=== PATIENT | male | born 1980 | race Two or more races ===

== ENCOUNTER 2021-09-06 09:42 | Outpatient (REF) | payer OTHER, SELFPAY ==
[2021-09-06 10:00] LABS: MANUAL DIFF FLAG NO
[2021-09-06 10:38] LABS: Basophils Percent Auto 0.4 % (0-2); Eosinophils Absolute Auto 0.3 X10*3/uL (0.0-0.4); Eosinophils Percent Auto 4.3 % (0-4); Hematocrit 45.9 % (42.0-52.0); Imm Gran Abs Auto 0.02 X10*3/uL (0.00-0.03); Imm Gran Pct Auto 0.3 % (0.0-0.4); Lymphocytes Absolute Auto 1.2 X10*3/uL (1.2-4.9); Lymphocytes Percent Auto 16.2 % (20-40); Mean Corpuscular HGB Conc 32.7 g/dl (31.0-36.0); Mean Corpuscular Hemoglobin 29.5 pg (27.0-33.0); Mean Corpuscular Volume 90.4 fL (80.0-98.0); Mean Platelet Volume 9.7 fL (9.4-12.4); Monocytes Absolute Auto 0.4 X10*3/uL (0.1-1.2); Monocytes Percent Auto 5.7 % (2-11); Neutrophils Absolute Auto 5.5 x10*3/uL (2.0-8.3); Neutrophils Percent Auto 73.1 % (45-73); Platelet Count 317 X10*3/uL (160-400); Red Blood Count 5.08 X10*6/uL (4.60-5.80); Red Cell Distribution Width 11.9 % (11.0-16.0); White Blood Count 7.5 X10*3/uL (4.8-10.8)
[2021-09-06 11:34] LABS: Appearance Urine CLEAR; Color Urine YELLOW; Glucose Urine UA NEG (NEG); Leukocyte Esterase Urine NEG (NEG); Nitrite Urine NEG (NEG); PH 6.5 (5.0-8.0); UACC Culture Trigger NO; Urine Blood TRACE (NEG); Urine Ketones NEG (NEG); Urine Protein 2+ MG/DL (NEG-TRACE)
[2021-09-06 11:36] LABS: Alanine Aminotransferase 16 U/L (0-40); Albumin Level 4.1 g/dL (3.5-5.0); Alkaline Phosphatase 56 U/L (39-117); Anion Gap 13 (12-20); Aspartate Amino Transferase 13 U/L (5-37); Bilirubin Total 0.6 mg/dL (0.0-1.0); Blood Urea Nitrogen 26 mg/dL (9-16); Calcium 9.5 mg/dL (8.4-10.2); Carbon Dioxide 25 mmol/L (22-29); Chloride 108 mmol/L (96-108); Cholesterol 207 mg/dL; Estimated Glomerular Filt Rate 27; Glucose Fasting 87 mg/dL (60-99); HDL Cholesterol 36 mg/dL; LDL Cholesterol Calculated 108 mg/dl; Potassium 4.7 mmol/L (3.3-5.1); Sodium 141 mmol/L (135-145); Total Protein 6.6 g/dL (6.5-8.0); Triglycerides 315 mg/dL
[2021-09-06 11:59] LABS: Mucus Urine 2+ /LPF; RBC Urine 0 /HPF (0); Squamous Epithelial Cell Urine 1+ /LPF; WBC Urine 0 /HPF (0-4)
== END 2021-09-06 09:43 | disposition home or self-care (01) ==
LOC: HO.LAB 09:42
PROVIDERS: PCP Internal Medicine; Visit Provider Internal Medicine
DX: I10 Essential (primary) hypertension (principal); E55.9 Vitamin D deficiency, unspecified; E78.00 Pure hypercholesterolemia, unspecified
CPT/HCPCS: 36415; 80053; 80061; 81001; 82306; 85025

== ENCOUNTER 2022-02-25 11:52 | Outpatient (REF) | payer OTHER, SELFPAY ==
--- NOTE | ~2022-02-25 | XR_ITS ---
EXAMINATION: XR ELBOW, LEFT CLINICAL INFORMATION: Pain COMPARISON: None TECHNIQUE: AP, lateral, and oblique views of the left elbow. FINDINGS: Displacement of the anterior fat pad which could be seen in the setting of radiographically occult fracture, most commonly of the radial head. There is a subtle step-off of the radial head, which could potentially correlate although where there is no marisol cortical disruption. Joint spaces are maintained. Soft tissues are unremarkable. XR/XR elbow LT min 3V IMPRESSION: Displacement of the anterior fat pad suggesting joint effusion which could be seen in the setting of radiographically occult fracture, most commonly of the radial head. There is a subtle step-off of the radial head, which could potentially correlate although where there is no marisol cortical disruption.
== END 2022-02-25 11:53 | disposition home or self-care (01) ==
LOC: HO.XRAY 11:52
PROVIDERS: PCP Internal Medicine; Visit Provider Internal Medicine
DX: M25.522 Pain in left elbow (principal)
CPT/HCPCS: 73080

== ENCOUNTER 2022-03-01 16:51 | Outpatient (REF) | payer OTHER, SELFPAY ==
[2022-03-02 04:55] LABS: Anion Gap 18 (12-20); Blood Urea Nitrogen 38 mg/dL (9-16); Carbon Dioxide 23 mmol/L (22-29); Chloride 104 mmol/L (96-108); Estimated Glomerular Filt Rate 25; Potassium 4.8 mmol/L (3.3-5.1); Sodium 140 mmol/L (135-145)
== END 2022-03-01 16:52 | disposition home or self-care (01) ==
LOC: HO.LAB 16:51
PROVIDERS: Visit Provider Internal Medicine Nephrology
DX: I12.9 Hypertensive chronic kidney disease with stage 1 through stage 4 chronic kidney disease, or unspecified chronic kidney disease (principal); N18.4 Chronic kidney disease, stage 4 (severe)
CPT/HCPCS: 36415; 80051; 82310; 82565; 84520

== ENCOUNTER 2022-05-10 10:25 | Outpatient (REF) | payer OTHER, SELFPAY ==
[2022-05-10 10:55] LABS: Basophils Percent Auto 0.5 % (0-2); Eosinophils Absolute Auto 0.3 X10*3/uL (0.0-0.4); Eosinophils Percent Auto 4.9 % (0-4); Hematocrit 45.3 % (42.0-52.0); Hemoglobin 15.4 g/dl (14.0-18.0); Imm Gran Abs Auto 0.01 X10*3/uL (0.00-0.03); Imm Gran Pct Auto 0.2 % (0.0-0.4); Lymphocytes Absolute Auto 1.1 X10*3/uL (1.2-4.9); Lymphocytes Percent Auto 19.5 % (20-40); MANUAL DIFF FLAG SCAN; Mean Corpuscular Hemoglobin 30.1 pg (27.0-33.0); Mean Corpuscular Volume 88.6 fL (80.0-98.0); Monocytes Absolute Auto 0.3 X10*3/uL (0.1-1.2); Monocytes Percent Auto 5.1 % (2-11); Neutrophils Absolute Auto 4.1 x10*3/uL (2.0-8.3); Neutrophils Percent Auto 69.8 % (45-73); PLT CLUMP 1; Red Blood Count 5.11 X10*6/uL (4.60-5.80); Red Cell Distribution Width 11.5 % (11.0-16.0); SCAN SMEAR FLAG 1
[2022-05-10 11:17] LABS: Platelet Count 282 X10*3/uL (160-400); SLIDE REVIEW VERIFIED; White Blood Count 5.9 X10*3/uL (4.8-10.8)
[2022-05-10 12:03] LABS: Appearance Urine Clear; Color Urine Yellow; Glucose Urine UA Negative (Negative); Leukocyte Esterase Urine Negative (Negative); Nitrite Urine Negative (Negative); PH 5.5 (5.0-9.0); UMIC TRIGGER UACC YES; Urine Blood Negative (Negative); Urine Ketones Negative (Negative); Urine Protein 100 (2+) mg/dL (Neg-Trace)
[2022-05-10 12:05] LABS: Bacteria Urine None Seen (None Seen); RBC Urine 0-2 /HPF (0-2); Squamous Epithelial Cell Urine 0-2 /HPF (0-2); WBC Urine 0-5 /HPF (0-5)
== END 2022-05-10 10:26 | disposition home or self-care (01) ==
LOC: HO.LAB 10:25
PROVIDERS: PCP Internal Medicine; Visit Provider Internal Medicine
DX: I12.9 Hypertensive chronic kidney disease with stage 1 through stage 4 chronic kidney disease, or unspecified chronic kidney disease (principal); N18.30 Chronic kidney disease, stage 3 unspecified; R30.0 Dysuria; E78.00 Pure hypercholesterolemia, unspecified
CPT/HCPCS: 36415; 80053; 80061; 81001; 81003; 82306; 84443; 85025

== ENCOUNTER 2022-05-11 07:54 | Outpatient (REF) | payer OTHER, SELFPAY ==
[2022-05-11 09:10] LABS: Alanine Aminotransferase 15 U/L (0-40); Albumin Level 4.1 g/dL (3.5-5.0); Alkaline Phosphatase 56 U/L (39-117); Anion Gap 13 (12-20); Aspartate Amino Transferase 14 U/L (5-37); Bilirubin Total 0.3 mg/dL (0.0-1.0); Blood Urea Nitrogen 34 mg/dL (9-16); Calcium 9.2 mg/dL (8.4-10.2); Carbon Dioxide 26 mmol/L (22-29); Chloride 106 mmol/L (96-108); Cholesterol 203 mg/dL; Estimated Glomerular Filt Rate 24; Glucose Fasting 94 mg/dL (60-99); HDL Cholesterol 36 mg/dL; LDL Cholesterol Calculated 127 mg/dl; Potassium 4.6 mmol/L (3.3-5.1); Sodium 140 mmol/L (135-145); TSH reflex Free T4 2.99 uIU/mL (0.32-4.0); Total Protein 6.4 g/dL (6.5-8.0); Triglycerides 202 mg/dL; Vitamin D 25-OH Total 40.4 ng/mL (>30)
[2022-05-11 10:35] LABS: Appearance Urine Clear; Color Urine Yellow; Glucose Urine UA Negative (Negative); Leukocyte Esterase Urine Negative (Negative); Nitrite Urine Negative (Negative); PH 5.5 (5.0-9.0); UMIC TRIGGER UACC YES; Urine Blood Negative (Negative); Urine Ketones Negative (Negative); Urine Protein 100 (2+) mg/dL (Neg-Trace)
[2022-05-11 10:44] LABS: Bacteria Urine None Seen (None Seen); Hyaline Casts Urine 0-2 /LPF (0-2); RBC Urine 0-2 /HPF (0-2); Squamous Epithelial Cell Urine 0-2 /HPF (0-2); WBC Urine 0-5 /HPF (0-5)
== END 2022-05-11 07:55 | disposition home or self-care (01) ==
LOC: HO.LAB 07:54
PROVIDERS: PCP Internal Medicine; Visit Provider Internal Medicine
DX: Z00.00 Encounter for general adult medical examination without abnormal findings (principal); I12.9 Hypertensive chronic kidney disease with stage 1 through stage 4 chronic kidney disease, or unspecified chronic kidney disease; N18.30 Chronic kidney disease, stage 3 unspecified; E55.9 Vitamin D deficiency, unspecified; E78.00 Pure hypercholesterolemia, unspecified
CPT/HCPCS: 36415; 80053; 80061; 81001; 82306; 84443

== ENCOUNTER 2022-06-07 17:15 | Outpatient (REF) | payer OTHER, SELFPAY ==
--- NOTE | ~2022-06-07 | XR_ITS ---
EXAMINATION: XR elbow LT min 3V CLINICAL INFORMATION: Pain COMPARISON: Elbow radiographs 02/25/2022 TECHNIQUE: 4 views of the elbow XR/XR elbow LT min 3V FINDINGS/IMPRESSION: No acute fracture or dislocation. Similar cortical step-off along the radial head which may reflect sequelae of prior radial head fracture or degenerative spurring, depending on clinical history. Joint spaces are maintained. No joint effusion. Soft tissues are unremarkable. IMPRESSION: * No acute osseous abnormality. Similar cortical step-off along the radial head which may reflect sequelae of prior radial head fracture or degenerative spurring, depending on clinical history.
== END 2022-06-07 17:16 | disposition home or self-care (01) ==
LOC: HO.HOSX 17:15
PROVIDERS: Visit Provider Physician Assistant
DX: M77.02 Medial epicondylitis, left elbow (principal)
CPT/HCPCS: 73080

== ENCOUNTER 2022-06-18 22:40 | Emergency (ER) | payer OTHER, SELFPAY ==
[2022-06-18 22:43] VITALS: BP 123/81; PULSE 69; RESP 18; TEMP 36.7; O2SAT 96; BMI 30.4
[2022-06-18 23:16] LABS: Appearance Urine Clear; Color Urine Yellow; Glucose Urine UA Negative (Negative); Leukocyte Esterase Urine Negative (Negative); Nitrite Urine Negative (Negative); PH 5.5 (5.0-9.0); Specific Gravity - Urine 1.015 (1.005-1.025); UMIC TRIGGER UACC YES; Urine Blood Negative (Negative); Urine Ketones Negative (Negative); Urine Protein 300 (3+) mg/dL (Neg-Trace)
[2022-06-18 23:17] LABS: MANUAL DIFF FLAG NO
[2022-06-18 23:18] LABS: Basophils Percent Auto 0.4 % (0-2); Eosinophils Absolute Auto 0.2 X10*3/uL (0.0-0.4); Eosinophils Percent Auto 3.2 % (0-4); Hematocrit 41.4 % (42.0-52.0); Hemoglobin 13.7 g/dl (14.0-18.0); Imm Gran Abs Auto 0.02 X10*3/uL (0.00-0.03); Imm Gran Pct Auto 0.3 % (0.0-0.4); Lymphocytes Absolute Auto 1.7 X10*3/uL (1.2-4.9); Lymphocytes Percent Auto 23.4 % (20-40); Mean Corpuscular HGB Conc 33.1 g/dl (31.0-36.0); Mean Corpuscular Hemoglobin 30.2 pg (27.0-33.0); Mean Corpuscular Volume 91.4 fL (80.0-98.0); Mean Platelet Volume 9.7 fL (9.4-12.4); Monocytes Absolute Auto 0.5 X10*3/uL (0.1-1.2); Monocytes Percent Auto 6.7 % (2-11); Neutrophils Absolute Auto 4.7 x10*3/uL (2.0-8.3); Platelet Count 333 X10*3/uL (160-400); Red Blood Count 4.53 X10*6/uL (4.60-5.80); Red Cell Distribution Width 11.9 % (11.0-16.0); White Blood Count 7.2 X10*3/uL (4.8-10.8)
[2022-06-18 23:20] LABS: Bacteria Urine None Seen (None Seen); Hyaline Casts Urine 0-2 /LPF (0-2); RBC Urine 0-2 /HPF (0-2); Squamous Epithelial Cell Urine 0-2 /HPF (0-2); WBC Urine 0-5 /HPF (0-5)
[2022-06-18 23:33] LABS: Anion Gap 14 (12-20); Blood Urea Nitrogen 32 mg/dL (9-16); Calcium 8.9 mg/dL (8.4-10.2); Carbon Dioxide 22 mmol/L (22-29); Chloride 110 mmol/L (96-108); Creatinine Clr Calc Pharmacy 30.6; Estimated Glomerular Filt Rate 21; Glucose Random 92 mg/dL (60-115); Potassium 4.2 mmol/L (3.3-5.1); Sodium 142 mmol/L (135-145)
[2022-06-18 23:51] LABS: Influenza A PCR NEGATIVE (Negative); Influenza B PCR NEGATIVE (Negative); Resp Syncy Virus RNA Qual PCR NEGATIVE (Negative); SARS COV2 PCR INHOUSE NEGATIVE (Negative)
[2022-06-19 01:36] VITALS: BP 121/83; PULSE 70; RESP 18; O2SAT 97
--- NOTE | 2022-06-19 02:46 | ED_ITS ---
HPI - Nausea/Vomiting/Diarrhea General Chief complaint: Nausea/Vomiting/Diarrhea Stated complaint: renal failure? vomiting Time Seen by Provider: 06/19/22 02:30 Source: patient and family ( , Denisa) Mode of arrival: ambulatory Limitations: no limitations History of Present Illness HPI Narrative: 42-year-old male who presents emergency department for evaluation nausea, vomiting and diarrhea. Patient has been sick for approximately 3-4 days. Patient states he has been vomiting 2 to 4 times a day. States he has also had constant diarrhea. He states that nighttime eats or drinks goes right through many has diarrhea. He states the diarrhea is loose and watery, he has had no blood in the diarrhea. Patient is also complaining of abdominal pain. He points to his left side of his abdomen asked to localize the pain, states this is a constant, gas like pain which is 5/10 at its worst. Patient has not been on antibiotics recently and has not traveled. He has not been around any sick contacts. Patient does have a history chronic kidney disease of unclear etiology. Denied fever, chills, rhinorrhea, sore throat, cough, chest pain, shortness of breath Related Data Home Medications Medication Instructions Recorded Confirmed omega-3 fatty acids 1,000 mg 1,000 mg PO DAILY 04/21/20 05/03/22 capsule (Fish Oil Concentrate) Previous Rx's Medication Instructions Recorded fexofenadine 180 mg tablet 180 mg PO DAILY PRN allergy 10/19/20 symptoms 30 days #30 tabs nystatin 100,000 unit/gram topical 1 appl topical TID 10 days #60 11/01/20 powder grams loratadine 10 mg tablet 10 mg PO DAILY PRN allergy 10/25/21 symptoms 90 days #90 tabs atorvastatin 10 mg tablet 10 mg PO DAILY #90 tabs 02/25/22 lisinopril 10 mg tablet 10 mg PO DAILY #90 tabs 02/25/22 cholecalciferol (vitamin D3) 25 25 mcg PO DAILY 90 days #90 tabs 05/03/22 mcg (1,000 unit) tablet fluticasone propionate 50 2 spray intranasal DAILY PRN 05/03/22 mcg/actuation nasal allergy symptoms 30 days #16 grams spray,suspension ondansetron 4 mg disintegrating 4 mg PO Q6-8H PRN nausea and 06/19/22 tablet vomiting #14 tabs Allergies Allergy/AdvReac Type Severity Reaction Status Date / Time No Known Allergies Allergy Verified 06/07/22 08:14 Review of Systems Review of Systems: Yes all other systems are reviewed and are negative [facility] Past Medical History Medical History Acute angle-closure glaucoma of right eye Benign essential hypertension Chronic kidney disease (CKD), stage III (moderate) Obesity (BMI 30-39.9) Pure hypercholesterolemia Vitamin D deficiency Surgical History History of eye surgery Family History Family History Father Medical history unknown Mother Cancer Social History Social History Housing: House Alcohol intake: never Patient Tobacco Use Status: Never used Tobacco Second Hand Smoke Exposure: Yes Advance Directives: No Advance Directives Information Provided: No service: No Current occupational status: employed 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, 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 Cognitive needs: No Hearing needs: No Vision needs: No Physical Exam Vital Signs: Vital Signs: Last Vital Signs Temp 98.0 F 06/18/22 22:43 Pulse 57 06/19/22 04:54 Resp 18 06/19/22 01:36 BP 119/77 06/19/22 04:54 Pulse Ox 98 06/19/22 04:54 O2 Del Method 06/19/22 04:54 BMI result Body Mass Index 30.4 Const: General: cooperative and no acute distress Jean-Pierre entation/consciousness: oriented to person and oriented to place Limitations: no limitations HEENT: Head: Yes normal to inspection, Yes normocephalic and Yes atraumatic Ears: external ears normal General nose exam: Normal external nose present Face and sinus: Yes normal facial exam Mouth: Normal oral and palatal mucosa present Throat: Yes posterior oropharynx normal Eyes: General: appearance normal, both eyes and all related structures Pupils: Equal, round and reactive pupils present Neck: Neck: Yes normal visual inspection, Yes no lymphadenopathy, Yes trachea midline and Yes supple Chest: Chest palpation & inspection: normal inspection of the chest and normal palpation of entire chest wall Resp: Effort & Inspection: normal respiratory effort and able to speak in complete sentences Auscultation: clear to auscultation bilaterally Cardio: Rate: regular rate Rhythm: regular rhythm Heart sounds: S1 normal heart sound present, S2 normal heart sound present and no murmurs GI: Inspection: Yes normal to inspection Palpation (GI): Soft to palpation, Tenderness to palpation present (GI) ( mild diffuse tenderness, mild to moderate left-sided tenderness, no reboun) and no guarding Auscultation: normal bowel sounds : General: Yes no CVA tenderness Back/Spine/Pelvis: Back: no CVA tenderness Skin: General skin exam: no rashes or lesions noted Neuro: General: oriented to person and oriented to place Cranial nerves: Yes CN's II-XII intact bilaterally and Yes Equal, round and reactive pupils present Cognition (Neuro): normal cognition Motor exam (neuro): 5/5 motor strength present throughout Extrem: General: Yes normal to inspection Psych: Appearance: grossly normal Speech and movement: Normal speech and movement present Affect: normal affect Attitude: cooperative Thought process: Normal thought process present Thought content: Normal thought content present Medications Administered Discontinued Medications Generic Name Dose Route Start Last Admin Trade Name Dallasq PRN Reason Stop Dose Admin Acetaminophen 975 mg 06/19/22 02:44 06/19/22 03:10 Acetaminophen 325 Mg Tablet PO 06/19/22 02:45 975 mg ONCE STA Administration Lactated Ringer's 1,000 mls @ 999 mls/hr 06/19/22 02:45 06/19/22 03:10 Lr IV 06/19/22 03:45 999 mls/hr .Q1H1M ALISSA Administration Lactated Ringer's 1,000 mls @ 999 mls/hr 06/19/22 02:45 06/19/22 03:14 Lr IV 06/19/22 03:45 999 mls/hr .Q1H1M ALISSA Administration Ondansetron HCl 4 mg 06/19/22 02:42 06/19/22 03:10 Ondansetron Hcl 4 Mg/2 Ml Vial IVPUSH 06/19/22 02:43 4 mg ONCE ONE Administration Medical Decision Making Medical Decision Making MDM Narrative: 42-year-old male who presents emergency department for evaluation of nausea, vomiting, diarrhea abdominal pain times 3-4 days. patient has had 2-4 episodes of vomiting per day with multiple episodes of diarrhea. Patient had no other significant symptoms. He has had decreased fluid and food intake. Patient's vital signs were normal. Patient's abdominal exam did reveal diffuse tenderness with increased tenderness with palpation of his left side of his abdomen. Laboratory evaluation was ordered at triage on this include CBC, BMP BMP, urinalysis, RSV, COVID, influenza. I added C diff PCR, liver panel and lipase. patient was ordered to get lactated Ringer's 2 L IV, Zofran 4 mg IV and Tylenol 975 mg orally. 0251: My interpretation of patient's laboratory evaluation as follows: CBC was normal. BMP revealed an elevated BUN creatinine of 32 and 3.26 with a low GFR of 21. These values are above the patient's baseline chronic kidney disease with his previous values on 05/11/2022 with a BUN of 34, Creatinine of 2.95 and a GFR of 24. Patient's urinalysis was unremarkable. The patient's laboratory evaluation is consistent with being volume depleted from vomiting and diarrhea. 0607: Patient does feel better after the above treatment, he was able to drink fluids without vomiting. Patient has had no diarrhea here in the emergency department. He was given Imodium 4 mg orally. The patient will be discharged home. He was advised to increase his fluid intake, take Imodium as directed, Tylenol as needed for pain or fever and he was prescribed Zofran ODT Lab Data 06/18/22 23:02 06/18/22 23:02 Labs: Lab Results 06/18/22 06/18/22 06/18/22 Range/Units 23:02 23:02 23:04 WBC 7.2 (4.8-10.8) X10*3/uL RBC 4.53 L (4.60-5.80) X10*6/uL Hgb 13.7 L (14.0-18.0) g/dl Hct 41.4 L (42.0-52.0) % MCV 91.4 (80.0-98.0) fL MCH 30.2 (27.0-33.0) pg MCHC 33.1 (31.0-36.0) g/dl RDW 11.9 (11.0-16.0) % Plt Count 333 (160-400) X10*3/uL MPV 9.7 (9.4-12.4) fL Immature Gran % (Auto) 0.3 (0.0-0.4) % Neut % (Auto) 66.0 (45-73) % Lymph % (Auto) 23.4 (20-40) % [place] % (Auto) 6.7 (2-11) % Eos % (Auto) 3.2 (0-4) % Baso % (Auto) 0.4 (0-2) % Lymph # (Auto) 1.7 (1.2-4.9) X10*3/uL [place] # (Auto) 0.5 (0.1-1.2) X10*3/uL Eos # (Auto) 0.2 (0.0-0.4) X10*3/uL Baso # (Auto) 0.0 (0.0-0.2) X10*3/uL Abs Immat Gran (auto) 0.02 (0.00-0.03) X10*3/uL Absolute Neuts (auto) 4.7 (2.0-8.3) x10*3/uL Absolute Nucleated RBC 0.000 (0.0-0.012) X10*3/uL Nucleated RBC % (auto) 0.0 (0.0-0.2) /100WBC Sodium 142 (135-145) mmol/L Potassium 4.2 (3.3-5.1) mmol/L Chloride 110 H (96-108) mmol/L Carbon Dioxide 22 (22-29) mmol/L Anion Gap 14 (12-20) BUN 32 H (9-16) mg/dL Creatinine 3.26 H (0.5-1.4) mg/dL Estim Creat Clear Calc 30.6 Estimated GFR 21 Random Glucose 92 (60-115) mg/dL Calcium 8.9 (8.4-10.2) mg/dL Total Bilirubin 0.2 (0.0-1.0) mg/dL Direct Bilirubin < 0.2 (0.0-0.5) mg/dL AST 13 (5-37) U/L ALT 12 (0-40) U/L Alkaline Phosphatase 52 (39-117) U/L Total Protein 6.2 L (6.5-8.0) g/dL Albumin 3.9 (3.5-5.0) g/dL Lipase 54 (8-78) U/L Urine Color Yellow Urine Appearance Clear Urine pH 5.5 (5.0-9.0) Ur Specific [place] 1.015 (1.005-1.025) Urine Protein 300 (3+) H (Neg-Trace) mg/dL Urine Glucose (UA) Negative (Negative) mg/dL Urine Ketones Negative (Negative) mg/dL Urine Blood Negative (Negative) Urine Nitrite Negative (Negative) Ur Leukocyte Esterase Negative (Negative) Urine RBC 0-2 (0-2) /HPF Urine WBC 0-5 (0-5) /HPF Ur Squamous Epith Cells 0-2 (0-2) /HPF Urine Bacteria None Seen (None Seen) Hyaline Casts 0-2 (0-2) /LPF Influenza Type A (PCR) (Negative) Influenza Type B (PCR) (Negative) RSV RNA Qual (PCR) (Negative) SARS-CoV-2 RNA (RT-PCR) (Negative) 06/18/22 Range/Units 23:04 WBC (4.8-10.8) X10*3/uL RBC (4.60-5.80) X10*6/uL Hgb (14.0-18.0) g/dl Hct (42.0-52.0) % MCV (80.0-98.0) fL MCH (27.0-33.0) pg MCHC (31.0-36.0) g/dl RDW (11.0-16.0) % Plt Count (160-400) X10*3/uL MPV (9.4-12.4) fL Immature Gran % (Auto) (0.0-0.4) % Neut % (Auto) (45-73) % Lymph % (Auto) (20-40) % [place] % (Auto) (2-11) % Eos % (Auto) (0-4) % Baso % (Auto) (0-2) % Lymph # (Auto) (1.2-4.9) X10*3/uL [place] # (Auto) (0.1-1.2) X10*3/uL Eos # (Auto) (0.0-0.4) X10*3/uL Baso # (Auto) (0.0-0.2) X10*3/uL Abs Immat Gran (auto) (0.00-0.03) X10*3/uL Absolute Neuts (auto) (2.0-8.3) x10*3/uL Absolute Nucleated RBC (0.0-0.012) X10*3/uL Nucleated RBC % (auto) (0.0-0.2) /100WBC Sodium (135-145) mmol/L Potassium (3.3-5.1) mmol/L Chloride (96-108) mmol/L Carbon Dioxide (22-29) mmol/L Anion Gap (12-20) BUN (9-16) mg/dL Creatinine (0.5-1.4) mg/dL Estim Creat Clear Calc Estimated GFR Random Glucose (60-115) mg/dL Calcium (8.4-10.2) mg/dL Total Bilirubin (0.0-1.0) mg/dL Direct Bilirubin (0.0-0.5) mg/dL AST (5-37) U/L ALT (0-40) U/L Alkaline Phosphatase (39-117) U/L Total Protein (6.5-8.0) g/dL Albumin (3.5-5.0) g/dL Lipase (8-78) U/L Urine Color Urine Appearance Urine pH (5.0-9.0) Ur Specific [place] (1.005-1.025) Urine Protein (Neg-Trace) mg/dL Urine Glucose (UA) (Negative) mg/dL Urine Ketones (Negative) mg/dL Urine Blood (Negative) Urine Nitrite (Negative) Ur Leukocyte Esterase (Negative) Urine RBC (0-2) /HPF Urine WBC (0-5) /HPF Ur Squamous Epith Cells (0-2) /HPF Urine Bacteria (None Seen) Hyaline Casts (0-2) /LPF Influenza Type A (PCR) NEGATIVE (Negative) Influenza Type B (PCR) NEGATIVE (Negative) RSV RNA Qual (PCR) NEGATIVE (Negative) SARS-CoV-2 RNA (RT-PCR) NEGATIVE (Negative) Discharge Plan Discharge Clinical Impression: Viral syndrome, Acute dehydration Diarrhea Qualifiers: Diarrhea type: unspecified type Qualified Code(s): R19.7 - Diarrhea, unspecified Vomiting Qualifiers: Nausea presence: with nausea Patient Disposition: Home, Self-Care Instructions: Acute Diarrhea (ED), Viral Syndrome (ED) Additional Instructions: Your blood work did reveal slight elevation in your BUN creatinine above your baseline, this is caused by you being dehydrated and not being able to keep up with the amount of fluid that you are losing with vomiting and diarrhea. For diarrhea I want you to take Imodium 2 mg pills. Take 2 pills after the 1st loose, diarrheal stool then 1 pill after each loose, diarrheal stool up to 8 pills per day. This usually stops diarrhea within 24 hours. Take Zofran ODT 4 mg pills, 1 pill dissolved in your mouth every 8 hours as needed for nausea and vomiting. Take Tylenol (acetaminophen) 500 mg pills, 2 pills every 4 to 6 hours as needed for pain. Follow-up with your doctor in 2 days. Please return to the emergency department if your symptoms get worse or if you develop any symptoms that are concerning to you. Prescriptions: New ondansetron 4 mg tablet,disintegrating 4 mg PO Q6-8H PRN (Reason: nausea and vomiting) Qty: 14 0RF No Action fexofenadine 180 mg tablet 180 mg PO DAILY PRN (Reason: allergy symptoms) 30 Days Qty: 30 5RF nystatin 100,000 unit/gram powder 1 appl topical TID 10 Days Qty: 60 2RF Rx Instructions: application to affected areas as directed Externally three times a day loratadine 10 mg tablet 10 mg PO DAILY PRN (Reason: allergy symptoms) 90 Days Qty: 90 3RF omega-3 fatty acids [Fish Oil Concentrate] 1,000 mg capsule 1,000 mg PO DAILY fluticasone propionate 50 mcg/actuation spray,suspension 2 spray intranasal DAILY PRN (Reason: allergy symptoms) 30 Days Qty: 16 5RF Rx Instructions: administer into each nostril cholecalciferol (vitamin D3) 25 mcg (1,000 unit) tablet 25 mcg PO DAILY 90 Days Qty: 90 3RF atorvastatin 10 mg tablet 10 mg PO DAILY Qty: 90 3RF lisinopril 10 mg tablet 10 mg PO DAILY Qty: 90 3RF
[2022-06-19 03:07] LABS: Alanine Aminotransferase 12 U/L (0-40); Albumin Level 3.9 g/dL (3.5-5.0); Alkaline Phosphatase 52 U/L (39-117); Aspartate Amino Transferase 13 U/L (5-37); Bilirubin Direct < 0.2 mg/dL (0.0-0.5); Bilirubin Total 0.2 mg/dL (0.0-1.0); Lipase 54 U/L (8-78); Total Protein 6.2 g/dL (6.5-8.0)
[2022-06-19] MEDS: ondansetron HCL 4 MG/2 ML VIAL IVPUSH (03:10)
[2022-06-19] MEDS: Lactated Ringers 1,000 ML 999 ML IV ×2 (03:10→03:14)
[2022-06-19] MEDS: Acetaminophen 325 MG TABLET 975 MG PO (03:10)
--- NOTE | 2022-06-19 03:18 | PC.NURSE ---
I assumed nursing care of Nasir upon his arrival to ED bed 15 from the waiting room. He is alert, oriented x 3, resting in bed with family at the bedside. No chest pain. Respirations non-labored. Speech clear and appropriate. IV access and labs have been obtained. Ordered meds and IVF's administered, will continue to monitor Nasir. Pt taking PO meds without difficulty.
[2022-06-19 04:54] VITALS: BP 119/77; PULSE 57; O2SAT 98
[2022-06-19] MEDS: Loperamide HCl 2 MG CAPSULE 4 MG PO (06:24)
== END 2022-06-19 06:37 | disposition home or self-care (01) ==
PROVIDERS: Emergency Provider Emergency Medicine Emergency Medical Services
DX: B34.9 Viral infection, unspecified (principal); E86.0 Dehydration; R11.2 Nausea with vomiting, unspecified; R19.7 Diarrhea, unspecified; Z20.828 Contact with and (suspected) exposure to other viral communicable diseases; Z20.822 Contact with and (suspected) exposure to COVID-19; I12.9 Hypertensive chronic kidney disease with stage 1 through stage 4 chronic kidney disease, or unspecified chronic kidney disease; N18.30 Chronic kidney disease, stage 3 unspecified; E78.00 Pure hypercholesterolemia, unspecified; E66.9 Obesity, unspecified; Z68.30 Body mass index [BMI] 30.0-30.9, adult; Z79.899 Other long term (current) drug therapy; Z79.02 Long term (current) use of antithrombotics/antiplatelets
CPT/HCPCS: 0241U; 36415; 80048; 80076; 81001; 83690; 85025; 96374; 99284; J2405

== ENCOUNTER 2022-07-14 23:01 | Emergency (ER) | payer OTHER, SELFPAY ==
[2022-07-14 23:18] VITALS: BP 125/83; PULSE 102; RESP 20; TEMP 37.1; O2SAT 98; BMI 28.8
[2022-07-14 23:55] LABS: Influenza A PCR NEGATIVE (Negative); Influenza B PCR NEGATIVE (Negative); Resp Syncy Virus RNA Qual PCR NEGATIVE (Negative); SARS COV2 PCR INHOUSE NEGATIVE (Negative)
--- NOTE | 2022-07-15 01:18 | ED.GENADULT ---
HPI - General Adult General Chief complaint: General Medical Stated complaint: sore throat, dry heave Time Seen by Provider: 07/15/22 00:37 Source: patient and family Mode of arrival: ambulatory Limitations: no limitations History of Present Illness HPI narrative: 42-year-old male presented with his for evaluation of sore throat, generalized body ache, generalized joint pain, decreased p.o. intake with fever and chills. Patient's symptoms started 1 day ago, no sick contact. Related Data Home Medications Medication Instructions Recorded Confirmed omega-3 fatty acids 1,000 mg 1,000 mg PO DAILY 04/21/20 05/03/22 capsule (Fish Oil Concentrate) Previous Rx's Medication Instructions Recorded fexofenadine 180 mg tablet 180 mg PO DAILY PRN allergy 10/19/20 symptoms 30 days #30 tabs nystatin 100,000 unit/gram topical 1 appl topical TID 10 days #60 11/01/20 powder grams loratadine 10 mg tablet 10 mg PO DAILY PRN allergy 10/25/21 symptoms 90 days #90 tabs atorvastatin 10 mg tablet 10 mg PO DAILY #90 tabs 02/25/22 lisinopril 10 mg tablet 10 mg PO DAILY #90 tabs 02/25/22 cholecalciferol (vitamin D3) 25 25 mcg PO DAILY 90 days #90 tabs 05/03/22 mcg (1,000 unit) tablet fluticasone propionate 50 2 spray intranasal DAILY PRN 05/03/22 mcg/actuation nasal allergy symptoms 30 days #16 grams spray,suspension ondansetron 4 mg disintegrating 4 mg PO Q6-8H PRN nausea and 06/19/22 tablet vomiting #14 tabs Allergies Allergy/AdvReac Type Severity Reaction Status Date / Time No Known Allergies Allergy Verified 06/07/22 08:14 Review of Systems Review of Systems: All other systems are reviewed and are negative Constitutional: Reports as per HPI and Reports no additional constitutional complaints Eyes: Reports as per HPI and Reports no additional eye complaints Reports system reviewed and no additional complaints, except as documented Cardiovascular: Reports as per HPI and Reports no additional cardiovascular complaints Respiratory: Reports as per HPI and Reports no additional respiratory complaints Gastrointestinal: Reports as per HPI and Reports no additional gastrointestinal complaints Genitourinary: Reports no additional female genitourinary complaints Musculoskeletal: Reports no additional musculoskeletal complaints Skin/Breast: Reports system reviewed and no additional complaints, except as docu Psychiatric: Reports no additional psychiatric complaints Endocrine: Reports no additional endocrine complaints Hematologic/Lymphatic: Reports no additional hematologic/lymphatic complaints Allergic/Immunologic: Reports no additional allergic/immunologic complaints Reports system reviewed and no additional complaints, except as documented and Reports Abnormal speech present [facility] Past Medical History Medical History Acute angle-closure glaucoma of right eye Benign essential hypertension Chronic kidney disease (CKD), stage III (moderate) Obesity (BMI 30-39.9) Pure hypercholesterolemia Vitamin D deficiency Surgical History History of eye surgery Family History Family History Father Medical history unknown Mother Cancer Social History Social History Housing: House Alcohol intake: never Patient Tobacco Use Status: Never used Tobacco Smoked in Last 30 Days: No Second Hand Smoke Exposure: Yes Use of substances other than those prescribed or required for medical reasons: No Advance Directives: No service: No Current occupational status: employed 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 Blood pressure normal. Heart rate normal. Respiration rate normal. Temperature normal. Oxygen saturation normal. Appearance: Alert. Oriented X3. No acute distress. Head: Normal external exam. Normocephalic. Atraumatic. No Balbuena signs noted. No raccoon eyes noted Eyes: PERRLA. EOMI. Conjunctiva and sclera normal. Eyelids normal. ENT: TM's Normal. Pharynx normal. Uvula midline. Moist mucous membranes. No trismus noted. No drooling noted. No muffled voice noted. Neck: Normal inspection. Neck supple. FROM. No adenopathy. Thyroid Normal. No meningeal signs. No neck mass noted. CVS: Normal heart rate and rhythm. Heart sound normal. No murmurs noted. Pulses normal throughout. Respiratory: No respiratory distress. Painless inspiration. Breath sounds normal. No wheezes/rales/rhonchi noted. Chest nontender. No accessory muscle usage noted or decreased air movement noted. Abdomen: Soft and nontender. Bowel sounds normal in all 4 quadrants. No distention noted. No organomegaly noted. No visible injury noted. Back: No CVA tenderness. Full range of motion noted. Skin: Skin warm and dry. Normal skin color. Normal skin turgor. No rashes/lesions/lacerations noted. Extremities: No lower extremity edema. Extremities exhibit normal range of motion. Extremities nontender. Neuro: Oriented X 3. Cranial nerve exam: II-XII are grossly intact No motor deficit. No sensory deficit. Reflexes normal. Course Course Course Narrative: 42-year-old male with flu-like symptoms patient is negative for flu/COVID/RSV/rapid strap. Patient had chronic renal injury needed IV hydration in the emergency department and repeat labs for hyperkalemia which is likely a lab error. Will discharge the patient to follow-up with PCP. Medications Administered Discontinued Medications Generic Name Dose Route Start Last Admin Trade Name Freq PRN Reason Stop Dose Admin Sodium Chloride 1,000 mls @ 999 mls/hr 07/15/22 01:18 07/15/22 04:19 Ns IV 07/15/22 02:18 Infused .Q1H1M ONE Infusion Sodium Chloride 1,000 mls @ 999 mls/hr 07/15/22 03:54 07/15/22 05:47 Ns IV 07/15/22 04:54 Infused .Q1H1M ONE Infusion Medical Decision Making Differential Diagnosis Differential Diagnoses: The differential diagnosis associated with the presentation includes (Influenza, RSV, COVID-19 infection, strep pharyngitis, dehydration, acute on chronic renal failure.) Lab Data MDM Lab Attestation statement: I reviewed the patient's lab results. 07/15/22 01:46 07/15/22 05:55 Labs: Lab Results 07/15/22 07/15/22 07/15/22 Range/Units 01:46 01:46 03:26 WBC 6.6 (4.8-10.8) X10*3/uL RBC 4.92 (4.60-5.80) X10*6/uL Hgb 14.7 (14.0-18.0) g/dl Hct 43.4 (42.0-52.0) % MCV 88.2 (80.0-98.0) fL MCH 29.9 (27.0-33.0) pg MCHC 33.9 (31.0-36.0) g/dl RDW 11.9 (11.0-16.0) % Plt Count 275 (160-400) X10*3/uL MPV 9.6 (9.4-12.4) fL Absolute Nucleated RBC 0.000 (0.0-0.012) X10*3/uL Nucleated RBC % (auto) 0.0 (0.0-0.2) /100WBC Sodium 137 (135-145) mmol/L Potassium 5.2 H D (3.3-5.1) mmol/L Chloride 108 (96-108) mmol/L Carbon Dioxide 18 L (22-29) mmol/L Anion Gap 16 (12-20) BUN 23 H (9-16) mg/dL Creatinine 2.54 H (0.5-1.4) mg/dL Estim Creat Clear Calc 40.8 Estimated GFR 28 Random Glucose 102 (60-115) mg/dL Calcium 8.2 L D (8.4-10.2) mg/dL Total Bilirubin 0.2 (0.0-1.0) mg/dL AST 25 (5-37) U/L ALT 19 (0-40) U/L Alkaline Phosphatase 55 (39-117) U/L Total Protein 6.6 (6.5-8.0) g/dL Albumin 3.7 (3.5-5.0) g/dL Urine Color Urine Appearance Urine pH (5.0-9.0) Ur Specific [place] (1.005-1.025) Urine Protein (Neg-Trace) mg/dL Urine Glucose (UA) (Negative) mg/dL Urine Ketones (Negative) mg/dL Urine Blood (Negative) Urine Nitrite (Negative) Ur Leukocyte Esterase (Negative) Urine RBC (0-2) /HPF Urine WBC (0-5) /HPF Ur Squamous Epith Cells (0-2) /HPF Urine Bacteria (None Seen) Hyaline Casts (0-2) /LPF S. pyogenes GrpA KATHY Negative (Negative) 07/15/22 07/15/22 Range/Units 03:26 05:55 WBC (4.8-10.8) X10*3/uL RBC (4.60-5.80) X10*6/uL Hgb (14.0-18.0) g/dl Hct (42.0-52.0) % MCV (80.0-98.0) fL MCH (27.0-33.0) pg MCHC (31.0-36.0) g/dl RDW (11.0-16.0) % Plt Count (160-400) X10*3/uL MPV (9.4-12.4) fL Absolute Nucleated RBC (0.0-0.012) X10*3/uL Nucleated RBC % (auto) (0.0-0.2) /100WBC Sodium 139 (135-145) mmol/L Potassium 4.1 D (3.3-5.1) mmol/L Chloride 109 H (96-108) mmol/L Carbon Dioxide 20 L (22-29) mmol/L Anion Gap 14 (12-20) BUN 22 H (9-16) mg/dL Creatinine 2.40 H (0.5-1.4) mg/dL Estim Creat Clear Calc 43.2 Estimated GFR 30 Random Glucose 89 (60-115) mg/dL Calcium 8.0 L (8.4-10.2) mg/dL Total Bilirubin (0.0-1.0) mg/dL AST (5-37) U/L ALT (0-40) U/L Alkaline Phosphatase (39-117) U/L Total Protein (6.5-8.0) g/dL Albumin (3.5-5.0) g/dL Urine Color Yellow Urine Appearance Clear Urine pH 5.5 (5.0-9.0) Ur Specific [place] <= 1.005 (1.005-1.025) Urine Protein 100 (2+) H (Neg-Trace) mg/dL Urine Glucose (UA) Negative (Negative) mg/dL Urine Ketones Negative (Negative) mg/dL Urine Blood Negative (Negative) Urine Nitrite Negative (Negative) Ur Leukocyte Esterase Negative (Negative) Urine RBC 0-2 (0-2) /HPF Urine WBC 0-5 (0-5) /HPF Ur Squamous Epith Cells 0-2 (0-2) /HPF Urine Bacteria None Seen (None Seen) Hyaline Casts 0-2 (0-2) /LPF S. pyogenes GrpA KATHY (Negative) Discharge Plan Discharge Clinical Impression: Acute viral syndrome Patient Disposition: Home, Self-Care Instructions: Dehydration (ED) Additional Instructions: Drink plenty of fluids keep yourself hydrated. Take Tylenol [id number] if needed for pain or fever. Prescriptions: No Action fexofenadine 180 mg tablet 180 mg PO DAILY PRN (Reason: allergy symptoms) 30 Days Qty: 30 5RF nystatin 100,000 unit/gram powder 1 appl topical TID 10 Days Qty: 60 2RF Rx Instructions: application to affected areas as directed Externally three times a day loratadine 10 mg tablet 10 mg PO DAILY PRN (Reason: allergy symptoms) 90 Days Qty: 90 3RF ondansetron 4 mg tablet,disintegrating 4 mg PO Q6-8H PRN (Reason: nausea and vomiting) Qty: 14 0RF omega-3 fatty acids [Fish Oil Concentrate] 1,000 mg capsule 1,000 mg PO DAILY fluticasone propionate 50 mcg/actuation spray,suspension 2 spray intranasal DAILY PRN (Reason: allergy symptoms) 30 Days Qty: 16 5RF Rx Instructions: administer into each nostril cholecalciferol (vitamin D3) 25 mcg (1,000 unit) tablet 25 mcg PO DAILY 90 Days Qty: 90 3RF atorvastatin 10 mg tablet 10 mg PO DAILY Qty: 90 3RF lisinopril 10 mg tablet 10 mg PO DAILY Qty: 90 3RF Referrals: Dwayne Jacobs MD [Primary Care Provider] - Stand Alone Forms: Work/School Release
[2022-07-15] MEDS: 0.9 % Sodium Chloride 1,000 ML 999 ML IV ×2 (01:54→04:28)
--- NOTE | 2022-07-15 01:54 | PC.NURSE ---
Iv placed, medicated per Mar and labs drawn. Will continue to monitor.
[2022-07-15 01:58] LABS: Hematocrit 43.4 % (42.0-52.0); Hemoglobin 14.7 g/dl (14.0-18.0); Mean Corpuscular HGB Conc 33.9 g/dl (31.0-36.0); Mean Corpuscular Hemoglobin 29.9 pg (27.0-33.0); Mean Corpuscular Volume 88.2 fL (80.0-98.0); Mean Platelet Volume 9.6 fL (9.4-12.4); Platelet Count 275 X10*3/uL (160-400); Red Blood Count 4.92 X10*6/uL (4.60-5.80); Red Cell Distribution Width 11.9 % (11.0-16.0); White Blood Count 6.6 X10*3/uL (4.8-10.8)
[2022-07-15 02:06] LABS: IDNOW Serial# 6674DD1D; Strep A Nucleic Acid Negative (Negative)
[2022-07-15 03:32] LABS: Appearance Urine Clear; Color Urine Yellow; Glucose Urine UA Negative (Negative); Leukocyte Esterase Urine Negative (Negative); Nitrite Urine Negative (Negative); PH 5.5 (5.0-9.0); Specific Gravity - Urine <= 1.005 (1.005-1.025); UMIC TRIGGER UACC YES; Urine Blood Negative (Negative); Urine Ketones Negative (Negative); Urine Protein 100 (2+) mg/dL (Neg-Trace)
[2022-07-15 03:35] LABS: Bacteria Urine None Seen (None Seen); Hyaline Casts Urine 0-2 /LPF (0-2); RBC Urine 0-2 /HPF (0-2); Squamous Epithelial Cell Urine 0-2 /HPF (0-2); WBC Urine 0-5 /HPF (0-5)
[2022-07-15 03:36] VITALS: BP 100/73; PULSE 88; RESP 18; TEMP 36.4; O2SAT 99
[2022-07-15 03:51] LABS: Alanine Aminotransferase 19 U/L (0-40); Albumin Level 3.7 g/dL (3.5-5.0); Alkaline Phosphatase 55 U/L (39-117); Anion Gap 16 (12-20); Aspartate Amino Transferase 25 U/L (5-37); Bilirubin Total 0.2 mg/dL (0.0-1.0); Blood Urea Nitrogen 23 mg/dL (9-16); Calcium 8.2 mg/dL (8.4-10.2); Carbon Dioxide 18 mmol/L (22-29); Chloride 108 mmol/L (96-108); Creatinine Clr Calc Pharmacy 40.8; Estimated Glomerular Filt Rate 28; Glucose Random 102 mg/dL (60-115); Potassium 5.2 mmol/L (3.3-5.1); Sodium 137 mmol/L (135-145); Total Protein 6.6 g/dL (6.5-8.0)
--- NOTE | 2022-07-15 05:50 | PC.NURSE ---
ivf completed, plan for labs to be drawn and pt is cooperative and willing to have the lab drawn.
[2022-07-15 06:22] LABS: Anion Gap 14 (12-20); Blood Urea Nitrogen 22 mg/dL (9-16); Carbon Dioxide 20 mmol/L (22-29); Chloride 109 mmol/L (96-108); Creatinine Clr Calc Pharmacy 43.2; Estimated Glomerular Filt Rate 30; Glucose Random 89 mg/dL (60-115); Potassium 4.1 mmol/L (3.3-5.1); Sodium 139 mmol/L (135-145)
== END 2022-07-15 06:50 | disposition home or self-care (01) ==
PROVIDERS: Emergency Provider Emergency Medicine; PCP Internal Medicine
DX: B34.9 Viral infection, unspecified (principal); J02.9 Acute pharyngitis, unspecified; Z20.822 Contact with and (suspected) exposure to COVID-19; Z20.828 Contact with and (suspected) exposure to other viral communicable diseases; Z79.02 Long term (current) use of antithrombotics/antiplatelets; Z79.899 Other long term (current) drug therapy
CPT/HCPCS: 0241U; 36415; 80048; 80053; 81001; 85027; 87651; 96360; 96361; 99284

== ENCOUNTER 2022-09-09 15:08 | Outpatient (REF) | payer OTHER, SELFPAY ==
--- NOTE | ~2022-09-09 | XR_ITS ---
EXAMINATION: XR FOOT, RIGHT CLINICAL INFORMATION: Right foot pain COMPARISON: None available. TECHNIQUE: AP, lateral, and oblique views of the right foot. FINDINGS: The bones and soft tissues are normal. No fracture. Alignment is anatomic. Joint spaces are maintained. XR/XR foot RT min 3V IMPRESSION: Normal right foot.
== END 2022-09-09 15:09 | disposition home or self-care (01) ==
LOC: HO.XRAY 15:08
PROVIDERS: PCP Internal Medicine; Visit Provider Internal Medicine
DX: M79.671 Pain in right foot (principal)
CPT/HCPCS: 73630

== ENCOUNTER 2022-10-29 06:26 | Outpatient (REF) | payer OTHER, SELFPAY ==
[2022-10-29 06:40] LABS: MANUAL DIFF FLAG NO
[2022-10-29 07:20] LABS: Basophils Percent Auto 0.6 % (0-2); Eosinophils Absolute Auto 0.4 X10*3/uL (0.0-0.4); Eosinophils Percent Auto 5.4 % (0-4); Hematocrit 43.2 % (42.0-52.0); Hemoglobin 14.6 g/dl (14.0-18.0); Imm Gran Abs Auto 0.02 X10*3/uL (0.00-0.03); Imm Gran Pct Auto 0.3 % (0.0-0.4); Lymphocytes Absolute Auto 1.6 X10*3/uL (1.2-4.9); Lymphocytes Percent Auto 23.3 % (20-40); Mean Corpuscular HGB Conc 33.8 g/dl (31.0-36.0); Mean Corpuscular Hemoglobin 30.9 pg (27.0-33.0); Mean Corpuscular Volume 91.5 fL (80.0-98.0); Mean Platelet Volume 9.8 fL (9.4-12.4); Monocytes Absolute Auto 0.4 X10*3/uL (0.1-1.2); Monocytes Percent Auto 5.7 % (2-11); Neutrophils Absolute Auto 4.6 x10*3/uL (2.0-8.3); Neutrophils Percent Auto 64.7 % (45-73); Platelet Count 322 X10*3/uL (160-400); Red Blood Count 4.72 X10*6/uL (4.60-5.80); Red Cell Distribution Width 11.9 % (11.0-16.0)
[2022-10-29 07:59] LABS: Alanine Aminotransferase 18 U/L (0-40); Albumin Level 4.1 g/dL (3.5-5.0); Alkaline Phosphatase 51 U/L (39-117); Anion Gap 15 (12-20); Aspartate Amino Transferase 14 U/L (5-37); Bilirubin Total 0.4 mg/dL (0.0-1.0); Blood Urea Nitrogen 31 mg/dL (9-16); Calcium 9.2 mg/dL (8.4-10.2); Carbon Dioxide 23 mmol/L (22-29); Chloride 109 mmol/L (96-108); Cholesterol 210 mg/dL; Estimated Glomerular Filt Rate 21; Glucose Fasting 88 mg/dL (60-99); HDL Cholesterol 38 mg/dL; LDL Cholesterol Calculated 126 mg/dl; Potassium 4.5 mmol/L (3.3-5.1); Sodium 142 mmol/L (135-145); Total Protein 6.3 g/dL (6.5-8.0); Triglycerides 231 mg/dL
[2022-10-29 08:17] LABS: TSH reflex Free T4 2.55 uIU/mL (0.32-4.0); Vitamin D 25-OH Total 40.8 ng/mL (>30)
== END 2022-10-29 06:27 | disposition home or self-care (01) ==
LOC: HO.LAB 06:26
PROVIDERS: PCP Internal Medicine; Visit Provider Internal Medicine
DX: I10 Essential (primary) hypertension (principal); E55.9 Vitamin D deficiency, unspecified; E78.00 Pure hypercholesterolemia, unspecified
CPT/HCPCS: 36415; 80053; 80061; 82306; 84443; 85025

== ENCOUNTER 2023-02-04 14:53 | Outpatient (AMB) | payer OTHER, SELFPAY ==
--- NOTE | 2023-02-04 15:04 | AM.OFFVISNUR ---
Intake Intake Visit Reasons: ppd implant Allergies No Known Allergies Allergy (Verified 11/01/22 11:17) Office Meds tuberculin PPD Performing Provider: Dwayne Jacobs MD Administered by: Noemy Chapa RN on 02/04/23 15:04 Dose Route Admin Location Lot Number Expiration Date NDC [employer] 0.1 mL intradermal left forearm [id number] 04/01/26 19565-648-06 [employer] Coding Diagnoses Assessment & Plan Assessment & Plan Orders: Orders AMB PPD Planted Today Z11.1 - Encounter for screening for respiratory tuberculosis
== END 2023-02-04 15:05 | disposition home or self-care (01) ==
PROVIDERS: PCP Internal Medicine; Visit Provider Internal Medicine
DX: Z11.1 Encounter for screening for respiratory tuberculosis (principal)
CPT/HCPCS: 86580

== ENCOUNTER 2023-02-10 14:18 | Outpatient (REF) | payer OTHER, SELFPAY ==
[2023-02-10 14:32] LABS: MANUAL DIFF FLAG NO
[2023-02-10 14:54] LABS: Appearance Urine Clear; Color Urine Yellow; Glucose Urine UA Negative (Negative); Leukocyte Esterase Urine Negative (Negative); Nitrite Urine Negative (Negative); PH 5.5 (5.0-9.0); UMIC TRIGGER UACC YES; Urine Blood Trace (Negative); Urine Ketones Negative (Negative); Urine Protein 300 (3+) mg/dL (Neg-Trace)
[2023-02-10 14:59] LABS: Bacteria Urine None Seen (None Seen); Hyaline Casts Urine 0-2 /LPF (0-2); RBC Urine 0-2 /HPF (0-2); Squamous Epithelial Cell Urine 0-2 /HPF (0-2); WBC Urine 0-5 /HPF (0-5)
[2023-02-10 15:34] LABS: Creatinine Urine 69.17 mg/dL
[2023-02-10 15:42] LABS: Basophils Percent Auto 0.4 % (0-2); Eosinophils Absolute Auto 0.1 X10*3/uL (0.0-0.4); Eosinophils Percent Auto 1.4 % (0-4); Hematocrit 39.5 % (42.0-52.0); Hemoglobin 13.4 g/dl (14.0-18.0); Imm Gran Abs Auto 0.02 X10*3/uL (0.00-0.03); Imm Gran Pct Auto 0.3 % (0.0-0.4); Lymphocytes Absolute Auto 1.5 X10*3/uL (1.2-4.9); Lymphocytes Percent Auto 19.3 % (20-40); Mean Corpuscular HGB Conc 33.9 g/dl (31.0-36.0); Mean Corpuscular Hemoglobin 30.5 pg (27.0-33.0); Mean Corpuscular Volume 89.8 fL (80.0-98.0); Mean Platelet Volume 9.9 fL (9.4-12.4); Monocytes Absolute Auto 0.5 X10*3/uL (0.1-1.2); Neutrophils Absolute Auto 5.6 x10*3/uL (2.0-8.3); Neutrophils Percent Auto 72.6 % (45-73); Platelet Count 322 X10*3/uL (160-400); White Blood Count 7.7 X10*3/uL (4.8-10.8)
[2023-02-10 16:33] LABS: Alanine Aminotransferase 12 U/L (0-40); Albumin Level 3.9 g/dL (3.5-5.0); Alkaline Phosphatase 49 U/L (39-117); Anion Gap 15 (12-20); Aspartate Amino Transferase 16 U/L (5-37); Bilirubin Total 0.4 mg/dL (0.0-1.0); Blood Urea Nitrogen 35 mg/dL (9-16); Calcium 9.4 mg/dL (8.4-10.2); Carbon Dioxide 21 mmol/L (22-29); Chloride 109 mmol/L (96-108); Cholesterol 205 mg/dL (<200); Estimated Glomerular Filt Rate 22; Glucose Fasting 75 mg/dL (60-99); HDL Cholesterol 40 mg/dL (>40); LDL Cholesterol Calculated 133 mg/dL (<100); Sodium 141 mmol/L (135-145); Total Protein 6.4 g/dL (6.5-8.0); Triglycerides 161 mg/dL (<150)
[2023-02-10 16:41] LABS: Vitamin D 25-OH Total 46.7 ng/mL (>30)
== END 2023-02-10 14:19 | disposition home or self-care (01) ==
LOC: HO.LAB 14:18
PROVIDERS: PCP Internal Medicine; Visit Provider Internal Medicine
DX: E78.00 Pure hypercholesterolemia, unspecified (principal); I12.9 Hypertensive chronic kidney disease with stage 1 through stage 4 chronic kidney disease, or unspecified chronic kidney disease; E11.22 Type 2 diabetes mellitus with diabetic chronic kidney disease; N18.30 Chronic kidney disease, stage 3 unspecified; E55.9 Vitamin D deficiency, unspecified
CPT/HCPCS: 36415; 80053; 80061; 81001; 82043; 82306; 82570; 85025

== ENCOUNTER 2023-02-14 09:52 | Outpatient (AMB) | payer OTHER, SELFPAY ==
--- NOTE | 2023-02-14 10:06 | MHC.PC.OV ---
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 Required: No Accompanied by: Self / Same As Patient Allergies No Known Allergies Allergy (Verified 02/14/23 10:44) Medication List - Last Reconciled 02/14/23 by Dwayne Jacobs MD atorvastatin 10 mg PO DAILY cholecalciferol (vitamin D3) 25 mcg PO DAILY 90 days fexofenadine 180 mg PO DAILY PRN 30 days fluticasone propionate 50 mcg/actuation 2 sprays intranasal DAILY PRN 30 days lisinopril 5 mg PO DAILY loratadine 10 mg PO DAILY PRN 90 days nystatin 1 appl topical TID 10 days omega-3 fatty acids (Fish Oil Concentrate) 1,000 mg PO DAILY ondansetron 4 mg PO Q6-8H PRN Tobacco use date assessed: 02/14/23 Dental Screening Dental Screen Date: 02/14/23 Did you have a dental visit in the last 12 months?: Yes Did you have a dental problem in the last 6 months where you did not have access to dental care?: No Was dental information given to patient?: Patient has dentist HPI CKD, HTN HPI Details Patient comes in today for his follow up visit States that he feels okay He denies any headaches or dizziness Denies any chest pains, no SOB No nausea/vomiting, no abdominal pain No change in bowel habits noted Needs is Lisinopril Rx refilled - states that nephrology lowered his dose down to 5 mg Had his follow up labs done a few days ago - to discuss his results [facility] Medical History Overweight (BMI 25.0-29.9) Acute angle-closure glaucoma of right eye Obesity (BMI 30-39.9) Vitamin D deficiency Chronic kidney disease (CKD), stage III (moderate) Pure hypercholesterolemia Benign essential hypertension Surgical History History of eye surgery Family History Father Medical history unknown Mother Cancer Social History Housing: House Alcohol intake: never Patient Tobacco Use Status: Never used Tobacco e-Cigarette/Vaping Use: Never Used Second Hand Smoke Exposure: Yes service: No Current occupational status: employed 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 1. Little interest or pleasure in doing things: not at all 2. Feeling down, depressed, or hopeless: not at all 3. Trouble falling or staying asleep, or sleeping too much: not at all 4. Feeling tired or having little energy: not at all 5. Poor appetite or overeating: not at all 6. Feeling bad about yourself - or that you are a failure or have let yourself or your family down: not at all 7. Trouble concentrating on things, such as reading the newspaper or watching television: not at all 8. Moving or speaking so slowly that other people could have noticed. Or the opposite - being so fidgety or restless that you have been moving around a lot more than usual: not at all 9. Thoughts that you would be better off or of hurting yourself in some way: not at all Total score: 0 Depression Screening Interpretation: Negative [id number] - PHQ-9 Billing: Yes Source: Developed by Drs. Crow aMrley, Dafne Rivero, Micky Leos and colleagues, with an educational zafar from [employer]. Thrive Questionnaire Date Thrive assessed: 02/14/23 I am a: Patient What is your living situation today?: I have a steady place to live Within the past 12 months, did the food you bought not last and you didn't have the money to get more?: Never true Within the past 12 months, did you worry whether your food would run out before you got money to buy more?: Never true Do you have trouble paying for medicines?: No Do you have trouble getting transportation to medical appointments?: No Do you have trouble paying your heating and electricity bill?: No Do you have trouble taking care of your child, family member or friend?: No Do you have trouble with day-to-day activities such as bathing, preparing meals, shopping, managing finances, etc.?: No Are you currently unemployed and looking for a job?: No Are you interested in more education?: No Please select the resources that you would like help with: None Currently or been in a relationship where the following occur: no concerns reported AUDIT C Alcohol Use Questionnaire (AUDIT-C) 1. How often do you have a drink containing alcohol?: Never 3. How often do you have six or more drinks on one occasion?: Never Total Score: 0 Score Reviewed/Action Taken: Yes GUERA-7 AMB Questionnaire GUERA-7 Date GUERA - 7 assessed: 02/14/23 Feeling nervous, anxious, or on edge: 0 = Not at all Not being able to stop or control worryin = Not at all Worrying too much about different things: 0 = Not at all Trouble relaxin = Not at all Being so restless that it is hard to sit still: 0 = Not at all Becoming easily annoyed or irritable: 0 = Not at all Feeling afraid as if something awful might happen: 0 = Not at all Total GUERA-7 score (0-4 normal; 5-9 mild; 10-14 moderate; 15-21 severe): 0 Source: Developed by Drs. Crow Marley, Dafne Rivero, Micky Leos and colleagues, with an educational zafra from [employer]. Review of Systems Const Denies chills, Denies fatigue, Denies fever(s) and Denies headache(s) ENT Denies dysphagia, Denies dizziness, Denies otalgia, Denies headache(s), Denies neck pain, Denies odynophagia and Denies sore throat Card Denies chest pain, Denies palpitations and Denies dyspnea Resp Denies cough and Denies dyspnea GI Denies abdominal pain, Denies constipation, Denies dysphagia, Denies heartburn, Denies diarrhea, Denies nausea, Denies odynophagia and Denies vomiting Denies dysuria and Denies nocturia Musc Denies neck pain Neuro Denies dizziness and Denies headache(s) Endo Denies fatigue and Denies palpitations Physical exam (Primary Care) Vital Signs: Last Vital Signs Pulse 74 02/14/23 10:07 BP 120/82 09/15/23 10:07 Pulse Ox 97 02/14/23 10:07 Oxygen Delivery Method Room Air 02/14/23 10:07 BMI result Body Mass Index 29.1 Tobacco/Smoking Status: Tobacco use Status Tobacco use date assessed 02/14/23 02/14/23 10:13 Patient Tobacco Use Status Never used Tobacco 02/14/23 10:13 e-Cigarette/Vaping Use Never Used 02/14/23 10:13 PHQ-9: PHQ-9 Score PHQ-9: Total score 0 02/14/23 10:13 Depression Screening Interpretation: Negative Thrive Assessment: Date of Thrive Assessment Date Thrive assessed 02/14/23 02/14/23 10:13 Currently or been in a relationship where the following occur: no concerns reported Const General: no acute distress and alert HENMT Ears: TM's normal bilaterally and EAC's normal Throat: Yes posterior oropharynx normal and Yes tonsils normal (no TP congestion) Neck Neck: Yes no lymphadenopathy and Yes supple Resp Auscultation: clear to auscultation bilaterally, no rales and no wheezes Cardio Rate: regular rate Rhythm: regular rhythm Heart sounds: no murmurs GI Palpation (GI): Soft to palpation, nontender and No hepatosplenomegaly present Skin General skin exam: no rashes or lesions noted Extrem General: Yes no clubbing, cyanosis or edema Results Reviewed Results Reviewed: Laboratory Tests 02/10/23 14:31 WBC 7.7 Hgb 13.4 L Hct 39.5 L Plt Count 322 Sodium 141 Potassium 4.0 Creatinine 3.10 H Estimated GFR 22 Fasting Glucose 75 Calcium 9.4 AST 16 ALT 12 Triglycerides 161 H Cholesterol 205 H LDL Cholesterol, Calc 133 H HDL Cholesterol 40 L 25-OH Vitamin D Total 46.7 Ur Specific [place] 1.010 Urine Protein 300 (3+) H Urine Glucose (UA) Negative Urine Blood Trace H Microalb/Creat Ratio 2204.7 H Assessment and Plan Assessment & Plan (1) Benign essential hypertension: Code(s): I10 - Essential (primary) hypertension Plan: Reinforced low sodium diet - reinforced goal of systolic BP of 120 mm or less due to his CKD Continue Lisinopril 5 mg QD - dose was lowered by nephrology previously due to a decline in his renal function on his labs (2) Chronic kidney disease (CKD), stage III (moderate): Code(s): N18.30 - Chronic kidney disease, stage 3 unspecified Qualifiers: Chronic kidney disease stage 3 subtype: stage 3b (GFR 30-44) Qualified Code(s): N18.32 - Chronic kidney disease, stage 3b Plan: Stable - will continue to monitor his GFR and renal function regularly Follow-up with nephrology (Dr. Justice) as scheduled (3) Pure hypercholesterolemia: Code(s): E78.00 - Pure hypercholesterolemia, unspecified Plan: Results of his labs done a few days ago reviewed and discussed with patient - advised that his Reinforced low cholesterol diet Continue Atorvastatin 10 mg QD Will recheck his labs and fasting lipids in 3 months follow-up (4) Vitamin D deficiency: Code(s): E55.9 - Vitamin D deficiency, unspecified Plan: Continue Vitamin D3 2000 units QD (5) Acute angle-closure glaucoma of right eye: Comment: S/P emergent laser peripheral iridotomy on 07/17/2020 Also had cataract extraction of the right eye on 08/02/2020 Had glaucoma implant drain placed in November 2020 Code(s): H40.211 - Acute angle-closure glaucoma, right eye Plan: S/P laser surgery (iridotomy) on 11/16/20, which reportedly failed and patient underwent a stent (glaucoma implant drain) insertion in his eye on 12/07/[address] Max, with significant improvement of his eye symptoms since States that he's had no problems with his vision and no eye pain lately Follow up with ophthalmology as scheduled (6) Overweight (BMI 25.0-29.9): Code(s): E66.3 - Overweight Plan: Reinforced diet/exercise as tolerated/lose weight Plan To return in 3 months for his next annual physical examination Orders: Orders Complete Blood Count Auto Diff 05/02/23 I10 - Essential (primary) hypertension Comprehensive [place]. Panel Fast 05/02/23 E78.00 - Pure hypercholesterolemia, unspecified Lipid Panel 05/02/23 E78.00 - Pure hypercholesterolemia, unspecified UA CC w/rflx Micro + Cult 05/02/23 R30.0 - Dysuria Vitamin D 25-OH Total 05/02/23 E55.9 - Vitamin D deficiency, unspecified Medications: Changed From atorvastatin 10 mg PO DAILY 90 tabs 3RF E78.00 - Pure hypercholesterolemia, unspecified To atorvastatin 20 mg PO DAILY 90 tabs 3RF 90 days E78.00 - Pure hypercholesterolemia, unspecified From lisinopril 5 mg PO DAILY To lisinopril 5 mg PO DAILY 90 tabs 3RF 90 days Coding Level of Care Code Est Pt Level 4 (06919) Diagnoses Benign essential hypertension I10 Stage 3b chronic kidney disease N18.32 Chronic kidney disease stage 3 subtype: stage 3b (GFR 30-44) Pure hypercholesterolemia E78.00 Vitamin D deficiency E55.9 Acute angle-closure glaucoma of right eye H40.211 Overweight (BMI 25.0-29.9) E66.3
[2023-02-14 10:07] VITALS: BP 120/82; PULSE 74; O2SAT 97; BMI 29.1
== END 2023-02-14 10:58 | disposition home or self-care (01) ==
PROVIDERS: PCP Internal Medicine; Visit Provider Internal Medicine
DX: I12.9 Hypertensive chronic kidney disease with stage 1 through stage 4 chronic kidney disease, or unspecified chronic kidney disease (principal); N18.32 Chronic kidney disease, stage 3b; E55.9 Vitamin D deficiency, unspecified; E78.00 Pure hypercholesterolemia, unspecified; H40.211 Acute angle-closure glaucoma, right eye
CPT/HCPCS: 99214

== ENCOUNTER 2023-05-09 08:51 | Outpatient (AMB) | payer OTHER, SELFPAY ==
[2023-05-09 08:52] VITALS: BP 112/74; PULSE 83; O2SAT 96; BMI 29.1
--- NOTE | 2023-05-09 08:52 | A.OFFPC_ITS ---
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 Accompanied by: Self / Same As Patient Allergies No Known Allergies Allergy (Verified 05/09/23 09:14) Medication List - Last Reconciled 05/09/23 by Dwayne Jacobs MD atorvastatin 20 mg PO DAILY 90 days cholecalciferol (vitamin D3) 25 mcg PO DAILY 90 days fexofenadine 180 mg PO DAILY PRN 30 days fluticasone propionate 50 mcg/actuation 2 sprays intranasal DAILY PRN 30 days lisinopril 5 mg PO DAILY 90 days loratadine 10 mg PO DAILY PRN 90 days nystatin 1 appl topical TID 10 days omega-3 fatty acids (Fish Oil Concentrate) 1,000 mg PO DAILY ondansetron 4 mg PO Q6-8H PRN Tobacco use date assessed: 05/09/23 Dental Screening Dental Screen Date: 05/09/23 Did you have a dental visit in the last 12 months?: Yes Did you have a dental problem in the last 6 months where you did not have access to dental care?: No Was dental information given to patient?: Patient has dentist HPI Annual Exam HPI Details Patient comes in today for his annual physical examination States that he feels well except for a recurrent pain in his right elbow, which he states has been bothering him for months now Notes that the pain seems worse in the morning and he would feel a sudden sharp pain in his elbow when he flexes his arm to try to lift something Does not recall any previous or recent trauma or injury to his right elbow and has not noticed any weakness or pain in his right arm or hand He denies any headaches or dizziness Denies any chest pains, no SOB No nausea/vomiting, no abdominal pain No change in bowel habits noted He denies any acute urinary symptoms Was not able to get his follow up labs done yet; states that he will go and get them done as soon as he leaves the office today Also needs a [facility] physical clearance form filled out today [facility] Medical History Overweight (BMI 25.0-29.9) Acute angle-closure glaucoma of right eye Obesity (BMI 30-39.9) Vitamin D deficiency Chronic kidney disease (CKD), stage III (moderate) Pure hypercholesterolemia Benign essential hypertension Surgical History History of eye surgery Family History Father Medical history unknown Mother Cancer Social History Housing: House Alcohol intake: never Patient Tobacco Use Status: Never used Tobacco e-Cigarette/Vaping Use: Never Used Second Hand Smoke Exposure: Yes service: No Current occupational status: employed 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 1. Little interest or pleasure in doing things: not at all 2. Feeling down, depressed, or hopeless: not at all 3. Trouble falling or staying asleep, or sleeping too much: not at all 4. Feeling tired or having little energy: not at all 5. Poor appetite or overeating: not at all 6. Feeling bad about yourself - or that you are a failure or have let yourself or your family down: not at all 7. Trouble concentrating on things, such as reading the newspaper or watching television: not at all 8. Moving or speaking so slowly that other people could have noticed. Or the opposite - being so fidgety or restless that you have been moving around a lot more than usual: not at all 9. Thoughts that you would be better off or of hurting yourself in some way: not at all Total score: 0 Depression Screening Interpretation: Negative Depression Screening Done: Yes 67480 - PHQ-9 Billing: Yes Source: Developed by Drs. Crow Marley, Dafne Rivero, Micky Leos and colleagues, with an educational zafar from [employer]. Thrive Questionnaire Date Thrive assessed: 05/09/23 I am a: Patient What is your living situation today?: I have a steady place to live Within the past 12 months, did the food you bought not last and you didn't have the money to get more?: Never true Within the past 12 months, did you worry whether your food would run out before you got money to buy more?: Never true Do you have trouble paying for medicines?: No Do you have trouble getting transportation to medical appointments?: No Do you have trouble paying your heating and electricity bill?: No Do you have trouble taking care of your child, family member or friend?: No Do you have trouble with day-to-day activities such as bathing, preparing meals, shopping, managing finances, etc.?: No Are you currently unemployed and looking for a job?: No Are you interested in more education?: No Please select the resources that you would like help with: None Currently or been in a relationship where the following occur: no concerns reported AUDIT C Alcohol Use Questionnaire (AUDIT-C) 1. How often do you have a drink containing alcohol?: Never 3. How often do you have six or more drinks on one occasion?: Never Total Score: 0 Score Reviewed/Action Taken: Yes GUERA-7 AMB Questionnaire GUERA-7 Date GUERA - 7 assessed: 05/09/23 Feeling nervous, anxious, or on edge: 0 = Not at all Not being able to stop or control worryin = Not at all Worrying too much about different things: 0 = Not at all Trouble relaxin = Not at all Being so restless that it is hard to sit still: 0 = Not at all Becoming easily annoyed or irritable: 0 = Not at all Feeling afraid as if something awful might happen: 0 = Not at all Total GUERA-7 score (0-4 normal; 5-9 mild; 10-14 moderate; 15-21 severe): 0 Source: Developed by Drs. Crow Marley, Dafne Rivero, Micky Leos and colleagues, with an educational zafar from [employer]. Review of Systems Const Denies chills, Denies fatigue, Denies fever(s), Denies headache(s), Denies malaise and Denies weakness Eyes Denies blurry vision, Denies change in vision, Denies irritation and Denies itchy eyes ENT Denies dysphagia, Denies dizziness, Denies otalgia, Denies headache(s), Denies nasal congestion, Denies neck pain, Denies odynophagia and Denies sore throat Card Denies chest pain, Denies rapid heart rate, Denies irregular heart rhythm, D enies palpitations and Denies dyspnea Resp Denies chest congestion, Denies cough, Denies dyspnea and Denies wheezing GI Denies abdominal pain, Denies bloating, Denies constipation, Denies dysphagia, Denies heartburn, Denies diarrhea, Denies nausea, Denies odynophagia and Denies vomiting Denies hematuria, Denies difficulty urinating, Denies dysuria, Denies urinary frequency and Denies urinary urgency Musc Denies back pain, Reports arthralgias (recurrent over the right elbow - see HPI), Denies joint swelling, Denies muscle weakness and Denies neck pain Skin/Breast Denies change in pigmentation, Denies lesions, Denies rash and Denies unusual bruising Neuro Denies dizziness, Denies headache(s), Denies paresthesias and Denies weakness Endo Denies fatigue and Denies palpitations Aller/Immun Denies itchy eyes and Denies wheezing Physical exam (Primary Care) Vital Signs: Last Vital Signs Pulse 83 05/09/23 08:52 BP 112/74 05/09/23 08:52 Pulse Ox 96 05/09/23 08:52 Oxygen Delivery Method Room Air 05/09/23 08:52 BMI result Body Mass Index 29.1 Tobacco/Smoking Status: Tobacco use Status Tobacco use date assessed 05/09/23 05/09/23 08:54 Patient Tobacco Use Status Never used Tobacco 05/09/23 08:54 e-Cigarette/Vaping Use Never Used 05/09/23 08:54 PHQ-9: PHQ-9 Score PHQ-9: Total score 0 05/09/23 08:54 Depression Screening Interpretation: Negative Thrive Assessment: Date of Thrive Assessment Date Thrive assessed 05/09/23 05/09/23 09:00 Currently or been in a relationship where the following occur: no concerns reported Const General: no acute distress, alert and awake Orientation/consciousness: patient oriented x3 HENMT Head: Yes normocephalic and Yes atraumatic Ears: external ears normal, TM's normal bilaterally and EAC's normal General nose exam: No nasal discharge present Face and sinus: Yes normal facial exam and Yes sinuses nontender Teeth and gingiva: dentition normal Throat: Yes posterior oropharynx normal and Yes tonsils normal (no TP congestion) Eyes Eyelids: Yes eyelids normal Conjunctivae: conjunctivae normal Pupils: Equal, round and reactive pupils present EOM: EOMs intact bilaterally Neck Neck: Yes no lymphadenopathy and Yes supple Thyroid: Thyroid normal Resp Auscultation: clear to auscultation bilaterally, no rales and no wheezes Cardio Rate: regular rate Rhythm: regular rhythm Heart sounds: no murmurs GI Palpation (GI): Soft to palpation, nontender and No hepatosplenomegaly present Auscultation: normal bowel sounds General: Yes no CVA tenderness Back/Spine/Pelvis Back: no CVA tenderness Thoracic/Lumbar Spine: thoracic and lumbar spine normal to inspection Skin Lesions: no lesions Rashes: no rashes Neuro General: patient oriented x3, moves all extremities, no focal motor deficits and CN's II-XI intact bilaterally Cranial nerves: Yes Equal, round and reactive pupils present Cognition (Neuro): normal cognition Gait exam (Neuro): Normal gait present Extrem General: Yes no clubbing, cyanosis or edema Right upper extremity: elbow/forearm Details: tenderness Location: of the olecranon (but more over the radial notch area) and normal ROM; no swelling Assessment and Plan Assessment & Plan (1) Annual physical exam: Code(s): Z00.00 - Encounter for general adult medical examination without abnormal findings Plan: Patient is advised to get his previously ordered labs done DENG to complete his annual physical He had PPD placed back on 02/06/2023 - PPD was negative (2) Benign essential hypertension: Code(s): I10 - Essential (primary) hypertension Plan: Reinforced low sodium diet - goal is systolic BP of 120 mm or less due to his CKD Continue Lisinopril 5 mg QD - dose was lowered by nephrology a few months ago due to a decline in his renal function (3) Chronic kidney disease (CKD), stage III (moderate): Code(s): N18.30 - Chronic kidney disease, stage 3 unspecified Qualifiers: Chronic kidney disease stage 3 subtype: stage 3b (GFR 30-44) Qualified Code(s): N18.32 - Chronic kidney disease, stage 3b Plan: Stable - will continue to monitor his GFR and renal function regularly Follow up with nephrology (Dr. Justice) as scheduled (4) Pure hypercholesterolemia: Code(s): E78.00 - Pure hypercholesterolemia, unspecified Plan: He is advised to get his labs done DENG Reinforced low cholesterol diet Continue Atorvastatin 10 mg QD Will recheck his fasting lipids and labs in 4 months for follow up (5) Vitamin D deficiency: Code(s): E55.9 - Vitamin D deficiency, unspecified Plan: Continue Vitamin D3 2000 units QD (6) Right elbow pain: Code(s): M25.521 - Pain in right elbow Plan: Is most likely due to some tendinitis - reports that this has been bothering him for months now Will send him for x-rays of the right elbow for further evaluation Advised that if his x-rays are unrevealing and his symptoms persist, can consider either referring him to physical therapy and/or to orthopedics for further evaluation and management (7) Acute angle-closure glaucoma of right eye: Comment: S/P emergent laser peripheral iridotomy on 07/17/2020 Also had cataract extraction of the right eye on 08/02/2020 Had glaucoma implant drain placed in November 2020 Code(s): H40.211 - Acute angle-closure glaucoma, right eye Plan: S/P laser surgery (iridotomy) on 11/16/20, which reportedly failed and patient underwent a stent (glaucoma implant drain) insertion in his eye on 12/07/[address] Max, with significant improvement of his eye symptoms since States that he's had no problems with his vision and has no eye pain lately Follow up with ophthalmology as scheduled (8) Overweight (BMI 25.0-29.9): Code(s): E66.3 - Overweight Plan: Reinforced diet/exercise as tolerated/lose weight Plan Physical exam/clearance form for [facility] completed and filled out for patient, per request Follow up in 4 months Orders: Orders XR elbow RT min 3V Today M25.521 - Pain in right elbow Comprehensive [employer]. Panel Fast 4 Months E78.00 - Pure hypercholesterolemia, unspecified Complete Blood Count Auto Diff 4 Months I10 - Essential (primary) hypertension, N18.30 - Chronic kidney disease, stage 3 unspecified Lipid Panel 4 Months E78.00 - Pure hypercholesterolemia, unspecified Coding Level of Care Code Est Pt Prev Care 40-64y(77174) Diagnoses Annual physical exam Z00.00 Benign essential hypertension I10 Stage 3b chronic kidney disease N18.32 Chronic kidney disease stage 3 subtype: stage 3b (GFR 30-44) Pure hypercholesterolemia E78.00 Vitamin D deficiency E55.9 Right elbow pain M25.521 Acute angle-closure glaucoma of right eye H40.211 Overweight (BMI 25.0-29.9) E66.3
== END 2023-05-09 09:41 | disposition home or self-care (01) ==
PROVIDERS: Visit Provider Internal Medicine
DX: Z00.00 Encounter for general adult medical examination without abnormal findings (principal); I12.9 Hypertensive chronic kidney disease with stage 1 through stage 4 chronic kidney disease, or unspecified chronic kidney disease; N18.32 Chronic kidney disease, stage 3b; E78.00 Pure hypercholesterolemia, unspecified; E55.9 Vitamin D deficiency, unspecified; M25.521 Pain in right elbow; H40.211 Acute angle-closure glaucoma, right eye
CPT/HCPCS: 99396

== ENCOUNTER 2023-05-09 09:37 | Outpatient (REF) | payer OTHER, SELFPAY ==
--- NOTE | ~2023-05-09 | XR_ITS ---
EXAMINATION: XR ELBOW, RIGHT CLINICAL INFORMATION: Pain COMPARISON: None available. TECHNIQUE: AP, lateral, and oblique views of the right elbow. FINDINGS: No fracture or dislocation. No joint effusion. No appreciable degenerative changes. No localized soft tissue swelling. XR/XR elbow RT min 3V IMPRESSION: Unremarkable radiographs of the right elbow.
[2023-05-09 09:51] LABS: MANUAL DIFF FLAG NO
[2023-05-09 10:10] LABS: Basophils Percent Auto 0.3 % (0-2); Eosinophils Absolute Auto 0.2 X10*3/uL (0.0-0.4); Hematocrit 43.4 % (42.0-52.0); Hemoglobin 14.6 g/dl (14.0-18.0); Imm Gran Abs Auto 0.03 X10*3/uL (0.00-0.03); Imm Gran Pct Auto 0.3 % (0.0-0.4); Lymphocytes Absolute Auto 1.2 X10*3/uL (1.2-4.9); Lymphocytes Percent Auto 13.2 % (20-40); Mean Corpuscular HGB Conc 33.6 g/dl (31.0-36.0); Mean Corpuscular Hemoglobin 30.2 pg (27.0-33.0); Mean Corpuscular Volume 89.9 fL (80.0-98.0); Mean Platelet Volume 9.4 fL (9.4-12.4); Monocytes Absolute Auto 0.4 X10*3/uL (0.1-1.2); Neutrophils Percent Auto 79.2 % (45-73); Platelet Count 318 X10*3/uL (160-400); Red Blood Count 4.83 X10*6/uL (4.60-5.80); Red Cell Distribution Width 11.7 % (11.0-16.0); White Blood Count 8.8 X10*3/uL (4.8-10.8)
[2023-05-09 10:10] LABS: Appearance Urine Clear; Color Urine Yellow; Glucose Urine UA Negative (Negative); Leukocyte Esterase Urine Negative (Negative); Nitrite Urine Negative (Negative); PH 5.5 (5.0-9.0); UMIC TRIGGER UACC YES; Urine Blood Trace (Negative); Urine Ketones Negative (Negative); Urine Protein 300 (3+) mg/dL (Neg-Trace)
[2023-05-09 10:15] LABS: Bacteria Urine None Seen (None Seen); Hyaline Casts Urine 0-2 /LPF (0-2); RBC Urine 0-2 /HPF (0-2); Squamous Epithelial Cell Urine 0-2 /HPF (0-2); WBC Urine 0-5 /HPF (0-5)
[2023-05-09 11:44] LABS: Alanine Aminotransferase 13 U/L (0-40); Albumin Level 4.1 g/dL (3.5-5.0); Alkaline Phosphatase 58 U/L (39-117); Anion Gap 12 (12-20); Aspartate Amino Transferase 12 U/L (5-37); Bilirubin Total 0.5 mg/dL (0.0-1.0); Blood Urea Nitrogen 42 mg/dL (9-16); Calcium 9.3 mg/dL (8.4-10.2); Carbon Dioxide 26 mmol/L (22-29); Chloride 109 mmol/L (96-108); Cholesterol 194 mg/dL (<200); Estimated Glomerular Filt Rate 21; Glucose Fasting 88 mg/dL (60-99); HDL Cholesterol 39 mg/dL (>40); LDL Cholesterol Calculated 117 mg/dL (<100); Potassium 4.2 mmol/L (3.3-5.1); Sodium 143 mmol/L (135-145); Total Protein 6.8 g/dL (6.5-8.0); Triglycerides 192 mg/dL (<150)
[2023-05-09 12:13] LABS: Vitamin D 25-OH Total 41.9 ng/mL (>30)
== END 2023-05-09 09:38 | disposition home or self-care (01) ==
LOC: HO.XRAY 09:37
PROVIDERS: PCP Internal Medicine; Visit Provider Internal Medicine
DX: M25.521 Pain in right elbow (principal); E55.9 Vitamin D deficiency, unspecified; E78.00 Pure hypercholesterolemia, unspecified; I10 Essential (primary) hypertension
CPT/HCPCS: 36415; 73080; 80053; 80061; 81001; 82306; 85025

== ENCOUNTER 2023-06-20 14:51 | Outpatient (AMB) | payer OTHER, SELFPAY ==
--- NOTE | 2023-06-20 15:01 | A.OFFPC_ITS ---
Vital Signs 06/20/23 15:06 Height 5 ft 8 in Weight 184 lb BMI 28.0 BP 108/80 Blood Pressure Location Lt brachial Position Sitting Pulse 71 Pulse Source Pulse Oximeter Pulse Oximetry (%) 98 Oxygen Delivery Method Room Air Intake Visit Reasons: follow up/ possible sinus infection Intake Note: Patient is here to follow up on symptoms. states having a cough, runny nose and a previous fever. 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 Accompanied by: Self / Same As Patient Allergies No Known Allergies Allergy (Verified 06/20/23 15:23) Medication List - Last Reconciled 06/20/23 by Dwayne Jacobs MD atorvastatin 20 mg PO DAILY 90 days cholecalciferol (vitamin D3) 25 mcg PO DAILY 90 days fexofenadine 180 mg PO DAILY PRN 30 days fluticasone propionate 50 mcg/actuation 2 sprays intranasal DAILY PRN 30 days lisinopril 5 mg PO DAILY 90 days loratadine 10 mg PO DAILY PRN 90 days nystatin 1 appl topical TID 10 days omega-3 fatty acids (Fish Oil Concentrate) 1,000 mg PO DAILY ondansetron 4 mg PO Q6-8H PRN Tobacco use date assessed: 06/20/23 Dental Screening Dental Screen Date: 06/20/23 Did you have a dental visit in the last 12 months?: Yes Did you have a dental problem in the last 6 months where you did not have access to dental care?: No Was dental information given to patient?: Patient has dentist HPI follow up/ possible sinus infection HPI Details Patient comes in today complaining of on and off fever increasing nasal and sinus congestion for the past week Relates that he had a root canal done on one of his right upper teeth last Friday (a week ago) and he started running a fever a couple of days later on Friday, which then has been occurring on and off since Has noticed that his temperature has been going up to 103 degrees Fahrenheit at times lately States that he has also been coughing often and coughs up thick greenish phlegm Relates (+) headaches but denies any dizziness Denies any chest pain No nausea / vomiting, no abdominal pain No change in bowel habits other [facility] Medical History Overweight (BMI 25.0-29.9) Acute angle-closure glaucoma of right eye Obesity (BMI 30-39.9) Vitamin D deficiency Chronic kidney disease (CKD), stage III (moderate) Pure hypercholesterolemia Benign essential hypertension Surgical History History of eye surgery Family History Father Medical history unknown Mother Cancer Social History Housing: House Alcohol intake: never Patient Tobacco Use Status: Never used Tobacco e-Cigarette/Vaping Use: Never Used Second Hand Smoke Exposure: Yes service: No Current occupational status: employed 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 1. Little interest or pleasure in doing things: not at all 2. Feeling down, depressed, or hopeless: not at all 3. Trouble falling or staying asleep, or sleeping too much: not at all 4. Feeling tired or having little energy: not at all 5. Poor appetite or overeating: not at all 6. Feeling bad about yourself - or that you are a failure or have let yourself or your family down: not at all 7. Trouble concentrating on things, such as reading the newspaper or watching television: not at all 8. Moving or speaking so slowly that other people could have noticed. Or the opposite - being so fidgety or restless that you have been moving around a lot more than usual: not at all 9. Thoughts that you would be better off or of hurting yourself in some way: not at all Total score: 0 Depression Screening Interpretation: Negative Depression Screening Done: Yes 04841 - PHQ-9 Billing: Yes Source: Developed by Drs. Crow Marley, Dafne Rivero, Micky Leos and colleagues, with an educational zafar from [employer]. Thrive Questionnaire Date Thrive assessed: 06/20/23 I am a: Patient What is your living situation today?: I have a steady place to live Within the past 12 months, did the food you bought not last and you didn't have the money to get more?: Never true Within the past 12 months, did you worry whether your food would run out before you got money to buy more?: Never true Do you have trouble paying for medicines?: No Do you have trouble getting transportation to medical appointments?: No Do you have trouble paying your heating and electricity bill?: No Do you have trouble taking care of your child, family member or friend?: No Do you have trouble with day-to-day activities such as bathing, preparing meals, shopping, managing finances, etc.?: No Are you currently unemployed and looking for a job?: No Are you interested in more education?: No Currently or been in a relationship where the following occur: no concerns reported THRIVE Score: 0 AUDIT C Alcohol Use Questionnaire (AUDIT-C) 1. How often do you have a drink containing alcohol?: Never Total Score: 0 Score Reviewed/Action Taken: Yes GUERA-7 AMB Questionnaire GUERA-7 Date GUERA - 7 assessed: 06/20/23 Feeling nervous, anxious, or on edge: 0 = Not at all Not being able to stop or control worryin = Not at all Worrying too much about different things: 0 = Not at all Trouble relaxin = Not at all Being so restless that it is hard to sit still: 0 = Not at all Becoming easily annoyed or irritable: 0 = Not at all Feeling afraid as if something awful might happen: 0 = Not at all Total GUERA-7 score (0-4 normal; 5-9 mild; 10-14 moderate; 15-21 severe): 0 Source: Developed by Drs. Crow Marley, Dafne Rivero, Micky Leos and colleagues, with an educational zafar from [employer]. Review of Systems Const Denies chills, Reports fatigue, Reports fever(s) and Reports headache(s) (on and off) ENT Denies dysphagia, Denies dizziness, Denies otalgia, Reports headache(s) (on and off), Reports nasal congestion, Denies neck pain, Denies odynophagia, Reports sinus pain and Denies sore throat Card Denies chest pain, Denies palpitations and Denies dyspnea Resp Reports chest congestion, Reports cough (coughs up thick greenish phlegm), Denies pain on inspiration, Denies dyspnea and Denies wheezing GI Denies abdominal pain, Denies constipation, Denies dysphagia, Denies heartburn, Denies diarrhea, Denies nausea, Denies odynophagia and Denies vomiting Denies dysuria and Denies nocturia Musc Denies neck pain Neuro Denies dizziness and Reports headache(s) (on and off) Endo Reports fatigue and Denies palpitations Aller/Immun Denies wheezing Physical exam (Primary Care) Vital Signs: Last Vital Signs Pulse 71 06/20/23 15:06 BP 108/80 06/20/23 15:06 Pulse Ox 98 06/20/23 15:06 Oxygen Delivery Method Room Air 06/20/23 15:06 BMI result Body Mass Index 28.0 Tobacco/Smoking Status: Tobacco use Status Tobacco use date assessed 06/20/23 06/20/23 15:06 Patient Tobacco Use Status Never used Tobacco 06/20/23 15:03 e-Cigarette/Vaping Use Never Used 06/20/23 15:03 PHQ-9: PHQ-9 Score PHQ-9: Total score 0 06/20/23 15:25 Depression Screening Interpretation: Negative Thrive Assessment: Date of Thrive Assessment Date Thrive assessed 06/20/23 06/20/23 15:03 Currently or been in a relationship where the following occur: no concerns reported Const General: no acute distress and alert HENMT Ears: TM's normal bilaterally and EAC's normal General nose exam: Nasal discharge present purulent Face and sinus: Yes sinus tenderness (bilaterally) Throat: Yes posterior oropharynx normal, Yes tonsils normal (no TP congestion) and Yes postnasal drainage Neck Neck: Yes no lymphadenopathy and Yes supple Resp Auscultation: clear to auscultation bilaterally, no rales and no wheezes Cardio Rate: regular rate Rhythm: regular rhythm Heart sounds: no murmurs GI Palpation (GI): Soft to palpation, nontender and hepatosplenomegaly present Auscultation: normal bowel sounds General: Yes no CVA tenderness Back/Spine/Pelvis Back: no CVA tenderness Skin Rashes: no rashes Extrem General: Yes no clubbing, cyanosis or edema Assessment and Plan Assessment & Plan (1) Sinusitis: Code(s): J32.9 - Chronic sinusitis, unspecified Qualifiers: Sinusitis location: maxillary Chronicity: acute Recurrence: non- recurrent Qualified Code(s): J01.00 - Acute maxillary sinusitis, unspecified Plan: Will start patient on Augmentin 875 mg BID x 10 days Plan Follow up as scheduled next month Medications: New amoxicillin-pot clavulanate 875-125 mg 1 tab PO BID 10 days 20 tabs 0RF Coding Level of Care Code Est Pt Level 3 (70908) Diagnoses Acute non-recurrent maxillary sinusitis J01.00 Sinusitis location: maxillary Chronicity: acute Recurrence: non-recurrent
[2023-06-20 15:06] VITALS: BP 108/80; PULSE 71; O2SAT 98; BMI 28.0
== END 2023-06-20 15:30 | disposition home or self-care (01) ==
PROVIDERS: PCP Internal Medicine; Visit Provider Internal Medicine
DX: J01.00 Acute maxillary sinusitis, unspecified (principal)
CPT/HCPCS: 99213

== ENCOUNTER 2023-07-04 14:22 | Outpatient (AMB) | payer OTHER, SELFPAY ==
[2023-07-04 14:24] VITALS: BP 122/86; PULSE 83; O2SAT 97; BMI 28.5
--- NOTE | 2023-07-04 14:24 | A.OFFPC_ITS ---
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 Accompanied by: Self / Same As Patient Allergies No Known Allergies Allergy (Verified 07/04/23 14:49) Medication List - Last Reconciled 07/04/23 by Dwayne Jacobs MD atorvastatin 20 mg PO DAILY 90 days cholecalciferol (vitamin D3) 25 mcg PO DAILY 90 days fexofenadine 180 mg PO DAILY PRN 30 days fluticasone propionate 50 mcg/actuation 2 sprays intranasal DAILY PRN 30 days lisinopril 5 mg PO DAILY 90 days loratadine 10 mg PO DAILY PRN 90 days nystatin 1 appl topical TID 10 days omega-3 fatty acids (Fish Oil Concentrate) 1,000 mg PO DAILY ondansetron 4 mg PO Q6-8H PRN Tobacco use date assessed: 07/04/23 Dental Screening Dental Screen Date: 07/04/23 Did you have a dental visit in the last 12 months?: Yes Did you have a dental problem in the last 6 months where you did not have access to dental care?: No Was dental information given to patient?: Patient has dentist HPI right big toe yellow nail HPI Details Patient comes in today for evaluation of his right big toenail, which he noticed has a large whitish discoloration on it Has also noticed some yellowish / discolored thickening under the nail lately and is concerned that this may get worse over time States that he currently has no pain or any other symptoms on his right big toe or toenail He denies any recent injury or trauma to his toe or toenail No other acute complaints or symptoms are noted [facility] Medical History Overweight (BMI 25.0-29.9) Acute angle-closure glaucoma of right eye Obesity (BMI 30-39.9) Vitamin D deficiency Chronic kidney disease (CKD), stage III (moderate) Pure hypercholesterolemia Benign essential hypertension Surgical History History of eye surgery Family History Father Medical history unknown Mother Cancer Social History Housing: House Alcohol intake: never Patient Tobacco Use Status: Never used Tobacco e-Cigarette/Vaping Use: Never Used Second Hand Smoke Exposure: Yes service: No Current occupational status: employed 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 1. Little interest or pleasure in doing things: not at all 2. Feeling down, depressed, or hopeless: not at all 3. Trouble falling or staying asleep, or sleeping too much: not at all 4. Feeling tired or having little energy: not at all 5. Poor appetite or overeating: not at all 6. Feeling bad about yourself - or that you are a failure or have let yourself or your family down: not at all 7. Trouble concentrating on things, such as reading the newspaper or watching television: not at all 8. Moving or speaking so slowly that other people could have noticed. Or the opposite - being so fidgety or restless that you have been moving around a lot more than usual: not at all 9. Thoughts that you would be better off or of hurting yourself in some way: not at all Total score: 0 Depression Screening Interpretation: Negative Depression Screening Done: Yes 88487 - PHQ-9 Billing: Yes Source: Developed by Drs. Crow Marley, Dafne Rivero, Micky Leos and colleagues, with an educational zafar from [employer]. Thrive Questionnaire Date Thrive assessed: 07/04/23 I am a: Patient What is your living situation today?: I have a steady place to live Within the past 12 months, did the food you bought not last and you didn't have the money to get more?: Never true Within the past 12 months, did you worry whether your food would run out before you got money to buy more?: Never true Do you have trouble paying for medicines?: No Do you have trouble getting transportation to medical appointments?: No Do you have trouble paying your heating and electricity bill?: No Do you have trouble taking care of your child, family member or friend?: No Do you have trouble with day-to-day activities such as bathing, preparing meals, shopping, managing finances, etc.?: No Are you currently unemployed and looking for a job?: No Are you interested in more education?: No Please select the resources that you would like help with: None Currently or been in a relationship where the following occur: no concerns reported THRIVE Score: 0 AUDIT C Alcohol Use Questionnaire (AUDIT-C) 1. How often do you have a drink containing alcohol?: Never Total Score: 0 Score Reviewed/Action Taken: Yes GUERA-7 AMB Questionnaire GUERA-7 Date GUERA - 7 assessed: 07/04/23 Feeling nervous, anxious, or on edge: 0 = Not at all Not being able to stop or control worryin = Not at all Worrying too much about different things: 0 = Not at all Trouble relaxin = Not at all Being so restless that it is hard to sit still: 0 = Not at all Becoming easily annoyed or irritable: 0 = Not at all Feeling afraid as if something awful might happen: 0 = Not at all Total GUERA-7 score (0-4 normal; 5-9 mild; 10-14 moderate; 15-21 severe): 0 Source: Developed by Drs. Crow Marley, Dafne Rivero, Micky Leos and colleagues, with an educational zafar from [employer]. Review of Systems Const Denies fever(s) and Denies headache(s) ENT Denies dizziness, Denies otalgia, Denies headache(s) and Denies sore throat Card Denies chest pain and Denies dyspnea Resp Denies cough and Denies dyspnea GI Denies abdominal pain, Denies change in bowel habits, Denies nausea and Denies vomiting Denies dysuria, Denies nocturia and Denies urinary frequency Skin/Breast Details: (+) discolored and thickening of right big toenail - see HPI Neuro Denies dizziness and Denies headache(s) Physical exam (Primary Care) Vital Signs: Last Vital Signs Pulse 83 07/04/23 14:24 BP 122/86 07/04/23 14:24 Pulse Ox 97 07/04/23 14:24 Oxygen Delivery Method Room Air 07/04/23 14:24 BMI result Body Mass Index 28.5 Tobacco/Smoking Status: Tobacco use Status Tobacco use date assessed 07/04/23 07/04/23 14:30 Patient Tobacco Use Status Never used Tobacco 07/04/23 14:30 e-Cigarette/Vaping Use Never Used 07/04/23 14:30 PHQ-9: PHQ-9 Score PHQ-9: Total score 0 07/04/23 14:30 Depression Screening Interpretation: Negative Thrive Assessment: Date of Thrive Assessment Date Thrive assessed 07/04/23 07/04/23 14:30 Currently or been in a relationship where the following occur: no concerns r eported Const General: no acute distress and alert Resp Auscultation: clear to auscultation bilaterally, no rales and no wheezes Cardio Rate: regular rate Rhythm: regular rhythm Heart sounds: no murmurs GI Palpation (GI): Soft to palpation and nontender Extrem General: Yes no clubbing, cyanosis or edema Right lower extremity: foot ((+) thickening and discoloration of the right big toenail) Assessment and Plan Assessment & Plan (1) Onycholysis of toenail: Code(s): L60.1 - Onycholysis Plan: Will refer him to podiatry for further evaluation and management Patient recalls seeing podiatry in [place] a few years ago - referral made out to [facility] Plan Follow up as scheduled in September 2023 Orders: Referrals Podiatry Referral L60.1 - Onycholysis Coding Level of Care Code Est Pt Level 3 (62286) Diagnoses Onycholysis of toenail L60.1
== END 2023-07-04 14:50 | disposition home or self-care (01) ==
PROVIDERS: PCP Internal Medicine; Visit Provider Internal Medicine
DX: L60.1 Onycholysis (principal)
CPT/HCPCS: 99213

== ENCOUNTER 2023-09-12 09:28 | Outpatient (AMB) | payer OTHER, SELFPAY ==
[2023-09-12 09:33] VITALS: BP 120/70; PULSE 80; O2SAT 97; BMI 29.1
--- NOTE | 2023-09-12 09:33 | A.OFFPC_ITS ---
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 Accompanied by: Self / Same As Patient Allergies No Known Allergies Allergy (Verified 09/12/23 09:42) Medication List - Last Reconciled 09/12/23 by Dwayne Jacobs MD atorvastatin 20 mg PO DAILY 90 days cholecalciferol (vitamin D3) 25 mcg PO DAILY 90 days fexofenadine 180 mg PO DAILY PRN 30 days fluticasone propionate 50 mcg/actuation 2 sprays intranasal DAILY PRN 30 days lisinopril 5 mg PO DAILY 90 days loratadine 10 mg PO DAILY PRN 90 days nystatin 1 appl topical TID 10 days omega-3 fatty acids (Fish Oil Concentrate) 1,000 mg PO DAILY ondansetron 4 mg PO Q6-8H PRN Tobacco use date assessed: 07/04/23 Dental Screening Dental Screen Date: 07/04/23 HPI HTN, CKD, hyperlipidemia HPI Details Patient comes in today for his follow up visit States that he feels okay He denies any headaches or dizziness Denies any chest pains, no SOB No nausea/vomiting, no abdominal pain No change in bowel habits noted He was not able to get his follow up labs done prior to his visit today - states that he will go and get them done right after his visit today [facility] Medical History (Updated 09/12/23 @ 09:56 by Dwayne Jacobs MD) Chronic kidney disease, stage 4 (severe) Overweight (BMI 25.0-29.9) Acute angle-closure glaucoma of right eye Obesity (BMI 30-39.9) Vitamin D deficiency Pure hypercholesterolemia Benign essential hypertension Surgical History History of eye surgery Family History Father Medical history unknown Mother Cancer Social History Housing: House Alcohol intake: never Patient Tobacco Use Status: Never used Tobacco e-Cigarette/Vaping Use: Never Used Second Hand Smoke Exposure: Yes service: No Current occupational status: employed 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 Crow Marley, Dafne Rivero, Micky Leos and colleagues, with an educational zafar from [employer]. Review of Systems Const Denies chills, Denies fatigue, Denies fever(s) and Denies headache(s) ENT Denies dysphagia, Denies dizziness, Denies otalgia, Denies headache(s), Denies neck pain, Denies odynophagia and Denies sore throat Card Denies chest pain, Denies irregular heart rhythm, Denies palpitations and Denies dyspnea Resp Denies chest congestion, Denies cough and Denies dyspnea GI Denies abdominal pain, Denies constipation, Denies dysphagia, Denies heartburn, Denies diarrhea, Denies nausea, Denies odynophagia and Denies vomiting Denies difficulty urinating, Denies dysuria, Denies nocturia and Denies urinary frequency Musc Denies back pain and Denies neck pain Skin/Breast Denies rash Neuro Denies dizziness and Denies headache(s) Endo Denies fatigue and Denies palpitations Physical exam (Primary Care) Vital Signs: Last Vital Signs Pulse 80 09/12/23 09:33 BP 120/70 09/12/23 09:33 Pulse Ox 97 09/12/23 09:33 Oxygen Delivery Method Room Air 09/12/23 09:33 BMI result Body Mass Index 29.1 Tobacco/Smoking Status: Tobacco use Status Tobacco use date assessed 07/04/23 09/12/23 09:36 Patient Tobacco Use Status Never used Tobacco 09/12/23 09:36 e-Cigarette/Vaping Use Never Used 09/12/23 09:36 Thrive Assessment: Date of Thrive Assessment Date Thrive assessed 07/04/23 09/12/23 09:36 Const General: no acute distress and alert HENMT Ears: TM's normal bilaterally and EAC's normal Throat: Yes posterior oropharynx normal and Yes tonsils normal (no TP congestion) Neck Neck: Yes no lymphadenopathy and Yes supple Thyroid: Thyroid normal Resp Auscultation: clear to auscultation bilaterally, no rales and no wheezes Cardio Rate: regular rate Rhythm: regular rhythm Heart sounds: no murmurs GI Palpation (GI): Soft to palpation and nontender Auscultation: normal bowel sounds General: Yes no CVA tenderness Back/Spine/Pelvis Back: no CVA tenderness Skin Rashes: no rashes Extrem General: Yes no clubbing, cyanosis or edema Assessment and Plan Assessment & Plan (1) Benign essential hypertension: Code(s): I10 - Essential (primary) hypertension Plan: Reinforced low sodium diet - goal is systolic BP of 120 mm or less due to his CKD Continue Lisinopril 5 mg QD (2) Chronic kidney disease, stage 4 (severe): Code(s): N18.4 - Chronic kidney disease, stage 4 (severe) Plan: Patient's renal function declined over the past year and he is now at CKD stage 4 His serum creatinine and GFR seems to have stabilized and we will continue to monitor his renal function closely He is instructed to go and get his previously ordered follow up labs done [facility] [place] was following up with Dr. Antonio in the past for his nephrology issues and since Dr. Antonio moved from his previous practice to [facility] a few months ago, will make out a new referral so patient can continue to follow up with Dr. Antonio, per his preference (3) Pure hypercholesterolemia: Code(s): E78.00 - Pure hypercholesterolemia, unspecified Plan: He is advised to get his follow up labs done [facility] Reinforced low cholesterol diet Continue Atorvastatin 10 mg QD Will recheck his fasting lipids and labs in 4 months for follow up (4) Vitamin D deficiency: Code(s): E55.9 - Vitamin D deficiency, unspecified Plan: Continue Vitamin D3 2000 units QD (5) Acute angle-closure glaucoma of right eye: Comment: S/P emergent laser peripheral iridotomy on 07/17/2020 Also had cataract extraction of the right eye on 08/02/2020 Had glaucoma implant drain placed in November 2020 Code(s): H40.211 - Acute angle-closure glaucoma, right eye Plan: S/P laser surgery (iridotomy) on 11/16/20, which reportedly failed and patient underwent a stent (glaucoma implant drain) insertion in his eye on 12/07/[address] Max, with significant improvement of his eye symptoms since States that he's had no problems with his vision and has no eye pain lately Follow up with ophthalmology as scheduled (6) Overweight (BMI 25.0-29.9): Code(s): E66.3 - Overweight Plan: Reinforced diet/exercise as tolerated/lose weight Plan Follow up in 4 months Orders: Orders Comprehensive Cecil. Panel Fast 4 Months E78.00 - Pure hypercholesterolemia, unspecified Vitamin D 25-OH Total 4 Months E55.9 - Vitamin D deficiency, unspecified Complete Blood Count Auto Diff 4 Months D64.9 - Anemia, unspecified Lipid Panel 4 Months E78.00 - Pure hypercholesterolemia, unspecified TSH reflex Free T4 4 Months E78.00 - Pure hypercholesterolemia, unspecified UA CC w/rflx Micro + Cult 4 Months R30.0 - Dysuria Referrals Nephrology Referral N18.4 - Chronic kidney disease, stage 4 (severe) Coding Level of Care Code Est Pt Level 4 (45211) Diagnoses Benign essential hypertension I10 Chronic kidney disease, stage 4 (severe) N18.4 Pure hypercholesterolemia E78.00 Vitamin D deficiency E55.9 Acute angle-closure glaucoma of right eye H40.211 Overweight (BMI 25.0-29.9) E66.3
== END 2023-09-12 09:57 | disposition home or self-care (01) ==
PROVIDERS: PCP Internal Medicine; Visit Provider Internal Medicine
DX: I12.9 Hypertensive chronic kidney disease with stage 1 through stage 4 chronic kidney disease, or unspecified chronic kidney disease (principal); N18.4 Chronic kidney disease, stage 4 (severe); E78.00 Pure hypercholesterolemia, unspecified; E55.9 Vitamin D deficiency, unspecified; H40.211 Acute angle-closure glaucoma, right eye; E66.3 Overweight
CPT/HCPCS: 99214

== ENCOUNTER 2023-09-12 10:01 | Outpatient (REF) | payer OTHER, SELFPAY ==
[2023-09-12 10:14] LABS: MANUAL DIFF FLAG NO
[2023-09-12 11:03] LABS: Basophils Percent Auto 0.4 % (0-2); Eosinophils Absolute Auto 0.1 X10*3/uL (0.0-0.4); Eosinophils Percent Auto 1.5 % (0-4); Hematocrit 42.5 % (42.0-52.0); Hemoglobin 14.5 g/dl (14.0-18.0); Imm Gran Abs Auto 0.03 X10*3/uL (0.00-0.03); Imm Gran Pct Auto 0.4 % (0.0-0.4); Lymphocytes Percent Auto 12.3 % (20-40); Mean Corpuscular HGB Conc 34.1 g/dl (31.0-36.0); Mean Corpuscular Hemoglobin 30.9 pg (27.0-33.0); Mean Corpuscular Volume 90.6 fL (80.0-98.0); Mean Platelet Volume 9.9 fL (9.4-12.4); Monocytes Absolute Auto 0.4 X10*3/uL (0.1-1.2); Monocytes Percent Auto 4.9 % (2-11); Neutrophils Absolute Auto 6.6 x10*3/uL (2.0-8.3); Neutrophils Percent Auto 80.5 % (45-73); Platelet Count 301 X10*3/uL (160-400); Red Blood Count 4.69 X10*6/uL (4.60-5.80); Red Cell Distribution Width 12.2 % (11.0-16.0); White Blood Count 8.2 X10*3/uL (4.8-10.8)
[2023-09-12 13:25] LABS: Alanine Aminotransferase 15 U/L (0-40); Alkaline Phosphatase 60 U/L (39-117); Anion Gap 15 (12-20); Aspartate Amino Transferase 14 U/L (5-37); Bilirubin Total 0.5 mg/dL (0.0-1.0); Blood Urea Nitrogen 46 mg/dL (9-16); Calcium 9.2 mg/dL (8.4-10.2); Carbon Dioxide 23 mmol/L (22-29); Chloride 108 mmol/L (96-108); Cholesterol 178 mg/dL (<200); Estimated Glomerular Filt Rate 19; Glucose Fasting 80 mg/dL (60-99); HDL Cholesterol 39 mg/dL (>40); LDL Cholesterol Calculated 103 mg/dL (<100); Potassium 4.6 mmol/L (3.3-5.1); Sodium 141 mmol/L (135-145); Total Protein 6.8 g/dL (6.5-8.0); Triglycerides 183 mg/dL (<150)
== END 2023-09-12 10:02 | disposition home or self-care (01) ==
LOC: HO.LAB 10:01
PROVIDERS: PCP Internal Medicine; Visit Provider Internal Medicine
DX: I12.9 Hypertensive chronic kidney disease with stage 1 through stage 4 chronic kidney disease, or unspecified chronic kidney disease (principal); N18.30 Chronic kidney disease, stage 3 unspecified; E78.00 Pure hypercholesterolemia, unspecified
CPT/HCPCS: 36415; 80053; 80061; 85025

== ENCOUNTER 2023-10-03 10:41 | Outpatient (AMB) | payer OTHER, SELFPAY ==
[2023-10-03 10:47] VITALS: BP 124/80; PULSE 98; O2SAT 96; BMI 29.4
--- NOTE | 2023-10-03 10:47 | HO.NEPHOV_ITS ---
Vital Signs 10/03/23 10:47 Height 5 ft 8 in Weight 193 lb 6 oz BMI 29.4 BP 124/80 Blood Pressure Location Lt brachial Position Sitting Pulse 98 Pulse Source Pulse Oximeter Pulse Oximetry (%) 96 Oxygen Delivery Method Room Air Intake Visit Reasons: CKD stage 4/ Confirmed w/ Business Broker Required: No Accompanied by: Spouse Allergies No Known Allergies Allergy (Verified 10/03/23 10:49) HPI Comments Details: I had the pleasure of seeing Nasir in follow-up of his chronic kidney disease and hypertension .He remains compliant with his medications. He has no orthostatic symptoms. He denies nausea, vomiting, diarrhea, chest pain, shortness of breath, paroxysmal nocturnal dyspnea, orthopnea, pedal edema or urinary symptoms. He is compliant with his medications. He does not take any nonsteroidal anti-inflammatories. There were no new systemic complaints at the time of this office visit [facility] Medical History (Updated 09/12/23 @ 09:56 by Dwayne Jacobs MD) Chronic kidney disease, stage 4 (severe) Overweight (BMI 25.0-29.9) Acute angle-closure glaucoma of right eye Obesity (BMI 30-39.9) Vitamin D deficiency Pure hypercholesterolemia Benign essential hypertension Surgical History History of eye surgery Family History Father Medical history unknown Mother Cancer Social History Housing: House Alcohol intake: never Patient Tobacco Use Status: Never used Tobacco e-Cigarette/Vaping Use: Never Used Second Hand Smoke Exposure: Yes service: No Current occupational status: employed 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, 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 Cognitive needs: No Hearing needs: No Vision needs: No Physical Exam Vital Signs: Last Vital Signs Pulse 98 10/03/23 10:47 BP 124/80 10/03/23 10:47 Pulse Ox 96 10/03/23 10:47 Oxygen Delivery Method Room Air 10/03/23 10:47 BMI result Body Mass Index 29.4 Const General: comfortable and no acute distress Orientation/consciousness: patient oriented x3 HEENT Head: Yes normocephalic Mouth: Normal oral and palatal mucosa present Eyes EOM: EOMs intact bilaterally Neck Neck: Yes supple Resp Auscultation: clear to auscultation bilaterally Cardio Jugular venous distension: no JVD Rate: regular rate GI Palpation (GI): Soft to palpation Auscultation: normal bowel sounds General: Yes no CVA tenderness Back/Spine/Pelvis Back: no CVA tenderness Skin General skin exam: no rashes or lesions noted Neuro General: patient oriented x3 and moves all extremities Extrem General: Yes no pedal edema Results Reviewed Nephrology Results: Hgb 14.5 g/dl (14.0-18.0) 09/12/23 WBC 8.2 X10*3/uL (4.8-10.8) 09/12/23 Plt Count 301 X10*3/uL (160-400) 09/12/23 Sodium 141 mmol/L (135-145) 09/12/23 Potassium 4.6 mmol/L (3.3-5.1) 09/12/23 Chloride 108 mmol/L (96-108) 09/12/23 Carbon Dioxide 23 mmol/L (22-29) 09/12/23 BUN 46 mg/dL (9-16) H 09/12/23 Creatinine 3.60 mg/dL (0.5-1.4) H 09/12/23 Calcium 9.2 mg/dL (8.4-10.2) 09/12/23 Urine Protein 300 (3+) mg/dL (Neg-Trace) H 05/09/23 Urine Creatinine 69.17 mg/dL 02/10/23 Assessment & Plan Assessment & Plan (1) Chronic kidney disease, stage 4 (severe): Code(s): N18.4 - Chronic kidney disease, stage 4 (severe) Category: Medical (2) Vitamin D deficiency: Code(s): E55.9 - Vitamin D deficiency, unspecified Category: Medical (3) Benign essential hypertension: Code(s): I10 - Essential (primary) hypertension Category: Medical Plan Nasir has stage IV CKD for a long time. I reduced his lisinopril to 2.5 mg daily. He has on a lipid-lowering agent. He takes low-sodium diet. He maintains good hydration. He avoids nonsteroidal anti-inflammatories. I have ordered follow-up repeat blood work. I did not make any other medication changes today. Answered all questions. Follow-up appointment given. Orders: Orders Electrolytes Today N18.4 - Chronic kidney disease, stage 4 (severe) Calcium Today N18.4 - Chronic kidney disease, stage 4 (severe) Blood Urea Nitrogen Today N18.4 - Chronic kidney disease, stage 4 (severe) Creatinine Today N18.4 - Chronic kidney disease, stage 4 (severe) Phosphorus Today N18.4 - Chronic kidney disease, stage 4 (severe) Parathyroid Hormone Intact Today N18.4 - Chronic kidney disease, stage 4 (severe) Medications: New lisinopril 2.5 mg PO DAILY 90 tabs 3RF Coding Level of Care Code Est Pt Level 4 (48137) Diagnoses Chronic kidney disease, stage 4 (severe) N18.4 Vitamin D deficiency E55.9 Benign essential hypertension I10
== END 2023-10-03 11:04 | disposition home or self-care (01) ==
PROVIDERS: PCP Internal Medicine; Referring Provider Internal Medicine; Visit Provider Internal Medicine Nephrology
DX: I12.9 Hypertensive chronic kidney disease with stage 1 through stage 4 chronic kidney disease, or unspecified chronic kidney disease (principal); N18.4 Chronic kidney disease, stage 4 (severe); E55.9 Vitamin D deficiency, unspecified
CPT/HCPCS: 99214

== ENCOUNTER → 2023-10-03 10:41 | Outpatient (BNVA) | payer OTHER, SELFPAY | PROVIDERS: PCP Internal Medicine; Referring Provider Internal Medicine; Visit Provider Internal Medicine Nephrology ==

== ENCOUNTER 2023-12-30 13:44 | Outpatient (REF) | payer OTHER, SELFPAY ==
[2023-12-30 15:10] LABS: Parathyroid Hormone Intact 221.3 pg/mL (8.7-77.1)
[2023-12-30 15:15] LABS: Anion Gap 13 (12-20); Blood Urea Nitrogen 44 mg/dL (9-16); Calcium 9.5 mg/dL (8.4-10.2); Carbon Dioxide 21 mmol/L (22-29); Chloride 108 mmol/L (96-108); Estimated Glomerular Filt Rate 15; Phosphorus 3.7 mg/dL (2.7-4.5); Potassium 4.1 mmol/L (3.3-5.1); Sodium 138 mmol/L (135-145)
== END 2023-12-30 13:45 | disposition home or self-care (01) ==
LOC: HO.LAB 13:44
PROVIDERS: PCP Internal Medicine; Visit Provider Internal Medicine Nephrology
DX: N18.4 Chronic kidney disease, stage 4 (severe) (principal)
CPT/HCPCS: 36415; 80051; 82310; 82565; 83970; 84100; 84520

== ENCOUNTER 2024-01-02 09:34 | Outpatient (AMB) | payer OTHER, SELFPAY ==
[2024-01-02 09:44] VITALS: BP 110/80; PULSE 78; O2SAT 98; BMI 29.1
--- NOTE | 2024-01-02 09:44 | HO.NEPHOV ---
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 He has no orthostatic symptoms. He denies nausea, vomiting, diarrhea, chest pain, shortness of breath, paroxysmal nocturnal dyspnea, orthopnea, pedal edema or urinary symptoms. He is compliant with his medications. He does not take any nonsteroidal anti-inflammatories. He has been having pain over right maxillary sinus. There were no new systemic complaints at the time of this office visit [facility] Medical History (Updated 09/12/23 @ 09:56 by Dwayne Jacobs MD) Chronic kidney disease, stage 4 (severe) Overweight (BMI 25.0-29.9) Acute angle-closure glaucoma of right eye Obesity (BMI 30-39.9) Vitamin D deficiency Pure hypercholesterolemia Benign essential hypertension Surgical History History of eye surgery Family History Father Medical history unknown Mother Cancer Social History Housing: House Alcohol intake: never Patient Tobacco Use Status: Never used Tobacco e-Cigarette/Vaping Use: Never Used Second Hand Smoke Exposure: Yes service: No Current occupational status: employed 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, 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 Cognitive needs: No Hearing needs: No Vision needs: No Review of Systems Const All systems reviewed & are unremarkable except as noted in HPI and below Physical Exam Vital Signs: Last Vital Signs Pulse 78 01/02/24 09:44 BP 110/80 01/02/24 09:44 Pulse Ox 98 01/02/24 09:44 Oxygen Delivery Method Room Air 01/02/24 09:44 BMI result Body Mass Index 29.1 Const General: comfortable and no acute distress Orientation/consciousness: patient oriented x3 HEENT Head: Yes normocephalic Mouth: Normal oral and palatal mucosa present Eyes EOM: EOMs intact bilaterally Neck Neck: Yes supple Resp Auscultation: clear to auscultation bilaterally Cardio Jugular venous distension: no JVD Rate: regular rate GI Palpation (GI): Soft to palpation Auscultation: normal bowel sounds General: Yes no CVA tenderness Back/Spine/Pelvis Back: no CVA tenderness Skin General skin exam: no rashes or lesions noted Neuro General: patient oriented x3 and moves all extremities Extrem General: Yes no pedal edema Results Reviewed Nephrology Results: Hgb 14.5 g/dl (14.0-18.0) 09/12/23 WBC 8.2 X10*3/uL (4.8-10.8) 09/12/23 Plt Count 301 X10*3/uL (160-400) 09/12/23 Sodium 138 mmol/L (135-145) 12/30/23 Potassium 4.1 mmol/L (3.3-5.1) 12/30/23 Chloride 108 mmol/L (96-108) 12/30/23 Carbon Dioxide 21 mmol/L (22-29) L 12/30/23 BUN 44 mg/dL (9-16) H 12/30/23 Creatinine 4.26 mg/dL (0.5-1.4) H* 12/30/23 Calcium 9.5 mg/dL (8.4-10.2) 12/30/23 Phosphorus 3.7 mg/dL (2.7-4.5) 12/30/23 PTH Intact 221.3 pg/mL (8.7-77.1) H 12/30/23 Urine Protein 300 (3+) mg/dL (Neg-Trace) H 05/09/23 Urine Creatinine 69.17 mg/dL 02/10/23 Assessment & Plan Assessment & Plan (1) Chronic kidney disease, stage 4 (severe): Code(s): N18.4 - Chronic kidney disease, stage 4 (severe) Category: Medical Plan Nasir has stage IV CKD for a long time. I held his lisinopril given rise in serum creatinine. He has on a lipid-lowering agent. He takes low-sodium diet. He maintains good hydration. He avoids nonsteroidal anti-inflammatories. I have ordered follow-up repeat blood work. I did not make any other medication changes today. Discussed about worsening renal functions, HD as well as renal transplant. Answered all questions. Follow-up appointment given Orders: Orders Creatinine Today N18.4 - Chronic kidney disease, stage 4 (severe) Blood Urea Nitrogen Today N18.4 - Chronic kidney disease, stage 4 (severe) Creatinine Clearance Urine 24U Today N18.4 - Chronic kidney disease, stage 4 (severe) Electrolytes Today N18.4 - Chronic kidney disease, stage 4 (severe) Coding Level of Care Code Est Pt Level 4 (70891) Diagnoses Chronic kidney disease, stage 4 (severe) N18.4
== END 2024-01-02 10:10 | disposition home or self-care (01) ==
PROVIDERS: PCP Internal Medicine; Visit Provider Internal Medicine Nephrology
DX: N18.4 Chronic kidney disease, stage 4 (severe) (principal)
CPT/HCPCS: 99214

== ENCOUNTER → 2024-01-02 09:34 | Outpatient (BNVA) | payer OTHER, SELFPAY | PROVIDERS: PCP Internal Medicine; Visit Provider Internal Medicine Nephrology ==

== ENCOUNTER 2024-01-30 10:36 | Outpatient (AMB) | payer OTHER, SELFPAY ==
[2024-01-30 10:43] VITALS: BP 120/82; PULSE 71; O2SAT 97; BMI 28.8
--- NOTE | 2024-01-30 10:43 | MHC.PC.OV ---
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 Accompanied by: Self / Same As Patient Allergies No Known Allergies Allergy (Verified 01/30/24 11:29) Medication List - Last Reconciled 01/30/24 by Dwayne Jacobs MD atorvastatin 20 mg PO DAILY 90 days cholecalciferol (vitamin D3) 25 mcg PO DAILY 90 days fexofenadine 180 mg PO DAILY PRN 30 days fluticasone propionate 50 mcg/actuation 2 sprays intranasal DAILY PRN 30 days loratadine 10 mg PO DAILY PRN 90 days nystatin 1 appl topical TID 10 days omega-3 fatty acids (Fish Oil Concentrate) 1,000 mg PO DAILY Tobacco use date assessed: 01/30/24 Dental Screening Dental Screen Date: 01/30/24 Did you have a dental visit in the last 12 months?: No Did you have a dental problem in the last 6 months where you did not have access to dental care?: No Was dental information given to patient?: No HPI CKD stage 4, HTN, hyperlipidemia HPI Details Patient comes in today for his follow up visit States that he currently feels okay He denies any headaches or dizziness Denies any chest pains, no SOB No nausea/vomiting, no abdominal pain No change in bowel habits noted He had some follow up labs done last month - to discuss his results He was also recently taken off his Lisinopril by nephrology due to declining renal function over the past year He apparently has been advised of the option of being applied to the transplant list and will be seeing Dr. Antonio for nephrology follow up in a couple of weeks [facility] Medical History Chronic kidney disease, stage 4 (severe) Overweight (BMI 25.0-29.9) Acute angle-closure glaucoma of right eye Obesity (BMI 30-39.9) Vitamin D deficiency Pure hypercholesterolemia Benign essential hypertension Surgical History History of eye surgery Family History Father Medical history unknown Mother Cancer Social History Housing: House Alcohol intake: never Patient Tobacco Use Status: Never used Tobacco e-Cigarette/Vaping Use: Never Used Second Hand Smoke Exposure: Yes service: No Current occupational status: employed 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 1. Little interest or pleasure in doing things: not at all 2. Feeling down, depressed, or hopeless: not at all 3. Trouble falling or staying asleep, or sleeping too much: not at all 4. Feeling tired or having little energy: not at all 5. Poor appetite or overeating: not at all 6. Feeling bad about yourself - or that you are a failure or have let yourself or your family down: not at all 7. Trouble concentrating on things, such as reading the newspaper or watching television: not at all 8. Moving or speaking so slowly that other people could have noticed. Or the opposite - being so fidgety or restless that you have been moving around a lot more than usual: not at all 9. Thoughts that you would be better off or of hurting yourself in some way: not at all Total score: 0 Depression Screening Interpretation: Negative Depression Screening Done: Yes 37524 - PHQ-9 Billing: Yes Source: Developed by Drs. Crow Marley, Dafne Rivero, Micky Leos and colleagues, with an educational zafar from [employer]. Thrive Questionnaire Date Thrive assessed: 01/30/24 I am a: Patient What is your living situation today?: I have a steady place to live Within the past 12 months, did the food you bought not last and you didn't have the money to get more?: Never true Within the past 12 months, did you worry whether your food would run out before you got money to buy more?: Never true Do you have trouble paying for medicines?: No Do you have trouble getting transportation to medical appointments?: No Do you have trouble paying your heating and electricity bill?: No Do you have trouble taking care of your child, family member or friend?: No Do you have trouble with day-to-day activities such as bathing, preparing meals, shopping, managing finances, etc.?: No Are you currently unemployed and looking for a job?: No Are you interested in more education?: No Please select the resources that you would like help with: None Currently or been in a relationship where the following occur: No concerns reported THRIVE Score: 0 AUDIT C Alcohol Use Questionnaire (AUDIT-C) 1. How often do you have a drink containing alcohol?: Never 3. How often do you have six or more drinks on one occasion?: Never Total Score: 0 Score Reviewed/Action Taken: Yes GUERA-7 AMB Questionnaire GUERA-7 Date GUERA - 7 assessed: 01/30/24 Feeling nervous, anxious, or on edge: 0 = Not at all Not being able to stop or control worryin = Not at all Worrying too much about different things: 0 = Not at all Trouble relaxin = Not at all Being so restless that it is hard to sit still: 0 = Not at all Becoming easily annoyed or irritable: 0 = Not at all Feeling afraid as if something awful might happen: 0 = Not at all Total GUERA-7 score (0-4 normal; 5-9 mild; 10-14 moderate; 15-21 severe): 0 Source: Developed by Drs. Crow Marley, Dafne Rivero, Micky Leos and colleagues, with an educational zafar from [employer]. Review of Systems Const Denies chills, Denies fatigue, Denies fever(s) and Denies headache(s) Eyes Denies blurry vision, Denies eye pain and Reports photophobia (in the right eye) ENT Denies dysphagia, Denies dizziness, Denies otalgia, Denies headache(s), Denies neck pain, Denies odynophagia and Denies sore throat Card Denies chest pain, Denies irregular heart rhythm, Denies palpitations and Denies dyspnea Resp Denies chest congestion, Denies cough and Denies dyspnea GI Denies abdominal pain, Denies constipation, Denies dysphagia, Denies heartburn, Denies diarrhea, Denies nausea, Denies odynophagia and Denies vomiting Denies difficulty urinating, Denies dysuria, Denies nocturia and Denies urinary frequency Musc Denies back pain and Denies neck pain Skin/Breast Denies rash Neuro Denies dizziness and Denies headache(s) Endo Denies fatigue and Denies palpitations Physical exam (Primary Care) Vital Signs: Last Vital Signs Pulse 71 01/30/24 10:43 BP 120/82 01/30/24 10:43 Pulse Ox 97 01/30/24 10:43 Oxygen Delivery Method Room Air 01/30/24 10:43 BMI result Body Mass Index 28.8 Tobacco/Smoking Status: Tobacco use Status Tobacco use date assessed 01/30/24 01/30/24 10:44 Patient Tobacco Use Status Never used Tobacco 01/30/24 10:44 e-Cigarette/Vaping Use Never Used 01/30/24 10:44 PHQ-9: PHQ-9 Score PHQ-9: Total score 0 01/30/24 10:49 Depression Screening Interpretation: Negative Thrive Assessment: Date of Thrive Assessment Date Thrive assessed 01/30/24 01/30/24 10:49 Currently or been in a relationship where the following occur: No concerns reported Const General: no acute distress and alert HENMT Ears: TM's normal bilaterally and EAC's normal Throat: Yes posterior oropharynx normal and Yes tonsils normal (no TP congestion) Eyes Direct Ophthalmoscopy: photophobia (in the right eye) Neck Neck: Yes no lymphadenopathy and Yes supple Thyroid: Thyroid normal Resp Auscultation: clear to auscultation bilaterally, no rales and no wheezes Cardio Rate: regular rate Rhythm: regular rhythm Heart sounds: no murmurs GI Palpation (GI): Soft to palpation and nontender Auscultation: normal bowel sounds General: Yes no CVA tenderness Back/Spine/Pelvis Back: no CVA tenderness Skin Rashes: no rashes Extrem General: Yes no clubbing, cyanosis or edema Results Reviewed Results Reviewed: Laboratory Tests 09/12/23 12/30/23 10:13 13:54 Sodium 138 Potassium 4.1 Creatinine 4.26 H* Estimated GFR 15 Fasting Glucose 80 Calcium 9.5 Assessment and Plan Assessment & Plan (1) Benign essential hypertension: Code(s): I10 - Essential (primary) hypertension Plan: Reinforced low sodium diet - goal is systolic BP of 120 mm or less due to his CKD He was on Lisinopril 5 mg QD but this was recently discontinued by nephrology because of his recently declining renal function Patient is advised to continue monitoring his blood pressure regularly for now (2) Chronic kidney disease, stage 4 (severe): Code(s): N18.4 - Chronic kidney disease, stage 4 (severe) Plan: Patient's renal function has been gradually declining over the past year and he is now at the cut off from CKD stage 4 to stage 5 We will continue to monitor his renal function closely He is now seeing Dr. Antonio again here at [facility] for follow up and has been advised that he will be considered for application to the transplant list soon, based on his recent renal function - has a follow up appt with Dr. Antonio in a couple of weeks Per his 's request, will send him for hepatitis testing in anticipation of his renal transplant application (3) Pure hypercholesterolemia: Code(s): E78.00 - Pure hypercholesterolemia, unspecified Plan: Results of his labs done last month reviewed and discussed with patient Reinforced low cholesterol diet Continue Atorvastatin 10 mg QD Will recheck his fasting lipids and labs in 4 months for follow up (4) Vitamin D deficiency: Code(s): E55.9 - Vitamin D deficiency, unspecified Plan: Continue Vitamin D3 2000 units QD (5) Acute angle-closure glaucoma of right eye: Comment: S/P emergent laser peripheral iridotomy on 07/17/2020 Also had cataract extraction of the right eye on 08/02/2020 Had glaucoma implant drain placed in November 2020 Code(s): H40.211 - Acute angle-closure glaucoma, right eye Plan: S/P laser surgery (iridotomy) on 11/16/20, which reportedly failed and patient underwent a stent (glaucoma implant drain) insertion in his eye on 12/07/[address] Max, with significant improvement of his eye symptoms since States that he's had no problems with his vision and has no eye pain lately although he does have some light sensitivity in the right eye Follow up with ophthalmology as scheduled (6) Overweight (BMI 25.0-29.9): Code(s): E66.3 - Overweight Plan: Reinforced diet/exercise as tolerated/lose weight Plan Follow up in 4 months Orders: Orders Comprehensive [place]. Panel Fast 4 Months E78.00 - Pure hypercholesterolemia, unspecified Lipid Panel 4 Months E78.00 - Pure hypercholesterolemia, unspecified Vitamin D 25-OH Total 4 Months E55.9 - Vitamin D deficiency, unspecified Hepatitis B,C Profile Today Z20.5 - Contact with and (suspected) exposure to viral hepatitis Complete Blood Count Auto Diff 4 Months D64.9 - Anemia, unspecified TSH reflex Free T4 4 Months E78.00 - Pure hypercholesterolemia, unspecified UA CC w/rflx Micro + Cult 4 Months R30.0 - Dysuria Coding Level of Care Code Est Pt Level 4 (42879) Complex EM visit Add On G2211 Diagnoses Benign essential hypertension I10 Chronic kidney disease, stage 4 (severe) N18.4 Pure hypercholesterolemia E78.00 Vitamin D deficiency E55.9 Acute angle-closure glaucoma of right eye H40.211 Overweight (BMI 25.0-29.9) E66.3
== END 2024-01-30 11:35 | disposition home or self-care (01) ==
PROVIDERS: PCP Internal Medicine; Visit Provider Internal Medicine
DX: I12.9 Hypertensive chronic kidney disease with stage 1 through stage 4 chronic kidney disease, or unspecified chronic kidney disease (principal); N18.4 Chronic kidney disease, stage 4 (severe); E78.00 Pure hypercholesterolemia, unspecified; E55.9 Vitamin D deficiency, unspecified; H40.211 Acute angle-closure glaucoma, right eye; E66.3 Overweight
CPT/HCPCS: 99214

== ENCOUNTER 2024-02-07 08:12 | Outpatient (REF) | payer OTHER, SELFPAY ==
[2024-02-07 09:36] LABS: Anion Gap 15 (12-20); Blood Urea Nitrogen 35 mg/dL (9-16); Carbon Dioxide 25 mmol/L (22-29); Chloride 108 mmol/L (96-108); Estimated Glomerular Filt Rate 17; Potassium 4.2 mmol/L (3.3-5.1); Sodium 144 mmol/L (135-145)
[2024-02-07 09:40] LABS: Creatinine, mg/dL 40.51
[2024-02-07 09:44] LABS: Creatinine (CrCl) 3.88 mg/dL (0.5-1.4); Creatinine Clearance 20.8 mL/min (85-125); Creatinine, 24Hr Urine 1.2 G/Day (1.0-2.0); Total Volume 24 Hour Urine 2875 mL
[2024-02-07 09:58] LABS: HBS Num1 0.61 mIU/mL (0-7.99); HBc Num1 0.04 S/CO (0.00-0.79); HBsAGNum1 0.22 S/CO (0.00-0.99); Hepatitis B Core Antibody Nonreactive (Nonreactive); Hepatitis B Surface Antigen Negative (Negative); ~Hepatitis B Surface Antibody NONREACTIVE (Nonreactive); ~Hepatitis C Antibody Nonreactive (Nonreactive)
== END 2024-02-07 08:13 | disposition home or self-care (01) ==
LOC: HO.LAB 08:12
PROVIDERS: PCP Internal Medicine; Visit Provider Internal Medicine Nephrology
DX: Z20.5 Contact with and (suspected) exposure to viral hepatitis (principal); N18.4 Chronic kidney disease, stage 4 (severe)
CPT/HCPCS: 36415; 80051; 82565; 82575; 84520; 86704; 86706; 86803; 87340

== ENCOUNTER 2024-02-11 10:40 | Outpatient (AMB) | payer OTHER, SELFPAY ==
--- NOTE | 2024-02-11 10:41 | HO.NEPHOV ---
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 He has no orthostatic symptoms. He denies nausea, vomiting, diarrhea, chest pain, shortness of breath, paroxysmal nocturnal dyspnea, orthopnea, pedal edema or urinary symptoms. He is compliant with his medications. He does not take any nonsteroidal anti-inflammatories. His last 24 urine collection showed a creatinine clearance of 21 mL/minute. There were no new systemic complaints at the time of this office visit [facility] Medical History Chronic kidney disease, stage 4 (severe) Overweight (BMI 25.0-29.9) Acute angle-closure glaucoma of right eye Obesity (BMI 30-39.9) Vitamin D deficiency Pure hypercholesterolemia Benign essential hypertension Surgical History History of eye surgery Family History Father Medical history unknown Mother Cancer Social History Housing: House Alcohol intake: never Patient Tobacco Use Status: Never used Tobacco e-Cigarette/Vaping Use: Never Used Second Hand Smoke Exposure: Yes service: No Current occupational status: employed 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, 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 Cognitive needs: No Hearing needs: No Vision needs: No Review of Systems Const All systems reviewed & are unremarkable except as noted in HPI and below Physical Exam Vital Signs: Last Vital Signs Pulse 73 02/11/24 10:42 BP 140/90 H 02/11/24 10:42 Pulse Ox 96 02/11/24 10:42 Oxygen Delivery Method Room Air 02/11/24 10:42 BMI result Body Mass Index 28.5 Const General: comfortable and no acute distress Orientation/consciousness: patient oriented x3 HEENT Head: Yes normocephalic Mouth: Normal oral and palatal mucosa present Eyes EOM: EOMs intact bilaterally Neck Neck: Yes supple Resp Auscultation: clear to auscultation bilaterally Cardio Jugular venous distension: no JVD Rate: regular rate GI Palpation (GI): Soft to palpation Auscultation: normal bowel sounds General: Yes no CVA tenderness Back/Spine/Pelvis Back: no CVA tenderness Skin General skin exam: no rashes or lesions noted Neuro General: patient oriented x3 and moves all extremities Extrem General: Yes no pedal edema Results Reviewed Nephrology Results: Hgb 14.5 g/dl (14.0-18.0) 09/12/23 WBC 8.2 X10*3/uL (4.8-10.8) 09/12/23 Plt Count 301 X10*3/uL (160-400) 09/12/23 Sodium 144 mmol/L (135-145) 02/07/24 Potassium 4.2 mmol/L (3.3-5.1) 02/07/24 Chloride 108 mmol/L (96-108) 02/07/24 Carbon Dioxide 25 mmol/L (22-29) 02/07/24 BUN 35 mg/dL (9-16) H 02/07/24 Creatinine 3.88 mg/dL (0.5-1.4) H 02/07/24 Assessment & Plan Assessment & Plan (1) Chronic kidney disease, stage 4 (severe): Code(s): N18.4 - Chronic kidney disease, stage 4 (severe) Category: Medical (2) Benign essential hypertension: Code(s): I10 - Essential (primary) hypertension Category: Medical (3) Secondary hyperparathyroidism (of renal origin): Code(s): N25.81 - Secondary hyperparathyroidism of renal origin Category: Medical Plan Nasir has stage IV CKD for a long time. I held his lisinopril given rise in serum creatinine. He is on a lipid-lowering agent. He takes low-sodium diet. He maintains good hydration. He avoids nonsteroidal anti-inflammatories. His last 24 hour urine collection showed a creatinine clearance of 21 mL/minute. I have ordered follow-up repeat blood work. I did not make any other medication changes today. Discussed about worsening renal functions, HD as well as renal transplant. Answered all questions. Follow-up appointment given Orders: Orders Creatinine 02/11/24 N18.4 - Chronic kidney disease, stage 4 (severe) Blood Urea Nitrogen 02/11/24 N18.4 - Chronic kidney disease, stage 4 (severe) Electrolytes 02/11/24 N18.4 - Chronic kidney disease, stage 4 (severe) Medications: New amlodipine 2.5 mg PO DAILY 90 tabs 3RF Coding Level of Care Code Est Pt Level 4 (92884) Diagnoses Chronic kidney disease, stage 4 (severe) N18.4 Benign essential hypertension I10 Secondary hyperparathyroidism (of renal origin) N25.81
[2024-02-11 10:42] VITALS: BP 140/90; PULSE 73; O2SAT 96; BMI 28.5
== END 2024-02-11 11:06 | disposition home or self-care (01) ==
PROVIDERS: PCP Internal Medicine; Visit Provider Internal Medicine Nephrology
DX: I12.9 Hypertensive chronic kidney disease with stage 1 through stage 4 chronic kidney disease, or unspecified chronic kidney disease (principal); N18.4 Chronic kidney disease, stage 4 (severe); N25.81 Secondary hyperparathyroidism of renal origin
CPT/HCPCS: 99214

== ENCOUNTER → 2024-02-11 10:40 | Outpatient (BNVA) | payer OTHER, SELFPAY | PROVIDERS: PCP Internal Medicine; Visit Provider Internal Medicine Nephrology ==

== ENCOUNTER 2024-04-03 09:41 | Outpatient (REF) | payer OTHER, SELFPAY ==
[2024-04-03 10:52] LABS: Anion Gap 14 (12-20); Carbon Dioxide 23 mmol/L (22-29); Chloride 110 mmol/L (96-108); Sodium 143 mmol/L (135-145)
[2024-04-03 11:08] LABS: Blood Urea Nitrogen 45 mg/dL (9-16); Estimated Glomerular Filt Rate 17
== END 2024-04-03 09:42 | disposition home or self-care (01) ==
LOC: HO.LAB 09:41
PROVIDERS: PCP Internal Medicine; Visit Provider Internal Medicine Nephrology
DX: N18.4 Chronic kidney disease, stage 4 (severe) (principal)
CPT/HCPCS: 36415; 80051; 82565; 84520

== ENCOUNTER 2024-04-14 11:35 | Outpatient (AMB) | payer OTHER, SELFPAY ==
--- NOTE | 2024-04-14 12:03 | HO.NEPHOV ---
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 Lately his BP is not well controlled. He has no orthostatic symptoms. He denies nausea, vomiting, diarrhea, chest pain, shortness of breath, paroxysmal nocturnal dyspnea, orthopnea, pedal edema or urinary symptoms. He is compliant with his medications. He does not take any nonsteroidal anti-inflammatories. His last 24 urine collection showed a creatinine clearance of 21 mL/minute. There were no new systemic complaints at the time of this office visit [facility] Medical History Chronic kidney disease, stage 4 (severe) Overweight (BMI 25.0-29.9) Acute angle-closure glaucoma of right eye Obesity (BMI 30-39.9) Vitamin D deficiency Pure hypercholesterolemia Benign essential hypertension Surgical History History of eye surgery Family History Father Medical history unknown Mother Cancer Social History Housing: House Alcohol intake: never Patient Tobacco Use Status: Never used Tobacco e-Cigarette/Vaping Use: Never Used Second Hand Smoke Exposure: Yes service: No Current occupational status: employed 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, 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 Cognitive needs: No Hearing needs: No Vision needs: No Review of Systems Const All systems reviewed & are unremarkable except as noted in HPI and below Physical Exam Vital Signs: Last Vital Signs Pulse 84 04/14/24 12:04 BP 138/100 H 04/14/24 12:04 Pulse Ox 97 04/14/24 12:04 Oxygen Delivery Method Room Air 04/14/24 12:04 BMI result Body Mass Index 28.7 Const General: comfortable and no acute distress Orientation/consciousness: patient oriented x3 HEENT Head: Yes normocephalic Mouth: Normal oral and palatal mucosa present Eyes EOM: EOMs intact bilaterally Neck Neck: Yes supple Resp Auscultation: clear to auscultation bilaterally Cardio Jugular venous distension: no JVD Rate: regular rate GI Palpation (GI): Soft to palpation Auscultation: normal bowel sounds General: Yes no CVA tenderness Back/Spine/Pelvis Back: no CVA tenderness Skin General skin exam: no rashes or lesions noted Neuro General: patient oriented x3 and moves all extremities Extrem General: Yes no pedal edema Results Reviewed Nephrology Results: Hgb 14.5 g/dl (14.0-18.0) 09/12/23 WBC 8.2 X10*3/uL (4.8-10.8) 09/12/23 Plt Count 301 X10*3/uL (160-400) 09/12/23 Sodium 143 mmol/L (135-145) 04/03/24 Potassium 4.0 mmol/L (3.3-5.1) 04/03/24 Chloride 110 mmol/L (96-108) H 04/03/24 Carbon Dioxide 23 mmol/L (22-29) 04/03/24 BUN 45 mg/dL (9-16) H 04/03/24 Creatinine 3.99 mg/dL (0.5-1.4) H 04/03/24 Calcium 9.5 mg/dL (8.4-10.2) 12/30/23 Phosphorus 3.7 mg/dL (2.7-4.5) 12/30/23 PTH Intact 221.3 pg/mL (8.7-77.1) H 12/30/23 Assessment & Plan Assessment & Plan (1) Chronic kidney disease, stage 4 (severe): Code(s): N18.4 - Chronic kidney disease, stage 4 (severe) Category: Medical (2) Secondary hyperparathyroidism (of renal origin): Code(s): N25.81 - Secondary hyperparathyroidism of renal origin Category: Medical (3) Benign essential hypertension: Code(s): I10 - Essential (primary) hypertension Category: Medical Plan Nasir has stage IV CKD for a long time. I held his lisinopril in the recent past given rise in serum creatinine. He is on a lipid-lowering agent. He takes low-sodium diet. He maintains good hydration. He avoids nonsteroidal anti-inflammatories. His last 24 hour urine collection showed a creatinine clearance of 21 mL/minute. I increased his Amlodipine to 10 mg daily. I discussed about SGLT2 i. I referred him to [facility] renal transplant division for eval/listing. I did not make any other medication changes today. Discussed about worsening renal functions, HD as well as renal transplant. Answered all questions. Follow-up appointment given Orders: Referrals Transplant Surgery Referral N18.4 - Chronic kidney disease, stage 4 (severe) Medications: Changed From amlodipine 2.5 mg PO DAILY 90 tabs 3RF To amlodipine 5 mg PO BID 60 tabs 5RF Coding Level of Care Code Est Pt Level 4 (01056) Diagnoses Chronic kidney disease, stage 4 (severe) N18.4 Secondary hyperparathyroidism (of renal origin) N25.81 Benign essential hypertension I10
[2024-04-14 12:04] VITALS: BP 138/100; PULSE 84; O2SAT 97; BMI 28.7
== END 2024-04-14 12:25 | disposition home or self-care (01) ==
PROVIDERS: PCP Internal Medicine; Visit Provider Internal Medicine Nephrology
DX: I12.9 Hypertensive chronic kidney disease with stage 1 through stage 4 chronic kidney disease, or unspecified chronic kidney disease (principal); N18.4 Chronic kidney disease, stage 4 (severe); N25.81 Secondary hyperparathyroidism of renal origin
CPT/HCPCS: 99214

== ENCOUNTER → 2024-04-14 11:35 | Outpatient (BNVA) | payer OTHER, SELFPAY | PROVIDERS: PCP Internal Medicine; Visit Provider Internal Medicine Nephrology ==

== ENCOUNTER 2024-04-15 09:49 | Outpatient (REF) | payer OTHER, SELFPAY ==
--- NOTE | ~2024-04-15 | XR_ITS ---
EXAMINATION: XR FOOT, RIGHT CLINICAL INFORMATION: Right foot pain COMPARISON: Radiographs 09/09/2022 TECHNIQUE: AP, lateral, and oblique views of the right foot. FINDINGS: Mild 1st MTP joint osteoarthritis. No fracture or malalignment. No periarticular osteopenia, erosions, or suspicious soft tissue calcifications. Small heel spur. XR/XR foot RT min 3V IMPRESSION: Mild 1st MTP joint osteoarthritis. Small heel spur. No acute abnormality. Electronically signed by: Nestor Rowell MD 04/15/2024 02:07 PM EVITA ZABALA
== END 2024-04-15 09:50 | disposition home or self-care (01) ==
LOC: HO.XRAY 09:49
PROVIDERS: PCP Internal Medicine; Visit Provider Internal Medicine
DX: Z23 Encounter for immunization (principal); M79.671 Pain in right foot
CPT/HCPCS: 73630; 90471; 90656; 96127

== ENCOUNTER 2024-04-15 09:49 | Outpatient (AMB) | payer OTHER, SELFPAY ==
--- NOTE | 2024-04-15 09:53 | A.OFFPC_ITS ---
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 [employer] Required: No Accompanied by: Self / Same As Patient Allergies No Known Allergies Allergy (Verified 04/15/24 10:16) Medication List - Last Reconciled 04/15/24 by Dwayne Jacobs MD amlodipine 5 mg PO BID atorvastatin 20 mg PO DAILY 90 days cholecalciferol (vitamin D3) 25 mcg PO DAILY 90 days fexofenadine 180 mg PO DAILY PRN 30 days fluticasone propionate 50 mcg/actuation 2 sprays intranasal DAILY PRN 30 days loratadine 10 mg PO DAILY PRN 90 days nystatin 1 appl topical TID 10 days omega-3 fatty acids (Fish Oil Concentrate) 1,000 mg PO DAILY Tobacco use date assessed: 04/15/24 Dental Screening Dental Screen Date: 04/15/24 Did you have a dental visit in the last 12 months?: Yes Did you have a dental problem in the last 6 months where you did not have access to dental care?: No Was dental information given to patient?: Patient has dentist HPI right foot pain HPI Details Patient is a 44-year-old male presenting with acute right foot pain The pain began approximately one week ago and is localized to the top of the right foot Patient denies any recent trauma or increased activity levels that could have contributed to the onset of pain States that the pain occurs primarily with weight-bearing and when he is walking and feels worse toward the end of the day He reports no pain while sitting or at rest He denies any history of previous foot injuries or surgeries He was seen by nephrology (Dr. Antonio) for follow up of his chronic kidney disease recently and has been referred for transplant evaluation He was recently taken off his Lisinopril due to a worsening of his kidney function and Amlodipine was increased to 10 mg QD Patient states that he feels okay otherwise and has no other acute issues at present He would also like to get his flu shot today [facility] Medical History Chronic kidney disease, stage 4 (severe) Overweight (BMI 25.0-29.9) Acute angle-closure glaucoma of right eye Obesity (BMI 30-39.9) Vitamin D deficiency Pure hypercholesterolemia Benign essential hypertension Surgical History History of eye surgery Family History Father Medical history unknown Mother Cancer Social History Housing: House Alcohol intake: never Patient Tobacco Use Status: Never used Tobacco e-Cigarette/Vaping Use: Never Used Second Hand Smoke Exposure: Yes service: No Current occupational status: employed 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 1. Little interest or pleasure in doing things: not at all 2. Feeling down, depressed, or hopeless: not at all 3. Trouble falling or staying asleep, or sleeping too much: not at all 4. Feeling tired or having little energy: not at all 5. Poor appetite or overeating: not at all 6. Feeling bad about yourself - or that you are a failure or have let yourself or your family down: not at all 7. Trouble concentrating on things, such as reading the newspaper or watching television: not at all 8. Moving or speaking so slowly that other people could have noticed. Or the opposite - being so fidgety or restless that you have been moving around a lot more than usual: not at all 9. Thoughts that you would be better off or of hurting yourself in some way: not at all Total score: 0 Depression Screening Interpretation: Negative Depression Screening Done: Yes 08153 - PHQ-9 Billing: Yes Source: Developed by Drs. Crow Marley, Dafne Rivero, Micky Leos and colleagues, with an educational zafar from [employer] Thrive Questionnaire Date Thrive assessed: 04/15/24 I am a: Patient What is your living situation today?: I have a steady place to live Within the past 12 months, did the food you bought not last and you didn't have the money to get more?: Never true Within the past 12 months, did you worry whether your food would run out before you got money to buy more?: Never true Do you have trouble paying for medicines?: No Do you have trouble getting transportation to medical appointments?: No Do you have trouble paying your heating and electricity bill?: No Do you have trouble taking care of your child, family member or friend?: No Do you have trouble with day-to-day activities such as bathing, preparing meals, shopping, managing finances, etc.?: No Are you currently unemployed and looking for a job?: No Are you interested in more education?: No Please select the resources that you would like help with: None Currently or been in a relationship where the following occur: No concerns reported THRIVE Score: 0 AUDIT C Alcohol Use Questionnaire (AUDIT-C) 1. How often do you have a drink containing alcohol?: Never 3. How often do you have six or more drinks on one occasion?: Never Total Score: 0 Score Reviewed/Action Taken: Yes GUERA-7 AMB Questionnaire GUERA-7 Date GUERA - 7 assessed: 04/15/24 Feeling nervous, anxious, or on edge: 0 = Not at all Not being able to stop or control worryin = Not at all Worrying too much about different things: 0 = Not at all Trouble relaxin = Not at all Being so restless that it is hard to sit still: 0 = Not at all Becoming easily annoyed or irritable: 0 = Not at all Feeling afraid as if something awful might happen: 0 = Not at all Total GUERA-7 score (0-4 normal; 5-9 mild; 10-14 moderate; 15-21 severe): 0 Source: Developed by Drs. Crow Marley, Dafne Rivero, Micky Leos and colleagues, with an educational zafar from [employer] Review of Systems Const Denies chills, Denies fatigue, Denies fever(s) and Denies headache(s) ENT Denies dysphagia, Denies dizziness, Denies headache(s), Denies neck pain and Denies sore throat Card Denies chest pain, Denies palpitations and Denies dyspnea Resp Denies chest congestion, Denies cough and Denies dyspnea GI Denies abdominal pain, Denies dysphagia, Denies diarrhea, Denies nausea and Denies vomiting Denies dysuria, Denies nocturia and Denies urinary frequency Musc Details: (+) pain over the top of the right foot - see HPI Denies back pain and Denies neck pain Skin/Breast Denies rash Neuro Denies dizziness and Denies headache(s) Endo Denies fatigue and Denies palpitations Physical exam (Primary Care) Vital Signs: Last Vital Signs Pulse 91 04/15/24 09:54 BP 128/82 04/15/24 09:54 Pulse Ox 97 04/15/24 09:54 Oxygen Delivery Method Room Air 04/15/24 09:54 BMI result Body Mass Index 28.0 Tobacco/Smoking Status: Tobacco use Status Tobacco use date assessed 04/15/24 04/15/24 09:57 Patient Tobacco Use Status Never used Tobacco 04/15/24 09:57 e-Cigarette/Vaping Use Never Used 04/15/24 09:57 PHQ-9: PHQ-9 Score PHQ-9: Total score 0 04/16/24 09:44 Depression Screening Interpretation: Negative Thrive Assessment: Date of Thrive Assessment Date Thrive assessed 04/15/24 04/15/24 09:57 Currently or been in a relationship where the following occur: No concerns reported Const General: no acute distress and alert Extrem General: Yes no clubbing, cyanosis or edema Right lower extremity: foot Details: tenderness Location: of the dorsal foot Location: proximally and no edema Office Procedures Flu Questionnaire Does the patient have a severe egg allergy?: No Does the patient have severe life threatening allergies?: No Does the patient have a fever or illness today?: No Has the patient ever had Guillain-Mcclave Syndrome?: No Has the patient ever had any past reaction to a flu shot?: No Immunizations Fluarix Triv [id number] (PF) 45 mcg (15 mcg x 3)/0.5 mL IM syringe Performing Provider: Dwayne Jacobs MD [facility] Administered by: YOSELIN Humphries on 04/15/24 10:02 Dose Route Admin Location Dispensed Lot Number Expiration Date [facility] [employer] 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 mL IM Left Deltoid 0.5 mL [id number] 11/29/24 [id number] [employer] VIS Given Date VIS Provided VIS Publication Date 04/15/24 Single Vaccine 21 Eligibility Eligibility Date Funding Source Not [facility] [place] Eligible 04/15/24 Private Coding Level of Care Code Est Pt Level 3 (44027) Diagnoses Right foot pain M79.671 Additional Codes PHQ-9 - 19186 - PHQ-9 Billing: Yes ([id number]) Assessment & Plan Assessment & Plan (1) Right foot pain: Code(s): M79.671 - Pain in right foot Category: Medical Plan: Patient is reassured that he does not appear to have any pertinent or significant findings on exam of his foot today Will go ahead and send him for x-rays of the right foot for further evaluation He is advised that we will reach out to him if his x-rays come back with any unusual or abnormal findings Plan As requested, flu vaccine given today Follow up as scheduled next month Orders: Orders XR foot RT min 3V 04/15/24 M79.671 - Pain in right foot Influenza [id number] Immunization 04/15/24 Z23 - Encounter for immunization
[2024-04-15 09:54] VITALS: BP 128/82; PULSE 91; O2SAT 97; BMI 28.0
== END 2024-04-15 10:21 | disposition home or self-care (01) ==
PROVIDERS: PCP Internal Medicine; Visit Provider Internal Medicine
DX: M79.671 Pain in right foot (principal)

== ENCOUNTER 2024-05-14 11:55 | Outpatient (AMB) | payer OTHER, SELFPAY ==
[2024-05-14 12:19] VITALS: BP 130/70; PULSE 102; O2SAT 96; BMI 28.6
--- NOTE | 2024-05-14 12:19 | HO.NEPHOV_ITS ---
Vital Signs 05/14/24 12:19 Height 5 ft 8 in Weight 188 lb 2 oz BMI 28.6 BP 130/70 Blood Pressure Location Lt brachial Position Sitting Pulse 102 H Pulse Source Pulse Oximeter Pulse Oximetry (%) 96 Oxygen Delivery Method Room Air Intake Visit Reasons: 1mon follow up-No labs-Conf w/ Allergies No Known Allergies Allergy (Verified 04/15/24 10:16) HPI Comments Details: Nasir was in follow-up of his chronic kidney disease and hypertension .He remains compliant with his medications. His BP is well controlled. He has no orthostatic symptoms. He denies nausea, vomiting, diarrhea, chest pain, shortness of breath, paroxysmal nocturnal dyspnea, orthopnea, pedal edema or urinary symptoms. He is compliant with his medications. He does not take any nonsteroidal anti-inflammatories. His last 24 urine collection showed a creatinine clearance of 21 mL/minute. He has seen in transplant team in [facility] and is in the process of being listed. There were no new systemic complaints at the time of this office visit [facility] Medical History Chronic kidney disease, stage 4 (severe) Overweight (BMI 25.0-29.9) Acute angle-closure glaucoma of right eye Obesity (BMI 30-39.9) Vitamin D deficiency Pure hypercholesterolemia Benign essential hypertension Surgical History History of eye surgery Family History Father Medical history unknown Mother Cancer Social History Housing: House Alcohol intake: never Patient Tobacco Use Status: Never used Tobacco e-Cigarette/Vaping Use: Never Used Second Hand Smoke Exposure: Yes service: No Current occupational status: employed 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, 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 Cognitive needs: No Hearing needs: No Vision needs: No Review of Systems Const All systems reviewed & are unremarkable except as noted in HPI and below Physical Exam Vital Signs: Last Vital Signs Pulse 102 H 05/14/24 12:19 BP 130/70 05/14/24 12:19 Pulse Ox 96 05/14/24 12:19 Oxygen Delivery Method Room Air 05/14/24 12:19 BMI result Body Mass Index 28.6 Const General: comfortable and no acute distress Orientation/consciousness: patient oriented x3 HEENT Head: Yes normocephalic Mouth: Normal oral and palatal mucosa present Eyes EOM: EOMs intact bilaterally Neck Neck: Yes supple Resp Auscultation: clear to auscultation bilaterally Cardio Jugular venous distension: no JVD Rate: regular rate GI Palpation (GI): Soft to palpation Auscultation: normal bowel sounds General: Yes no CVA tenderness Back/Spine/Pelvis Back: no CVA tenderness Skin General skin exam: no rashes or lesions noted Neuro General: patient oriented x3 and moves all extremities Extrem General: Yes no pedal edema Results Reviewed Nephrology Results: Sodium 143 mmol/L (135-145) 04/03/24 Potassium 4.0 mmol/L (3.3-5.1) 04/03/24 Chloride 110 mmol/L (96-108) H 04/03/24 Carbon Dioxide 23 mmol/L (22-29) 04/03/24 BUN 45 mg/dL (9-16) H 04/03/24 Creatinine 3.99 mg/dL (0.5-1.4) H 04/03/24 Calcium 9.5 mg/dL (8.4-10.2) 12/30/23 Phosphorus 3.7 mg/dL (2.7-4.5) 12/30/23 PTH Intact 221.3 pg/mL (8.7-77.1) H 12/30/23 Assessment & Plan Assessment & Plan (1) Chronic kidney disease, stage 4 (severe): Code(s): N18.4 - Chronic kidney disease, stage 4 (severe) Category: Medical (2) Secondary hyperparathyroidism (of renal origin): Code(s): N25.81 - Secondary hyperparathyroidism of renal origin Category: Medical (3) Benign essential hypertension: Code(s): I10 - Essential (primary) hypertension Category: Medical Plan Nasir has stage IV CKD for a long time. I held his lisinopril given rise in serum creatinine. He is on a lipid-lowering agent. He takes low-sodium diet. He maintains good hydration. He avoids nonsteroidal anti-inflammatories. His last 24 hour urine collection showed a creatinine clearance of 21 mL/minute. He should continue Amlodipine 10 mg daily. He is being evaluated in [facility] renal transplant division for listing. I did not make any other medication changes today. Discussed about HD as well as renal transplant. Answered all questions. Follow-up appointment given Orders: Orders Electrolytes 2 Months N18.4 - Chronic kidney disease, stage 4 (severe) Phosphorus 2 Months N18.4 - Chronic kidney disease, stage 4 (severe) Creatinine 2 Months N18.4 - Chronic kidney disease, stage 4 (severe) Blood Urea Nitrogen 2 Months N18.4 - Chronic kidney disease, stage 4 (severe) Calcium 2 Months N18.4 - Chronic kidney disease, stage 4 (severe) Complete Blood Count Auto Diff 2 Months N18.4 - Chronic kidney disease, stage 4 (severe) Coding Level of Care Code Est Pt Level 4 (87883) Diagnoses Chronic kidney disease, stage 4 (severe) N18.4 Secondary hyperparathyroidism (of renal origin) N25.81 Benign essential hypertension I10
== END 2024-05-14 12:38 | disposition home or self-care (01) ==
PROVIDERS: PCP Internal Medicine; Visit Provider Internal Medicine Nephrology
DX: I12.9 Hypertensive chronic kidney disease with stage 1 through stage 4 chronic kidney disease, or unspecified chronic kidney disease (principal); N18.4 Chronic kidney disease, stage 4 (severe); N25.81 Secondary hyperparathyroidism of renal origin
CPT/HCPCS: 99214

== ENCOUNTER 2024-05-20 08:10 | Outpatient (REF) | payer OTHER, SELFPAY | END 2024-05-20 08:11 | disposition home or self-care (01) | LOC: HO.LAB 08:10 | PROVIDERS: PCP Internal Medicine; Visit Provider Internal Medicine Nephrology | DX: Z01.818 Encounter for other preprocedural examination (principal); N18.4 Chronic kidney disease, stage 4 (severe) | CPT/HCPCS: 86900; 86901 ==

== ENCOUNTER 2024-05-21 14:05 | Outpatient (AMB) | payer OTHER, SELFPAY ==
--- NOTE | 2024-05-21 14:10 | MHC.PC.OV ---
Vital Signs 05/21/24 14:11 Height 5 ft 8 in Weight 184 lb 8 oz BMI 28.1 BP 120/80 Blood Pressure Location Lt brachial Position Sitting Pulse 85 Pulse Source Pulse Oximeter Pulse Oximetry (%) 97 Oxygen Delivery Method Room Air Intake Visit Reasons: 4 Month Follow Up Vice President Fixed Income Required: No Accompanied by: Self / Same As Patient Allergies No Known Allergies Allergy (Verified 05/21/24 14:31) Medication List - Last Reconciled 05/21/24 by Dwayne Jacobs MD amlodipine 5 mg PO BID atorvastatin 20 mg PO DAILY 90 days cholecalciferol (vitamin D3) 25 mcg PO DAILY 90 days fexofenadine 180 mg PO DAILY PRN 30 days fluticasone propionate 50 mcg/actuation 2 sprays intranasal DAILY PRN 30 days loratadine 10 mg PO DAILY PRN 90 days nystatin 1 appl topical TID 10 days omega-3 fatty acids (Fish Oil Concentrate) 1,000 mg PO DAILY Tobacco use date assessed: 05/21/24 Dental Screening Dental Screen Date: 05/21/24 Did you have a dental visit in the last 12 months?: Yes Did you have a dental problem in the last 6 months where you did not have access to dental care?: No Was dental information given to patient?: Patient has dentist HPI 4 Month Follow Up HPI Details Patient comes in today for his follow up visit States that he currently feels okay and that he was just seen at [facility] in [place] recently for pretransplant evaluation He just had some labs as well as chest x-rays done and will be scheduled for abdominal and pelvic CT He denies any headaches or dizziness Denies any chest pains, no SOB No nausea/vomiting, no abdominal pain Nio change in bowel habits noted He did not get any follow up labs done here recently as he just had a lot of labs done at [facility] and thought that those would be sent over to us as well He needs a couple of his Rx refilled PFSH Medical History Chronic kidney disease, stage 4 (severe) Overweight (BMI 25.0-29.9) Acute angle-closure glaucoma of right eye Obesity (BMI 30-39.9) Vitamin D deficiency Pure hypercholesterolemia Benign essential hypertension Surgical History History of eye surgery Family History Father Medical history unknown Mother Cancer Social History Housing: House Alcohol intake: never Patient Tobacco Use Status: Never used Tobacco e-Cigarette/Vaping Use: Never Used Second Hand Smoke Exposure: Yes service: No Current occupational status: employed 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 1. Little interest or pleasure in doing things: not at all 2. Feeling down, depressed, or hopeless: not at all 3. Trouble falling or staying asleep, or sleeping too much: not at all 4. Feeling tired or having little energy: not at all 5. Poor appetite or overeating: not at all 6. Feeling bad about yourself - or that you are a failure or have let yourself or your family down: not at all 7. Trouble concentrating on things, such as reading the newspaper or watching television: not at all 8. Moving or speaking so slowly that other people could have noticed. Or the opposite - being so fidgety or restless that you have been moving around a lot more than usual: not at all 9. Thoughts that you would be better off or of hurting yourself in some way: not at all Total score: 0 Depression Screening Interpretation: Negative Depression Screening Done: Yes 01512 - PHQ-9 Billing: Yes Source: Developed by Drs. Crow Marley, Dafne Rivero, Micky Leos and colleagues, with an educational zafar from [employer]. Thrive Questionnaire Date Thrive assessed: 05/21/24 I am a: Patient What is your living situation today?: I have a steady place to live Within the past 12 months, did the food you bought not last and you didn't have the money to get more?: Never true Within the past 12 months, did you worry whether your food would run out before you got money to buy more?: Never true Do you have trouble paying for medicines?: No Do you have trouble getting transportation to medical appointments?: No Do you have trouble paying your heating and electricity bill?: No Do you have trouble taking care of your child, family member or friend?: No Do you have trouble with day-to-day activities such as bathing, preparing meals, shopping, managing finances, etc.?: No Are you currently unemployed and looking for a job?: No Are you interested in more education?: No Please select the resources that you would like help with: None Currently or been in a relationship where the following occur: No concerns reported THRIVE Score: 0 AUDIT C Alcohol Use Questionnaire (AUDIT-C) 1. How often do you have a drink containing alcohol?: Never 3. How often do you have six or more drinks on one occasion?: Never Total Score: 0 Score Reviewed/Action Taken: Yes GUERA-7 AMB Questionnaire GUERA-7 Date GUERA - 7 assessed: 05/21/24 Feeling nervous, anxious, or on edge: 0 = Not at all Not being able to stop or control worryin = Not at all Worrying too much about different things: 0 = Not at all Trouble relaxin = Not at all Being so restless that it is hard to sit still: 0 = Not at all Becoming easily annoyed or irritable: 0 = Not at all Feeling afraid as if something awful might happen: 0 = Not at all Total GUERA-7 score (0-4 normal; 5-9 mild; 10-14 moderate; 15-21 severe): 0 Source: Developed by Drs. Crow Marley, Dafne Rivero, iMcky Leos and colleagues, with an educational zafar from [employer]. Review of Systems Const Denies chills, Denies fatigue, Denies fever(s) and Denies headache(s) ENT Denies dysphagia, Denies dizziness, Denies otalgia, Denies headache(s), Denies neck pain, Denies odynophagia and Denies sore throat Card Denies chest pain, Denies palpitations and Denies dyspnea Resp Denies chest congestion, Denies cough and Denies dyspnea GI Denies abdominal pain, Denies dysphagia, Denies diarrhea, Denies nausea, Denies odynophagia and Denies vomiting Denies dysuria, Denies nocturia and Denies urinary frequency Musc Details: (+) pain over the top of the right foot Denies back pain and Denies neck pain Skin/Breast Denies rash Neuro Denies dizziness and Denies headache(s) Endo Denies fatigue and Denies palpitations Physical exam (Primary Care) Vital Signs: Last Vital Signs Pulse 85 05/21/24 14:11 BP 120/80 05/21/24 14:11 Pulse Ox 97 05/21/24 14:11 Oxygen Delivery Method Room Air 05/21/24 14:11 BMI result Body Mass Index 28.1 Tobacco/Smoking Status: Tobacco use Status Tobacco use date assessed 05/21/24 05/21/24 14:16 Patient Tobacco Use Status Never used Tobacco 05/21/24 14:16 e-Cigarette/Vaping Use Never Used 05/21/24 14:16 PHQ-9: PHQ-9 Score PHQ-9: Total score 0 05/21/24 18:35 Depression Screening Interpretation: Negative Thrive Assessment: Date of Thrive Assessment Date Thrive assessed 05/21/24 05/21/24 14:16 Currently or been in a relationship where the following occur: No concerns reported Const General: no acute distress and alert HENMT Ears: TM's normal bilaterally and EAC's normal Throat: Yes posterior oropharynx normal and Yes tonsils normal (no TP congestion) Neck Neck: Yes supple and No lymphadenopathy Thyroid: Thyroid normal Resp Auscultation: clear to auscultation bilaterally, no rales and no wheezes Cardio Rate: regular rate Rhythm: regular rhythm Heart sounds: no murmurs GI Palpation (GI): Soft to palpation and nontender Auscultation: normal bowel sounds General: Yes no CVA tenderness Back/Spine/Pelvis Back: no CVA tenderness Thoracic/Lumbar Spine: No lumbar spinal tenderness Skin Rashes: no rashes Extrem General: Yes no clubbing, cyanosis or edema Right lower extremity: foot Details: tenderness Location: of the dorsal foot Location: distally (near base of toes, especially the 1st and 2nd toes) Coding Level of Care Code Est Pt Level 4 (28773) Diagnoses Benign essential hypertension I10 Chronic kidney disease, stage 4 (severe) N18.4 Pure hypercholesterolemia E78.00 Vitamin D deficiency E55.9 Acute angle-closure glaucoma of right eye H40.211 Right foot pain M79.671 Overweight (BMI 25.0-29.9) E66.3 Additional Codes PHQ-9 - 43990 - PHQ-9 Billing: Yes ([id number]) Assessment & Plan Assessment & Plan (1) Benign essential hypertension: Code(s): I10 - Essential (primary) hypertension Category: Medical Plan: Reinforced low sodium diet - goal is systolic BP of 120 mm or less due to his CKD He was on Lisinopril 5 mg QD but this was discontinued by nephrology because of his recently declining renal function Continue Amlodipine 5 mg QD Patient is reminded to continue monitoring his blood pressure regularly (2) Chronic kidney disease, stage 4 (severe): Code(s): N18.4 - Chronic kidney disease, stage 4 (severe) Category: Medical Plan: He has been referred to [facility] in [place] for renal transplant and he is currently undergoing pretransplant evaluation Follow up with nephrology as scheduled (3) Pure hypercholesterolemia: Code(s): E78.00 - Pure hypercholesterolemia, unspecified Category: Medical Plan: He did not have his follow up labs done as he just had extensive labs done at [facility] recently and he thought that those will have also been sent to us Reinforced low cholesterol diet Continue Atorvastatin 10 mg QD Will recheck his fasting lipids and labs in 4 months for follow up (4) Vitamin D deficiency: Code(s): E55.9 - Vitamin D deficiency, unspecified Category: Medical Plan: Continue Vitamin D3 2000 units QD (5) Acute angle-closure glaucoma of right eye: Comment: S/P emergent laser peripheral iridotomy on 07/17/2020 Also had cataract extraction of the right eye on 08/02/2020 Had glaucoma implant drain placed in November 2020 Code(s): H40.211 - Acute angle-closure glaucoma, right eye Category: Medical Plan: S/P laser surgery (iridotomy) on 11/16/20, which reportedly failed and patient underwent a stent (glaucoma implant drain) insertion in his eye on 12/07/[address] Max, with significant improvement of his eye symptoms since States that he's had no problems with his vision and has no eye pain lately although he does have some light sensitivity in the right eye Follow up with ophthalmology as scheduled (6) Right foot pain: Code(s): M79.671 - Pain in right foot Category: Medical Plan: X-rays of his right foot done last month revealed (+) mild 1st MTP joint osteoarthritis and a small heel spur Advised that if his right foot pain gets worse, can refer him to podiatry for further evaluation (7) Overweight (BMI 25.0-29.9): Code(s): E66.3 - Overweight Category: Medical Plan: Reinforced diet/exercise as tolerated/lose weight Plan Follow up in 4 months Orders: Orders Lipid Panel 4 Months E78.00 - Pure hypercholesterolemia, unspecified Complete Blood Count Auto Diff 4 Months D64.9 - Anemia, unspecified Comprehensive [place]. Panel Fast 4 Months E78.00 - Pure hypercholesterolemia, unspecified Medications: Refilled atorvastatin 20 mg PO DAILY 90 days 90 tabs 3RF E78.00 - Pure hypercholesterolemia, unspecified amlodipine 5 mg PO BID 60 tabs 5RF
[2024-05-21 14:11] VITALS: BP 120/80; PULSE 85; O2SAT 97; BMI 28.1
== END 2024-05-21 14:35 | disposition home or self-care (01) ==
PROVIDERS: PCP Internal Medicine; Visit Provider Internal Medicine
DX: I12.9 Hypertensive chronic kidney disease with stage 1 through stage 4 chronic kidney disease, or unspecified chronic kidney disease (principal); N18.4 Chronic kidney disease, stage 4 (severe); E78.00 Pure hypercholesterolemia, unspecified; E55.9 Vitamin D deficiency, unspecified; H40.211 Acute angle-closure glaucoma, right eye; M79.671 Pain in right foot; E66.3 Overweight

== ENCOUNTER → 2024-05-21 14:05 | Outpatient (BNVA) | payer OTHER, SELFPAY | PROVIDERS: PCP Internal Medicine; Visit Provider Internal Medicine | DX: I12.9 Hypertensive chronic kidney disease with stage 1 through stage 4 chronic kidney disease, or unspecified chronic kidney disease (principal); N18.4 Chronic kidney disease, stage 4 (severe); E78.00 Pure hypercholesterolemia, unspecified; E55.9 Vitamin D deficiency, unspecified; H40.211 Acute angle-closure glaucoma, right eye; M79.671 Pain in right foot; E66.3 Overweight; Z68.28 Body mass index [BMI] 28.0-28.9, adult; Z79.899 Other long term (current) drug therapy | CPT/HCPCS: 96127 ==

== ENCOUNTER 2024-06-03 09:40 | Outpatient (AMB) | payer OTHER, SELFPAY ==
[2024-06-03 09:47] VITALS: BP 120/74; PULSE 90; O2SAT 97; BMI 27.9
--- NOTE | 2024-06-03 09:47 | MHC.PC.OV ---
Vital Signs 06/03/24 09:47 Height 5 ft 8 in Weight 183 lb 4 oz BMI 27.9 BP 120/74 Blood Pressure Location Lt brachial Position Sitting Pulse 90 Pulse Source Pulse Oximeter Pulse Oximetry (%) 97 Oxygen Delivery Method Room Air Intake Visit Reasons: pain ring finger cannot close hand Allergies No Known Allergies Allergy (Verified 06/06/24 21:52) Medication List - Last Reconciled 06/06/24 by Dwayne Jacobs MD amlodipine 5 mg PO BID atorvastatin 20 mg PO DAILY 90 days cholecalciferol (vitamin D3) 25 mcg PO DAILY 90 days fexofenadine 180 mg PO DAILY PRN 30 days fluticasone propionate 50 mcg/actuation 2 sprays intranasal DAILY PRN 30 days loratadine 10 mg PO DAILY PRN 90 days nystatin 1 appl topical TID 10 days omega-3 fatty acids (Fish Oil Concentrate) 1,000 mg PO DAILY Tobacco use date assessed: 05/21/24 Dental Screening Dental Screen Date: 05/21/24 Did you have a dental visit in the last 12 months?: Yes Did you have a dental problem in the last 6 months where you did not have access to dental care?: No Was dental information given to patient?: Patient has dentist HPI pain ring finger cannot close hand HPI Details Patient comes in today complaining of increased swelling of his left ring finger for the past few days Recalls that he first noticed his finger was swollen when the ring he has been wearing for a while now felt very tight on his hand and he could not remove the ring when he tried to do so Patient denies any recent injury or trauma to his left hand but recalls an incident about 24 years ago when he hurt his hand and now in hindsight, thinks that he may have actually had a fracture of his finger back then Relates that he had some pain in his left hand for a while until it finally gradually subsided on its own in a few weeks States that since then, he would note some on and off pain in his left hand, especially around the area of the ring finger He has also noticed some recurrent swelling of both of his feet lately Patient also relates (+) right ear discomfort, with some itching and mild pain right at the opening of his right ear canal that started last night after he tried cleaning his ear with a Q-tip States that he did not insert the Q-tip all the way into his right ear but just tried to clean his outer ear canal and recalls exerting a slight pressure onto his ear when he was cleaning it He denies any ear discharge; denies any fever or sore throat Denies any recent cough/cold symptoms No other acute complaints or symptoms are noted [facility] Medical History Chronic kidney disease, stage 4 (severe) Overweight (BMI 25.0-29.9) Acute angle-closure glaucoma of right eye Obesity (BMI 30-39.9) Vitamin D deficiency Pure hypercholesterolemia Benign essential hypertension Surgical History History of eye surgery Family History Father Medical history unknown Mother Cancer Social History Housing: House Alcohol intake: never Patient Tobacco Use Status: Never used Tobacco e-Cigarette/Vaping Use: Never Used Second Hand Smoke Exposure: Yes service: No Current occupational status: employed 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 1. Little interest or pleasure in doing things: not at all 2. Feeling down, depressed, or hopeless: not at all 3. Trouble falling or staying asleep, or sleeping too much: not at all 4. Feeling tired or having little energy: not at all 5. Poor appetite or overeating: not at all 6. Feeling bad about yourself - or that you are a failure or have let yourself or your family down: not at all 7. Trouble concentrating on things, such as reading the newspaper or watching television: not at all 8. Moving or speaking so slowly that other people could have noticed. Or the opposite - being so fidgety or restless that you have been moving around a lot more than usual: not at all 9. Thoughts that you would be better off or of hurting yourself in some way: not at all Total score: 0 Depression Screening Interpretation: Negative Depression Screening Done: Yes 94812 - PHQ-9 Billing: Yes Source: Developed by Drs. Crow Marley, Dafne Rivero, Micky Leos and colleagues, with an educational zafar from [email or web address]. Thrive Questionnaire Date Thrive assessed: 06/03/24 I am a: Patient What is your living situation today?: I have a steady place to live Within the past 12 months, did the food you bought not last and you didn't have the money to get more?: Never true Within the past 12 months, did you worry whether your food would run out before you got money to buy more?: Never true Do you have trouble paying for medicines?: No Do you have trouble getting transportation to medical appointments?: No Do you have trouble paying your heating and electricity bill?: No Do you have trouble taking care of your child, family member or friend?: No Do you have trouble with day-to-day activities such as bathing, preparing meals, shopping, managing finances, etc.?: No Are you currently unemployed and looking for a job?: No Are you interested in more education?: No Please select the resources that you would like help with: None Currently or been in a relationship where the following occur: No concerns reported THRIVE Score: 0 AUDIT C Alcohol Use Questionnaire (AUDIT-C) 1. How often do you have a drink containing alcohol?: Never 3. How often do you have six or more drinks on one occasion?: Never Total Score: 0 Score Reviewed/Action Taken: Yes GUERA-7 AMB Questionnaire GUERA-7 Date GUERA - 7 assessed: 05/21/24 Source: Developed by Drs. Crow Marley, Dafne Rivero, Micky Leos and colleagues, with an educational zafar from [email or web address]. Review of Systems Const Denies chills, Denies fatigue, Denies fever(s) and Denies headache(s) ENT Denies dysphagia, Denies dizziness, Reports otalgia (mostly around the opening into his right ear canal), Denies headache(s), Denies neck pain, Denies odynophagia and Denies sore throat Card Denies chest pain, Denies palpitations and Denies dyspnea Resp Denies chest congestion, Denies cough and Denies dyspnea GI Denies abdominal pain, Denies dysphagia, Denies diarrhea, Denies nausea, Denies odynophagia and Denies vomiting Denies dysuria, Denies nocturia and Denies urinary frequency Musc Details: (+) pain and swelling of the right ring (4th) finger; (+) on and off swelling of both feet Denies back pain and Denies neck pain Skin/Breast Denies rash Neuro Denies dizziness and Denies headache(s) Endo Denies fatigue and Denies palpitations Physical exam (Primary Care) Vital Signs: Last Vital Signs Pulse 90 06/03/24 09:47 BP 120/74 06/03/24 09:47 Pulse Ox 97 06/03/24 09:47 Oxygen Delivery Method Room Air 06/03/24 09:47 BMI result Body Mass Index 27.9 Tobacco/Smoking Status: Tobacco use Status Tobacco use date assessed 05/21/24 06/03/24 09:47 Patient Tobacco Use Status Never used Tobacco 06/03/24 09:47 e-Cigarette/Vaping Use Never Used 06/03/24 09:47 Depression Screening Interpretation: Negative Thrive Assessment: Date of Thrive Assessment Date Thrive assessed 05/21/24 06/03/24 09:47 Currently or been in a relationship where the following occur: No concerns reported Const General: no acute distress and alert HENMT Ears: TM's normal bilaterally and EAC's normal (except for minimal erythema and tenderness around the opening of R EAC) Throat: Yes posterior oropharynx normal and Yes tonsils normal (no TP congestion) Neck Neck: Yes supple and No lymphadenopathy Thyroid: Thyroid normal Resp Auscultation: clear to auscultation bilaterally, no rales and no wheezes Cardio Rate: regular rate Rhythm: regular rhythm Heart sounds: no murmurs GI Palpation (GI): Soft to palpation and nontender Auscultation: normal bowel sounds General: Yes no CVA tenderness Back/Spine/Pelvis Back: no CVA tenderness Thoracic/Lumbar Spine: No lumbar spinal tenderness Skin Rashes: no rashes Extrem General: No clubbing, No cyanosis and Yes pedal edema (1+ bilaterally) Left upper extremity: hand Details: swelling Location: of the 4th digit Location: involving the entire digit Right lower extremity: foot Details: tenderness Location: of the dorsal foot Location: distally (near base of toes, especially the 1st and 2nd toes) Coding Level of Care Code Est Pt Level 3 (05020) Diagnoses Left hand pain M79.642 Pedal edema R60.0 Additional Codes PHQ-9 - 67877 - PHQ-9 Billing: Yes ([id number]) Assessment & Plan Assessment & Plan (1) Left hand pain: Comment: with swelling, mostly involving the left 4th (ring) finger Code(s): M79.642 - Pain in left hand Category: Medical Plan: Unclear etiology but possible due to ring avulsion or ring tourniquet syndrome , especially since patient likely has had the ring on his finger for a while now He does have gradually declining renal function but the edema noted in renal failure would be more of a generalized edema rather than just localized to one finger Patient suspects that he may have incurred some injury or possibly even a fracture to his left ring finger more than 20 years ago and if this is the case, he may also be dealing with some posttraumatic arthritis of the affected digit Will send him for x-rays of the left hand DENG for further evaluation (2) Pedal edema: Code(s): R60.0 - Localized edema Category: Medical Plan: Due to patient's report of on and off by pedal edema lately, we will send him for some labs to recheck his renal function, which had been gradually declining over the past several months He is now in the process of being evaluated at [facility] in [place] for eligibility to be included in the renal transplant list If his edema persists or gets worse, can consider starting him on a low-dose diuretic to help offset his edema and swelling Plan Follow up as scheduled in August 2024 Orders: Orders Basic Metabolic Panel 06/03/24 N18.4 - Chronic kidney disease, stage 4 (severe), R60.0 - Localized edema XR hand LT min 3V 06/03/24 M79.642 - Pain in left hand
== END 2024-06-03 10:31 | disposition home or self-care (01) ==
PROVIDERS: PCP Internal Medicine; Visit Provider Internal Medicine
DX: M79.642 Pain in left hand (principal); R60.0 Localized edema

== ENCOUNTER 2024-06-03 09:40 | Outpatient (REF) | payer OTHER, SELFPAY ==
--- NOTE | ~2024-06-03 | XR_ITS ---
EXAMINATION: XR HAND, LEFT CLINICAL INFORMATION: M79.642 - Pain in left hand COMPARISON: None available. TECHNIQUE: PA, lateral, and oblique views of the left hand. FINDINGS: The bones and soft tissues are normal. No fracture. Alignment is anatomic. Joint spaces are maintained. No erosions or soft tissue calcifications. XR/XR hand LT min 3V IMPRESSION: Unremarkable left hand. Electronically signed by: Sam Mendez MD 06/03/2024 12:15 PM EST
[2024-06-03 10:58] LABS: MANUAL DIFF FLAG NO
[2024-06-03 11:18] LABS: Basophils Absolute Auto 0.1 X10*3/uL (0.0-0.2); Basophils Percent Auto 0.6 % (0-2); Eosinophils Absolute Auto 0.2 X10*3/uL (0.0-0.4); Eosinophils Percent Auto 1.9 % (0-4); Hematocrit 38.5 % (42.0-52.0); Hemoglobin 13.1 g/dl (14.0-18.0); Imm Gran Abs Auto 0.02 X10*3/uL (0.00-0.03); Imm Gran Pct Auto 0.2 % (0.0-0.4); Lymphocytes Percent Auto 11.7 % (20-40); Mean Corpuscular Hemoglobin 29.8 pg (27.0-33.0); Mean Corpuscular Volume 87.7 fL (80.0-98.0); Monocytes Absolute Auto 0.4 X10*3/uL (0.1-1.2); Monocytes Percent Auto 5.3 % (2-11); Neutrophils Absolute Auto 6.7 x10*3/uL (2.0-8.3); Neutrophils Percent Auto 80.3 % (45-73); Platelet Count 322 X10*3/uL (160-400); Red Blood Count 4.39 X10*6/uL (4.60-5.80); Red Cell Distribution Width 12.1 % (11.0-16.0); White Blood Count 8.3 X10*3/uL (4.8-10.8)
[2024-06-03 11:40] LABS: Appearance Urine Clear; Color Urine Yellow; Glucose Urine UA 100 mg/dL (Negative); Leukocyte Esterase Urine Negative (Negative); Nitrite Urine Negative (Negative); PH 5.5 (5.0-9.0); UMIC TRIGGER UACC YES; Urine Blood Trace (Negative); Urine Ketones Negative (Negative); Urine Protein 300 (3+) mg/dL (Neg-Trace)
[2024-06-03 11:43] LABS: Bacteria Urine None Seen (None Seen); Hyaline Casts Urine 0-2 /LPF (0-2); RBC Urine 0-2 /HPF (0-2); Squamous Epithelial Cell Urine 0-2 /HPF (0-2); WBC Urine 0-5 /HPF (0-5)
[2024-06-03 12:13] LABS: Alanine Aminotransferase 15 U/L (0-40); Alkaline Phosphatase 67 U/L (39-117); Anion Gap 14 (12-20); Aspartate Amino Transferase 19 U/L (5-37); Bilirubin Total 0.3 mg/dL (0.0-1.0); Blood Urea Nitrogen 54 mg/dL (9-16); Calcium 8.7 mg/dL (8.4-10.2); Carbon Dioxide 19 mmol/L (22-29); Chloride 111 mmol/L (96-108); Cholesterol 180 mg/dL (<200); Estimated Glomerular Filt Rate 11; Glucose Fasting 119 mg/dL (60-99); Glucose Random 118 mg/dL (60-115); HDL Cholesterol 47 mg/dL (>40); LDL Cholesterol Calculated 110 mg/dL (<100); Potassium 3.9 mmol/L (3.3-5.1); Sodium 140 mmol/L (135-145); TSH reflex Free T4 2.05 uIU/mL (0.32-4.0); Total Protein 6.7 g/dL (6.5-8.0); Triglycerides 115 mg/dL (<150); Vitamin D 25-OH Total 34.1 ng/mL (>30)
== END 2024-06-03 09:41 | disposition home or self-care (01) ==
LOC: HO.XRAY 09:40
PROVIDERS: PCP Internal Medicine; Visit Provider Internal Medicine
DX: M79.642 Pain in left hand (principal); R60.0 Localized edema; N18.4 Chronic kidney disease, stage 4 (severe); E55.9 Vitamin D deficiency, unspecified; D64.9 Anemia, unspecified; E78.00 Pure hypercholesterolemia, unspecified
CPT/HCPCS: 36415; 73130; 80048; 80053; 80061; 81001; 82306; 84443; 85025; 96127

== ENCOUNTER → 2024-06-03 11:04 | Outpatient (BNV) | payer OTHER, SELFPAY | PROVIDERS: PCP Internal Medicine; Visit Provider Radiology Diagnostic Radiology | DX: M79.642 Pain in left hand (principal) | CPT/HCPCS: 73130 ==

== ENCOUNTER 2024-06-07 10:43 | Outpatient (AMB) | payer OTHER, SELFPAY ==
--- NOTE | 2024-06-07 10:53 | HO.NEPHOV_ITS ---
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 His BP is well controlled. He has no orthostatic symptoms. He denies nausea, vomiting, diarrhea, chest pain, shortness of breath, paroxysmal nocturnal dyspnea, orthopnea, pedal edema or urinary symptoms. He is compliant with his medications. He does not take any nonsteroidal anti-inflammatories. His last 24 urine collection showed a creatinine clearance of 21 mL/minute. Since then his creatinine has gone up. He has seen in transplant team in [facility] and is in the process of being listed. He had left finger swelling which is better. 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, 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 Cognitive needs: No Hearing needs: No Vision needs: No Review of Systems Const All systems reviewed & are unremarkable except as noted in HPI and below Physical Exam Vital Signs: Last Vital Signs Pulse 90 06/07/24 10:54 BP 122/70 06/07/24 10:54 Pulse Ox 98 06/07/24 10:54 Oxygen Delivery Method Room Air 06/07/24 10:54 BMI result Body Mass Index 28.1 Const General: comfortable and no acute distress Orientation/consciousness: patient oriented x3 HEENT Head: Yes normocephalic Mouth: Normal oral and palatal mucosa present Eyes EOM: EOMs intact bilaterally Neck Neck: Yes supple Resp Auscultation: clear to auscultation bilaterally Cardio Jugular venous distension: no JVD Rate: regular rate GI Palpation (GI): Soft to palpation Auscultation: normal bowel sounds General: Yes no CVA tenderness Back/Spine/Pelvis Back: no CVA tenderness Skin General skin exam: no rashes or lesions noted Neuro General: patient oriented x3 and moves all extremities Extrem General: Yes no pedal edema Results Reviewed Nephrology Results: Hgb 13.1 g/dl (14.0-18.0) L 06/03/24 WBC 8.3 X10*3/uL (4.8-10.8) 06/03/24 Plt Count 322 X10*3/uL (160-400) 06/03/24 Sodium 140 mmol/L (135-145) 06/03/24 Potassium 3.9 mmol/L (3.3-5.1) 06/03/24 Chloride 111 mmol/L (96-108) H 06/03/24 Carbon Dioxide 19 mmol/L (22-29) L 06/03/24 BUN 54 mg/dL (9-16) H 06/03/24 Creatinine 5.77 mg/dL (0.5-1.4) H* 06/03/24 Calcium 8.7 mg/dL (8.4-10.2) 06/03/24 Urine Protein 300 (3+) mg/dL (Neg-Trace) H 06/03/24 Assessment & Plan Assessment & Plan (1) Secondary hyperparathyroidism (of renal origin): Code(s): N25.81 - Secondary hyperparathyroidism of renal origin Category: Medical (2) Benign essential hypertension: Code(s): I10 - Essential (primary) hypertension Category: Medical (3) CKD (chronic kidney disease) stage 5, GFR less than 15 ml/min: Code(s): N18.5 - Chronic kidney disease, stage 5 Category: Medical Plan Nasir has stage IV CKD for a long time. His lisinopril has been on hold since serum creatinine has been going up. He is on a lipid-lowering agent. He takes low-sodium diet. He maintains good hydration. He avoids nonsteroidal anti- inflammatories. His last 24 hour urine collection showed a creatinine clearance of 21 mL/minute but his serum creatinine has gone up further since. He should continue Amlodipine 10 mg daily. He is being evaluated in [facility] renal transplant division for listing.I also referred him [place] [facility] [place]. I ordered a uric acid level. I also referred him for PD education. I did not make any other medication changes today. Discussed about PD as well as renal transplant. Answered all questions. Follow-up appointment given Orders: Orders Creatinine 1 Month I10 - Essential (primary) hypertension, N18.4 - Chronic kidney disease, stage 4 (severe), N25.81 - Secondary hyperparathyroidism of renal origin Uric Acid 1 Month I10 - Essential (primary) hypertension, N18.4 - Chronic kidney disease, stage 4 (severe), N25.81 - Secondary hyperparathyroidism of renal origin Blood Urea Nitrogen 1 Month I10 - Essential (primary) hypertension, N18.4 - Chronic kidney disease, stage 4 (severe), N25.81 - Secondary hyperparathyroidism of renal origin Electrolytes 1 Month I10 - Essential (primary) hypertension, N18.4 - Chronic kidney disease, stage 4 (severe), N25.81 - Secondary hyperparathyroidism of renal origin Calcium 1 Month I10 - Essential (primary) hypertension, N18.4 - Chronic kidney disease, stage 4 (severe), N25.81 - Secondary hyperparathyroidism of renal origin Phosphorus 1 Month I10 - Essential (primary) hypertension, N18.4 - Chronic kidney disease, stage 4 (severe), N25.81 - Secondary hyperparathyroidism of renal origin Referrals Transplant Surgery Referral N18.5 - Chronic kidney disease, stage 5 Coding Level of Care Code Est Pt Level 4 (50763) Diagnoses Secondary hyperparathyroidism (of renal origin) N25.81 Benign essential hypertension I10 CKD (chronic kidney disease) stage 5, GFR less than 15 ml/min N18.5
[2024-06-07 10:54] VITALS: BP 122/70; PULSE 90; O2SAT 98; BMI 28.1
== END 2024-06-07 11:30 | disposition home or self-care (01) ==
PROVIDERS: PCP Internal Medicine; Visit Provider Internal Medicine Nephrology
DX: N25.81 Secondary hyperparathyroidism of renal origin (principal); I12.0 Hypertensive chronic kidney disease with stage 5 chronic kidney disease or end stage renal disease; N18.5 Chronic kidney disease, stage 5
CPT/HCPCS: 99214

== ENCOUNTER → 2024-06-07 10:43 | Outpatient (BNVA) | payer OTHER, SELFPAY | PROVIDERS: PCP Internal Medicine; Visit Provider Internal Medicine Nephrology ==

== ENCOUNTER 2024-07-09 09:59 | Outpatient (REF) | payer OTHER, SELFPAY ==
[2024-07-09 10:14] LABS: MANUAL DIFF FLAG NO
[2024-07-09 10:43] LABS: Basophils Percent Auto 0.4 % (0-2); Eosinophils Absolute Auto 0.2 X10*3/uL (0.0-0.4); Eosinophils Percent Auto 2.7 % (0-4); Hematocrit 36.1 % (42.0-52.0); Hemoglobin 12.3 g/dl (14.0-18.0); Imm Gran Abs Auto 0.01 X10*3/uL (0.00-0.03); Imm Gran Pct Auto 0.2 % (0.0-0.4); Lymphocytes Absolute Auto 0.8 X10*3/uL (1.2-4.9); Lymphocytes Percent Auto 14.9 % (20-40); Mean Corpuscular HGB Conc 34.1 g/dl (31.0-36.0); Mean Platelet Volume 10.2 fL (9.4-12.4); Monocytes Absolute Auto 0.3 X10*3/uL (0.1-1.2); Monocytes Percent Auto 5.5 % (2-11); Neutrophils Absolute Auto 4.3 x10*3/uL (2.0-8.3); Neutrophils Percent Auto 76.3 % (45-73); Platelet Count 325 X10*3/uL (160-400); Red Cell Distribution Width 11.6 % (11.0-16.0); White Blood Count 5.6 X10*3/uL (4.8-10.8)
--- OUTSIDE RECORDS SUMMARY | 2024-07-09 10:45 | XMS_ITS ---
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 Name Role Phone Patient, Has No Pcp Or Ref Primary Care Provider Unavailable Transplant Episode Kidney Candidate [facility] ([place], [place]) - [facility] Evaluation began on 05/06/2024 Marked as Active on 05/06/2024 Kidney CoordinatorLori Mustafa RN Email: N/A Scores Score Value Updated Exceptions/Reas ons CPRA Not available EPTS (Calc) 10 07/09/2024 [facility] [place] Organ Diagnosis Organ Primary Contributory Kidney Hypertensive Nephrosclerosis Care Team Name Role Phone Fax Email Lori Mustafa RN Kidney Coordinator [phone] N/A David Antonio Referring Physician [phone] N/A Events Pre-Transplant Referred: 04/15/2024 Evaluation began: 05/06/2024
--- OUTSIDE RECORDS SUMMARY | 2024-07-09 10:45 | XMS_ITS | Clinical Summary ---
Author Organization [facility] Address [address] [place] [address] Phone Care Team Providers Care Frame Bander Name Role Phone Dwayne Jacobs MD Primary Care Provider [phone] Allergies No known active allergies Medications omega-3 (FISH OIL) 1000 MG capsule Take 1 capsule by mouth 2 (two) times a day Active atorvastatin (LIPITOR) 10 MG tablet Take 1 tablet by mouth 1 (one) time each day 5 mg 08/07/2018 Active cholecalciferol (VITAMIN D-3) 25 MCG (1000 UT) capsule Take 1 capsule by mouth 1 (one) time each day Active lisinopril 10 MG tablet Take 20 mg by mouth 1 (one) time each day Active loratadine (CLARITIN) 10 MG tablet TAKE 1 TABLET BY MOUTH EVERY DAY NEEDED FOR ALLERGY SYMPTOMS 02/14/2022 Active Active Problems Problem Noted Date Diagnosed Date Hypertension 07/04/2021 Chronic kidney disease stage 4 01/05/2021 Hypertensive heart and renal disease with (congestive) heart failure 01/05/2021 Family History Medical History Relation Comments Hypertension Mother Relation Status Comments Father Mother Social History Tobacco Use Types Packs/Day Years Used Date Smoking Tobacco: Never Smokeless Tobacco: Never Tobacco Cessation:Counseling Given: No Alcohol Use Standard Drinks/Week Comments Yes 0 (1 standard drink = 0.6 oz pure alcohol) Alcoholic Drinks/day: Occasional social drink Sex and Gender Information Value Date Recorded Sex Assigned at Not on file Legal Sex Male 5:00 PM EST Gender Identity Not on file Sexual Orientation Not on file Last Filed Vital Signs Vital Sign Reading Time Taken Comments Blood Pressure 111/61 02/26/2023 3:52 PM EDT Pulse 64 02/26/2023 3:52 PM EDT Temperature - - Respiratory Rate - - Oxygen Saturation 99% 02/26/2023 3:52 PM EDT Inhaled Oxygen Concentration - - Weight 87.3 kg (192 lb 6.4 oz) 02/26/2023 3:52 P M EDT Height 172.7 cm (5' 8 ) 10/30/2022 4:25 PM EDT Body Mass Index 29.25 10/30/2022 4:25 PM EDT Plan of Treatment Health Maintenance Due Date Last Done Comments Pneumococcal Vaccine: Pediat rics (0 to 5 Years) and At-Risk Patients (6 to 64 Years) (1 of 2 - PCV) 1987 Hepatitis B Vaccine (1 of 3 - 19+ 3-dose series) 01/10 Influenza Vaccine (#1) 2024 Insurance COMPREHENSIVE BENEFITS COMPREHENSIVE BENEFITS Care Teams Frame Bander Relationship Specialty Start Date End Date Dwayne Jacobs MD [address] [place] [address] [address] [place] [address] PCP - General 06/12/20
--- OUTSIDE RECORDS SUMMARY | 2024-07-09 10:45 | XMS_ITS | Referral Summary ---
Author Organization [facility] Address [address] [place] [address] Care Team Providers Care Workers Compensation Claims Supervisor Name Role Phone Patient, Has No Pcp Or Ref Primary Care Provider Unavailable Encounters Date Type Department Care Team Description 05/31/2024 Telephone [facility] Transplant Department [address] [place] [address] [phone] Lori Mustafa, RN 05/27/2024 Telephone [facility] Department [address] [place] [address] 11306 Lori Mustafa, RN 05/11/2024 Telephone [facility] Department [address] [place] [address] [phone] Lori Mustafa, medical office worker - Kidney Txp 05/06/2024 11:15 AM EST Lab [facility] Draw Site [address] [place] [address] Pre-transplant evaluation for end stage renal disease; Chronic kidney disease, stage IV (severe) (HCC) 05/06/2024 10:15 AM EST Social Work [facility]plant [address] [place] [address] [phone] Cecelia Hinton LICSW 05/06/2024 9:30 AM EST Office Visit [facility] [address] [place] [address] [phone] Tobi Pollard MD Pre-transplant evaluation for kidney transplant (Primary Dx); Pre-transplant evaluation for end stage renal disease; Stage 4 chronic kidney disease (HCC) 05/06/2024 8:15 AM EST Evaluation [facility] [address] [place] [address] Lori Mustafa RN Pre-transplant evaluation for end stage renal disease (Primary Dx) 05/06/2024 8:00 AM EST Office Visit [facility] [address] [place] [address] Shanon De Anda RN Pre-transplant evaluation for kidney transplant (Primary Dx) 05/03/2024 Telephone [facility] Department [address] [place] [address] Lori Mustafa RN 04/27/2024 Orders Only [facility] Department [address] [place] [address] [phone] Lori Mustafa RN Pre-transplant evaluation for end stage renal disease (Primary Dx); Chronic kidney disease, stage IV (severe) ([facility]) from Last 3 Months Allergies No known active allergies Medications amLODIPine (NORVASC) 5 mg tablet Take 5 mg by mouth 2 times a day. Active atorvastatin (LIPITOR) 20 mg tablet Take 20 mg by mouth once a day. Active fish oil 340-1,000 mg capsule Take 1,000 mg by mouth once a day. Active Vitamin D3 25 mcg (1,000 unit) capsule Take 1 capsule by mouth once a day. Active Social History Tobacco Use Types Packs/Day Years Used Date Smoking Tobacco: Never Smokeless Tobacco: Never Tobacco Cessation:Counseling Given: Not Answered Alcohol Use Standard Drinks/Week Comments Never 0 (1 standard drink = 0.6 oz pur e alcohol) Sex and Gender Information Value Date Recorded Sex Assigned at Male 05/06/2024 7:52 AM EST Legal Sex Male 4:41 PM EST Gender Identity Not on file Sexual Orientation Not on file Last Filed Vital Signs Vital Sign Reading Time Taken Comments Blood Pressure 132/94 05/06/2024 8:07 AM EST Pulse 104 05/06/2024 8:07 AM EST Temperature 36.6 ??C (97.9 ??F) 05/06/2024 8:07 AM ES T Respiratory Rate 18 05/06/2024 8:07 AM EST Oxygen Saturation 96% 05/06/2024 8:07 AM EST Inhaled Oxygen Concentration - - Weight 85.2 kg (187 lb 13.3 oz) 05/06/2024 8:07 AM EST Height 174 cm (5' 8.5 ) 05/06/2024 8:07 AM EST Body Mass Index 28.14 05/06/2024 8:07 AM EST Plan of Treatment Upcoming Encounters Date Type Department Care Team (Late st Contact Info) Description 05/03/2025 10:00 AM EST Follow-Up [facility] [address] [place] [address] Tobi Pollard MD [address] [place] [address] 05/03/2025 10:30 AM EST Social Work [facility] [address] [place] [address] Cecelia Hinton LICSW [address] [place] [address] Procedures * Due to [place] state law, this organization might not be sharing negative HIV tests. Procedure Name Priority Date/Time Associated Diagnosis Comments ABO/RH BLOOD TYPE Routine 05/06/2024 11: 27 AM EST Pre-transplant evaluation for end stage renal disease Chronic kidney disease, stage IV (severe) (HCC) ALBUMIN Routine 05/06/2024 11:27 AM EST Pre-transplant evaluation for end stage renal disease Chronic kidney disease, stage IV (severe) (HCC) ALT Routine 05/06/2024 11:27 AM EST Pre-transplant evaluation for end stage renal disease Chronic kidney disease, stage IV (severe) (HCC) AST Routine 05/06/2024 11:27 AM EST Pre-transplant evaluation for end stage renal disease Chronic kidney disease, stage IV (severe) (HCC) BILIRUBIN, DIRECT Routine 05/06/2024 11: 27 AM EST Pre-transplant evaluation for end stage renal disease Chronic kidney disease, stage IV (severe) (HCC) BILIRUBIN, TOTAL Routine 05/06/2024 11:2 7 AM EST Pre-transplant evaluation for end stage renal disease Chronic kidney disease, stage IV (severe) (HCC) BUN Routine 05/06/2024 11:27 AM EST Pre-transplant evaluation for end stage renal disease Chronic kidney disease, stage IV (severe) (HCC) CALCIUM Routine 05/06/2024 11:27 AM EST Pre-transplant evaluation for end stage renal disease Chronic kidney disease, stage IV (severe) (HCC) CBC AUTO DIFFERENTIAL Routine 05/06/2024 11:27 AM EST Pre-transplant evaluation for end stage renal disease Chronic kidney disease, stage IV (severe) (HCC) CREATININE Routine 05/06/2024 11:27 AM EST Pre-transplant evaluation for end stage renal disease Chronic kidney disease, stage IV (severe) (HCC) CYTOMEGALOVIRUS ANTIBODY, IGG Routine 05/06/2024 11:27 AM EST Pre-transplant evaluation for end stage renal disease Chronic kidney disease, stage IV (severe) (HCC) KENDALL-LLANOS VIRUS ANTIBODY PANEL Routine 05/06/2024 11:27 AM EST Pre-transplant evaluation for end stage renal disease Chronic kidney disease, stage IV (severe) (HCC) HEPATITIS A ANTIBODY, TOTAL Routine 05/06/2024 11:27 AM EST Pre-transplant evaluation for end stage renal disease Chronic kidney disease, stage IV (severe) (HCC) HEPATITIS B CORE ANTIBODY, TOTAL Routine 05/06/2024 11:27 AM EST Pre-transplant evaluation for end stage renal disease Chronic kidney disease, stage IV (severe) (HCC) HEPATITIS B SURFACE ANTIGEN W/CONFIRMATION Routine 05/06/2024 11:27 AM EST Pre-transplant evaluation for end stage renal disease Chronic kidney disease, stage IV (severe) (HCC) HEPATITIS B SURFACE ANTIBODY Routine 05/06/2024 11:27 AM EST Pre-transplant evaluation for end stage renal disease Chronic kidney disease, stage IV (severe) (HCC) HEPATITIS C ANTIBODY W/REFLEX TO HCV RNA, QUANTITATIVE PCR Routine 05/06/2024 11:27 AM EST Pre-transplant evaluation for end stage renal disease Chronic kidney disease, stage IV (severe) (HCC) HERPES SIMPLEX VIRUS 1&2 ANTIBODY, IGG Routine 05/06/2024 11:27 AM EST Pre-transplant evaluation for end stage renal disease Chronic kidney disease, stage IV (severe) (HCC) MMR PANEL (MEASLES, MUMPS, RUBELLA), IGG Routine 05/06/2024 11:27 AM EST Pre-transplant evaluation for end stage renal disease Chronic kidney disease, stage IV (severe) (HCC) PHOSPHORUS Routine 05/06/2024 11:27 AM EST Pre-transplant evaluation for end stage renal disease Chronic kidney disease, stage IV (severe) (HCC) PROTIME-INR Routine 05/06/2024 11:27 AM EST Pre-transplant evaluation for end stage renal disease Chronic kidney disease, stage IV (severe) (HCC) PTT Routine 05/06/2024 11:27 AM EST Pre-transplant evaluation for end stage renal disease Chronic kidney disease, stage IV (severe) (HCC) QUANTIFERON-TB GOLD PLUS, 1 [id number] Routine 05/06/2024 11:27 AM EST Pre-transplant evaluation for end stage renal disease Chronic kidney disease, stage IV (severe) (HCC) RPR (DIAGNOSIS) W/REFLEX TO TITER & TPPA [id number] Routine 05/06/2024 11:27 AM EST Pre-transplant evaluation for end stage renal disease Chronic kidney disease, stage IV (severe) (HCC) VARICELLA ZOSTER ANTIBODY, IGG Routine 05/06/2024 11:27 AM EST Pre-transplant evaluation for end stage renal disease Chronic kidney disease, stage IV (severe) (HCC) HLA TRANSPLANT WORK-UP (ALLELE LEVEL A/B/C/DRB1/COM794/DQA1/ DQB1/DPA1/DPB1) Routine 05/06/2024 11:27 AM EST Pre-transplant evaluation for end stage renal disease Chronic kidney disease, stage IV (severe) (HCC) HLA ANTIBODY IDENTIFICATION WITH TREATMENT - CLASS I Routine 05/06/2024 11:27 AM EST Pre-transplant evaluation for end stage renal disease Chronic kidney disease, stage IV (severe) (HCC) HLA ANTIBODY IDENTIFICATION WITH TREATMENT - CLASS II Routine 05/06/2024 11:27 AM EST Pre-transplant evaluation for end stage renal disease Chronic kidney disease, stage IV (severe) (HCC) CYSTATIN C WITH GLOMERULAR FILTRATION RATE, ESTIMATED (EGFR)-[id number] Routine 05/06/2024 11:27 AM EST Pre-transplant evaluation for end stage renal disease Chronic kidney disease, stage IV (severe) (HCC) from Last 3 Months Results * Due to [place] state law, this organization might not be sharing negative HIV tests. * HLA Transplan Work-Up(Allele Level A/B/C/DRB1/XQS703/DQA1/DQB1/DPA1/DPB1) (05/06/2024 11:27 AM EST) [facility] Laboratory Information See Below 05/12/2024 3:59 PM EST [employer] Comment: ROMULO: ??[id number] ?Director: ??Magdalena Garcia MD. [facility] PFI: ??[id number] UNOS: ??[id number] This test was developed and its performance characteristics determined by this laboratory. It has not been cleared or approved by the U.S. Food and Drug Administration. The FDA has determined that such clearance or approval is not necessary. This test is used for clinical purposes. It should not be regarded as investigational or for research. This laboratory is certified under the Clinical Laboratory Improvement Amendments of 1988 (CLIA-88) as qualified to perform high complexity clinical laboratory testing. A*-1 A*02:01 05/12/2024 3:59 PM EST [facility] A*-2 A*29:02 05/12/2024 3:59 PM EST [facility] A*-1 NMDP DATA NOT REPORTED 05/12/2024 3:59 PM EST [facility] A*-2 NMDP DATA NOT REPORTED 05/12/2024 3:59 PM EST [facility] Test Method NGS 05/12/2024 3:59 PM EST [facility] DRB3-1 3*02:02 05/12/2024 3:59 PM EST [facility] DRB3-2 DATA NOT REPORTED 05/12/2024 3:59 PM EST [facility] DRB3-1 NMDP DATA NOT REPORTED 05/12/2024 3:59 PM EST [facility] DRB3-2 NMDP DATA NOT REPORTED 05/12/2024 3:59 PM EST [facility] DRB4-1 DATA NOT REPORTED 05/12/2024 3:59 PM EST [facility] DRB4-2 4*01:03 05/12/2024 3:59 PM EST [facility] DRB4-1 NMDP DATA NOT REPORTED 05/12/2024 3:59 PM EST [facility] DRB4-2 NMDP DATA NOT REPORTED 05/12/2024 3:59 PM EST [facility] DRB5-1 DATA NOT REPORTED 05/12/2024 3:59 PM EST [facility] DRB5-2 DATA NOT REPORTED 05/12/2024 3:59 PM EST [facility] DRB5-1 NMDP DATA NOT REPORTED 05/12/2024 3:59 PM EST [facility] DRB5-2 NMDP DATA NOT REPORTED 05/12/2024 3:59 PM EST [facility] C*-1 C*03:03 05/12/2024 3:59 PM EST [facility] C*-2 C*07:02 05/12/2024 3:59 PM EST [facility] C*-1 NMDP DATA NOT REPORTED 05/12/2024 3:59 PM EST [facility] C*-2 NMDP DATA NOT REPORTED 05/12/2024 3:59 PM EST [facility] DQA1-1 DQA*03:02 05/12/2024 3:59 PM EST [facility] DQA1-2 DQA*05:05 05/12/2024 3:59 PM EST [facility] DQA1-1 NMDP DATA NOT REPORTED 05/12/2024 3:59 PM EST [facility] DQA1-2 NMDP DATA NOT REPORTED 05/12/2024 3:59 PM EST [facility] DRB1-1 DR*09:01 05/12/2024 3:59 PM EST [facility] DRB1-2 DR*11:04P 05/12/2024 3:59 PM EST [facility] DRB1-1 NMDP DATA NOT REPORTED 05/12/2024 3:59 PM EST [facility] DRB1-2 NMDP DATA NOT REPORTED 05/12/2024 3:59 PM EST [facility] DQB1-1 DQB*03:01 05/12/2024 3:59 PM EST [facility] DQB1-2 DQB*03:03 05/12/2024 3:59 PM EST [facility] DQB1-1 NMDP DATA NOT REPORTED 05/12/2024 3:59 PM EST [facility] DQB1-2 NMDP DATA NOT REPORTED 05/12/2024 3:59 PM EST [facility] DPA1-1 DPA*01:03 05/12/2024 3:59 PM EST [facility] DPA1-2 DATA NOT REPORTED 05/12/2024 3:59 PM EST [facility] DPA1-1 NMDP DATA NOT REPORTED 05/12/2024 3:59 PM EST [facility] DPA1-2 NMDP DATA NOT REPORTED 05/12/2024 3:59 PM EST [facility] B*-1 B*39:06 05/12/2024 3:59 PM EST [facility] B*-2 B*51:01 05/12/2024 3:59 PM EST [facility] B*-1 NMDP DATA NOT REPORTED 05/12/2024 3:59 PM EST [facility] B*-2 NMDP DATA NOT REPORTED 05/12/2024 3:59 PM EST [facility] DPB1-1 DPB*02:01 05/12/2024 3:59 PM EST [facility] DPB1-2 DPB*04:01 05/12/2024 3:59 PM EST [facility] DPB1-1 NMDP DATA NOT REPORTED 05/12/2024 3:59 PM EST [facility] DPB1-2 NMDP DATA NOT REPORTED 05/12/2024 3:59 PM EST [facility] Blood Structure of peripheral vein / Unknown Venipuncture / Unknown 05/06/2024 11:27 AM EST 05/06/2024 11:40 AM EST Tobi Pollard MD HLA LAB ORDERABLES Edited Result - Final Performing Organization Address City/[facility]/ZIP Co de Phone Number [facility] [employer] [facility] [facility] [address] [facility] Rm: [phone] [place] [address], * (ABNORMAL) Cystatin C with Glomerular Filtration Rate, Estimated (eGFR) (05/06/2024 11:27 AM EST) Cystatin C 3.04(H) 0.52 - 1.27 mg/L 05/09/2024 9:34 AM EST [facility] eGFR Non- 19(L) >=60 NA 05/09/2024 9:34 AM EST [facility] Comment: ?REFERENCE RANGE:>=60 mL/min/1.73mE2 ? Blood Structure of peripheral vein / Unknown Venipuncture / Unknown 05/06/2024 11:27 AM EST 05/06/2024 11:42 AM EST Narrative [facility] ([facility]) - 05/09/2024 9:34 AM EST [facility] Received Date: Tobi Pollard MD LAB BLOOD ORDERABLES Monica l Result Performing Organization Address City/[facility]/ZIP Co de Phone Number [facility] ([facility]) [address] [place], [place] , [place] * MMR Panel, IgG (05/06/2024 11:27 AM EST) Measles Antibody (IgG), Immune Status 136.00 AU/mL 05/07/2024 5:47 AM EST [facility] Comment: AU/mL ?Interpretation ----- ? <13.50 ? Not consistent with immunity 13.50-16.49 ?Equivocal >16.49 ? Consistent with immunity The presence of measles IgG suggests immunization or past or current infection with measles virus. For additional information, please refer to http://education.MyPublisher/faq/GZZ845 (This link is being provided for informational/ educational purposes only.) Mumps Antibody (IgG), Immune Status 37.60 AU/mL 05/07/2024 5:47 AM EST [facility] Comment: AU/mL ? Interpretation ------- ? <9.00 ? Not consistent with immunity 9.00-10.99 ?Equivocal >10.99 ?Consistent with immunity The presence of mumps IgG antibody suggests immunization or past or current infection with mumps virus. Rubella Antibody (IgG), Immune Status 2.45 Index 05/07/2024 5:47 AM EST [facility] Comment: ?Index ?Interpretation ?----- ?<0.90 ?Not consistent with immunity ?0.90-0.99 ?Equivocal ?> or = 1.00 ?Consistent with immunity The presence of rubella IgG antibody suggests immunization or past or current infection with rubella virus. Blood Structure of peripheral vein / Unknown Venipuncture / Unknown 05/06/2024 11:27 AM EST 05/06/2024 11:42 AM EST Narrative [facility] - 05/07/2024 5:47 AM EST [facility] Received Date: us Tobi Pollard MD LAB BLOOD ORDERABLES Monica abernathy Result [facility] [address] [facility] [address], [place] [address], [facility] [address], [address] [place] [address], * (ABNORMAL) Herpes Simplex Virus 1&2, IgG (05/06/2024 11:27 AM EST) HSV 1 IgG Type Specific Ab 5.17(H) index 05/07/2024 8:57 AM EST [facility] HSV 2 IgG Type Specific Ab <0.90 index 05/07/2024 8:57 AM EST [facility] Comment: ?Index ?Interpretation ?----- ?<0.90 ?Negative ?0.90-1.09 ?Equivocal ?>1.09 ?Positive This assay utilizes recombinant type-specific antigens to differentiate HSV-1 from HSV-2 infections. A positive result cannot distinguish between recent and past infection. If recent HSV infection is suspected but the results are negative or equivocal, the assay should be repeated in 4-6 weeks. The performance characteristics of the assay have not been established for pediatric populations, immunocompromised patients, or screening. For additional information, please refer to http://education.Threat Stack.[employer] Technology/faq/THH083 (This link is being provided for informational/ educational purposes only.) ?? Blood Structure of peripheral vein / Unknown Venipuncture / Unknown 05/06/2024 11:27 AM EST 05/06/2024 11:42 AM EST [facility]ative [facility] - 05/07/2024 8:57 AM EST [facility] Received Date: Tobi Pollard MD LAB BLOOD ORDERABLES Monica l Result [facility] [address] [facility] [address] [facility], [place] [address], [place] [phone] [facility] [address] [facility] [address] Floor, [place] [address], [place] [phone] * RPR (Diagnosis) w/Reflex to Titer & TPPA Confirm (05/06/2024 11:27 AM EST) Pathologist [facility] RPR W/Refl Titer NON-REACT KISHA NON-REACT KISHA 05/08/2024 6:27 PM EST [facility] Blood Structure of peripheral vein / Unknown Venipuncture / Unknown 05/06/2024 11:27 AM EST 05/06/2024 11:42 AM EST [facility]ative [facility] - 05/08/2024 6:27 PM EST [facility] Received Date: Tobi Pollard MD LAB BLOOD ORDERABLES Monica l Result Performing Organization Address City/[facility]/ZIP Co de Phone Number [facility] [address] [facility] [address] [facility], [place] [address], [place] [phone] [facility] [address] [facility] [address] [facility], [place] [address], [place] [phone] * QuantiFERON-TB Gold Plus, 1 Tube (05/06/2024 11:27 AM EST) QuantiFERON-TB Gold Plus NEGATIVE NEGATIVE 05/08/2024 2:00 PM EST [facility] Comment: Negative test result. M. tuberculosis complex infection unlikely. NIL 0.04 IU/mL 05/08/2024 2:00 PM EST [facility] Mitogen-NIL 6.31 IU/mL 05/08/2024 2:00 PM EST [facility] TB1-NIL <0.00 IU/mL 05/08/2024 2:00 PM EST [facility] TB2-NIL 0.01 IU/mL 05/08/2024 2:00 PM EST [facility] Comment: The Nil tube value reflects the background interferon gamma immune response of the patient's blood sample. This value has been subtracted from the patient's displayed TB and Mitogen results. Lower than expected results with the Mitogen tube prevent false-negative Quantiferon readings by detecting a patient with a potential immune suppressive condition and/or suboptimal pre-analytical specimen handling. The TB1 Antigen tube is coated with the M. tuberculosis-specific antigens designed to elicit responses from TB antigen primed CD4+ helper T-lymphocytes. The TB2 Antigen tube is coated with the M. tuberculosis-specific antigens designed to elicit responses from TB antigen primed CD4+ helper and CD8+ cytotoxic T-lymphocytes. For additional information, please refer to https://education.Moolta/faq/SRP596 (This link is being provided for informational/ educational purposes only.) Blood Structure of peripheral vein / Unknown Venipuncture / Unknown 05/06/2024 11:27 AM EST 05/06/2024 11:39 AM EST [facility] - 05/08/2024 2:00 PM EST [facility] Received Date: Tobi Polladr MD LAB BLOOD ORDERABLES Monica abernathy Result [facility] [address] [facility] [address], [place] [address], [place] [phone] [facility] [address] [facility] [address] [facility] [address], [place] [address], * (ABNORMAL) CBC Auto Differential (05/06/2024 11:27 AM EST) WBC 8.1 3.8 - 10.8 10*3/uL 05/06/2024 11:51 AM EST [facility] RBC 4.64 4.20 - 5.80 10*6/uL 05/06/2024 11:51 AM EST [facility] Hemoglobin 13.8 13.2 - 17.1 g/dL 05/06/2024 11:51 AM EST [facility] Hematocrit 40.3 38.5 - 50.0 % 05/06/2024 11:51 AM EST [facility] MCV 86.9 80.0 - 100.0 fL 05/06/2024 11:51 AM EST [facility] MCH 29.7 27.0 - 33.0 pg 05/06/2024 11:51 AM EST [facility] MCHC 34.2 32.0 - 36.0 g/dL 05/06/2024 11:51 AM EST [facility] RDW 11.9 11.0 - 15.0 % 05/06/2024 11:51 AM EST [facility] Platelets 324 140 - 400 10*3/uL 05/06/2024 11:51 AM EST [facility] MPV 9.4 7.5 - 12.5 fL 05/06/2024 11:51 AM EST [facility] Neutrophil % 83.0 % 05/06/2024 11:51 AM EST [facility] Immature Grans % 0.5 0.0 - 0.9 % 05/06/2024 11:51 AM EST [facility] Lymphocyte % 11.9 % 05/06/2024 11:51 AM EST [facility] Monocyte % 3.3 % 05/06/2024 11:51 AM EST [facility] Eosinophil % 0.9 % 05/06/2024 11:51 AM EST [facility] Basophil % 0.4 % 05/06/2024 11:51 AM EST [facility] Neutrophil # 6.74 1.50 - 7.80 10*3/uL 05/06/2024 11:51 AM EST [facility] [employer] [facility] Immature Grans # 0.04(H) <=0.03 10*3/uL 05/06/2024 11:51 AM EST [facility] [employer] [facility] Lymphocyte # 1.00 0.85 - 3.90 10*3/uL 05/06/2024 11:51 AM EST [facility] [employer] [facility] Monocyte # 0.30 0.20 - 0.95 10*3/uL 05/06/2024 11:51 AM EST [facility] [employer] [facility] Eosinophil # 0.10 0.02 - 0.50 10*3/uL 05/06/2024 11:51 AM EST [facility] [employer] [facility] Basophil # <0.03 0.00 - 0.20 10*3/uL 05/06/2024 11:51 AM EST [facility] [employer] [facility] nRBC % 0.0 /100 WBCs 05/06/2024 11:51 AM EST [facility] nRBC # <0.01 <0.01 10*3/uL 05/06/2024 11:51 AM EST [facility] Blood Structure of peripheral vein / Unknown Venipuncture / Unknown 05/06/2024 11:27 AM EST 05/06/2024 11:42 AM EST us Tobi Pollard MD LAB BLOOD ORDERABLES Monica l Result [facility] [employer] [facility] [address] [place] [address], * (ABNORMAL) Kendall-Llanos Virus VCA Antibody Panel (05/06/2024 11:27 AM EST) EBV Viral Capsid Ag Ab (IGM) <36.00 U/mL 05/07/2024 5:47 AM EST [facility] Comment: ?U/mL ?Interpretation ?---- ?<36.00 ?Negative ?36.00-43.99 ? Equivocal ?>43.99 ?Positive EBV Viral Capsid Ag Ab (IGG) >750.00(H) U/mL 05/07/2024 5:47 AM [facility] [employer] Comment: ? U/mL ? Interpretation ? ---- ? <18.00 ? Negative ? 18.00-21.99 ?Equivocal ? >21.99 ? Positive EBV Nuclear Ag Ab >600.00(H) U/mL 5:47 AM [employer] Comment: ? U/mL ? Interpretation ? ---- ? <18.00 ? Negative ? 18.00-21.99 ?Equivocal ? >21.99 ? 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 In infants, a similar pattern may occur as a result of passive maternal transfer of antibody. Blood Structure of peripheral vein / Unknown Venipuncture / Unknown 05/06/2024 11:27 AM EST 05/06/2024 11:42 AM EST Narrative [facility] - 05/07/2024 5:47 AM EST [facility] Received Date: Tobi Pollard MD LAB BLOOD ORDERABLES Monica l Result [facility] [address], [place] [address], [place] [phone] vendome 1699 [facility] [address], [place] [address], * Hepatitis C Antibody w/Reflex to PCR (05/06/2024 11:27 AM EST) Hepatitis C Antibody NON-REACT KISHA NON-REACT KISHA 05/07/2024 3:30 AM EST [facility] Comment: HCV antibody was non-reactive. There is no laboratory evidence of HCV infection. In most cases, no further action is required. However, if recent HCV exposure is suspected, a test for HCV RNA (test code 48568) is suggested. For additional information please refer to http://education.Moolta/faq/FUM83q5 (This link is being provided for informational/ educational purposes only.) Blood Structure of peripheral vein / Unknown Venipuncture / Unknown 05/06/2024 11:27 AM EST 05/06/2024 11:42 AM EST Narrative [facility] - 05/07/2024 3:30 AM EST [facility] Received Date: Tobi Pollard MD LAB BLOOD ORDERABLES Monica l Result [facility] [address], [place] [address], [place] [phone] vendome [address] [facility] [address], [place] [address], * Hepatitis A Antibody, Total (05/06/2024 11:27 AM EST) Hepatitis A Ab, Total NON-REACT KISHA NON-REACT KISHA 05/07/2024 8:31 AM EST [facility] Comment: For additional information, please refer to http://[facility].Moolta/faq/ZJO992 (This link is being provided for informational/ educational purposes only.) Blood Structure of peripheral vein / Unknown Venipuncture / Unknown 05/06/2024 11:27 AM EST 05/06/2024 11:42 AM EST Narrative [facility] 05/07/2024 8:31 AM EST [facility] Received Date: us Tobi Pollard MD LAB BLOOD ORDERABLES Monica l Result Performing Organization Address City/[facility]/ZIP Co de Phone Number GENEVA BAYAMON 200 [facility] [address] [facility], [place] [address], [place] [phone] vendome [address], [place] [address], [place] [phone] * Hepatitis B Core Antibody, Total (05/06/2024 11:27 AM EST) Hepatitis B Core Ab Total NON-REACT KISHA NON-REACT KISHA 05/07/2024 3:28 AM EST [facility] Comment: For additional information, please refer to http://[facility] [employer].Moolta/faq/NHE369 (This link is being provided for informational/ educational purposes only.) Blood Structure of peripheral vein / Unknown Venipuncture / Unknown 05/06/2024 11:27 AM EST 05/06/2024 11:42 AM EST Narrative [facility] - 05/07/2024 3:28 AM EST [facility] Received Date: us Tobi Pollard MD LAB BLOOD ORDERABLES Monica l Result [facility]EV[facility] BAYAMON 200 [facility] 3rd Floor, [place] [address], [place] [phone] vendome 1699 [facility] 200 [facility] 3rd Floor, [place] [address], [place] [phone] * ABO/Rh Blood Type (05/06/2024 11:27 AM EST) ABO Blood Type A 05/06/2024 12:17 PM EST [facility] RH Type Positive 05/06/2024 12:17 PM EST [facility] Blood Structure of peripheral vein / Unknown Venipuncture / Unknown 05/06/2024 11:27 AM EST 05/06/2024 11:30 AM EST us Tobi Pollard MD LAB BLOOD BANK TEST ORDER LINH Final Result Performing Organization Address City/[facility]/ZIP Co de Phone Number [facility] [address] [place] [address], * (ABNORMAL) Hepatitis B Surface Antibody (05/06/2024 11:27 AM EST) Hepatitis B Surface Ab Immunity, Qn <5(L) > OR = 10 mIU/mL 05/07/2024 3:27 AM EST [facility] 1699 [facility] Comment: PATIENT DOES NOT HAVE IMMUNITY TO HEPATITIS B VIRUS. For additional information, please refer to http://education.Moolta/faq/QXO353 (This link is being provided for informational/ educational purposes only). Blood Structure of peripheral vein / Unknown Venipuncture / Unknown 05/06/2024 11:27 AM EST 05/06/2024 11:42 AM EST Narrative [facility] - 05/07/2024 3:27 AM EST [facility] Received Date:[id number] us Tobi Pollard MD LAB BLOOD ORDERABLES Monica l Result [facility] 200 [facility] 3rd Floor, [place] [address], [place] [phone] vendome [address] [facility] 200 [facility] 3rd Floor, [place] [address], * Hepatitis B Surface Antigen w/Confirmation (05/06/2024 11:27 AM EST) Hepatitis B Surface Antigen NON-REACT KISHA NON-REACT KISHA 05/07/2024 3:55 AM EST [facility] Comment: For additional information, please refer to http://education.Moolta/faq/GDE265 (This link is being provided for informational/ educational purposes only.) Blood Structure of peripheral vein / Unknown Venipuncture / Unknown 05/06/2024 11:27 AM EST 05/06/2024 11:42 AM EST Narrative [facility] - 05/07/2024 3:55 AM EST [facility] Received Date: Tobi Pollard MD LAB BLOOD ORDERABLES Monica abernathy Result Performing Organization Address City/State/[facility] Co de Phone Number [facility] 200 [facility] 3rd Floor, [place] [address], [facility] 200 [facility] 3rd Floor, [place] [address], * Cytomegalovirus Antibody, IgG (05/06/2024 11:27 AM EST) Pathologist [facility] Cytomegalovirus Antibody (IgG) <0.60 U/mL 05/07/2024 5:47 AM EST [facility] Comment: ? U/mL ? Interpretation ? ----- ? <0.60 ? Negative ? 0.60-0.69 ? Equivocal ? > or = 0.70 ?? Positive A positive result indicates that the patient has antibody to CMV. It does not differentiate between an active or past infection. Blood Structure of peripheral vein / Unknown Venipuncture / Unknown 05/06/2024 11:27 AM EST 05/06/2024 11:42 AM EST Narrative [facility] 05/07/2024 5:47 AM EST [facility] Received Date: Tobi Pollard MD LAB BLOOD ORDERABLES Monica l Result Performing Organization Address [facility] Co de Phone Number [facility] 200 [facility] [address] [facility], [place] [address], vendome 1699 [facility] 200 [facility] [address] [facility], [place] [address], [place] [phone] * PTT (05/06/2024 11:27 AM EST) [facility] aPTT 25.4 23.0 - 32.0 Seconds 05/06/2024 12:09 PM EST [facility] Comment: Current PTT reagent is not sensitive to detect all Lupus Anticoagulant (LA) Inhibitor Cases. ?? If a LA is suspected, please order a Lupus Anticoagulation w/ Reflex Test which is performed at [facility] in [place], [place]. Blood Structure of peripheral vein / Unknown Venipuncture / Unknown 05/06/2024 11:27 AM EST 05/06/2024 11:42 AM EST Tobi Pollard MD LAB BLOOD ORDERABLES Monica l Result Performing Organization Address [facility] Co de Phone Number [facility] [address] [place] [address], * Protime-INR (05/06/2024 11:27 AM EST) Pathologist [facility] PT 9.6 9.6 - 12.4 Seconds 05/06/2024 12:09 PM EST [facility] INR 0.9 0.9 - 1.1 05/06/2024 12:09 PM EST [facility] Comment:The optimal therapeu tic INR range for patients treated with Vitamin K antagonists (VKAS, e.g., Warfarin) is 2.0 to 3.5. Discuss the desired range with your doctor/care team. Blood Structure of peripheral vein / Unknown Venipuncture / Unknown 05/06/2024 11:27 AM EST 05/06/2024 11:42 AM EST Tobi Pollard MD LAB BLOOD ORDERABLES Monica abernathy Result [facility] [address] [place] [address], * Varicella Zoster Antibody, IgG (05/06/2024 11:27 AM EST) Pathologist [facility] Varicella Zoster Virus Antibody 16.70 S/CO 05/07/2024 8:39 AM EST [facility] Comment: ?Signal to Cut-off ? S/CO ?Interpretation ? --------- ?<1.00 ?Negative - Antibody not detected ?> or = 1.00 ?Positive - Antibody detected ?A positive result indicates that the patient ?has antibody to VZV but does not differentiate ?between an active or past infection. ?The clinical diagnosis must be interpreted in ?conjunction with the clinical signs and symptoms of ?the patient. This assay reliably measures immunity ?due to previous infection but may not be ?sensitive enough to detect antibodies induced by ?vaccination. Thus, a negative result in a vaccinated ?individual does not necessarily indicate ?susceptibility to VZV infection. A more sensitive ?test for vaccination-induced immunity is Varicella ?Zoster Virus Antibody Immunity Screen, ACIF. Blood Structure of peripheral vein / Unknown Venipuncture / Unknown 05/06/2024 11:27 AM EST 05/06/2024 11:42 AM EST Narrative [facility] 05/07/2024 8:39 AM EST [facility] Received Date: Tobi Pollard MD LAB BLOOD ORDERABLES Monica l Result [facility] 200 [facility] 3[address] Floor, [place] [address], [place] [phone] vendome 1699 [facility] 200 [facility] [address] [facility], [place] [address], [place] [phone] * (ABNORMAL) BUN (05/06/2024 11:27 AM EST) BUN 49(H) 7 - 23 mg/dL 05/06/2024 12:13 PM EST [facility] Blood Structure of peripheral vein / Unknown Venipuncture / Unknown 05/06/2024 11:27 AM EST 05/06/2024 11:42 AM EST Tobi Pollard MD LAB BLOOD ORDERABLES Monica l Result [facility] [address] [place] [address], * ALT (05/06/2024 11:27 AM EST) ALT 16 10 - 40 U/L 05/06/2024 12:13 PM EST [facility] Blood Structure of peripheral vein / Unknown Venipuncture / Unknown 05/06/2024 11:27 AM EST 05/06/2024 11:42 AM EST Tobi Pollard MD LAB BLOOD ORDERABLES Monica l Result Performing Organization Address City/[facility]/ZIP Co de Phone Number [facility] [address] [place] [address], * AST (05/06/2024 11:27 AM EST) AST 18 10 - 40 U/L 05/06/2024 12:13 PM EST [facility] Blood Structure of peripheral vein / Unknown Venipuncture / Unknown 05/06/2024 11:27 AM EST 05/06/2024 11:42 AM EST Tobi Pollard MD LAB BLOOD ORDERABLES Monica l Result Performing Organization Address [facility] Co de Phone Number [facility] [address] [place] [address], * Phosphorus (05/06/2024 11:27 AM EST) Phosphorus 3.8 2.5 - 4.5 mg/dL 05/06/2024 12:13 PM EST [facility] Blood Structure of peripheral vein / Unknown Venipuncture / Unknown 05/06/2024 11:27 AM EST 05/06/2024 11:42 AM EST Tobi Pollard MD LAB BLOOD ORDERABLES Monica l Result Performing Organization Address [facility] Co de Phone Number [facility] [address] [place] [address], * (ABNORMAL) Creatinine (05/06/2024 11:27 AM EST) Creatinine 5.03(H) 0.60 - 1.30 mg/dL 05/06/2024 12:13 PM EST [facility] [employer] [facility] eGFR 14(L) >=60 mL/min/1 .73m2 05/06/2024 12:13 PM EST [facility] [employer] [facility] Comment:The estimated glomer ular filtration rate (eGFR) is calculated using a new formula developed by the NKF-ASN task force to eliminate race-based correction factors. The new formula uses serum/plasma creatinine, age, and gender to determine eGFR. A value below 60mls/min might indicate kidney disease and will be flagged. For additional information, see Chilo et al, Am J Kidney Dis. 2021;79(2):268- 288, A Unifying Approach for GFR estimation: Recommendations of the NKF-ASN Task Force on Reassessing the Inclusion of Race in Diagnosing Kidney Disease . Blood Structure of peripheral vein / Unknown Venipuncture / Unknown 05/06/2024 11:27 AM EST 05/06/2024 11:42 AM EST Tobi Pollard MD LAB BLOOD ORDERABLES Monica l Result Performing Organization Address City/[facility]/ZIP Co de Phone Number [facility] [employer] [facility] [address] [place] [address], * Calcium (05/06/2024 11:27 AM EST) Calcium 9.5 8.6 - 10.5 mg/dL 05/06/2024 12:13 PM EST [facility] [employer] [facility] Blood Structure of peripheral vein / Unknown Venipuncture / Unknown 05/06/2024 11:27 AM EST 05/06/2024 11:42 AM EST Tobi Pollard MD LAB BLOOD ORDERABLES Monica l Result [facility] [employer] [facility] [address] [place] [address], * Bilirubin, Direct (05/06/2024 11:27 AM EST) Bilirubin, Direct 0.1 <=0.4 mg/dL 05/06/2024 12:13 PM EST [facility] Blood Structure of peripheral vein / Unknown Venipuncture / Unknown 05/06/2024 11:27 AM EST 05/06/2024 11:42 AM EST Tobi Pollard MD LAB BLOOD ORDERABLES Monica l Result [facility] [address] [place] [address] * Bilirubin, Total (05/06/2024 11:27 AM EST) Bilirubin, Total 0.3 0.2 - 1.2 mg/dL 05/06/2024 12:13 PM EST [facility] Blood Structure of peripheral vein / Unknown Venipuncture / Unknown 05/06/2024 11:27 AM EST 05/06/2024 11:42 AM EST Tobi Pollard MD LAB BLOOD ORDERABLES Monica l Result Performing Organization Address City/[facility]/ZIP Co de Phone Number [facility] [address] [place] [address], * Albumin (05/06/2024 11:27 AM EST) Albumin 4.3 3.5 - 5.2 g/dL 05/06/2024 12:13 PM EST [facility] Blood Structure of peripheral vein / Unknown Venipuncture / Unknown 05/06/2024 11:27 AM EST 05/06/2024 11:42 AM EST Tobi Pollard MD LAB BLOOD ORDERABLES Monica l Result [facility] [address] [place] [address], from Last 3 Months Insurance [employer] Advance Directives Documents on File Type Date Recorded 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
--- OUTSIDE RECORDS SUMMARY | 2024-07-09 10:45 | XMS_ITS ---
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 Generated for Cotyi coco/Jose Carlos/eTransmitting on:?07/09/2024 10:44 AM EST
--- OUTSIDE RECORDS SUMMARY | 2024-07-09 10:45 | XMS_ITS | Clinical Summary ---
Author Organization [facility] Address [address] [place] [address] Care Team Providers Care Provider Relations Specialist Name Role Phone Patient, Has No Pcp Or Ref Primary Care Provider Unavailable Allergies No known active allergies Medications amLODIPine [...] capsule by mouth once a day. Active Encounters Date Type Department Care Team Description 05/31/2024 Telephone [facility] Transplant Department [address] [place] [address] Lori Mustafa RN 05/27/2024 Telephone [facility] Department [address] [place] [address] Lori Mustafa RN 05/11/2024 Telephone [facility] Trans[facility] Department [address] [place] [phone] Lori Mustafa, casing trimmer - Kidney Txp 05/06/2024 11:15 AM EST Lab [facility] [place] [facility] Draw Site [address] [place] [address] Pre-transplant evaluation for end stage renal disease; Chronic kidney disease, stage IV (severe) ([facility]LY [facility]) 05/06/2024 10:15 AM EST Social Work [facility] Renal Transplant [address] [place] [address] Cecelia Hinton LICSW 05/06/2024 9:30 AM EST Office Visit [facility] [address] [place] [address] Tobi Pollard MD Pre-transplant evaluation for kidney transplant (Primary Dx); Pre-transplant evaluation for end stage renal disease; Stage 4 chronic kidney disease (HCC) 05/06/2024 8:15 AM EST Evaluation [facility] [address] [place] [address] Lori Mustafa, DU Pre-transplant evaluation for end stage renal disease (Primary Dx) 05/06/2024 8:00 AM EST Office Visit [facility] [address] [place] [address] Shanon De Anda RN Pre-transplant evaluation for kidney transplant (Primary Dx) 05/03/2024 Telephone [facility] Transplant Department [address] [place] [phone] Lori Mustafa, DU 04/27/2024 Orders Only [facility] Trans[facility] Department [address] [place] [phone] Lori Mustafa, DU Pre-transplant evaluation for end stage renal disease (Primary Dx); Chronic kidney disease, stage IV (severe) (HCC) from Last 3 Months Social History Tobacco Use Types Packs/Day Years [...] Info) Description 05/03/2025 10:00 AM EST Follow-Up [facility] [address] [place] [address] Tobi Pollard MD [address] [place] [address] 05/03/2025 10:30 AM EST Social Work [facility] [address] [place] [address] Cecelia Hinton LICSW [address] [place] [address] Health Maintenance Due Date Last Done Comments 25 Hydroxy / Vitamin D 1981 Basic Metabolic Panel 1981 PTH 1981 Urine Microalbumin 1991 Varicella Vaccines (1 of 2 - 13+ 2-dose series) 1994 Hepatitis B Vaccines (1 of 3 - 19+ 3-dose series) 01/11/2000 DTaP,Tdap,and Td Vaccines (1 - Tdap) 2003 COVID-19 Vaccine ( - 2023-2 5 season) 2024 Influenza Vaccine (#1) 2024 Alcohol/Substance Use Screening 06/02/2024 Depression Screening and Follow-Up 06/02/2024 Social Drivers of Health Mary ual Screening 06/02/2024 Hemoglobin 05/06/2025 05/06/2024 Phosphorus 05/06/2025 05/06/2024 RSV Vaccine (60+ years old a nd patients) (1 - 1-dose 75+ series) 01/11/2056 CKD: Referral to Nephrology Completed 05/06/2024 HIV Screening Completed 05/06/2024 Hepatitis C Screening Completed 05/06/2024 Pneumococcal Vaccine: Pediat jarad (0-5 Years) and At-Risk Patients (6-64 Years) Aged Out No longer eligible b ased on patient's age to complete this topic Procedures * Due to [place] state law, this organization might not be [...] IV (severe) (HCC) QUANTIFERON-TB GOLD PLUS, 1 [id number] Routine 05/06/2024 11:27 AM EST Pre-transplant evaluation for end stage renal disease Chronic kidney disease, stage IV (severe) (HCC) RPR (DIAGNOSIS) W/REFLEX TO TITER & TPPA [id number] Routine 05/06/2024 11:27 AM EST Pre-transplant evaluation for end stage renal disease Chronic kidney disease, stage IV (severe) (HCC) VARICELLA ZOSTER ANTIBODY, IGG Routine 05/06/2024 11:27 AM EST Pre-transplant evaluation for end stage renal disease Chronic kidney disease, stage IV (severe) (HCC) HLA TRANSPLANT WORK-UP (ALLELE LEVEL A/B/C/DRB1/NLV632/DQA1/ DQB1/DPA1/DPB1) Routine 05/06/2024 11:27 AM EST Pre-transplant [...] CYSTATIN C WITH GLOMERULAR FILTRATION RATE, ESTIMATED (EGFR)-[id number] Routine 05/06/2024 11:27 AM EST Pre-transplant evaluation for end stage renal disease Chronic kidney disease, stage IV (severe) (HCC) from Last 3 Months Results * Due to [place] state law, this organization might not be sharing negative HIV tests. * HLA Transplan Work-Up(Allele Level A/B/C/DRB1/UNB404/DQA1/DQB1/DPA1/DPB1) (05/06/2024 11:27 AM EST) Histocompatibility Laboratory Information See Below 05/12/2024 3:59 PM EST [facility] Comment: ROMULO: ??[id number] ?Director: ??Magdalena Garcia MD. [facility] PFI: ??[id number] UNOS: ??[id number] This test was [...] HLA LAB ORDERABLES Edited Result - Final [facility] [address] [facility] Rm: [id number] HLA LAB [place] [id number], * (ABNORMAL) Cystatin C with Glomerular Filtration Rate, Estimated (eGFR) (05/06/2024 11:27 AM EST) Cystatin C 3.04(H) 0.52 - 1.27 mg/L 05/09/2024 9:34 AM EST [facility] eGFR Non- 19(L) >=60 NA 05/09/2024 9:34 AM EST [facility] Comment: ?REFERENCE RANGE:>=60 mL/min/1.73mE2 ? Blood Structure of peripheral vein / Unknown Venipuncture / Unknown 05/06/2024 11:27 AM EST 05/06/2024 11:42 AM EST Narrative [facility]) - 05/09/2024 9:34 AM EST [facility] Received Date: Tobi Pollard MD LAB BLOOD ORDERABLES Monica abernathy Result Performing Organization Address City/State/[facility] Co de Phone Number [facility] DILLARD) [address] [place], [place] , [place] * MMR Panel, IgG (05/06/2024 11:27 AM EST) Measles Antibody (IgG), Immune Status 136.00 AU/mL 05/07/2024 5:47 AM EST [employer] [facility] Comment: AU/mL ?Interpretation ----- ? <13.50 ? Not consistent with immunity 13.50-16.49 ?Equivocal >16.49 ? Consistent with immunity The presence of measles IgG suggests immunization or past or current infection with measles virus. For additional information, please refer to http://education.Volunia/faq/EGZ092 (This link is being provided for informational/ educational purposes only.) Mumps Antibody (IgG), Immune Status 37.60 AU/mL 05/07/2024 5:47 AM EST [facility] Comment: AU/mL ? Interpretation ------- ? <9.00 ? Not consistent with immunity 9.00-10.99 ?Equivocal >10.99 ?Consistent with immunity The presence of mumps IgG antibody suggests immunization or past or current infection with mumps virus. Rubella Antibody (IgG), Immune Status 2.45 Index 05/07/2024 5:47 AM EST [employer] [facility] Comment: ?Index ?Interpretation ?----- ?<0.90 ?Not consistent with immunity ?0.90-0.99 ?Equivocal ?> or = 1.00 ?Consistent with immunity The presence of rubella IgG antibody suggests immunization or past or current infection with rubella virus. Blood Structure of peripheral vein / Unknown Venipuncture / Unknown 05/06/2024 11:27 AM EST 05/06/2024 11:42 AM EST [facility] - 05/07/2024 5:47 AM EST [facility] Received Date: Tobi Pollard MD LAB BLOOD ORDERABLES Monica abernathy Result [facility] [address], [place] [address], [employer] [facility] [address], [place] [address], * (ABNORMAL) Herpes Simplex Virus 1&2, IgG (05/06/2024 11:27 AM EST) HSV 1 IgG Type Specific Ab 5.17(H) index 05/07/2024 8:57 AM EST [employer] [facility] HSV 2 IgG Type Specific Ab <0.90 index 05/07/2024 8:57 AM EST [employer] [facility] Comment: ?Index ?Interpretation ?----- ?<0.90 ?Negative ?0.90-1.09 [...] screening. For additional information, please refer to http://education.Volunia/faq/PHE821 (This link is being provided for informational/ educational purposes only.) ?? Blood Structure of peripheral vein / Unknown Venipuncture / Unknown 05/06/2024 11:27 AM EST 05/06/2024 11:42 AM EST Narrative [facility] - 05/07/2024 8:57 AM EST [facility] Received Date: Tobi Pollard MD LAB BLOOD ORDERABLES Monica abernathy Result [facility] [address], [place] [address], [place] [phone] [employer] [facility] [address], [place] [address], * RPR (Diagnosis) w/Reflex to Titer & TPPA Confirm (05/06/2024 11:27 AM EST) [facility] RPR W/Refl Titer NON-REACT KISHA NON-REACT KISHA 05/08/2024 6:27 PM EST [employer] [facility] Blood Structure of peripheral vein / Unknown Venipuncture / Unknown 05/06/2024 11:27 AM EST 05/06/2024 11:42 AM EST Narrative [facility] - 05/08/2024 6:27 PM EST [facility] Received Date: Tobi Pollard MD LAB BLOOD ORDERABLES Monica abernathy Result [facility] [place] [address], [place] [address], [employer] [facility] [address], [place] [address], * QuantiFERON-TB Gold Plus, 1 Tube (05/06/2024 11:27 AM EST) [facility] QuantiFERON-TB Gold Plus NEGATIVE NEGATIVE 05/08/2024 2:00 PM EST [employer] [facility] Comment: Negative test result. M. tuberculosis complex infection unlikely. NIL 0.04 IU/mL 05/08/2024 2:00 PM EST [employer] [facility] Mitogen-NIL 6.31 IU/mL 05/08/2024 2:00 PM EST [employer] [facility] TB1-NIL <0.00 IU/mL 05/08/2024 2:00 PM EST [employer] TB2-NIL 0.01 IU/mL 05/08/2024 2:00 PM EST [employer] [facility] Comment: The Nil tube value reflects the [...] T-lymphocytes. For additional information, please refer to https://education.[employer]/faq/YQC641 (This link is being provided for informational/ educational purposes only.) Blood Structure of peripheral vein / Unknown Venipuncture / Unknown 05/06/2024 11:27 AM EST 05/06/2024 11:39 AM EST Narrative [facility] [place] - 05/08/2024 2:00 PM EST [facility] Received Date: us Tobi Pollard MD LAB BLOOD ORDERABLES Monica l Result [facility] [address], [place] [address], [place] [phone] [employer] [facility] [address], [place] [address], * (ABNORMAL) CBC Auto Differential (05/06/2024 11:27 AM EST) WBC 8.1 3.8 - 10.8 10*3/uL 05/06/2024 11:51 AM EST [facility] RBC 4.64 4.20 - [...] - 7.80 10*3/uL 05/06/2024 11:51 AM EST [facility] Immature Grans # 0.04(H) <=0.03 10*3/uL 05/06/2024 11:51 AM EST [facility] Lymphocyte # 1.00 0.85 - 3.90 10*3/uL 05/06/2024 11:51 AM EST [facility] Monocyte # 0.30 0.20 - 0.95 10*3/uL 05/06/2024 11:51 AM EST [facility] Eosinophil # 0.10 0.02 - 0.50 10*3/uL 05/06/2024 11:51 AM EST [facility] Basophil # <0.03 0.00 - 0.20 10*3/uL 05/06/2024 11:51 AM EST [facility] nRBC % 0.0 /100 WBCs 05/06/2024 11:51 AM EST [facility] nRBC # <0.01 <0.01 10*3/uL 05/06/2024 11:51 AM EST [facility] Blood Structure of peripheral vein / Unknown Venipuncture / Unknown 05/06/2024 11:27 AM EST 05/06/2024 11:42 AM EST us Tobi Pollard MD LAB BLOOD ORDERABLES Monica abernathy Result [facility] [address] [place] [address], * (ABNORMAL) Kendall-Llanos Virus VCA Antibody Panel (05/06/2024 11:27 AM EST) EBV Viral Capsid Ag Ab (IGM) <36.00 U/mL 05/07/2024 5:47 AM EST [employer] [facility] Comment: ?U/mL ?Interpretation ?---- ?<36.00 ?Negative ?36.00-43.99 ? Equivocal ?>43.99 ?Positive EBV Viral Capsid Ag Ab (IGG) >750.00(H) U/mL 05/07/2024 5:47 AM EST [employer] [facility] Comment: ? U/mL ? Interpretation ? ---- ? <18.00 ? Negative ? 18.00-21.99 ?Equivocal ? >21.99 ? Positive EBV Nuclear Ag Ab >600.00(H) U/mL 024 5:47 AM EST [employer] [facility] Comment: ? U/mL ? Interpretation ? ---- ? <18.00 ? Negative ? 18.00-21.99 ?Equivocal ? >21.99 ? 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 In infants, a similar pattern may occur as a result of passive maternal transfer of antibody. Blood Structure of peripheral vein / Unknown Venipuncture / Unknown 05/06/2024 11:27 AM EST 05/06/2024 11:42 AM EST [facility] [place] - 05/07/2024 5:47 AM EST [facility] Received Date: Tobi Pollard MD LAB BLOOD ORDERABLES Monica abernathy Result [facility] [place] [address], [place] [address], [place] [phone] [employer] [facility] [address], [place] [address], * Hepatitis C Antibody w/Reflex to PCR (05/06/2024 11:27 AM EST) Hepatitis C Antibody NON-REACT KISHA NON-REACT KISHA 05/07/2024 3:30 AM EST [employer] [facility] Comment: HCV antibody was non-reactive. There is no laboratory evidence of HCV infection. In most cases, no further action is required. However, if recent HCV exposure is suspected, a test for HCV RNA (test code 32759) is suggested. For additional information please refer to http://Hiberna.[employer]/faq/TGJ92q1 (This link is being provided for informational/ educational purposes only.) Blood Structure of peripheral vein / Unknown Venipuncture / Unknown 05/06/2024 11:27 AM EST 05/06/2024 11:42 AM EST Narrative [facility] [place] - 05/07/2024 3:30 AM EST [facility] Received Date: Tobi Pollard MD LAB BLOOD ORDERABLES Monica l Result Performing Organization Address City/[facility]/ZIP Co de Phone Number [facility] [address], [place] [address], [employer] [address], [place] [address], [place] [phone] * Hepatitis A Antibody, Total (05/06/2024 11:27 AM EST) Hepatitis A Ab, Total NON-REACT KISHA NON-REACT KISHA 05/07/2024 8:31 AM EST [employer] [facility] Comment: For additional information, please refer to http://Hiberna.[employer]/faq/MWR669 (This link is being provided for informational/ educational purposes only.) Blood Structure of peripheral vein / Unknown Venipuncture / Unknown 05/06/2024 11:27 AM EST 05/06/2024 11:42 AM EST Narrative [facility] 05/07/2024 8:31 AM EST [facility] Received Date: us Tobi Pollard MD LAB BLOOD ORDERABLES Monica l Result Performing Organization Address City/[facility]/ZIP Co de Phone Number [facility] [place] [address], [place] [address], [place] [phone] [employer] [facility] [address], [place] [address], [place] [phone] * Hepatitis B Core Antibody, Total (05/06/2024 11:27 AM EST) Hepatitis B Core Ab Total NON-REACT KISHA NON-REACT KISHA 05/07/2024 3:28 AM EST [employer] [facility] Comment: For additional information, please refer to http://education.[employer]/faq/MOL858 (This link is being provided for informational/ educational purposes only.) Blood Structure of peripheral vein / Unknown Venipuncture / Unknown 05/06/2024 11:27 AM EST 05/06/2024 11:42 AM EST Narrative [facility] [place] - 05/07/2024 3:28 AM EST [facility] Received Date: us Tobi Pollard MD LAB BLOOD ORDERABLES Monica l Result [facility] [address], [place] [address], [place] [phone] [employer] [facility] [address], [place] [address], [place] [phone] * ABO/Rh Blood Type (05/06/2024 11:27 AM EST) ABO Blood Type A 05/06/2024 12:17 PM EST [facility] RH Type Positive 05/06/2024 12:17 PM EST [facility] Blood Structure of peripheral vein / Unknown Venipuncture / Unknown 05/06/2024 11:27 AM EST 05/06/2024 11:30 AM EST us Tobi Pollard MD LAB BLOOD BANK TEST ORDER LINH Final Result [facility] [address] [place] [address], * (ABNORMAL) Hepatitis B Surface Antibody (05/06/2024 11:27 AM EST) Hepatitis B Surface Ab Immunity, Qn <5(L) > OR = 10 mIU/mL 05/07/2024 3:27 AM EST [employer] [facility] Comment: PATIENT DOES NOT HAVE IMMUNITY TO HEPATITIS B VIRUS. For additional information, please refer to http://Hiberna.[employer]/faq/IIM628 (This link is being provided for informational/ educational purposes only). Blood Structure of peripheral vein / Unknown Venipuncture / Unknown 05/06/2024 11:27 AM EST 05/06/2024 11:42 AM EST [facility] - 05/07/2024 3:27 AM EST [facility] Received Date: us Tobi Pollard MD LAB BLOOD ORDERABLES Monica l Result [facility] [address], [place] [address], [employer] [facility] [address], [place] [address], * Hepatitis B Surface Antigen w/Confirmation (05/06/2024 11:27 AM EST) Pathologist [facility] Hepatitis B Surface Antigen NON-REACT KISHA NON-REACT KISHA 05/07/2024 3:55 AM EST [employer] [facility] Comment: For additional information, please refer to http://Hiberna.[employer]/faq/OUF668 (This link is being provided for informational/ educational purposes only.) Blood Structure of peripheral vein / Unknown Venipuncture / Unknown 05/06/2024 11:27 AM EST 05/06/2024 11:42 AM EST Narrative [facility] [place] - 05/07/2024 3:55 AM EST [facility] Received Date:[id number] us Tobi Pollard MD LAB BLOOD ORDERABLES Monica l Result Performing Organization Address City/[facility]/ZIP Co de Phone Number [facility] [place] [address], [place] [address], [employer] [facility] [address], [address] [place] [address], [place] [phone] * Cytomegalovirus Antibody, IgG (05/06/2024 11:27 AM EST) Pathologist [facility] Cytomegalovirus Antibody (IgG) <0.60 U/mL 05/07/2024 5:47 AM EST [employer] [facility] Comment: ? U/mL ? Interpretation ? ----- ? <0.60 ? Negative ? 0.60-0.69 ? Equivocal ? > or = 0.70 ?? Positive A positive result indicates that the patient has antibody to CMV. It does not differentiate between an active or past infection. Blood Structure of peripheral vein / Unknown Venipuncture / Unknown 05/06/2024 11:27 AM EST 05/06/2024 11:42 AM EST Narrative [facility] - 05/07/2024 5:47 AM EST [facility] Received Date: Tobi Pollard MD LAB BLOOD ORDERABLES Monica l Result [facility] [place] [address], [place] [address], [place] [phone] [employer] [facility] [address], [place] [address], [place] [phone] * PTT (05/06/2024 11:27 AM EST) aPTT 25.4 23.0 - 32.0 Seconds 05/06/2024 12:09 PM EST [facility] Comment: Current PTT reagent is not sensitive to detect all Lupus Anticoagulant (LA) Inhibitor Cases. ?? If a LA is suspected, please order a Lupus Anticoagulation w/ Reflex Test which is performed at [facility] in [place], [place]. Blood Structure of peripheral vein / Unknown Venipuncture / Unknown 05/06/2024 11:27 AM EST 05/06/2024 11:42 AM EST Tobi Pollard MD LAB BLOOD ORDERABLES Monica l Result [facility] [address] [place] [address], * Protime-INR (05/06/2024 11:27 AM EST) PT 9.6 9.6 - 12.4 Seconds 05/06/2024 12:09 PM EST [facility] INR 0.9 0.9 - 1.1 05/06/2024 12:09 PM EST [facility] Comment:The optimal therapeu tic INR range for patients treated with Vitamin K antagonists (VKAS, e.g., Warfarin) is 2.0 to 3.5. Discuss the desired range with your doctor/care team. Blood Structure of peripheral vein / Unknown Venipuncture / Unknown 05/06/2024 11:27 AM EST 05/06/2024 11:42 AM EST us Tobi Pollard MD LAB BLOOD ORDERABLES Monica l Result Performing Organization Address City/[facility]/ZIP Co de Phone Number [facility] [address] [place] [address], * Varicella Zoster Antibody, IgG (05/06/2024 11:27 AM EST) Varicella Zoster Virus Antibody 16.70 S/CO 05/07/2024 8:39 AM EST [employer] [facility] Comment: ?Signal to Cut-off ? S/CO ?Interpretation [...] EST 05/06/2024 11:42 AM EST Narrative [facility] [place] - 05/07/2024 8:39 AM EST [facility] Received Date: Tobi Pollard MD LAB BLOOD ORDERABLES Monica abernathy Result Performing Organization Address City/[facility]/ZIP Co de Phone Number [facility] [address], [place] [address], [place] [phone] [facility] [address], [place] [address], [place] [phone] * (ABNORMAL) BUN (05/06/2024 11:27 AM EST) BUN 49(H) 7 - 23 mg/dL 05/06/2024 12:13 PM EST [facility] Blood Structure of peripheral vein / Unknown Venipuncture / Unknown 05/06/2024 11:27 AM EST 05/06/2024 11:42 AM EST Tobi Pollard MD LAB BLOOD ORDERABLES Monica l Result Performing Organization Address City/[facility]/ZIP Co de Phone Number [facility] [address] [place] [address], [place] * ALT (05/06/2024 11:27 AM EST) ALT 16 10 - 40 U/L 05/06/2024 12:13 PM EST [facility] Blood Structure of peripheral vein / Unknown Venipuncture / Unknown 05/06/2024 11:27 AM EST 05/06/2024 11:42 AM EST Tobi Pollard MD LAB BLOOD ORDERABLES Monica l Result [facility] [address] [place] [address], [place] * AST (05/06/2024 11:27 AM EST) AST 18 10 - 40 U/L 05/06/2024 12:13 PM EST [facility] Blood Structure of peripheral vein / Unknown Venipuncture / Unknown 05/06/2024 11:27 AM EST 05/06/2024 11:42 AM EST Tobi Pollard MD LAB BLOOD ORDERABLES Monica l Result Performing Organization Address City/[facility]/ZIP Co de Phone Number [facility] [address] [place] [address], * Phosphorus (05/06/2024 11:27 AM EST) Phosphorus 3.8 2.5 - 4.5 mg/dL 05/06/2024 12:13 PM EST [facility] Blood Structure of peripheral vein / Unknown Venipuncture / Unknown 05/06/2024 11:27 AM EST 05/06/2024 11:42 AM EST Tobi Pollard MD LAB BLOOD ORDERABLES Monica l Result Performing Organization Address [facility] de Phone Number [facility] [address] [place] [address] * (ABNORMAL) Creatinine (05/06/2024 11:27 AM EST) Creatinine 5.03(H) 0.60 - 1.30 mg/dL 05/06/2024 12:13 PM EST [facility] eGFR 14(L) >=60 mL/min/1 .73m2 05/06/2024 12:13 PM EST [facility] Comment:The estimated glomer ular [...] ORDERABLES Monica l Result Performing Organization Address [facility] Co de Phone Number [facility] [address] [place] [address], [place] * Calcium (05/06/2024 11:27 AM EST) Calcium 9.5 8.6 - 10.5 mg/dL 05/06/2024 12:13 PM EST [facility] Blood Structure of peripheral vein / Unknown Venipuncture / Unknown 05/06/2024 11:27 AM EST 05/06/2024 11:42 AM EST Tobi Pollard MD LAB BLOOD ORDERABLES Monica l Result Performing Organization Address [facility] Co de Phone Number [facility] [address] [place] [address], [place] * Bilirubin, Direct (05/06/2024 11:27 AM EST) Bilirubin, Direct 0.1 <=0.4 mg/dL 05/06/2024 12:13 PM EST [facility] Blood Structure of peripheral vein / Unknown Venipuncture / Unknown 05/06/2024 11:27 AM EST 05/06/2024 11:42 AM EST Tobi Pollard MD LAB BLOOD ORDERABLES Monica l Result Performing Organization Address City/[facility] Co de Phone Number [facility] LABORATORY [address] [place] [address], [place] * Bilirubin, Total (05/06/2024 11:27 AM EST) Bilirubin, Total 0.3 0.2 - 1.2 mg/dL 05/06/2024 12:13 PM EST [facility] Blood Structure of peripheral vein / Unknown Venipuncture / Unknown 05/06/2024 11:27 AM EST 05/06/2024 11:42 AM EST Tobi Pollard MD LAB BLOOD ORDERABLES Monica l Result [facility] [address] * Albumin (05/06/2024 11:27 AM EST) Albumin 4.3 3.5 - 5.2 g/dL 05/06/2024 12:13 PM EST [facility] Blood Structure of peripheral vein / Unknown Venipuncture / Unknown 05/06/2024 11:27 AM EST 05/06/2024 11:42 AM EST Tobi Pollard MD LAB BLOOD ORDERABLES Monica l Result Performing Organization Address City/[facility]/ZIP Co de Phone Number [facility] [address] [place] [address] from Last 3 Months Insurance [employer] [place] [employer] Advance Directives Documents on File Type Date Recorded 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
--- OUTSIDE RECORDS SUMMARY | 2024-07-09 10:45 | XMS_ITS | Patient Health Record ---
Author Organization [facility] Address [address] [place] [address] Care Team Providers Care Fixed Income Analyst Name Role Phone Reynaldo SAMAYOA, Dwayne Primary Care Provider Lori Jasmine Unavailable [phone] Allergies No Known Allergies Reason For Referral No Information Medications Medication SIG (Take, Route, Frequency, Duration) Notes Start Date End Date Status Atorvastatin Calcium 10 MG 1 tablet Oral ly Once a day for 30 day(s) Active Ciclopirox 0.77 % 1 application Sole Rougher ally Twice a day for 365 days Active Fish Oil 1000 MG 1 capsule Orally Onc e a day for 30 day(s) Active Vitamin D 1000 UNIT 1 tablet Orally Once a day for 30 day(s) Active Lisinopril 10 MG 1 tablet Orally Once a day for 30 day(s) Active Social History Tobacco Use: Social History Observation Description Date Details (start date - stop date) Never Smoker NA - NA Tobacco Use/Smoking Question Answer Notes Are you a: nonsmoker Additional Findings: Tobacco Non-User Current no n-smoker Alcohol Screen Question Answer Notes Did you have a drink containing alcohol in the p ast year? No Points 0 Interpretation Negative Tobacco use other than smoking: Question Answer Notes Are you an other tobacco user? No Problems Problem Type SNOMED Code ICD Code Onset Dates Problem Status W/U Status Risk Notes Problem [id number] Gouty arthritis of right foot (M10.9) Active confirmed Vital Signs Blood pressure diastolic 70 mm Hg 09/12/2023 Height 5 ft 6 in in 09/12/2023 Blood pressure systolic 120 mm Hg 09/12/2023 Weight 183 lbs 09/12/2023 BMI 29.53 kg/m2 09/12/2023 Encounters Encounter Location Date Provider Diagnosis [facility] [address] [place] [address] 09/12/2023 Lori Bacon Fungal infection of nail B35.1 [facility] [address] [place] [address] 08/19/2023 Lori Bacon Assessments Encounter Date Diagnosis (ICD Code) Assessment Notes Treatment Notes Treatment Clinical Notes Section Notes 09/12/2023 Fungal infection of nail (ICD-10 - B35.1) Rx management (4) Plan Of Treatment Pending Test Test Name Order Date , [id number]/INJECT, JOINT/BURSA 0 09/20/2022 Insurance Providers Payer Name Payer Address Payer Phone Subscriber Number Group Number Insured Name Patient Relationship to Insured Coverage Start Date Coverage End Date Blue Benefits [address] [address] [place] [address] [id number] Nasir Jo Self - patient is the insured Medical (General) History Medical History History ICD Code Hypertension Hyperlipidemia Chronic Kidney Disease, stage III (moder ate) Vitamin D deficiency Obesity Surgical History Surgery Date(Month/Year) eye surgery
--- OUTSIDE RECORDS SUMMARY | 2024-07-09 10:46 | XMS_ITS ---
[facility] Organization [facility] Address [address] [place] [address] Care Team Providers Care Demo Event Specialist Name Role Phone Glen Jacobs MDneth Primary Care Provider Lori Jasmine Unavailable [phone] Allergies No Known Allergies REASON FOR VISIT Pcp- 09/12/23, Fungal Nails Medications Medication SIG (Take, Route, Frequency, Duration) Notes Start Date End Date Status Atorvastatin Calcium 10 MG 1 tablet Oral ly Once a day for 30 day(s) Active Ciclopirox 0.77 % 1 application Machine Feed Operator ally Twice a day for 365 days [...] Are you an other tobacco user? No Vital Signs Height 5 ft 6 in in 09/12/2023 Weight 183 lbs 09/12/2023 BMI 29.53 kg/m2 09/12/2023 Blood pressure systolic 120 mm Hg 09/12/19 24 Blood pressure diastolic 70 mm Hg 024 Encounters Encounter Location Date Provider Diagnosis [facility] [address] [place] [address] 09/12/2023 Lori Bacon Fungal infection of nail B35.1 Assessments Encounter Date Diagnosis (ICD Code) Assessment Notes Treatment Notes Treatment Clinical Notes Section Notes 09/12/2023 Fungal infection of nail (ICD-10 - B35.1) Rx management (4) Plan Of Treatment Medication Medication Name Sig Start Date Stop Date Notes Ciclopirox 0.77 % 1 application Machine Feed Operator ally Twice a day for 365 days Next Appt Details Follow Up: prn, Reason: Progress Notes * Nasir WHITEDOB:1980 (43 yo M)Acc No.[id number]:09/12/2023 Progress Note Patient:?Nasir White Provider:?Lori Bacon DPM :1980???Age:43 Y???Sex:Male Wolf e:09/12/2023 Address:[address] [place], [place] [id number] Pcp:Dwayne Jacobs MD Subjective: * Chief Complaints: * ???Pcp- 09/12/23 Fungal Nail s * HPI: ???Painful Nails:?Nature:?aching, tender, discolored, thick.?Location:?Great toe Right foot.?Aggrevated by:?shoegear causing difficulty standing/walking.?Treatments:?none.? * ROS:?General/Constitutional:?Nausea?denies.?Vomiting?denies.?Hunger Thirst?denies.?Loss appetite?denies.?Chills?denies.?Fatigue?denies.?Fever?denies.?Night Sweats?denies.?Unexplained weight loss?denies.?Unexplained weight gain?denies.?HEENTM:?Dentures?denies.?Dizziness?denies.?Glasses/contacts?denies.?Retinopathy?de nies.?Blurred/double vision?denies.?TMJ?denies.?Discharge/drainage?denies.?Implants?denies.?Sore throat?denies.?Dental implants?denies.?Hard of hearing ?denies.?Difficulty chewing/swallowing/speaking?denies.?Nose bleeds?denies.?Sore mouth?denies.?Respiratory:?On Oxygen?denies.?Pneumonia/pleurisy?denies.?Bronchitis?denies.?Emphysema?denies.?C oughing?denies.?Cough blood?denies.?Shortness of breath?denies.?Wheezing?denies.?Cardiovascular:?Pacemaker?denies.?MVP?denies.?WPW?denies.?CHF?denies.?Heart attack?denies.?Septal defect?denies.?Rapid beat?denies.?Chest pain ?denies.?Atrial Fib.?denies.?Murmur/Palpitations?denies.?Gastrointestinal:?Hemorrhoids?denies.?Stomach/Abdominal pain?denies.?Dark blood stool?denies.?Irritable bowel ?denies.?Constipation?denies.?Diarrhea?denies.?Hematology:?Swelling?admits.?Clots?denies.?Varicose Veins?denies.?Bruising?denies.?Bleeding problem?denies.?Genitourinary:?Blood urine?denies.?Frequent/Painfu/urination/bladder control?denies.?Kidney stones?denies.?Infection (UTI)?denies.?Nephropathy?denies.?sex trans dis (STD)?denies.?Prostate?denies.?Musculoskeletal:?Hammertoes?denies.?Bunions?denies.?Back Pain?admits.?Muscle Cramps/ Resting?denies.?Muscle cramps / walking?denies.?Generalized aches and pains?denies.?Weakness?denies.?Integ.:?Dean?denies.?Scars?denies.?Corns/calluses?denies.?Ingrown nails?denies.?Painful nails?denies.?Open Sores?denies.?Rashes?denies.?Neurologic:?Difficulty sleeping?denies.?Brain disorder?denies.?Numbness?denies.?Balance trouble?denies.?Confusion?denies.?Fainting/blackouts?denies.?Tingling?denies.?Tr emors?denies.? * Medical History:? * Surgical History:?eye surger y * Hospitalization/Major Diagno stic Procedure:?Denies Past Hospitalization * Family History:?Mother: dece ased, poor circulation, diagnosed with Family history of arthritis, Unspecified essential hypertension, Other malignant neoplasm of unspecified site.?Father: .?Spouse: alive.? * Social History:?Tobacco Use:?Tobacco Use/Smoking?Are you a:?nonsmoker ?Additional Findings: Tobacco Non-User?Current non-smoker ?Tobacco use other than smoking?Are you an other tobacco user??No ???Drugs/Alcohol:?Drugs?Have you used drugs other than those for medical reasons in the past 12 months??No ?Alcohol Screen?Did you have a drink containing alcohol in the past year??No ?Points?0 ?Interpretation?Negative ???Miscellaneous:?Caffeine: yes, frequency:, 1-2 cups per day. ?no Children. ?Exercise: yes, walking. ?Marital status: . ?Occupation: [employer]. * Medications:?TakingAtorvasta tin Calcium 10 MG Tablet 1 tablet Orally Once a dayFish Oil 1000 MG Capsule 1 capsule Orally Once a dayLisinopril 10 MG Tablet 1 tablet Orally Once a dayVitamin D 1000 UNIT Tablet 1 tablet Orally Once a dayMedication List reviewed and reconciled with the patientTaking Atorvastatin Calcium 10 MG Tablet 1 tablet Orally Once a dayTaking Fish Oil 1000 MG Capsule 1 capsule Orally Once a dayTaking Lisinopril 10 MG Tablet 1 tablet Orally Once a dayTaking Vitamin D 1000 UNIT Tablet 1 tablet Orally Once a dayMedication List reviewed and reconciled with the patient * Allergies:?N.K.D.A.yes[Aller gies Verified] Objective: * Vitals:?Ht: 5 ft 6 in, Wt:18 3, BMI:29.53, Shoe size:8.5, BP:120/70 mm Hg. * Examination: ???Nails: ?NAILS are:?Elongated, overgrown, dystrophic, lytic, greater than 3mm thick, discolored and friable with crumbly malodorous subungual debris, with pain on palpation.?General Examination: ?GENERAL APPEARANCE:?Reveals a pleasant, alert, well-nourished, well- developed, well hydrated individual, who demonstrates proper attention to hygiene/body habitus, and is in no acute distress, Pt serves as own?historian for office visit today.?ORIENTED:?person, place, and time.?Neurological: ?SENSORY:?Neurological exam reveals intact sensorium, pain sensation normal, vibration sensation intact, pinprick sensation is normal in the lower extremities, Pt denies, anesthesia, burning, paresthesia, tingling, B/L.?DEEP TENDON REFLEXES:?Achilles, 2/4, B/L.?Vascular: ?DP PULSES:?3/4, B/L.?PT PULSES:?3/4, B/L.?CAPILLARY FILL TIME:?immediate, all digits, B/L.?SKIN TEMPERTURE GRADIENT OF THE LOWER EXTERMITIES:?warm to cool, proximal to distal, B/L.?HAIR GROWTH/TEXTURE/ELASTICITY/TURGOR:?normal, B/L.?PIGMENTATION:?normal, B/L.?EDEMA:?absent, B/L.?Dermatologic: ?SKIN FINDINGS:?Skin exam reveals normal texture, elasticity, and turgor. There are no masses. The interspaces are clear.?Orthopedic: ?MUSCLE STRENGTH:?5/5 all groups in a symmetrical fashion , B/L.? Assessment: * Assessment: 1.?Fungal infection of nail - B35.1 (Primary), Rx management (4)? Plan: * Treatment: * Procedure Codes:? * Preventive Medicine:? ??Counseling:?Discussion:?-13: Office or other outpatient visit for the evaluation and management of an established patient, which required a medically appropriate history and/or examination and LOW level of DECISION MAKING for: 1 STABLE ACUTE UNCOMPLICATED PROBLEM, 2 OR MORE MINOR PROBLEMS, OR 1 STABLE CHRONIC PROBLEM, THAT POSE(S) A LOW RISK FOR MORBIDITY/MORTALITY. The visit on the day of the encounter encompassed interpreting the data and educating the patient as to the nature of their condition, treatment options available according to their individual PMH, meds, allergies, and overall health/living conditions, as well as any potential risks or complications that may occur from a failure to adhere to, and participate in, the recommended course of therapy. The discussion included a complete verbal, and/or written explanation of the examination results, any x-rays taken, the proposed diagnosis, and outline of the treatment plan. A schedule for future care needs was also explained. The patient verbalized an understanding of the instructions at this time and agreed to be an active participant in their treatment. If the patient should think of any questions or concerns after the visit, I have encouraged the patient to call the office.?Fungal Nail Counseling:?The patient was counseled on the diagnosis, potential etiologies (including, but not limited to, environmental factors, genetic, immune deficiency), and the multiple treatment options for Onychomycosis. We discussed the risks and benefits of each option from performing no treatment, to ultraviolet light shoe treatment, to laser nail treatment, to applying topical antifungals, to taking oral antifungal medication, to surgical removal of the involved nail(s) with or without performing a matricectomy, or any combination thereof. We discussed the advantages and disadvantages of each of possible treatment and importance for adherence to all the recommended therapies for optimum success. This includes the necessity for weekly emery board self nail home debridements, and control the nail and skin environment as much as possible by only using a fresh, dry pair of shoes/socks each day, as well as keeping the skin as dry as possible through the use of sprays/powders if necessary. The patient was instructed to discard the emery board after use to prevent reinfection of the involved nail(s). We discussed the mycological and visual clinical effectiveness of topical vs oral antifungal treatments as well as each ones potential side effects and/or any patient- specific medication interactions. We discussed the reasons behind the important requirement of regular liver function testing with oral antifungal therapy for safety. Patient questions regarding use, dosage, successful outcomes, blood tests, and possible pharmaceutical interactions were reviewed and the patient verbalized that all answers were clearly understood, The Pt prefers topical treatment, Ciclopirox 0.77 gel was Rxed. Apply as directed to nails twice daily.? * Follow Up:?prn * Images: * Sign off status: Completed true * Provider:?Lori Bacon DPM Date:?05/2024 Generated for Jewel sepulveda/Jose Carlos/Abhilashitting on:?07/09/2024 10:45 AM EST History and Physical Notes * HPI (History of Present Illness) Category Sub-Category Detail Notes Category Not es Painful Nails Aggravated by: shoegear causing difficulty standing/walking Location: Great toe Right foot Nature: aching, tender, disc olored, thick Treatments: none Examination Category Sub-Category Detail Notes Category Not es Neurological SENSORY: Neurological exa m reveals intact sensorium, pain sensation normal, vibration sensation intact, pinprick sensation is normal in the lower extremities, Pt denies, anesthesia, burning, paresthesia, tingling, B/L DEEP TENDON REFLEXES: Achilles, 2/4, B/L Dermatologic SKIN FINDINGS: Skin exam reveal s normal texture, elasticity, and turgor. There are no masses. The interspaces are clear Orthopedic MUSCLE STRENGTH: 5/5 all groups in a symm etrical fashion , B/L General Examination GENERAL APPEARANCE: Reveals a pleasant, alert, well- nourished, well-developed, well hydrated individual, who demonstrates proper attention to hygiene/body habitus, and is in no acute distress, Pt serves as own historian for office visit today ORIENTED: person, place, and t maykel Vascular DP PULSES (B): 3/4, B/L PT PULSES (B): 3/4, B/L CAPILLARY FILL TIME: immediate, all digi ts, B/L TEMPERTURE GRADIENT (C): warm to cool, p roximal to distal, B/L TROPHIC CONDITION-TEXTURE/ELASTICITY/TURGOR/HAIR GROWTH (B): normal, B/L EDEMA (C): absent, B/L PIGMENTATION: normal, B/L Nails NAILS are: Elongated, overg rown, dystrophic, lytic, greater than 3mm thick, discolored and friable with crumbly malodorous subungual debris, with pain on palpation
[2024-07-09 11:21] LABS: Anion Gap 15 (12-20); Blood Urea Nitrogen 55 mg/dL (9-16); Calcium 9.1 mg/dL (8.4-10.2); Carbon Dioxide 21 mmol/L (22-29); Chloride 110 mmol/L (96-108); Phosphorus 3.6 mg/dL (2.7-4.5); Potassium 4.1 mmol/L (3.3-5.1); Sodium 142 mmol/L (135-145); Uric Acid 9.2 mg/dL (3.4-7.0)
[2024-07-09 11:30] LABS: Estimated Glomerular Filt Rate 13
== END 2024-07-09 10:00 | disposition home or self-care (01) ==
LOC: HO.LAB 09:59
PROVIDERS: PCP Internal Medicine; Referring Provider Internal Medicine; Visit Provider Internal Medicine Nephrology
DX: I12.9 Hypertensive chronic kidney disease with stage 1 through stage 4 chronic kidney disease, or unspecified chronic kidney disease (principal); N18.4 Chronic kidney disease, stage 4 (severe); N25.81 Secondary hyperparathyroidism of renal origin
CPT/HCPCS: 36415; 80051; 82310; 82565; 84100; 84520; 84550; 85025

== ENCOUNTER 2024-07-12 20:29 | Emergency (ER) | payer OTHER, SELFPAY ==
[2024-07-12 20:41] VITALS: BP 124/80; PULSE 86; RESP 16; TEMP 36.9; O2SAT 98; BMI 28.6
--- OUTSIDE RECORDS SUMMARY | 2024-07-13 02:55 | XMS_ITS | Clinical Summary ---
Author Organization [facility] Address [address] [place] [address] Care Team Providers Care Desulfurizer Operator Name Role Phone Patient, Has No [...] Type Department Care Team Description 05/31/2024 Telephone [facility] Transplant Department [address] [place] [address] Lori Mustafa RN 05/27/2024 Telephone [facility] Transplant Department [address] [place] [address] Lori Mustafa RN 05/11/2024 Telephone [facility] Transplant Department [address] [place] [address] Lori Mustafa, tile and marble setter - Kidney Txp 05/06/2024 11:15 AM EST Lab [facility] Lab Draw Site [address] [place] [address] Pre-transplant evaluation for end stage renal disease; Chronic kidney disease, stage IV (severe) ([facility]) 05/06/2024 10:15 AM EST Social Work [facility] Renal Transplant [address] [place] [address] Cecelia Hinton LICSW 05/06/2024 9:30 AM EST Office Visit [facility] Renal Transplant [address] [place] [address] Tobi Pollard MD Pre-transplant evaluation for kidney transplant (Primary Dx); Pre-transplant evaluation for end stage renal disease; Stage 4 chronic kidney disease (HCC) 05/06/2024 8:15 AM EST Evaluation [facility] Renal Transplant [address] [place] [address] Lori Mustafa, DU Pre-transplant evaluation for end stage renal disease (Primary Dx) 05/06/2024 8:00 AM EST Office Visit [facility] Renal Transplant [address] [place] [address] Shanon De Anda RN Pre-transplant evaluation for kidney transplant (Primary Dx) 05/03/2024 Telephone [facility] Transplant Department [address] [place] [address] Lori Mustafa, DU 04/27/2024 Orders Only [facility] Transplant Department [address] [place] [address] Lori Mustafa, DU Pre-transplant evaluation for end [...] Info) Description 05/03/2025 10:00 AM EST Follow-Up [facility] Renal Transplant [address] [place] [address] Tobi Pollard MD [address] [place] [address] 05/03/2025 10:30 AM EST Social Work [facility] Renal Transplant [address] [place] [address] Cecelia Hinton LICSW [address] [place] [address] Health Maintenance Due Date Last Done Comments [...] complete this topic Procedures * Due to [place] state law, this organization might not be [...] IV (severe) (HCC) QUANTIFERON-TB GOLD PLUS, 1 [id number] Routine 05/06/2024 11:27 AM EST Pre-transplant evaluation for end stage renal disease Chronic kidney disease, stage IV (severe) (HCC) RPR (DIAGNOSIS) W/REFLEX TO TITER & TPPA [id number] Routine 05/06/2024 11:27 AM EST Pre-transplant evaluation for end stage renal disease Chronic kidney disease, stage IV (severe) (HCC) VARICELLA ZOSTER ANTIBODY, IGG Routine 05/06/2024 11:27 AM EST Pre-transplant evaluation for end stage renal disease Chronic kidney disease, stage IV (severe) (HCC) HLA TRANSPLANT WORK-UP (ALLELE LEVEL A/B/C/DRB1/VCU168/DQA1/ DQB1/DPA1/DPB1) Routine 05/06/2024 11:27 AM EST Pre-transplant [...] CYSTATIN C WITH GLOMERULAR FILTRATION RATE, ESTIMATED (EGFR)-[id number] Routine 05/06/2024 11:27 AM EST Pre-transplant evaluation for end stage renal disease Chronic kidney disease, stage IV (severe) (HCC) from Last 3 Months Results * Due to [place] state law, this organization might not be sharing negative HIV tests. * HLA Transplan Work-Up(Allele Level A/B/C/DRB1/CTA820/DQA1/DQB1/DPA1/DPB1) (05/06/2024 11:27 AM EST) Histocompatibility Laboratory Information See Below 05/12/2024 3:59 PM EST [facility] Comment: ROMULO: ??[id number] ?Director: ??Magdalena Garcia MD. [facility] PFI: ??[id number] UNOS: ??[id number] This test [...] HLA LAB ORDERABLES Edited Result - Final [facility] [address] [facility] Rm: [id number] HLA LAB [place] [id number], * (ABNORMAL) Cystatin C with Glomerular Filtration [...] ORDERABLES Monica abernathy Result Performing Organization Address City/State/[facility] Co de Phone Number GENEVA DILLARD) [address] [place], [place] , [place] * MMR Panel, IgG (05/06/2024 11:27 AM EST) Measles Antibody (IgG), Immune Status 136.00 AU/mL 05/07/2024 5:47 AM EST [facility] Comment: AU/mL ?Interpretation ----- ? <13.50 ? Not consistent with immunity 13.50-16.49 ?Equivocal >16.49 ? Consistent with immunity The presence of measles IgG suggests immunization or past or current infection with measles virus. For additional information, please refer to http://education.NOMERMAIL.RU/faq/AER383 (This link is being provided for informational/ educational purposes only.) Mumps Antibody (IgG), Immune Status 37.60 AU/mL 05/07/2024 5:47 AM EST [facility] Comment: AU/mL ? Interpretation ------- ? <9.00 ? Not consistent with immunity 9.00-10.99 ?Equivocal >10.99 ?Consistent with immunity The presence of mumps IgG antibody suggests immunization or past or current infection with mumps virus. Rubella Antibody (IgG), Immune Status 2.45 Index 05/07/2024 5:47 AM EST [facility] Comment: ?Index ?Interpretation ?----- ?<0.90 ?Not consistent with immunity ?0.90-0.99 ?Equivocal ?> or = 1.00 ?Consistent with immunity The presence of rubella IgG antibody suggests immunization or past or current infection with rubella virus. Blood Structure of peripheral vein / Unknown Venipuncture / Unknown 05/06/2024 11:27 AM EST 05/06/2024 11:42 AM EST [facility] - 05/07/2024 5:47 AM EST [facility] Received Date: Tobi Pollard MD LAB BLOOD ORDERABLES Monica abernathy Result [facility] [address] [facility] 3rd Floor, [place] [address], [place] [facility] [address] [facility] 3rd Floor, [place] [address], * (ABNORMAL) Herpes Simplex Virus 1&2, IgG (05/06/2024 11:27 AM EST) HSV 1 IgG Type Specific Ab 5.17(H) index 05/07/2024 8:57 AM EST [facility] HSV 2 IgG Type Specific Ab <0.90 index 05/07/2024 8:57 AM EST [facility] Comment: ?Index ?Interpretation ?----- ?<0.90 ?Negative ?0.90-1.09 [...] screening. For additional information, please refer to http://education.NOMERMAIL.RU/faq/YZT109 (This link is being provided for informational/ educational purposes only.) ?? Blood Structure of peripheral vein / Unknown Venipuncture / Unknown 05/06/2024 11:27 AM EST 05/06/2024 11:42 AM EST Narrative [facility] - 05/07/2024 8:57 AM EST [facility] Received Date: Tobi Pollard MD LAB BLOOD ORDERABLES Monica abernathy Result [facility] [address] [facility] 3rd Floor, [place] [address], [place] [phone] [facility] [address] [facility] 3rd Floor, [place] [address], * RPR (Diagnosis) w/Reflex to Titer & TPPA Confirm (05/06/2024 11:27 AM EST) [facility] RPR W/Refl Titer NON-REACT KISHA NON-REACT KISHA 05/08/2024 6:27 PM EST [facility] Blood Structure of peripheral vein / Unknown Venipuncture / Unknown 05/06/2024 11:27 AM EST 05/06/2024 11:42 AM EST Narrative [facility] - 05/08/2024 6:27 PM EST [facility] Received Date: Tobi Pollard MD LAB BLOOD ORDERABLES Monica abernathy Result [facility] [place] [address] [facility] 3rd Floor, [place] [address], [place] [facility] [address] [facility] 3rd Floor, [place] [address], * QuantiFERON-TB Gold Plus, 1 Tube (05/06/2024 11:27 AM EST) [facility] QuantiFERON-TB Gold Plus NEGATIVE NEGATIVE 05/08/2024 2:00 PM EST [facility] Comment: Negative test result. M. tuberculosis complex infection unlikely. NIL 0.04 IU/mL 05/08/2024 2:00 PM EST [facility] Mitogen-NIL 6.31 IU/mL 05/08/2024 2:00 PM EST [facility] TB1-NIL <0.00 IU/mL 05/08/2024 2:00 PM EST [facility] TB2-NIL 0.01 IU/mL 05/08/2024 2:00 PM EST [place] [facility] Comment: The Nil tube value reflects [...] T-lymphocytes. For additional information, please refer to https://education.Inkling Systems/faq/ZXV943 (This link is being provided for informational/ educational purposes only.) Blood Structure of peripheral vein / Unknown Venipuncture / Unknown 05/06/2024 11:27 AM EST 05/06/2024 11:39 AM EST Narrative [facility] [place] - 05/08/2024 2:00 PM EST [facility] Received Date: us Tobi Pollard MD LAB BLOOD ORDERABLES Monica l Result [facility] [address] [facility] [address]rd Floor, [place] [address], [place] [phone] [facility] [address] [facility] 3rd Floor, [place] [address], * (ABNORMAL) CBC Auto Differential (05/06/2024 11:27 [...] - 0.20 10*3/uL 05/06/2024 11:51 AM EST [facility] nRBC % 0.0 /100 WBCs 05/06/2024 11:51 AM EST [facility] nRBC # <0.01 <0.01 10*3/uL 05/06/2024 11:51 AM EST [facility] Blood Structure of peripheral vein / Unknown Venipuncture / Unknown 05/06/2024 11:27 AM EST 05/06/2024 11:42 AM EST us Tobi Pollard MD LAB BLOOD ORDERABLES Monica abernathy Result [facility] [address] [place] [address], * (ABNORMAL) Kendall-Llanos Virus VCA Antibody Panel (05/06/2024 11:27 AM EST) EBV Viral Capsid Ag Ab (IGM) <36.00 U/mL 05/07/2024 5:47 AM EST [facility] Comment: ?U/mL ?Interpretation ?---- ?<36.00 ?Negative ?36.00-43.99 ? Equivocal ?>43.99 ?Positive EBV Viral Capsid Ag Ab (IGG) >750.00(H) U/mL 05/07/2024 5:47 AM EST [facility] Comment: ? U/mL ? Interpretation ? ---- ? <18.00 ? Negative ? 18.00-21.99 ?Equivocal ? >21.99 ? Positive EBV Nuclear Ag Ab >600.00(H) U/mL 024 5:47 AM EST [facility] Comment: ? U/mL ? Interpretation ? ---- ? <18.00 ? Negative ? 18.00-21.99 ?Equivocal ? >21.99 ? 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 In infants, a similar pattern may occur as a result of passive maternal transfer of antibody. Blood Structure of peripheral vein / Unknown Venipuncture / Unknown 05/06/2024 11:27 AM EST 05/06/2024 11:42 AM EST [facility] [place] - 05/07/2024 5:47 AM EST [facility] Received Date: Tobi Pollard MD LAB BLOOD ORDERABLES Monica abernathy Result [facility] [place] [address], [place] [address], [place] [phone] [place] [facility] [address], [place] [address], * Hepatitis C Antibody w/Reflex to PCR (05/06/2024 11:27 AM EST) Hepatitis C Antibody NON-REACT KISHA NON-REACT KISHA 05/07/2024 3:30 AM EST [facility] Comment: HCV antibody was non-reactive. There is no laboratory evidence of HCV infection. In most cases, no further action is required. However, if recent HCV exposure is suspected, a test for HCV RNA (test code 87638) is suggested. For additional information please refer to http://avox.Inkling Systems/faq/UMB66c8 (This link is being provided for informational/ educational purposes only.) Blood Structure of peripheral vein / Unknown Venipuncture / Unknown 05/06/2024 11:27 AM EST 05/06/2024 11:42 AM EST Narrative [facility] [place] - 05/07/2024 3:30 AM EST [facility] Received Date: Tobi Pollard MD LAB BLOOD ORDERABLES Monica l Result Performing Organization Address City/[facility]/ZIP Co de Phone Number [facility] [address], [place] [address], [place] [address], [place] [address], [place] [phone] * Hepatitis A Antibody, Total (05/06/2024 11:27 AM EST) Hepatitis A Ab, Total NON-REACT KISHA NON-REACT KISHA 05/07/2024 8:31 AM EST [place] [facility] Comment: For additional information, please refer to http://avox.Inkling Systems/faq/BFA211 (This link is being provided for informational/ educational purposes only.) Blood Structure of peripheral vein / Unknown Venipuncture / Unknown 05/06/2024 11:27 AM EST 05/06/2024 11:42 AM EST Narrative [facility] - 05/07/2024 8:31 AM EST [facility] Received Date: us Tobi Pollard MD LAB BLOOD ORDERABLES Monica l Result Performing Organization Address City/[facility]/ZIP Co de Phone Number [facility] [place] [address], [place] [address], [place] [phone] [facility] [address] [facility] 3rd Floor, [place] [address], [place] [phone] * Hepatitis B Core Antibody, Total (05/06/2024 11:27 AM EST) Hepatitis B Core Ab Total NON-REACT KISHA NON-REACT KISHA 05/07/2024 3:28 AM EST [facility] Comment: For additional information, please refer to http://education.Inkling Systems/faq/LIN615 (This link is being provided for informational/ educational purposes only.) Blood Structure of peripheral vein / Unknown Venipuncture / Unknown 05/06/2024 11:27 AM EST 05/06/2024 11:42 AM EST Narrative [facility] [place] - 05/07/2024 3:28 AM EST [facility] Received Date: us Tobi Pollard MD LAB BLOOD ORDERABLES Monica l Result [facility] [address] [facility] 3rd Floor, [place] [address], [place] [phone] [facility] [address] [facility] 3rd Floor, [place] [address], [place] [phone] * ABO/Rh Blood Type (05/06/2024 11:27 AM [...] Final Result [facility] [address] [place] [address], * (ABNORMAL) Hepatitis B Surface Antibody (05/06/2024 11:27 AM EST) Hepatitis B Surface Ab Immunity, Qn <5(L) > OR = 10 mIU/mL 05/07/2024 3:27 AM EST [place] [facility] Comment: PATIENT DOES NOT HAVE IMMUNITY TO HEPATITIS B VIRUS. For additional information, please refer to http://avox.Inkling Systems/faq/UKB136 (This link is being provided for informational/ educational purposes only). Blood Structure of peripheral vein / Unknown Venipuncture / Unknown 05/06/2024 11:27 AM EST 05/06/2024 11:42 AM EST [facility]ative [facility] - 05/07/2024 3:27 AM EST [facility] Received Date: us Tobi Pollard MD LAB BLOOD ORDERABLES Monica l Result [facility] [address] [facility] [address]rd [address], [place] [address], [facility] [address] [facility] 3rd Floor, [place] [address], * Hepatitis B Surface Antigen w/Confirmation (05/06/2024 11:27 AM EST) Pathologist [facility] Hepatitis B Surface Antigen NON-REACT KISHA NON-REACT KISHA 05/07/2024 3:55 AM EST [place] [facility] Comment: For additional information, please refer to http://avox.Inkling Systems/faq/AFZ621 (This link is being provided for informational/ educational purposes only.) Blood Structure of peripheral vein / Unknown Venipuncture / Unknown 05/06/2024 11:27 AM EST 05/06/2024 11:42 AM EST Narrative [facility] [place] - 05/07/2024 3:55 AM EST [facility] Received Date:[id number] us Tobi Pollard MD LAB BLOOD ORDERABLES Monica l Result Performing Organization Address City/[facility]/ZIP Co de Phone Number [facility] [place] [address] [facility] 3rd Floor, [place] [address], [place] [facility] [address], [address] [facility] [place] [address], [place] [phone] * Cytomegalovirus Antibody, IgG (05/06/2024 11:27 AM EST) Pathologist [facility] Cytomegalovirus Antibody (IgG) <0.60 U/mL 05/07/2024 5:47 AM EST [facility] Comment: ? U/mL ? Interpretation ? ----- ? <0.60 ? Negative ? 0.60-0.69 ? Equivocal ? > or = 0.70 ?? Positive A positive result indicates that the patient has antibody to CMV. It does not differentiate between an active or past infection. Blood Structure of peripheral vein / Unknown Venipuncture / Unknown 05/06/2024 11:27 AM EST 05/06/2024 11:42 AM EST Narrative [facility] - 05/07/2024 5:47 AM EST [facility] Received Date: Tobi Pollard MD LAB BLOOD ORDERABLES Monica l Result [facility] [place] [address], [place] [address], [place] [phone] [facility] [address] [facility] 3rd Floor, [place] [address], [place] [phone] * PTT (05/06/2024 11:27 AM EST) aPTT 25.4 23.0 - 32.0 Seconds 05/06/2024 12:09 PM EST [facility] Comment: Current PTT reagent is not sensitive to detect all Lupus Anticoagulant (LA) Inhibitor Cases. ?? If a LA is suspected, please order a Lupus Anticoagulation w/ Reflex Test which is performed at [facility] in [place], [place]. Blood Structure of peripheral vein / Unknown Venipuncture / Unknown 05/06/2024 11:27 AM EST 05/06/2024 11:42 AM EST Tobi Pollard MD LAB BLOOD ORDERABLES Monica l Result [facility] [address] [place] [address], * Protime-INR (05/06/2024 11:27 AM EST) PT 9.6 9.6 - 12.4 Seconds 05/06/2024 12:09 PM EST [facility] INR 0.9 0.9 - 1.1 05/06/2024 12:09 PM EST [facility] Comment:The optimal therapeu tic INR range for patients treated with Vitamin K antagonists (VKAS, e.g., Warfarin) is 2.0 to 3.5. Discuss the desired range with your doctor/care team. Blood Structure of peripheral vein / Unknown Venipuncture / Unknown 05/06/2024 11:27 AM EST 05/06/2024 11:42 AM EST us Tobi Pollard MD LAB BLOOD ORDERABLES Monica l Result Performing Organization Address City/[facility]/ZIP Co de Phone Number [facility] [address] [place] [address], * Varicella Zoster Antibody, IgG (05/06/2024 11:27 AM EST) Varicella Zoster Virus Antibody 16.70 S/CO 05/07/2024 8:39 AM EST [facility] Comment: ?Signal to Cut-off ? S/CO ?Interpretation [...] EST 05/06/2024 11:42 AM EST Narrative [facility] [place] - 05/07/2024 8:39 AM EST [facility] Received Date: Tobi Pollard MD LAB BLOOD ORDERABLES Monica abernathy Result Performing Organization Address City/[facility]/ZIP Co de Phone Number [facility] [address], [place] [address], [place] [phone] [facility] [address] [facility] 3rd [address], [place] [address], [place] [phone] * (ABNORMAL) BUN (05/06/2024 11:27 AM EST) BUN 49(H) 7 - 23 mg/dL 05/06/2024 12:13 PM EST [facility] Blood Structure of peripheral vein / Unknown Venipuncture / Unknown 05/06/2024 11:27 AM EST 05/06/2024 11:42 AM EST Tobi Pollard MD LAB BLOOD ORDERABLES Monica l Result Performing Organization Address City/[facility]/ZIP Co de Phone Number [facility] [address] [place] [address], [place] * ALT (05/06/2024 11:27 AM EST) ALT 16 10 - 40 U/L 05/06/2024 12:13 PM EST [facility] Blood Structure of peripheral vein / Unknown Venipuncture / Unknown 05/06/2024 11:27 AM EST 05/06/2024 11:42 AM EST Tobi Pollard MD LAB BLOOD ORDERABLES Monica l Result [facility] [address] [place] [address], [place] * AST (05/06/2024 11:27 AM EST) AST 18 10 - 40 U/L 05/06/2024 12:13 PM EST [facility] Blood Structure of peripheral vein / Unknown Venipuncture / Unknown 05/06/2024 11:27 AM EST 05/06/2024 11:42 AM EST Tobi Pollard MD LAB BLOOD ORDERABLES Monica l Result Performing Organization Address City/[facility]/ZIP Co de Phone Number [facility]KitOrder[facility] [address] [place] [address], * Phosphorus (05/06/2024 11:27 AM EST) Phosphorus 3.8 2.5 - 4.5 mg/dL 05/06/2024 12:13 PM EST [facility] Blood Structure of peripheral vein / Unknown Venipuncture / Unknown 05/06/2024 11:27 AM EST 05/06/2024 11:42 AM EST Tobi Pollard MD LAB BLOOD ORDERABLES Monica l Result Performing Organization Address [facility] de Phone Number [facility] [address] [place] [address] * (ABNORMAL) Creatinine (05/06/2024 11:27 AM EST) Creatinine 5.03(H) 0.60 - 1.30 mg/dL 05/06/2024 12:13 PM EST [facility] PATH[facility] LAB[facility] eGFR 14(L) >=60 mL/min/1 .73m2 05/06/2024 12:13 PM EST [facility] Comment:The estimated glomer ular [...] ORDERABLES Monica l Result Performing Organization Address [facility] Co de Phone Number [facility] [address] [place] [address], [place] * Calcium (05/06/2024 11:27 AM EST) Calcium 9.5 8.6 - 10.5 mg/dL 05/06/2024 12:13 PM EST [facility] Blood Structure of peripheral vein / Unknown Venipuncture / Unknown 05/06/2024 11:27 AM EST 05/06/2024 11:42 AM EST Tobi Pollard MD LAB BLOOD ORDERABLES Monica l Result Performing Organization Address [facility] Co de Phone Number [facility] [address] [place] [address], [place] * Bilirubin, Direct (05/06/2024 11:27 AM EST) Bilirubin, Direct 0.1 <=0.4 mg/dL 05/06/2024 12:13 PM EST [facility] Blood Structure of peripheral vein / Unknown Venipuncture / Unknown 05/06/2024 11:27 AM EST 05/06/2024 11:42 AM EST Tobi Pollard MD LAB BLOOD ORDERABLES Monica l Result Performing Organization Address City/[facility] Co de Phone Number [facility] [address] [place] [address], [place] * Bilirubin, Total (05/06/2024 11:27 AM EST) Bilirubin, Total 0.3 0.2 - 1.2 mg/dL 05/06/2024 12:13 PM EST [facility] Blood Structure of peripheral vein / Unknown Venipuncture / Unknown 05/06/2024 11:27 AM EST 05/06/2024 11:42 AM EST Tobi Pollard MD LAB BLOOD ORDERABLES Monica l Result [facility] [address] * Albumin (05/06/2024 11:27 AM EST) Albumin 4.3 3.5 - 5.2 g/dL 05/06/2024 12:13 PM EST [facility] Blood Structure of peripheral vein / Unknown Venipuncture / Unknown 05/06/2024 11:27 AM EST 05/06/2024 11:42 AM EST Tobi Pollard MD LAB BLOOD ORDERABLES Monica l Result Performing Organization Address City/[facility]/ZIP Co de Phone Number [facility] [address] [place] [address] from Last 3 Months Insurance [employer] [place] [employer] Advance Directives Documents on File Type Date Recorded Patient 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
--- OUTSIDE RECORDS SUMMARY | 2024-07-13 02:55 | XMS_ITS | Clinical Summary ---
Author Organization [facility] Address [address] [facility] [address] [place] [address] Phone Care Team Providers Care Efficiency Clerk Name Role Phone Dwayne Jacobs MD Primary Care Provider [phone] Allergies No known active allergies Medications omega-3 [...] Insurance COMPREH[employer]ENEFITS COMPREH[employer]IVE BENEFITS Care Teams Efficiency Clerk Relationship Specialty Start Date End Date Dwayne Jacobs MD [address] [place] [address] [address] [place] [address] PCP - General 06/12/20
--- OUTSIDE RECORDS SUMMARY | 2024-07-13 02:55 | XMS_ITS | Referral Summary ---
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 [employer] Flooring Name Role Phone Patient, Has No Pcp Or Ref Primary Care Provider Unavailable Encounters Date Type Department Care Team Description 05/31/2024 Telephone [facility] Transplant Department [address] [place] [phone] Lori Mustafa, RN 05/27/2024 Telephone [facility] Transplant Department [address] [place] [phone] Lori Mustafa, RN 05/11/2024 Telephone [facility] Transplant Department [address] [place] [phone] Lori Mustafa, hedis analyst - Kidney Txp 05/06/2024 11:15 AM EST Lab [facility] [place] [facility] Draw Site [address] [place] [address] Pre-transplant evaluation for end stage renal disease; Chronic kidney disease, stage IV (severe) (HCC) 05/06/2024 10:15 AM EST Social Work [facility] Renal Transplant [address] [place] [phone] Cecelia Hinton LICSW 05/06/2024 9:30 AM EST Office Visit [facility] Renal Transplant [address] [place] [phone] Tobi Pollard MD Pre-transplant evaluation for kidney transplant (Primary Dx); Pre-transplant evaluation for end stage renal disease; Stage 4 chronic kidney disease (HCC) 05/06/2024 8:15 AM EST Evaluation [facility] Renal Transplant [address] [place] [address] Lori Mustafa RN Pre-transplant evaluation for end stage renal disease (Primary Dx) 05/06/2024 8:00 AM EST Office Visit [facility] Renal Transplant [address] [place] [address] Shanon De Anda RN Pre-transplant evaluation for kidney transplant (Primary Dx) 05/03/2024 Telephone [facility] Transplant Department [address] [place] [address] Lori Mustafa RN 04/27/2024 Orders Only [facility] Transplant Department [address] [place] [phone] Lori Mustafa RN Pre-transplant evaluation for end stage renal disease (Primary Dx); Chronic kidney disease, stage IV (severe) ([facility]) from Last 3 Months Allergies No known [...] Info) Description 05/03/2025 10:00 AM EST Follow-Up [facility] Renal Transplant [address] [place] [address] Tobi Pollard MD [address] [place] [address] 05/03/2025 10:30 AM EST Social Work [facility] Renal Transplant [address] [place] [address] Cecelia Hinton LICSW [address] [place] [address] Procedures * Due to [place] state law, [...] IV (severe) (HCC) QUANTIFERON-TB GOLD PLUS, 1 [id number] Routine 05/06/2024 11:27 AM EST Pre-transplant evaluation for end stage renal disease Chronic kidney disease, stage IV (severe) (HCC) RPR (DIAGNOSIS) W/REFLEX TO TITER & TPPA [id number] Routine 05/06/2024 11:27 AM EST Pre-transplant evaluation for end stage renal disease Chronic kidney disease, stage IV (severe) (HCC) VARICELLA ZOSTER ANTIBODY, IGG Routine 05/06/2024 11:27 AM EST Pre-transplant evaluation for end stage renal disease Chronic kidney disease, stage IV (severe) (HCC) HLA TRANSPLANT WORK-UP (ALLELE LEVEL A/B/C/DRB1/WIU485/DQA1/ DQB1/DPA1/DPB1) Routine 05/06/2024 11:27 AM EST Pre-transplant [...] CYSTATIN C WITH GLOMERULAR FILTRATION RATE, ESTIMATED (EGFR)-[id number] Routine 05/06/2024 11:27 AM EST Pre-transplant evaluation for end stage renal disease Chronic kidney disease, stage IV (severe) (HCC) from Last 3 Months Results * Due to [place] state law, this organization might not be sharing negative HIV tests. * HLA Transplan Work-Up(Allele Level A/B/C/DRB1/YQB586/DQA1/DQB1/DPA1/DPB1) (05/06/2024 11:27 AM EST) [facility] Histocompatibility Laboratory Information See Below 05/12/2024 3:59 PM EST [employer] [facility] Comment: ROMULO: ??[id number] ?Director: ??Magdalena Garcia MD. [facility] [place] PFI: ??[id number] UNOS: ??[id number] This test was [...] Edited Result - Final Performing Organization Address City/[facility]/ZIP Co de Phone Number [facility]SM[facility]OR[facility] [employer] [facility] [address] [facility] Rm: [phone] [place] [address], * (ABNORMAL) Cystatin C with Glomerular Filtration [...] ORDERABLES Monica l Result Performing Organization Address City/[facility]/ZIP Co de Phone Number GENEVA DE LA CRUZ (TARYN) [address] [place], [place] , [place] * MMR Panel, IgG (05/06/2024 11:27 AM EST) Measles Antibody (IgG), Immune Status 136.00 AU/mL 05/07/2024 5:47 AM EST [email or web address] Comment: AU/mL ?Interpretation ----- ? <13.50 ? Not consistent with immunity 13.50-16.49 ?Equivocal >16.49 ? Consistent with immunity The presence of measles IgG suggests immunization or past or current infection with measles virus. For additional information, please refer to http://education.Kibin/faq/UIY348 (This link is being provided for informational/ educational purposes only.) Mumps Antibody (IgG), Immune Status 37.60 AU/mL 05/07/2024 5:47 AM EST [email or web address] Comment: AU/mL ? Interpretation ------- ? <9.00 ? Not consistent with immunity 9.00-10.99 ?Equivocal >10.99 ?Consistent with immunity The presence of mumps IgG antibody suggests immunization or past or current infection with mumps virus. Rubella Antibody (IgG), Immune Status 2.45 Index 05/07/2024 5:47 AM EST [email or web address] Comment: ?Index ?Interpretation ?----- ?<0.90 ?Not consistent [...] ORDERABLES Monica abernathy Result GENEVA [facility] [address] [facility] 3rd Floor, [place] [address], [employer] [address], [address] [place] [address], * (ABNORMAL) Herpes Simplex Virus 1&2, IgG (05/06/2024 11:27 AM EST) HSV 1 IgG Type Specific Ab 5.17(H) index 05/07/2024 8:57 AM EST [employer] [facility] HSV 2 IgG Type Specific Ab <0.90 index 05/07/2024 8:57 AM EST [employer] [facility] Comment: ?Index ?Interpretation ?----- ?<0.90 ?Negative [...] screening. For additional information, please refer to http://education.StartupBlink.TouchPal/faq/LKP318 (This link is being provided for informational/ educational purposes only.) ?? Blood Structure of peripheral vein / Unknown Venipuncture / Unknown 05/06/2024 11:27 AM EST 05/06/2024 11:42 AM EST [facility]ative [facility] 05/07/2024 8:57 AM EST [facility] Received Date: Tobi Pollard MD LAB BLOOD ORDERABLES Monica l Result [facility]A [facility] [address] [facility] [address] [facility], [place] [address], [place] [phone] [facility] [address] [facility] 3rd Floor, [place] [address], [place] [phone] * RPR (Diagnosis) w/Reflex to Titer & TPPA Confirm (05/06/2024 11:27 AM EST) Pathologist [facility] RPR W/Refl Titer NON-REACT KISHA NON-REACT KISHA 05/08/2024 6:27 PM EST [facility] Blood Structure of peripheral vein / Unknown Venipuncture / Unknown 05/06/2024 11:27 AM EST 05/06/2024 11:42 AM EST Narrative [facility] - 05/08/2024 6:27 PM EST [facility] Received Date: Tobi Pollard MD LAB BLOOD ORDERABLES Monica l Result Performing Organization Address City/[facility]/ZIP Co de Phone Number [facility] [address] [facility] [address] [facility], [place] [address], [place] [phone] [employer] [address] [facility] [address] [facility], [place] [address], [place] [phone] * QuantiFERON-TB Gold Plus, 1 Tube (05/06/2024 11:27 AM EST) QuantiFERON-TB Gold Plus NEGATIVE NEGATIVE 05/08/2024 2:00 PM EST [facility] Comment: Negative test result. M. tuberculosis complex infection unlikely. NIL 0.04 IU/mL 05/08/2024 2:00 PM EST [facility] Mitogen-NIL 6.31 IU/mL 05/08/2024 2:00 PM EST [employer] [facility] TB1-NIL <0.00 IU/mL 05/08/2024 2:00 PM EST [facility] TB2-NIL 0.01 IU/mL 05/08/2024 2:00 PM EST [employer] [facility] Comment: The Nil tube value reflects [...] T-lymphocytes. For additional information, please refer to https://education.NextPoint Networks/faq/MWZ921 (This link is being provided for informational/ educational purposes only.) Blood Structure of peripheral vein / Unknown Venipuncture / Unknown 05/06/2024 11:27 AM EST 05/06/2024 11:39 AM EST [facility] 05/08/2024 2:00 PM EST [facility] Received Date: Tobi Pollard MD LAB BLOOD ORDERABLES Monica abernathy Result [facility] [address] [facility] 3rd Floor, [place] [address], [place] [phone] [employer] [facility] [address] [facility] 3rd Floor, [place] [address], * (ABNORMAL) CBC Auto Differential (05/06/2024 11:27 AM EST) WBC 8.1 3.8 - 10.8 10*3/uL 05/06/2024 11:51 AM EST [employer] [facility] RBC 4.64 4.20 - [...] - 7.80 10*3/uL 05/06/2024 11:51 AM EST [employer] [facility] CLINICAL PATHOLOGY LABORATORY Immature Grans # 0.04(H) <=0.03 10*3/uL 05/06/2024 11:51 AM EST [facility] [employer] [facility] PATH[facility] LABORAT[facility] Lymphocyte # 1.00 0.85 - 3.90 10*3/uL 05/06/2024 11:51 AM EST [facility] - [employer] CL[facility]ICAL PATHOLOGY LABORATORY Monocyte # 0.30 0.20 - 0.95 10*3/uL 05/06/2024 11:51 AM EST [employer] [facility] PATHOLOG[facility] LABOR[facility]ORY Eosinophil # 0.10 0.02 - 0.50 10*3/uL 05/06/2024 11:51 AM EST [employer] [facility] [employer] [facility] LAB[facility] Basophil # <0.03 0.00 - 0.20 10*3/uL 05/06/2024 11:51 AM EST [employer] [facility] LAB[facility] nRBC % 0.0 /100 WBCs 05/06/2024 11:51 AM EST [facility] CL[facility] PATHOLOG[facility] LABORAT[facility] nRBC # <0.01 <0.01 10*3/uL 05/06/2024 11:51 AM EST [employer] [facility] Blood Structure of peripheral vein / Unknown Venipuncture / Unknown 05/06/2024 11:27 AM EST 05/06/2024 11:42 AM EST us Tobi Pollard MD LAB BLOOD ORDERABLES Monica l Result [facility] [employer] [facility] LABORATORY [address] [place] [address], * (ABNORMAL) Kendall-Llanos Virus VCA Antibody Panel (05/06/2024 11:27 AM EST) EBV Viral Capsid Ag Ab (IGM) <36.00 U/mL 05/07/2024 5:47 AM EST [email or web address] Comment: ?U/mL ?Interpretation ?---- ?<36.00 ?Negative ?36.00-43.99 ? Equivocal ?>43.99 ?Positive EBV Viral Capsid Ag Ab (IGG) >750.00(H) U/mL 05/07/2024 5:47 AM [employer] Comment: ? U/mL ? Interpretation ? ---- ? <18.00 ? Negative ? 18.00-21.99 ?Equivocal ? >21.99 ? Positive EBV Nuclear Ag Ab >600.00(H) U/mL 5:47 AM [employer] Comment: ? U/mL ? Interpretation ? ---- ? <18.00 ? Negative ? 18.00-21.99 ?Equivocal ? >21.99 ? 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 In infants, a similar pattern may occur as a result of passive maternal transfer of antibody. Blood Structure of peripheral vein / Unknown Venipuncture / Unknown 05/06/2024 11:27 AM EST 05/06/2024 11:42 AM EST Narrative [employer] RUPERT - 05/07/2024 5:47 AM EST [facility] Received Date: Tobi Pollard MD LAB BLOOD ORDERABLES Monica l Result [facility] [address], [place] [address], [place] [phone] [employer] [facility] [address], [place] [address], * Hepatitis C Antibody w/Reflex to PCR (05/06/2024 11:27 AM EST) Hepatitis C Antibody NON-REACT KISHA NON-REACT KISHA 05/07/2024 3:30 AM EST [facility] Comment: HCV antibody was non-reactive. There is no laboratory evidence of HCV infection. In most cases, no further action is required. However, if recent HCV exposure is suspected, a test for HCV RNA (test code 91580) is suggested. For additional information please refer to http://education.NextPoint Networks/faq/IRX09h3 (This link is being provided for informational/ educational purposes only.) Blood Structure of peripheral vein / Unknown Venipuncture / Unknown 05/06/2024 11:27 AM EST 05/06/2024 11:42 AM EST Narrative [employer] [facility]UP[facility] - 05/07/2024 3:30 AM EST [facility] Received Date: Tobi Pollard MD LAB BLOOD ORDERABLES Monica l Result [facility] [address], [place] [address], [place] [phone] [employer] [facility] [address], [place] [address], * Hepatitis A Antibody, Total (05/06/2024 11:27 AM EST) Hepatitis A Ab, Total NON-REACT KISHA NON-REACT KISHA 05/07/2024 8:31 AM EST [facility] Comment: For additional information, please refer to http://Cook Taste Eat.[employer]/faq/SSL612 (This link is being provided for informational/ educational purposes only.) Blood Structure of peripheral vein / Unknown Venipuncture / Unknown 05/06/2024 11:27 AM EST 05/06/2024 11:42 AM EST Narrative [employer] [facility] - 05/07/2024 8:31 AM EST [facility] Received Date: us Tobi Pollard MD LAB BLOOD ORDERABLES Monica l Result Performing Organization Address City/[facility]/ZIP Co de Phone Number [facility] [address] [facility] [address] [facility], [place] [address], [place] [phone] [employer] [address], [place] [address], [place] [phone] * Hepatitis B Core Antibody, Total (05/06/2024 11:27 AM EST) Hepatitis B Core Ab Total NON-REACT KISHA NON-REACT KISHA 05/07/2024 3:28 AM EST [facility] Comment: For additional information, please refer to http://Cook Taste Eat.[employer]/faq/HNA680 (This link is being provided for informational/ educational purposes only.) Blood Structure of peripheral vein / Unknown Venipuncture / Unknown 05/06/2024 11:27 AM EST 05/06/2024 11:42 AM EST Narrative [facility] - 05/07/2024 3:28 AM EST [facility] Received Date: us Tobi Pollard MD LAB BLOOD ORDERABLES Monica l Result [facility] [address] [facility] 3rd Floor, [place] [address], [place] [phone] [employer] [facility] [address] [facility] 3rd Floor, [place] [address], [place] [phone] * ABO/Rh Blood Type (05/06/2024 11:27 AM EST) ABO Blood Type A 05/06/2024 12:17 PM EST [facility] RH Type Positive 05/06/2024 12:17 PM EST [facility] Blood Structure of peripheral vein / Unknown Venipuncture / Unknown 05/06/2024 11:27 AM EST 05/06/2024 11:30 AM EST us Tobi Pollard MD LAB BLOOD BANK TEST ORDER LINH Final Result Performing Organization Address City/[facility]/ZIP Co de Phone Number BLOOD BANK INFCE [address] [place] [address], * (ABNORMAL) Hepatitis B Surface Antibody (05/06/2024 11:27 AM EST) Hepatitis B Surface Ab Immunity, Qn <5(L) > OR = 10 mIU/mL 05/07/2024 3:27 AM EST [employer] [facility] Comment: PATIENT DOES NOT HAVE IMMUNITY TO HEPATITIS B VIRUS. For additional information, please refer to http://education.[employer]Point Networks/faq/MOR393 (This link is being provided for informational/ educational purposes only). Blood Structure of peripheral vein / Unknown Venipuncture / Unknown 05/06/2024 11:27 AM EST 05/06/2024 11:42 AM EST Narrative [facility] - 05/07/2024 3:27 AM EST [facility] Received Date:[id number] us Tobi Pollard MD LAB BLOOD ORDERABLES Monica l Result [facility] [address] [facility] 3rd Floor, [place] [address], [place] [phone] [employer] [facility] [address] [facility] 3rd Floor, [place] [address], * Hepatitis B Surface Antigen w/Confirmation (05/06/2024 11:27 AM EST) Hepatitis B Surface Antigen NON-REACT KISHA NON-REACT KISHA 05/07/2024 3:55 AM EST [email or web address] Comment: For additional information, please refer to http://education.[employer]/faq/NIG976 (This link is being provided for informational/ educational purposes only.) Blood Structure of peripheral vein / Unknown Venipuncture / Unknown 05/06/2024 11:27 AM EST 05/06/2024 11:42 AM EST Narrative [facility] - 05/07/2024 3:55 AM EST [facility] Received Date: Tobi Pollard MD LAB BLOOD ORDERABLES Monica abernathy Result Performing Organization Address City/State/[facility] Co de Phone Number [facility] [address] [facility] 3rd Floor, [place] [address], [facility] [address] [facility] 3rd Floor, [place] [address], * Cytomegalovirus Antibody, IgG (05/06/2024 11:27 AM EST) Pathologist [facility] Cytomegalovirus Antibody (IgG) <0.60 U/mL 05/07/2024 5:47 AM EST [email or web address] Comment: ? U/mL ? Interpretation ? ----- ? <0.60 ? Negative ? 0.60-0.69 ? Equivocal ? > or = 0.70 ?? Positive A positive result indicates that the patient has antibody to CMV. It does not differentiate between an active or past infection. Blood Structure of peripheral vein / Unknown Venipuncture / Unknown 05/06/2024 11:27 AM EST 05/06/2024 11:42 AM EST Narrative [facility] 05/07/2024 5:47 AM EST [facility] Received Date: Tobi Pollard MD LAB BLOOD ORDERABLES Monica l Result Performing Organization Address [facility] Co de Phone Number [facility] [address] [facility] [address] [facility], [place] [address], [employer] [facility] [address] [facility] [address] [facility], [place] [address], [place] [phone] * PTT (05/06/2024 11:27 AM EST) [facility] aPTT 25.4 23.0 - 32.0 Seconds 05/06/2024 12:09 PM EST [employer] [facility] LAB[facility] Comment: Current PTT reagent is not sensitive to detect all Lupus Anticoagulant (LA) Inhibitor Cases. ?? If a LA is suspected, please order a Lupus Anticoagulation w/ Reflex Test which is performed at [email or web address] in [place], [place]. Blood Structure of peripheral vein / Unknown Venipuncture / Unknown 05/06/2024 11:27 AM EST 05/06/2024 11:42 AM EST Tobi Pollard MD LAB BLOOD ORDERABLES Monica l Result Performing Organization Address [facility] Co de Phone Number [facility] LABORATORY [address] [place] [address], * Protime-INR (05/06/2024 11:27 AM EST) Pathologist [facility] PT 9.6 9.6 - 12.4 Seconds 05/06/2024 12:09 PM EST [facility] CLINICAL PATHOLOGY LABORATORY INR 0.9 0.9 - 1.1 05/06/2024 12:09 PM EST [facility] LABOR[facility] Comment:The optimal therapeu tic INR range for patients treated with Vitamin K antagonists (VKAS, e.g., Warfarin) is 2.0 to 3.5. Discuss the desired range with your doctor/care team. Blood Structure of peripheral vein / Unknown Venipuncture / Unknown 05/06/2024 11:27 AM EST 05/06/2024 11:42 AM EST Tobi Pollard MD LAB BLOOD ORDERABLES Monica abernathy Result [facility] CLINICAL PATHOLOGY LABORATORY [address] [place] [address], * Varicella Zoster Antibody, IgG (05/06/2024 11:27 AM EST) Pathologist [facility] Varicella Zoster Virus Antibody 16.70 S/CO 05/07/2024 8:39 AM EST [email or web address] Comment: ?Signal to Cut-off ? S/CO ?Interpretation [...] AM EST 05/06/2024 11:42 AM EST Narrative [facility] 05/07/2024 8:39 AM EST [facility] Received Date: Tobi Pollard MD LAB BLOOD ORDERABLES Monica l Result [facility] [address] [facility] 3rd Floor, [place] [address], [place] [phone] [employer] [facility] [address] [facility] [address] [facility], [place] [address], [place] [phone] * (ABNORMAL) BUN (05/06/2024 11:27 AM EST) BUN 49(H) 7 - 23 mg/dL 05/06/2024 12:13 PM EST [employer] [facility] Blood Structure of peripheral vein / Unknown Venipuncture / Unknown 05/06/2024 11:27 AM EST 05/06/2024 11:42 AM EST Tobi Pollard MD LAB BLOOD ORDERABLES Monica l Result [employer] [facility] LAB[facility] [address] [place] [address], * ALT (05/06/2024 11:27 AM EST) ALT 16 10 - 40 U/L 05/06/2024 12:13 PM EST [employer] [facility] Blood Structure of peripheral vein / Unknown Venipuncture / Unknown 05/06/2024 11:27 AM EST 05/06/2024 11:42 AM EST Tobi Pollard MD LAB BLOOD ORDERABLES Monica l Result Performing Organization Address City/[facility]/ZIP Co de Phone Number [employer] [facility] [address] [place] [address], * AST (05/06/2024 11:27 AM EST) AST 18 10 - 40 U/L 05/06/2024 12:13 PM EST [employer] [facility] Blood Structure of peripheral vein / Unknown Venipuncture / Unknown 05/06/2024 11:27 AM EST 05/06/2024 11:42 AM EST Tobi Pollard MD LAB BLOOD ORDERABLES Monica l Result Performing Organization Address [facility] Co de Phone Number [employer] [facility] [address] [place] [address], * Phosphorus (05/06/2024 11:27 AM EST) Phosphorus 3.8 2.5 - 4.5 mg/dL 05/06/2024 12:13 PM EST [employer] [facility] Blood Structure of peripheral vein / Unknown Venipuncture / Unknown 05/06/2024 11:27 AM EST 05/06/2024 11:42 AM EST Tobi Pollard MD LAB BLOOD ORDERABLES Monica l Result Performing Organization Address [facility] Co de Phone Number [employer] [facility] [address] [place] [address], * (ABNORMAL) Creatinine (05/06/2024 11:27 AM EST) Creatinine 5.03(H) 0.60 - 1.30 mg/dL 05/06/2024 12:13 PM EST [facility] [employer] CL[facility] PATHOLOG[facility] LABORATORY eGFR 14(L) >=60 mL/min/1 .73m2 05/06/2024 12:13 PM EST [facility] [employer] [facility] LAB[facility] Comment:The estimated glomer ular [...] ORDERABLES Monica l Result Performing Organization Address City/[facility]/ZIP Co de Phone Number [facility] [employer] CL[facility] PATHOLOG[facility] LABORATORY [address] [place] [address], * Calcium (05/06/2024 11:27 AM EST) Calcium 9.5 8.6 - 10.5 mg/dL 05/06/2024 12:13 PM EST [facility] [employer] CL[facility] PATHOLOG[facility] LABOR[facility]ORY Blood Structure of peripheral vein / Unknown Venipuncture / Unknown 05/06/2024 11:27 AM EST 05/06/2024 11:42 AM EST Tobi Pollard MD LAB BLOOD ORDERABLES Monica l Result [facility] [employer] [facility]OLOG[facility] LABOR[facility]ORY [address] [place] [address], * Bilirubin, Direct (05/06/2024 11:27 AM EST) Bilirubin, Direct 0.1 <=0.4 mg/dL 05/06/2024 12:13 PM EST [employer] [facility] Blood Structure of peripheral vein / Unknown Venipuncture / Unknown 05/06/2024 11:27 AM EST 05/06/2024 11:42 AM EST Tobi Pollard MD LAB BLOOD ORDERABLES Monica l Result [employer] [facility] [address] [place] [address] * Bilirubin, Total (05/06/2024 11:27 AM EST) Bilirubin, Total 0.3 0.2 - 1.2 mg/dL 05/06/2024 12:13 PM EST [employer] [facility] Blood Structure of peripheral vein / Unknown Venipuncture / Unknown 05/06/2024 11:27 AM EST 05/06/2024 11:42 AM EST Tobi Pollard MD LAB BLOOD ORDERABLES Monica l Result Performing Organization Address City/[facility]/ZIP Co de Phone Number [facility] [address] [place] [address], * Albumin (05/06/2024 11:27 AM EST) Albumin 4.3 3.5 - 5.2 g/dL 05/06/2024 12:13 PM EST [facility] Blood Structure of peripheral vein / Unknown Venipuncture / Unknown 05/06/2024 11:27 AM EST 05/06/2024 11:42 AM EST Tobi Pollard MD LAB BLOOD ORDERABLES Monica l Result [facility] [address] [place] [address], from Last 3 Months Insurance [employer] Advance Directives Documents on File Type Date Recorded Patient Manager Rn Case Expl anation Health Care Proxy 05/11/2024 1:39 PM 12-0 Care Teams 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
== END 2024-07-13 02:54 | disposition left against medical advice (07) ==
LOC: HO.ED 07-13 02:53
PROVIDERS: Emergency Provider Emergency Medicine; PCP Internal Medicine
DX: J02.9 Acute pharyngitis, unspecified (principal); H57.11 Ocular pain, right eye
CPT/HCPCS: 96127; 99281

== ENCOUNTER 2024-07-13 14:24 | Outpatient (AMB) | payer OTHER, SELFPAY ==
--- NOTE | 2024-07-13 15:05 | A.OFFPC_ITS ---
Vital Signs 07/13/24 15:06 Height 5 ft 6 in Weight 176 lb 8 oz BMI 28.5 BP 140/80 H Blood Pressure Location Lt brachial Position Sitting Pulse 74 Pulse Source Pulse Oximeter Temp 97.1 F Temp Source Skin Pulse Oximetry (%) 98 Oxygen Delivery Method Room Air Intake Visit Reasons: elevated BP , blood shot eyes Intake Note: Patient is here to follow up on Elevated BP, blood shot eyes, sore throat. 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: Present Accompanied by: Spouse Allergies No Known Allergies Allergy (Verified 07/14/24 23:42) Medication List - Last Reconciled 07/14/24 by TOMASA Walsh amlodipine 5 mg PO BID atorvastatin 20 mg PO DAILY 90 days cholecalciferol (vitamin D3) 25 mcg PO DAILY 90 days fexofenadine 180 mg PO DAILY PRN 30 days fluticasone propionate 50 mcg/actuation 2 sprays intranasal DAILY PRN 30 days loratadine 10 mg PO DAILY PRN 90 days nystatin 1 appl topical TID 10 days omega-3 fatty acids (Fish Oil Concentrate) 1,000 mg PO DAILY Tobacco use date assessed: 07/13/24 Dental Screening Dental Screen Date: 07/13/24 Did you have a dental visit in the last 12 months?: Yes Did you have a dental problem in the last 6 months where you did not have access to dental care?: No Was dental information given to patient?: Patient has dentist HPI elevated BP , blood shot eyes HPI Details The patient is a 44-year-old male with significant past medical history chronic kidney disease stage 4, 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, benign essential hypertension Patient is presenting today with complaints of right eye redness Patient reports that he woke up Friday morning with redness in his right eye along with puffiness There is mild periorbital discomfort at the medial region of right eye Patient denies decrease in vision, blurriness or double vision Denies any injury to the eye, but reports that he was sneezing the day before waking up with the redness in his eye Patient reports that they call the office and was told to go to the emergency room Reports going to the emergency room but there was a large crowd, so they left Patient reports concerns of high blood pressure causing eye injury Reports blood pressure was 138/93 at home The blood pressure is 140/80 in office, which is above goal but done extremely high Discussed with patient that the stress from seeing the blood shot in his eye might have caused the raised and blood pressure Discussed with patient that he should follow up with Ophthalmology because they would be able to measure the actual pressure in his eye [facility] Medical History Chronic kidney disease, stage 4 (severe) Overweight (BMI 25.0-29.9) Acute angle-closure glaucoma of right eye Obesity (BMI 30-39.9) Vitamin D deficiency Pure hypercholesterolemia Benign essential hypertension Surgical History History of eye surgery Family History Father Medical history unknown Mother Cancer Social History Housing: House Alcohol intake: never Patient Tobacco Use Status: Never used Tobacco e-Cigarette/Vaping Use: Never Used Second Hand Smoke Exposure: Yes service: No Current occupational status: employed 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, 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 Cognitive needs: No Hearing needs: No Vision needs: No Questionnaire Thrive Questionnaire Date Thrive assessed: 05/21/24 GUERA-7 AMB Questionnaire GUERA-7 Date GUERA - 7 assessed: 07/13/24 Feeling nervous, anxious, or on edge: 0 = Not at all Not being able to stop or control worryin = Not at all Worrying too much about different things: 0 = Not at all Trouble relaxin = Not at all Being so restless that it is hard to sit still: 0 = Not at all Becoming easily annoyed or irritable: 0 = Not at all Feeling afraid as if something awful might happen: 0 = Not at all Total GUERA-7 score (0-4 normal; 5-9 mild; 10-14 moderate; 15-21 severe): 0 Source: Developed by Drs. Crow Marley, Dafne Rivero, Micky Leos and colleagues, with an educational zafar from [employer] GUERA-7 Assessment Billing GUERA-7 Assessment Tool: GUERA-7 Assessment 84069 Review of Systems Const Details: Denies chills, Denies fatigue, Denies fever(s), Denies headache(s) and Denies weakness HEENT Denies change in vision, Denies dizziness, Denies headache(s), Denies hearing loss, +nasal congestion,+sneezing Denies sinus pain, Denies sinus pressure and Denies sore throat Card Denies chest pain, Denies lightheadedness, Denies dyspnea and Denies other (palpitations) Resp Denies cough, Denies dyspnea and Denies wheezing GI Denies abdominal pain, Denies melena, Denies hematochezia, Denies change in bowel habits, Denies dyspepsia and Denies nausea Denies hematuria and Denies dysuria Musc Denies abnormal gait, Denies myalgias, Denies arthralgias, Denies numbness and Denies tingling Skin/Breast Denies rash, Denies unusual bruising and Denies wounds Neuro Denies abnormal gait, Denies dizziness, Denies headache(s), Denies memory loss, Denies numbness, Denies Sensory deficit (Neuro), Denies tingling and Denies weakness Psych Denies anxiety, Denies depression and Denies memory loss Endo Denies cold intolerance, Denies fatigue, Denies heat intolerance, Denies polydipsia and Denies polyuria Alfredo/Lymph Denies easy bleeding and Denies easy bruising Aller/Immun Denies wheezing Physical exam (Primary Care) Vital Signs: Last Vital Signs Temp 97.1 F 07/13/24 15:06 Pulse 74 07/13/24 15:06 BP 140/80 H 07/13/24 15:06 Pulse Ox 98 07/13/24 15:06 Oxygen Delivery Method Room Air 07/13/24 15:06 BMI result Body Mass Index 28.5 Tobacco/Smoking Status: Tobacco use Status Tobacco use date assessed 07/13/24 07/13/24 15:08 Patient Tobacco Use Status Never used Tobacco 07/13/24 15:08 e-Cigarette/Vaping Use Never Used 07/13/24 15:08 Thrive Assessment: Date of Thrive Assessment Date Thrive assessed 05/21/24 07/13/24 15:08 Const Other: General: no acute distress, well developed, alert and awake Nutritional Appearance: well nourished Orientation/consciousness: patient oriented x3 HENMT Head: Yes normocephalic and Yes atraumatic Ears: hearing grossly normal bilaterally and TM's normal bilaterally General nose exam: Normal external nose present, bilateral nares erythema with boggy turbinates Mouth: Normal oral and palatal mucosa present and moist mucous membranes Teeth and gingiva: dentition normal Throat: Yes oropharynx normal Eyes Pupils: Equal, round and reactive pupils present and Pupil accommodation reflex normal EOM: EOMs intact bilaterally other: Periorbital puffiness at medial region, small area of erythema at the medial sclera, eye watery Neck Neck: Yes normal visual inspection, Yes no lymphadenopathy Thyroid: Thyroid normal Resp Effort & Inspection: normal respiratory effort Auscultation: clear to auscultation bilaterally Cardio Rate: regular rate Rhythm: regular rhythm Heart sounds: S1 normal heart sound present, S2 normal heart sound present, no gallops, no murmurs and no rubs GI Palpation (GI): Abdomen is soft and nontender palpationt Auscultation: normal bowel sounds General: Yes no CVA tenderness Skin General: warm and dry. Normal skin color. Normal skin turgor Lesions: no lesions Nails: normal Neuro General: patient oriented x3, gait normal Cranial nerves: Yes Equal, round and reactive pupils present Cognition (Neuro): normal cognition Gait exam (Neuro): Normal gait present Extrem General: Yes normal to inspection, No edema and No calf tenderness Coding Level of Care Code Est Pt Level 3 (82778) Diagnoses Eye redness H57.89 Sneezing with right watery eye H04.201; R06.7 Nasal congestion R09.81 Benign essential hypertension I10 Additional Codes GUERA-7 Assessment Billing - GUERA-7 Assessment Tool: GUERA-7 Assessment 60792 ([id number]) Time Spent (min) 33 Assessment & Plan Assessment & Plan (1) Eye redness: Code(s): H57.89 - Other specified disorders of eye and adnexa Category: Medical Plan: Consider viral infection or burst blood vessel from sneezing Will send the patient to complete a respiratory panel follow up with ophthalmology due to the history of glaucoma and stenting (2) Sneezing with right watery eye: Code(s): H04.201 - Unspecified epiphora, right side; R06.7 - Sneezing Category: Medical Plan: Continue flonase nose spray and loratadine daily prn (3) Nasal congestion: Code(s): R09.81 - Nasal congestion Category: Medical Plan: continue fluticasone propionate 50 mcg/actuation 2 sprays intranasal daily (4) Benign essential hypertension: Code(s): I10 - Essential (primary) hypertension Category: Medical Plan: Patient reports concerns of high blood pressure causing eye injury Reports blood pressure was 138/93 at home The blood pressure is 140/80 in office, which is above goal but done extremely high continue amlodipine 5 mg daily reinforced low sodium diet Orders: Orders SARS-CoV2/FLU/RSV 07/13/24 J06.9 - Acute upper respiratory infection, unspecified
[2024-07-13 15:06] VITALS: BP 140/80; PULSE 74; TEMP 36.2; O2SAT 98; BMI 28.5
--- OUTSIDE RECORDS SUMMARY | 2024-07-13 15:21 | XMS_ITS | Clinical Summary ---
Author Organization [facility] Address [address] [place] [address] Care Team Providers Care Electric Spot Welder Name Role Phone Patient, Has No Pcp [...] Type Department Care Team Description 05/31/2024 Telephone [facility] Transplant Department [address] [place] [address] Lori Mustafa RN 05/27/2024 Telephone [facility] Transplant Department [address] [place] [address] Lori Mustafa RN 05/11/2024 Telephone [facility] Transplant Department [address] [place] [address] Lori Mustafa, tanner rotary drum continuous process - Kidney Txp 05/06/2024 11:15 AM EST Lab [facility] Lab Draw Site [address] [place] [address] Pre-transplant evaluation for end stage renal disease; Chronic kidney disease, stage IV (severe) ([facility]) 05/06/2024 10:15 AM EST Social Work [facility] Renal Transplant [address] [place] [address] Cecelia Hinton LICSW 05/06/2024 9:30 AM EST Office Visit [facility] Renal Transplant [address] [place] [address] Tobi Pollard MD Pre-transplant evaluation for kidney transplant (Primary Dx); Pre-transplant evaluation for end stage renal disease; Stage 4 chronic kidney disease (HCC) 05/06/2024 8:15 AM EST Evaluation [facility] Renal Transplant [address] [place] [address] Lori Mustafa, DU Pre-transplant evaluation for end stage renal disease (Primary Dx) 05/06/2024 8:00 AM EST Office Visit [facility] Renal Transplant [address] [place] [address] Shaonn De Anda RN Pre-transplant evaluation for kidney transplant (Primary Dx) 05/03/2024 Telephone [facility] Transplant Department [address] [place] [address] Lori Mustafa, DU 04/27/2024 Orders Only [facility] Transplant Department [address] [place] [address] Lori Mustafa, DU Pre-transplant evaluation for end [...] Info) Description 05/03/2025 10:00 AM EST Follow-Up [facility] Renal Transplant [address] [place] [address] Tobi Pollard MD [address] [place] [address] 05/03/2025 10:30 AM EST Social Work [facility] Renal Transplant [address] [place] [address] Cecelia Hinton LICSW [address] [place] [address] Health Maintenance Due Date Last Done Comments [...] complete this topic Procedures * Due to [place] state law, this organization might not be [...] IV (severe) (HCC) QUANTIFERON-TB GOLD PLUS, 1 [id number] Routine 05/06/2024 11:27 AM EST Pre-transplant evaluation for end stage renal disease Chronic kidney disease, stage IV (severe) (HCC) RPR (DIAGNOSIS) W/REFLEX TO TITER & TPPA [id number] Routine 05/06/2024 11:27 AM EST Pre-transplant evaluation for end stage renal disease Chronic kidney disease, stage IV (severe) (HCC) VARICELLA ZOSTER ANTIBODY, IGG Routine 05/06/2024 11:27 AM EST Pre-transplant evaluation for end stage renal disease Chronic kidney disease, stage IV (severe) (HCC) HLA TRANSPLANT WORK-UP (ALLELE LEVEL A/B/C/DRB1/EKR675/DQA1/ DQB1/DPA1/DPB1) Routine 05/06/2024 11:27 AM EST Pre-transplant [...] CYSTATIN C WITH GLOMERULAR FILTRATION RATE, ESTIMATED (EGFR)-[id number] Routine 05/06/2024 11:27 AM EST Pre-transplant evaluation for end stage renal disease Chronic kidney disease, stage IV (severe) (HCC) from Last 3 Months Results * Due to [place] state law, this organization might not be sharing negative HIV tests. * HLA Transplan Work-Up(Allele Level A/B/C/DRB1/ZCC197/DQA1/DQB1/DPA1/DPB1) (05/06/2024 11:27 AM EST) Histocompatibility Laboratory Information See Below 05/12/2024 3:59 PM EST [facility] Comment: ROMULO: ??[id number] ?Director: ??Magdalena Garcia MD. [facility] PFI: ??[id number] UNOS: ??[id number] This test was [...] [facility] [address] [facility] Rm: [id number] HLA LAB [place] [phone], * (ABNORMAL) Cystatin C with Glomerular Filtration [...] ORDERABLES Monica abernathy Result Performing Organization Address City/State/[facility] Co de Phone Number GENEVA DILLARD) [address] [place], [place] , [place] * MMR Panel, IgG (05/06/2024 11:27 AM EST) Measles Antibody (IgG), Immune Status 136.00 AU/mL 05/07/2024 5:47 AM EST [facility] Comment: AU/mL ?Interpretation ----- ? <13.50 ? Not consistent with immunity 13.50-16.49 ?Equivocal >16.49 ? Consistent with immunity The presence of measles IgG suggests immunization or past or current infection with measles virus. For additional information, please refer to http://education.Spinal Simplicity/faq/QRY668 (This link is being provided for informational/ educational purposes only.) Mumps Antibody (IgG), Immune Status 37.60 AU/mL 05/07/2024 5:47 AM EST [facility] Comment: AU/mL ? Interpretation ------- ? <9.00 ? Not consistent with immunity 9.00-10.99 ?Equivocal >10.99 ?Consistent with immunity The presence of mumps IgG antibody suggests immunization or past or current infection with mumps virus. Rubella Antibody (IgG), Immune Status 2.45 Index 05/07/2024 5:47 AM EST [facility] Comment: ?Index ?Interpretation ?----- ?<0.90 ?Not consistent [...] MD LAB BLOOD ORDERABLES Monica abernathy Result [facility] [address] [facility] [address], [place] [address], [employer] [facility] [address] [facility] [address], [place] [address], * (ABNORMAL) Herpes Simplex Virus 1&2, IgG (05/06/2024 11:27 AM EST) HSV 1 IgG Type Specific Ab 5.17(H) index 05/07/2024 8:57 AM EST [facility] HSV 2 IgG Type Specific Ab <0.90 index 05/07/2024 8:57 AM EST [employer] Comment: ?Index ?Interpretation ?----- ?<0.90 ?Negative ?0.90-1.09 [...] screening. For additional information, please refer to http://education.Spinal Simplicity/faq/PEA436 (This link is being provided for informational/ educational purposes only.) ?? Blood Structure of peripheral vein / Unknown Venipuncture / Unknown 05/06/2024 11:27 AM EST 05/06/2024 11:42 AM EST Narrative [facility] - 05/07/2024 8:57 AM EST [facility] Received Date: Tobi Pollard MD LAB BLOOD ORDERABLES Monica abernathy Result [facility] [address] [facility] [address], [place] [address], [place] [phone] [employer] [address] [facility] [address], [place] [address], * RPR (Diagnosis) w/Reflex to Titer & TPPA Confirm (05/06/2024 11:27 AM EST) [facility] RPR W/Refl Titer NON-REACT KISHA NON-REACT KISHA 05/08/2024 6:27 PM EST [facility] Blood Structure of peripheral vein / Unknown Venipuncture / Unknown 05/06/2024 11:27 AM EST 05/06/2024 11:42 AM EST Narrative [facility] - 05/08/2024 6:27 PM EST [facility] Received Date: Tobi Pollard MD LAB BLOOD ORDERABLES Monica abernathy Result [facility] [place] [address] [facility] [address], [place] [address], [employer] [facility] [address] [facility] [address], [place] [address], * QuantiFERON-TB Gold Plus, 1 Tube (05/06/2024 11:27 AM EST) [facility] QuantiFERON-TB Gold Plus NEGATIVE NEGATIVE 05/08/2024 2:00 PM EST [facility] Comment: Negative test result. M. tuberculosis complex infection unlikely. NIL 0.04 IU/mL 05/08/2024 2:00 PM EST [facility] Mitogen-NIL 6.31 IU/mL 05/08/2024 2:00 PM EST [facility] TB1-NIL <0.00 IU/mL 05/08/2024 2:00 PM EST [facility] TB2-NIL 0.01 IU/mL 05/08/2024 2:00 PM EST [employer] [facility] Comment: The Nil tube value reflects the [...] T-lymphocytes. For additional information, please refer to https://education.Dwolla/faq/DEO764 (This link is being provided for informational/ educational purposes only.) Blood Structure of peripheral vein / Unknown Venipuncture / Unknown 05/06/2024 11:27 AM EST 05/06/2024 11:39 AM EST Narrative [facility] [place] - 05/08/2024 2:00 PM EST [facility] Received Date: us Tobi Pollard MD LAB BLOOD ORDERABLES Monica l Result [facility] [address] [facility] [address], [place] [address], [place] [phone] [employer] [facility] [address] [facility] [address], [place] [address], * (ABNORMAL) CBC Auto Differential (05/06/2024 11:27 [...] - 0.20 10*3/uL 05/06/2024 11:51 AM EST [facility] nRBC % 0.0 /100 WBCs 05/06/2024 11:51 AM EST [employer] [facility] nRBC # <0.01 <0.01 10*3/uL 05/06/2024 11:51 AM EST [employer] [facility] Blood Structure of peripheral vein / Unknown Venipuncture / Unknown 05/06/2024 11:27 AM EST 05/06/2024 11:42 AM EST us Tobi Pollard MD LAB BLOOD ORDERABLES Monica abernathy Result [facility] [address] [place] [address], * (ABNORMAL) Kendall-Llanos Virus VCA Antibody Panel (05/06/2024 11:27 AM EST) EBV Viral Capsid Ag Ab (IGM) <36.00 U/mL 05/07/2024 5:47 AM EST [facility] Comment: ?U/mL ?Interpretation ?---- ?<36.00 ?Negative ?36.00-43.99 ? Equivocal ?>43.99 ?Positive EBV Viral Capsid Ag Ab (IGG) >750.00(H) U/mL 05/07/2024 5:47 AM EST [facility] Comment: ? U/mL ? Interpretation ? ---- ? <18.00 ? Negative ? 18.00-21.99 ?Equivocal ? >21.99 ? Positive EBV Nuclear Ag Ab >600.00(H) U/mL 024 5:47 AM EST [facility] Comment: ? U/mL ? Interpretation ? ---- ? <18.00 ? Negative ? 18.00-21.99 ?Equivocal ? >21.99 ? 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 In infants, a similar pattern may occur as a result of passive maternal transfer of antibody. Blood Structure of peripheral vein / Unknown Venipuncture / Unknown 05/06/2024 11:27 AM EST 05/06/2024 11:42 AM EST [facility] [place] - 05/07/2024 5:47 AM EST [facility] Received Date: Tobi Pollard MD LAB BLOOD ORDERABLES Monica abernathy Result [facility] [place] [address], [place] [address], [place] [phone] [employer] [facility] [address], [place] [address], * Hepatitis C Antibody w/Reflex to PCR (05/06/2024 11:27 AM EST) Hepatitis C Antibody NON-REACT KISHA NON-REACT KISHA 05/07/2024 3:30 AM EST [facility] Comment: HCV antibody was non-reactive. There is no laboratory evidence of HCV infection. In most cases, no further action is required. However, if recent HCV exposure is suspected, a test for HCV RNA (test code 55451) is suggested. For additional information please refer to http://Tapatalk.Dwolla/faq/ADF48l1 (This link is being provided for informational/ educational purposes only.) Blood Structure of peripheral vein / Unknown Venipuncture / Unknown 05/06/2024 11:27 AM EST 05/06/2024 11:42 AM EST Narrative [facility] [place] - 05/07/2024 3:30 AM EST [facility] Received Date: Tobi Pollard MD LAB BLOOD ORDERABLES Monica l Result Performing Organization Address City/[facility]/ZIP Co de Phone Number [facility] [address], [place] [address], [employer] [address], [place] [address], [place] [phone] * Hepatitis A Antibody, Total (05/06/2024 11:27 AM EST) Hepatitis A Ab, Total NON-REACT KISHA NON-REACT KISHA 05/07/2024 8:31 AM EST [employer] [facility] Comment: For additional information, please refer to http://Tapatalk.Dwolla/faq/UWS285 (This link is being provided for informational/ educational purposes only.) Blood Structure of peripheral vein / Unknown Venipuncture / Unknown 05/06/2024 11:27 AM EST 05/06/2024 11:42 AM EST Narrative [facility] - 05/07/2024 8:31 AM EST [facility] Received Date: us Tobi Pollard MD LAB BLOOD ORDERABLES Monica l Result Performing Organization Address City/[facility]/ZIP Co de Phone Number [facility] [place] [address], [place] [address], [place] [phone] [employer] [facility] [address] [facility] 3[address], [place] [address], [place] [phone] * Hepatitis B Core Antibody, Total (05/06/2024 11:27 AM EST) Hepatitis B Core Ab Total NON-REACT KISHA NON-REACT KISHA 05/07/2024 3:28 AM EST [employer] [facility] Comment: For additional information, please refer to http://education.Dwolla/faq/WFP138 (This link is being provided for informational/ educational purposes only.) Blood Structure of peripheral vein / Unknown Venipuncture / Unknown 05/06/2024 11:27 AM EST 05/06/2024 11:42 AM EST Narrative [facility] [place] - 05/07/2024 3:28 AM EST [facility] Received Date: us Tobi Pollard MD LAB BLOOD ORDERABLES Monica l Result [facility] [address] [facility] [address], [place] [address], [place] [phone] [employer] [facility] [address] [facility] [address], [place] [address], [place] [phone] * ABO/Rh Blood Type (05/06/2024 11:27 AM [...] Final Result [facility] [address] [place] [address], * (ABNORMAL) Hepatitis B Surface Antibody (05/06/2024 11:27 AM EST) Hepatitis B Surface Ab Immunity, Qn <5(L) > OR = 10 mIU/mL 05/07/2024 3:27 AM EST [employer] [facility] Comment: PATIENT DOES NOT HAVE IMMUNITY TO HEPATITIS B VIRUS. For additional information, please refer to http://Tapatalk.Dwolla/faq/UYN972 (This link is being provided for informational/ educational purposes only). Blood Structure of peripheral vein / Unknown Venipuncture / Unknown 05/06/2024 11:27 AM EST 05/06/2024 11:42 AM EST Narrative [facility] 05/07/2024 3:27 AM EST [facility] Received Date: us Tobi Pollard MD LAB BLOOD ORDERABLES Monica l Result [facility] [address] [facility] [address], [place] [address], [employer] [facility] [address] [facility] [address], [place] [address], * Hepatitis B Surface Antigen w/Confirmation (05/06/2024 11:27 AM EST) Pathologist [facility] Hepatitis B Surface Antigen NON-REACT KISHA NON-REACT KSIHA 05/07/2024 3:55 AM EST [employer] [facility] Comment: For additional information, please refer to http://Tapatalk.Dwolla/faq/TLV702 (This link is being provided for informational/ educational purposes only.) Blood Structure of peripheral vein / Unknown Venipuncture / Unknown 05/06/2024 11:27 AM EST 05/06/2024 11:42 AM EST Narrative [facility] [place] - 05/07/2024 3:55 AM EST [facility] Received Date:[id number] us Tobi Pollard MD LAB BLOOD ORDERABLES Monica l Result Performing Organization Address City/[facility]/ZIP Co de Phone Number [facility] [place] [address] [facility] [address], [place] [address], [employer] [facility] [address], [address] [place] [address], [place] [phone] * Cytomegalovirus Antibody, IgG (05/06/2024 11:27 AM EST) Pathologist [facility] Cytomegalovirus Antibody (IgG) <0.60 U/mL 05/07/2024 5:47 AM EST [facility] Comment: ? U/mL ? Interpretation ? ----- [...] 05/06/2024 11:42 AM EST Narrative [facility] - 05/07/2024 5:47 AM EST [facility] Received Date: Tobi Pollard MD LAB BLOOD ORDERABLES Monica l Result [facility] [place] [address], [place] [address], [place] [phone] [employer] [facility] [address] [facility] [address], [place] [address], [place] [phone] * PTT (05/06/2024 11:27 AM EST) aPTT 25.4 23.0 - 32.0 Seconds 05/06/2024 12:09 PM EST [employer] Comment: Current PTT reagent is not sensitive to detect all Lupus Anticoagulant (LA) Inhibitor Cases. ?? If a LA is suspected, please order a Lupus Anticoagulation w/ Reflex Test which is performed at [facility] in [place], [place]. Blood Structure of peripheral vein / Unknown Venipuncture / Unknown 05/06/2024 11:27 AM EST 05/06/2024 11:42 AM EST Tobi Pollard MD LAB BLOOD ORDERABLES Monica l Result [facility] [employer] [facility] LAB[facility] [address] [place] [address], * Protime-INR (05/06/2024 11:27 AM EST) PT 9.6 9.6 - 12.4 Seconds 05/06/2024 12:09 PM EST [facility] [employer] [facility] INR 0.9 0.9 - 1.1 05/06/2024 12:09 PM EST [facility] [employer] [facility] Comment:The optimal therapeu tic INR range for patients treated with Vitamin K antagonists (VKAS, e.g., Warfarin) is 2.0 to 3.5. Discuss the desired range with your doctor/care team. Blood Structure of peripheral vein / Unknown Venipuncture / Unknown 05/06/2024 11:27 AM EST 05/06/2024 11:42 AM EST us Tobi Pollard MD LAB BLOOD ORDERABLES Monica l Result Performing Organization Address City/[facility]/ZIP Co de Phone Number [facility] [address] [place] [address], * Varicella Zoster Antibody, IgG (05/06/2024 11:27 AM EST) Varicella Zoster Virus Antibody 16.70 S/CO 05/07/2024 8:39 AM EST [facility] Comment: ?Signal to Cut-off ? S/CO ?Interpretation [...] EST 05/06/2024 11:42 AM EST Narrative [facility] [place] - 05/07/2024 8:39 AM EST [facility] Received Date: Tobi Pollard MD LAB BLOOD ORDERABLES Monica abernathy Result Performing Organization Address City/[facility]/ZIP Co de Phone Number [facility] [address], [place] [address], [place] [phone] [facility] [address] [facility] [address], [place] [address], [place] [phone] * (ABNORMAL) BUN (05/06/2024 11:27 AM EST) BUN 49(H) 7 - 23 mg/dL 05/06/2024 12:13 PM EST [facility] Blood Structure of peripheral vein / Unknown Venipuncture / Unknown 05/06/2024 11:27 AM EST 05/06/2024 11:42 AM EST Tobi Plolard MD LAB BLOOD ORDERABLES Monica l Result Performing Organization Address City/[facility]/ZIP Co de Phone Number [facility] [address] [place] [address], [place] * ALT (05/06/2024 11:27 AM EST) ALT 16 10 - 40 U/L 05/06/2024 12:13 PM EST [facility] Blood Structure of peripheral vein / Unknown Venipuncture / Unknown 05/06/2024 11:27 AM EST 05/06/2024 11:42 AM EST Tobi Pollard MD LAB BLOOD ORDERABLES Monica l Result [facility] [address] [place] [address], [place] * AST (05/06/2024 11:27 AM EST) AST 18 10 - 40 U/L 05/06/2024 12:13 PM EST [facility] Blood Structure of peripheral vein / Unknown Venipuncture / Unknown 05/06/2024 11:27 AM EST 05/06/2024 11:42 AM EST Tobi Pollard MD LAB BLOOD ORDERABLES Monica l Result Performing Organization Address City/[facility]/ZIP Co de Phone Number [facility] [address] [place] [address], * Phosphorus (05/06/2024 11:27 AM EST) Phosphorus 3.8 2.5 - 4.5 mg/dL 05/06/2024 12:13 PM EST [facility] [employer] Blood Structure of peripheral vein / Unknown Venipuncture / Unknown 05/06/2024 11:27 AM EST 05/06/2024 11:42 AM EST Tobi Pollard MD LAB BLOOD ORDERABLES Monica l Result Performing Organization Address [facility] de Phone Number [facility] [employer] [address] [place] [address] * (ABNORMAL) Creatinine (05/06/2024 11:27 AM EST) Creatinine 5.03(H) 0.60 - 1.30 mg/dL 05/06/2024 12:13 PM EST [facility] PATHOLOG[facility] LAB[facility]ORY eGFR 14(L) >=60 mL/min/1 .73m2 05/06/2024 12:13 PM EST [facility] [employer] [facility] Comment:The estimated glomer ular [...] ORDERABLES Monica l Result Performing Organization Address [facility] Co de Phone Number [facility] [address] [place] [address], [place] * Calcium (05/06/2024 11:27 AM EST) Calcium 9.5 8.6 - 10.5 mg/dL 05/06/2024 12:13 PM EST [facility] Blood Structure of peripheral vein / Unknown Venipuncture / Unknown 05/06/2024 11:27 AM EST 05/06/2024 11:42 AM EST Tobi Pollard MD LAB BLOOD ORDERABLES Monica l Result Performing Organization Address [facility] Co de Phone Number [facility] [address] [place] [address], [place] * Bilirubin, Direct (05/06/2024 11:27 AM EST) Bilirubin, Direct 0.1 <=0.4 mg/dL 05/06/2024 12:13 PM EST [facility] Blood Structure of peripheral vein / Unknown Venipuncture / Unknown 05/06/2024 11:27 AM EST 05/06/2024 11:42 AM EST Tobi Pollard MD LAB BLOOD ORDERABLES Monica l Result Performing Organization Address City/[facility] Co de Phone Number [facility] [address] [place] [address], [place] * Bilirubin, Total (05/06/2024 11:27 AM EST) Bilirubin, Total 0.3 0.2 - 1.2 mg/dL 05/06/2024 12:13 PM EST [facility] Blood Structure of peripheral vein / Unknown Venipuncture / Unknown 05/06/2024 11:27 AM EST 05/06/2024 11:42 AM EST Tobi Pollard MD LAB BLOOD ORDERABLES Monica l Result [facility] [address] * Albumin (05/06/2024 11:27 AM EST) Albumin 4.3 3.5 - 5.2 g/dL 05/06/2024 12:13 PM EST [facility] Blood Structure of peripheral vein / Unknown Venipuncture / Unknown 05/06/2024 11:27 AM EST 05/06/2024 11:42 AM EST Tobi Pollard MD LAB BLOOD ORDERABLES Monica l Result Performing Organization Address City/[facility]/ZIP Co de Phone Number [facility] [address] [place] [address] from Last 3 Months Insurance [employer] Advance Directives Documents on File Type Date Recorded 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
--- OUTSIDE RECORDS SUMMARY | 2024-07-13 15:21 | XMS_ITS | Patient Health Record ---
Author Organization [facility] Address [address] [place] [address] Care Team Providers Care Barrel Driller Name Role Phone Reynaldo SAMAYOA, Dwayne Primary Care Provider Lori Jasmine Unavailable [phone] Allergies No Known Allergies Reason For Referral No Information Medications Medication SIG (Take, Route, Frequency, Duration) Notes Start Date End Date Status Atorvastatin Calcium 10 MG 1 tablet Oral ly Once a day for 30 day(s) Active Ciclopirox 0.77 % 1 application County Health Officer ally Twice a day for 365 days [...] Problem Status W/U Status Risk Notes Problem [id number] Gouty arthritis of right foot (M10.9) Active confirmed Vital Signs Blood pressure diastolic 70 mm Hg 09/12/2023 Height 5 ft 6 in in 09/12/2023 Blood pressure systolic 120 mm Hg 09/12/2023 Weight 183 lbs 09/12/2023 BMI 29.53 kg/m2 09/12/2023 Encounters Encounter Location Date Provider Diagnosis [facility] [address] [place] [address] 09/12/2023 Lori Bacon Fungal infection of nail B35.1 [facility] [address] [place] [address] 08/19/2023 Lori Bacon Assessments Encounter Date Diagnosis (ICD Code) Assessment Notes Treatment Notes Treatment Clinical Notes Section Notes 09/12/2023 Fungal infection of nail (ICD-10 - B35.1) Rx management (4) Plan Of Treatment Pending Test Test Name Order Date , [id number]/INJECT, JOINT/BURSA 0 09/20/2022 Insurance Providers Payer Name Payer Address Payer Phone Subscriber Number Group Number Insured Name Patient Relationship to Insured Coverage Start Date Coverage End Date Blue Benefits [address] [address] [place] [address] [id number] Nasir Jo Self - patient is the insured Medical (General) History Medical History History ICD Code Hypertension Hyperlipidemia Chronic Kidney Disease, stage III (moder ate) Vitamin D deficiency Obesity Surgical History Surgery Date(Month/Year) eye surgery
--- OUTSIDE RECORDS SUMMARY | 2024-07-13 15:21 | XMS_ITS | Clinical Summary ---
Author Organization [facility] Address [address] [facility] [address] [place] [address] Phone Care Team Providers Care Marshmallow Machine Worker Name Role Phone Dwayne Jacobs MD Primary Care Provider [phone] Allergies No known active allergies Medications omega-3 [...] Insurance COMPREHENSIVE BENEFITS COMPREHENSIVE BENEFITS Care Teams Marshmallow Machine Worker Relationship Specialty Start Date End Date Dwayne Jacobs MD [address] [place] [address] [address] [place] [address] PCP - General 06/12/20
--- OUTSIDE RECORDS SUMMARY | 2024-07-13 15:21 | XMS_ITS ---
Author Organization [facility] Address [address] [place] [address] Care Team Providers Care Heat Treatment Technician Name Role Phone Reynaldo SAMAYOA [place] Primary Care Provider Unava ilLori Cam [phone] REASON FOR VISIT issues with nail Encounters Encounter Location Date Provider Diagnosis [facility] [address] [place] [address] 08/19/2023 Lori Bacon Plan Of Treatment No Information Progress Notes * Nasir JODOB:1980 (43 yo M)Acc No.[id number]:08/19/2023 Patient:?Nasir Jo :1980???Age:43 Y???Sex:Male Address:[address] [place] [address], [address] * true * Date:? Generated for Cotyi coco/Jose Carlos/eTransmitting on:?07/13/2024 03:20 PM EST
--- OUTSIDE RECORDS SUMMARY | 2024-07-13 15:21 | XMS_ITS ---
[facility] [place] Address [address] [place] [address] Care Team Providers Care Claims Supervisor Name Role Phone Glen Jacobs MDneth Primary Care Provider Lori Jasmine Unavailable [phone] Allergies No Known Allergies REASON FOR VISIT Pcp- 09/12/23, Fungal Nails Medications Medication SIG (Take, Route, Frequency, Duration) Notes Start Date End Date Status Atorvastatin Calcium 10 MG 1 tablet Oral ly Once a day for 30 day(s) Active Ciclopirox 0.77 % 1 application Reel Repairer ally Twice a day for 365 days [...] 024 Encounters Encounter Location Date Provider Diagnosis [facility] [address] [place] [address] 09/12/2023 Lori Bacon Fungal infection of nail 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 Assessments Encounter Date Diagnosis (ICD Code) Assessment Notes Treatment Notes Treatment Clinical Notes Section Notes 09/12/2023 Fungal infection of nail (ICD-10 - B35.1) Rx management (4) Plan Of Treatment Medication Medication Name Sig Start Date Stop Date Notes Ciclopirox 0.77 % 1 application Reel Repairer ally Twice a day for 365 days Next Appt Details Follow Up: prn, Reason: Progress Notes * Nasir WHITEDOB:1980 (43 yo M)Acc No.[id number]:09/12/2023 Progress Note Patient:?Nasir White Provider:?Lori Bacon DPM :1980???Age:43 Y???Sex:Male Wolf e:09/12/2023 Address:[address] [place], [place] [id number] Pcp:Dwayne Jacobs MD Subjective: * Chief Complaints: [...] Bacon DPM Date:?05/2024 Generated for Jewel sepulveda/Jose Carlos/[place] on:?07/13/2024 03:21 PM EST History and Physical Notes * HPI [...]
--- OUTSIDE RECORDS SUMMARY | 2024-07-13 15:21 | XMS_ITS | Referral Summary ---
Author Organization [facility] Address [address] [place] [address] Care Team Providers Care Crossing Guard Name Role Phone Patient, Has No Pcp Or Ref Primary Care Provider Unavailable Encounters Date Type Department Care Team Description 05/31/2024 Telephone [facility] Transplant Department [address] [place] [address] [id number] Lori Mustafa, RN 05/27/2024 Telephone [facility] Transplant Department [address] [place] [address] 30780 Lori Mustafa, RN 05/11/2024 Telephone [facility] Transplant Department [address] [place] [address] 94825 Lori Mustafa, bank accountant - Kidney Txp 05/06/2024 11:15 AM EST Lab [facility] [place] [facility] Draw Site [address] [place] [address] Pre-transplant evaluation for end stage renal disease; Chronic kidney disease, stage IV (severe) (HCC) 05/06/2024 10:15 AM EST Social Work [facility] Renal Transplant [address] [place] [address] Cecelia Hinton LICSW 05/06/2024 9:30 AM EST Office Visit [facility] Renal Transplant [address] [place] [address] [phone] Tobi Pollard MD Pre-transplant evaluation for kidney transplant (Primary Dx); Pre-transplant evaluation for end stage renal disease; Stage 4 chronic kidney disease (HCC) 05/06/2024 8:15 AM EST Evaluation [facility] Renal Transplant [address] [place] [address] Lori Mustafa RN Pre-transplant evaluation for end stage renal disease (Primary Dx) 05/06/2024 8:00 AM EST Office Visit [facility] Renal Transplant [address] [place] [address] Shanon De Anda RN Pre-transplant evaluation for kidney transplant (Primary Dx) 05/03/2024 Telephone [facility] Transplant Department [address] [place] [address] Lori Mustafa RN 04/27/2024 Orders Only [facility] Transplant Department [address] [place] [address] 76275 Lori Mustafa RN Pre-transplant evaluation for end stage renal disease (Primary Dx); Chronic kidney disease, stage IV (severe) ([facility]) from Last 3 Months Allergies No [...] Info) Description 05/03/2025 10:00 AM EST Follow-Up [facility] Renal Transplant [address] [place] [address] Tobi Pollard MD [address] [place] [address] 05/03/2025 10:30 AM EST Social Work [facility] Renal Transplant [address] [place] [address] Cecelia Hinton LICSW [address] [place] [address] Procedures * Due to [place] state law, this organization might not be [...] IV (severe) (HCC) QUANTIFERON-TB GOLD PLUS, 1 [id number] Routine 05/06/2024 11:27 AM EST Pre-transplant evaluation for end stage renal disease Chronic kidney disease, stage IV (severe) (HCC) RPR (DIAGNOSIS) W/REFLEX TO TITER & TPPA [id number] Routine 05/06/2024 11:27 AM EST Pre-transplant evaluation for end stage renal disease Chronic kidney disease, stage IV (severe) (HCC) VARICELLA ZOSTER ANTIBODY, IGG Routine 05/06/2024 11:27 AM EST Pre-transplant evaluation for end stage renal disease Chronic kidney disease, stage IV (severe) (HCC) HLA TRANSPLANT WORK-UP (ALLELE LEVEL A/B/C/DRB1/TRJ096/DQA1/ DQB1/DPA1/DPB1) Routine 05/06/2024 11:27 AM EST Pre-transplant [...] CYSTATIN C WITH GLOMERULAR FILTRATION RATE, ESTIMATED (EGFR)-[id number] Routine 05/06/2024 11:27 AM EST Pre-transplant evaluation for end stage renal disease Chronic kidney disease, stage IV (severe) (HCC) from Last 3 Months Results * Due to [place] state law, this organization might not be sharing negative HIV tests. * HLA Transplan Work-Up(Allele Level A/B/C/DRB1/ATL732/DQA1/DQB1/DPA1/DPB1) (05/06/2024 11:27 AM EST) [facility] Histocompatibility Laboratory Information See Below 05/12/2024 3:59 PM EST [facility] Comment: ROMULO: ??[id number] ?Director: ??Magdalena Garcia MD. [facility] PFI: ??[id number] UNOS: ??[id number] This test [...] Edited Result - Final Performing Organization Address City/[facility]/ZIP Co de Phone Number [facility] [address] Rm: [phone] [place] [address], * (ABNORMAL) Cystatin C with Glomerular Filtration [...] ORDERABLES Monica l Result Performing Organization Address City/[facility]/ZIP Co de Phone Number [facility] (TARYN) [address] [place], [place] , [place] * MMR Panel, IgG (05/06/2024 11:27 AM EST) Measles Antibody (IgG), Immune Status 136.00 AU/mL 05/07/2024 5:47 AM EST [facility] Comment: AU/mL ?Interpretation ----- ? <13.50 ? Not consistent with immunity 13.50-16.49 ?Equivocal >16.49 ? Consistent with immunity The presence of measles IgG suggests immunization or past or current infection with measles virus. For additional information, please refer to http://education.OnVantage/faq/OFX361 (This link is being provided for informational/ educational purposes only.) Mumps Antibody (IgG), Immune Status 37.60 AU/mL 05/07/2024 5:47 AM EST [facility] Comment: AU/mL ? Interpretation ------- ? <9.00 ? Not consistent with immunity 9.00-10.99 ?Equivocal >10.99 ?Consistent with immunity The presence of mumps IgG antibody suggests immunization or past or current infection with mumps virus. Rubella Antibody (IgG), Immune Status 2.45 Index 05/07/2024 5:47 AM EST [facility] Comment: ?Index ?Interpretation ?----- ?<0.90 ?Not consistent [...] ORDERABLES Monica abernathy Result [facility] [address] [facility] 3rd Floor, [place] [address], [facility] [address], [address] [place] [address], * (ABNORMAL) Herpes Simplex Virus 1&2, IgG (05/06/2024 11:27 AM EST) HSV 1 IgG Type Specific Ab 5.17(H) index 05/07/2024 8:57 AM EST [facility] HSV 2 IgG Type Specific Ab <0.90 index 05/07/2024 8:57 AM EST [facility] Comment: ?Index ?Interpretation ?----- ?<0.90 ?Negative [...] screening. For additional information, please refer to http://education.BuzzDash.Chartboost/faq/ZRF162 (This link is being provided for informational/ educational purposes only.) ?? Blood Structure of peripheral vein / Unknown Venipuncture / Unknown 05/06/2024 11:27 AM EST 05/06/2024 11:42 AM EST [facility]ative [facility] 05/07/2024 8:57 AM EST [facility] Received Date: Tobi Pollard MD LAB BLOOD ORDERABLES Monica l Result [facility] [address] [facility] [address] [facility], [place] [address], [place] [phone] [facility] [address] [facility] 3rd Floor, [place] [address], [place] [phone] * RPR (Diagnosis) w/Reflex to Titer & TPPA Confirm (05/06/2024 11:27 AM EST) Pathologist [facility] RPR W/Refl Titer NON-REACT KISHA NON-REACT KISHA 05/08/2024 6:27 PM EST [facility] Blood Structure of peripheral vein / Unknown Venipuncture / Unknown 05/06/2024 11:27 AM EST 05/06/2024 11:42 AM EST [facility]ative [facility] - 05/08/2024 6:27 PM EST [facility] Received Date: Tobi Pollard MD LAB BLOOD ORDERABLES Monica l Result Performing Organization Address City/[facility]/ZIP Co de Phone Number [facility] [address] [facility] [address] [facility], [place] [address], [place] [phone] [facility] [address] [facility] [address] [facility], [place] [address], [place] [phone] * QuantiFERON-TB Gold Plus, 1 Tube (05/06/2024 11:27 AM EST) QuantiFERON-TB Gold Plus NEGATIVE NEGATIVE 05/08/2024 2:00 PM EST [facility] Comment: Negative test result. M. tuberculosis complex infection unlikely. NIL 0.04 IU/mL 05/08/2024 2:00 PM EST [facility] Mitogen-NIL 6.31 IU/mL 05/08/2024 2:00 PM EST [facility] TB1-NIL <0.00 IU/mL 05/08/2024 2:00 PM EST [facility] TB2-NIL 0.01 IU/mL 05/08/2024 2:00 PM EST [facility] Comment: The Nil tube value reflects [...] T-lymphocytes. For additional information, please refer to https://education.Uncovet/faq/VDN416 (This link is being provided for informational/ educational purposes only.) Blood Structure of peripheral vein / Unknown Venipuncture / Unknown 05/06/2024 11:27 AM EST 05/06/2024 11:39 AM EST [facility] 05/08/2024 2:00 PM EST [facility] Received Date: Tobi Pollard MD LAB BLOOD ORDERABLES Monica abernathy Result [facility] [address] [facility] 3rd Floor, [place] [address], [place] [phone] [facility] [address] [facility] 3rd Floor, [place] [address], * (ABNORMAL) CBC Auto Differential (05/06/2024 11:27 AM EST) WBC 8.1 3.8 - 10.8 10*3/uL 05/06/2024 11:51 AM EST [facility] RBC 4.64 4.20 - [...] - 7.80 10*3/uL 05/06/2024 11:51 AM EST [facility] Immature Grans # 0.04(H) <=0.03 10*3/uL 05/06/2024 11:51 AM EST [facility] Lymphocyte # 1.00 0.85 - 3.90 10*3/uL 05/06/2024 11:51 AM EST [facility] Monocyte # 0.30 0.20 - 0.95 10*3/uL 05/06/2024 11:51 AM EST [facility] Eosinophil # 0.10 0.02 - 0.50 10*3/uL 05/06/2024 11:51 AM EST [facility] Basophil # <0.03 0.00 - 0.20 10*3/uL 05/06/2024 11:51 AM EST [facility] nRBC % 0.0 /100 WBCs 05/06/2024 11:51 AM EST [facility] nRBC # <0.01 <0.01 10*3/uL 05/06/2024 11:51 AM EST [facility] Blood Structure of peripheral vein / Unknown Venipuncture / Unknown 05/06/2024 11:27 AM EST 05/06/2024 11:42 AM EST us Tobi Pollard MD LAB BLOOD ORDERABLES Monica l Result [facility] [address] [place] [address], * (ABNORMAL) Kendall-Llanos Virus VCA Antibody Panel (05/06/2024 11:27 AM EST) EBV Viral Capsid Ag Ab (IGM) <36.00 U/mL 05/07/2024 5:47 AM EST [facility] Comment: ?U/mL ?Interpretation ?---- ?<36.00 ?Negative ?36.00-43.99 ? Equivocal ?>43.99 ?Positive EBV Viral Capsid Ag Ab (IGG) >750.00(H) U/mL 05/07/2024 5:47 AM [employer] [facility] Comment: ? U/mL ? Interpretation ? ---- ? <18.00 ? Negative ? 18.00-21.99 ?Equivocal ? >21.99 ? Positive EBV Nuclear Ag Ab >600.00(H) U/mL 5:47 AM [employer] Comment: ? U/mL ? Interpretation ? ---- ? <18.00 ? Negative ? 18.00-21.99 ?Equivocal ? >21.99 ? 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 In infants, a similar pattern may occur as a result of passive maternal transfer of antibody. Blood Structure of peripheral vein / Unknown Venipuncture / Unknown 05/06/2024 11:27 AM EST 05/06/2024 11:42 AM EST Narrative [facility] - 05/07/2024 5:47 AM EST [facility] Received Date: Tobi Pollard MD LAB BLOOD ORDERABLES Monica l Result [facility] [address], [place] [address], [place] [phone] [facility] [address], [place] [address], * Hepatitis C Antibody w/Reflex to PCR (05/06/2024 11:27 AM EST) Hepatitis C Antibody NON-REACT KISHA NON-REACT KISHA 05/07/2024 3:30 AM EST [facility] Comment: HCV antibody was non-reactive. There is no laboratory evidence of HCV infection. In most cases, no further action is required. However, if recent HCV exposure is suspected, a test for HCV RNA (test code 94612) is suggested. For additional information please refer to http://education.Uncovet/faq/TIA62u6 (This link is being provided for informational/ educational purposes only.) Blood Structure of peripheral vein / Unknown Venipuncture / Unknown 05/06/2024 11:27 AM EST 05/06/2024 11:42 AM EST Narrative [facility] - 05/07/2024 3:30 AM EST [facility] Received Date: Tobi Pollard MD LAB BLOOD ORDERABLES Monica l Result [facility] [address], [place] [address], [place] [phone] [facility] [address], [place] [address], * Hepatitis A Antibody, Total (05/06/2024 11:27 AM EST) Hepatitis A Ab, Total NON-REACT KISHA NON-REACT KISHA 05/07/2024 8:31 AM EST [facility] Comment: For additional information, please refer to http://Navidog.Uncovet/faq/BDX107 (This link is being provided for informational/ educational purposes only.) Blood Structure of peripheral vein / Unknown Venipuncture / Unknown 05/06/2024 11:27 AM EST 05/06/2024 11:42 AM EST Narrative [facility] - 05/07/2024 8:31 AM EST [facility] Received Date: us Tobi Pollard MD LAB BLOOD ORDERABLES Monica l Result Performing Organization Address City/[facility]/ZIP Co de Phone Number [facility] [address] [facility] [address] [facility], [place] [address], [place] [phone] [employer] [address], [place] [address], [place] [phone] * Hepatitis B Core Antibody, Total (05/06/2024 11:27 AM EST) Hepatitis B Core Ab Total NON-REACT KISHA NON-REACT KISHA 05/07/2024 3:28 AM EST [facility] Comment: For additional information, please refer to http://Navidog.Uncovet/faq/IMD422 (This link is being provided for informational/ educational purposes only.) Blood Structure of peripheral vein / Unknown Venipuncture / Unknown 05/06/2024 11:27 AM EST 05/06/2024 11:42 AM EST Narrative [facility] - 05/07/2024 3:28 AM EST [facility] Received Date: us Tobi Pollard MD LAB BLOOD ORDERABLES Monica l Result [facility] [address] [facility] 3rd Floor, [place] [address], [place] [phone] [facility] [address] [facility] 3rd Floor, [place] [address], [place] [phone] * ABO/Rh Blood Type (05/06/2024 11:27 AM EST) ABO Blood Type A 05/06/2024 12:17 PM EST [facility] RH Type Positive 05/06/2024 12:17 PM EST [facility] Blood Structure of peripheral vein / Unknown Venipuncture / Unknown 05/06/2024 11:27 AM EST 05/06/2024 11:30 AM EST us Tobi Pollard MD LAB BLOOD BANK TEST ORDER LINH Final Result Performing Organization Address City/[facility]/ZIP Co de Phone Number BLOOD BANK INFCE [address] [place] [address], * (ABNORMAL) Hepatitis B Surface Antibody (05/06/2024 11:27 AM EST) Hepatitis B Surface Ab Immunity, Qn <5(L) > OR = 10 mIU/mL 05/07/2024 3:27 AM EST [facility] Comment: PATIENT DOES NOT HAVE IMMUNITY TO HEPATITIS B VIRUS. For additional information, please refer to http://education.Uncovet/faq/IJE183 (This link is being provided for informational/ educational purposes only). Blood Structure of peripheral vein / Unknown Venipuncture / Unknown 05/06/2024 11:27 AM EST 05/06/2024 11:42 AM EST [facility] - 05/07/2024 3:27 AM EST [facility] Received Date:[id number] us Tobi Pollard MD LAB BLOOD ORDERABLES Monica l Result [facility] [address] [facility] 3rd Floor, [place] [address], [place] [phone] [facility] [address] [facility] 3rd Floor, [place] [address], * Hepatitis B Surface Antigen w/Confirmation (05/06/2024 11:27 AM EST) Hepatitis B Surface Antigen NON-REACT KISHA NON-REACT KISHA 05/07/2024 3:55 AM EST [facility] Comment: For additional information, please refer to http://education.Uncovet/faq/ZFM237 (This link is being provided for informational/ educational purposes only.) Blood Structure of peripheral vein / Unknown Venipuncture / Unknown 05/06/2024 11:27 AM EST 05/06/2024 11:42 AM EST Narrative [facility] - 05/07/2024 3:55 AM EST [facility] Received Date: Tobi Pollard MD LAB BLOOD ORDERABLES Monica abernathy Result Performing Organization Address City/State/[facility] Co de Phone Number [facility] [address] [facility] [address] Floor, [place] [address], [facility] [address] [facility] 3rd Floor, [place] [address], * Cytomegalovirus Antibody, IgG (05/06/2024 11:27 AM EST) Pathologist [facility] Cytomegalovirus Antibody (IgG) <0.60 U/mL 05/07/2024 5:47 AM EST [facility] Comment: ? U/mL ? Interpretation ? ----- ? <0.60 ? Negative ? 0.60-0.69 ? Equivocal ? > or = 0.70 ?? Positive A positive result indicates that the patient has antibody to CMV. It does not differentiate between an active or past infection. Blood Structure of peripheral vein / Unknown Venipuncture / Unknown 05/06/2024 11:27 AM EST 05/06/2024 11:42 AM EST Narrative [facility] 05/07/2024 5:47 AM EST [facility] Received Date: Tobi Pollard MD LAB BLOOD ORDERABLES Monica l Result Performing Organization Address [facility] Co de Phone Number [facility] [address] [facility] [address] [facility], [place] [address], [facility] [address] [facility] [address] [facility], [place] [address], [place] [phone] * PTT (05/06/2024 11:27 AM EST) [facility] aPTT 25.4 23.0 - 32.0 Seconds 05/06/2024 12:09 PM EST [facility] Comment: Current PTT reagent is not sensitive to detect all Lupus Anticoagulant (LA) Inhibitor Cases. ?? If a LA is suspected, please order a Lupus Anticoagulation w/ Reflex Test which is performed at [facility] in [place], [place]. Blood Structure of peripheral vein / Unknown Venipuncture / Unknown 05/06/2024 11:27 AM EST 05/06/2024 11:42 AM EST Tobi Pollard MD LAB BLOOD ORDERABLES Monica l Result Performing Organization Address [facility] Co de Phone Number [facility] [address] [place] [address], * Protime-INR (05/06/2024 11:27 AM EST) Pathologist [facility] PT 9.6 9.6 - 12.4 Seconds 05/06/2024 12:09 PM EST [facility] LAB[facility] INR 0.9 0.9 - 1.1 05/06/2024 12:09 PM EST [facility] Comment:The optimal therapeu tic INR range for patients treated with Vitamin K antagonists (VKAS, e.g., Warfarin) is 2.0 to 3.5. Discuss the desired range with your doctor/care team. Blood Structure of peripheral vein / Unknown Venipuncture / Unknown 05/06/2024 11:27 AM EST 05/06/2024 11:42 AM EST Tobi Pollard MD LAB BLOOD ORDERABLES Monica abernathy Result [facility] LAB[facility] [address] [place] [address], * Varicella Zoster Antibody, IgG (05/06/2024 11:27 AM EST) Pathologist [facility] Varicella Zoster Virus Antibody 16.70 S/CO 05/07/2024 8:39 AM EST [facility] Comment: ?Signal to Cut-off ? S/CO ?Interpretation [...] AM EST 05/06/2024 11:42 AM EST Narrative [facility] 05/07/2024 8:39 AM EST [facility] Received Date: Tobi Pollard MD LAB BLOOD ORDERABLES Monica l Result [facility] [address] [facility] 3rd Floor, [place] [address], [place] [phone] [facility] [address] [facility] [address] [facility], [place] [address], [place] [phone] * (ABNORMAL) BUN (05/06/2024 11:27 AM EST) BUN 49(H) 7 - 23 mg/dL 05/06/2024 12:13 PM EST [facility] Blood Structure of peripheral vein / Unknown Venipuncture / Unknown 05/06/2024 11:27 AM EST 05/06/2024 11:42 AM EST Tobi Pollard MD LAB BLOOD ORDERABLES Monica l Result [facility] [address] [place] [address], * ALT (05/06/2024 11:27 AM EST) ALT 16 10 - 40 U/L 05/06/2024 12:13 PM EST [facility] Blood Structure of peripheral vein / Unknown Venipuncture / Unknown 05/06/2024 11:27 AM EST 05/06/2024 11:42 AM EST Tobi Pollard MD LAB BLOOD ORDERABLES Monica l Result Performing Organization Address City/[facility]/ZIP Co de Phone Number [facility] [address] [place] [address], * AST (05/06/2024 11:27 AM EST) AST 18 10 - 40 U/L 05/06/2024 12:13 PM EST [facility] Blood Structure of peripheral vein / Unknown Venipuncture / Unknown 05/06/2024 11:27 AM EST 05/06/2024 11:42 AM EST Tobi Pollard MD LAB BLOOD ORDERABLES Monica l Result Performing Organization Address [facility] Co de Phone Number [facility] [address] [place] [address], * Phosphorus (05/06/2024 11:27 AM EST) Phosphorus 3.8 2.5 - 4.5 mg/dL 05/06/2024 12:13 PM EST [facility] Blood Structure of peripheral vein / Unknown Venipuncture / Unknown 05/06/2024 11:27 AM EST 05/06/2024 11:42 AM EST Tobi Pollard MD LAB BLOOD ORDERABLES Monica l Result Performing Organization Address [facility] Co de Phone Number [facility] [address] [place] [address], * (ABNORMAL) Creatinine (05/06/2024 11:27 AM EST) Creatinine 5.03(H) 0.60 - 1.30 mg/dL 05/06/2024 12:13 PM EST [facility] eGFR 14(L) >=60 mL/min/1 .73m2 05/06/2024 12:13 PM EST [facility] Comment:The estimated glomer ular [...] ORDERABLES Monica l Result Performing Organization Address City/[facility]/ZIP Co de Phone Number [facility] [address] [place] [address], * Calcium (05/06/2024 11:27 AM EST) Calcium 9.5 8.6 - 10.5 mg/dL 05/06/2024 12:13 PM EST [facility] Blood Structure of peripheral vein / Unknown Venipuncture / Unknown 05/06/2024 11:27 AM EST 05/06/2024 11:42 AM EST Tobi Pollard MD LAB BLOOD ORDERABLES Monica l Result [facility] [address] [place] [address], * Bilirubin, Direct (05/06/2024 11:27 AM EST) Bilirubin, Direct 0.1 <=0.4 mg/dL 05/06/2024 12:13 PM EST [facility] Blood Structure of peripheral vein / Unknown Venipuncture / Unknown 05/06/2024 11:27 AM EST 05/06/2024 11:42 AM EST Tobi Pollard MD LAB BLOOD ORDERABLES Monica l Result [facility] [address] [place] [address] * Bilirubin, Total (05/06/2024 11:27 AM EST) Bilirubin, Total 0.3 0.2 - 1.2 mg/dL 05/06/2024 12:13 PM EST [facility] Blood Structure of peripheral vein / Unknown Venipuncture / Unknown 05/06/2024 11:27 AM EST 05/06/2024 11:42 AM EST Tobi Pollard MD LAB BLOOD ORDERABLES Monica l Result Performing Organization Address City/[facility]/ZIP Co de Phone Number [facility] [address] [place] [address], * Albumin (05/06/2024 11:27 AM EST) Albumin 4.3 3.5 - 5.2 g/dL 05/06/2024 12:13 PM EST [facility] Blood Structure of peripheral vein / Unknown Venipuncture / Unknown 05/06/2024 11:27 AM EST 05/06/2024 11:42 AM EST Tobi Pollard MD LAB BLOOD ORDERABLES Monica l Result [facility] [address] [place] [address], from Last 3 Months Insurance [employer] Advance Directives Documents on File Type Date Recorded Patient Horse Trainer Expl anation Health Care Proxy 05/11/2024 1:39 PM 12-0 Care Teams Crossing Guard Relationship Specialty Start Date End Date Patient, Has No Pcp Or Ref DO NOT EDIT THIS RECORD VIA PROVIDER ON THE FLY PCP - General Pathology Assistant 05/06/24
--- OUTSIDE RECORDS SUMMARY | 2024-07-13 15:21 | XMS_ITS ---
Author Organization [facility] Address [address] [place] [address] Care Team Providers Care Apricot Washer Name Role Phone Patient, Has No Pcp Or Ref Primary Care Provider Unavailable Transplant Episode Kidney Candidate [facility] ([place], [place]) - [facility] Evaluation began on 05/06/2024 Marked as Active on 05/06/2024 Kidney CoordinatorLori Mustafa RN Email: N/A Scores Score Value Updated Exceptions/Reas ons CPRA Not available EPTS (Calc) 10 07/13/2024 [facility] Organ Diagnosis Organ Primary Contributory Kidney Hypertensive Nephrosclerosis Care Team Name Role Phone Fax Email Lori Mustafa RN Kidney Coordinator [phone] N/A David Antonio Referring Physician [phone] N/A Events Pre-Transplant Referred: 04/15/2024 Evaluation began: 05/06/2024
== END 2024-07-13 15:33 | disposition home or self-care (01) ==
PROVIDERS: PCP Internal Medicine
DX: H57.89 Other specified disorders of eye and adnexa (principal); H04.201 Unspecified epiphora, right side; R06.7 Sneezing; R09.81 Nasal congestion; I10 Essential (primary) hypertension

== ENCOUNTER 2024-07-13 15:37 | Outpatient (REF) | payer OTHER, SELFPAY ==
--- OUTSIDE RECORDS SUMMARY | 2024-07-13 16:13 | XMS_ITS | Clinical Summary ---
Author Organization [facility] Address [address] [facility] [place] [address] Phone Care Team Providers Care Motocross Racer Name Role Phone Dwayne Jacobs MD Primary Care Provider [phone] Allergies No known active allergies Medications omega-3 [...] Insurance COMPREHENSIVE BENEFITS COMPREHENSIVE BENEFITS Care Teams Motocross Racer Relationship Specialty Start Date End Date Dwayne Jacobs MD [address] [place] [address] [address] [place] [address] PCP - General 06/12/20
--- OUTSIDE RECORDS SUMMARY | 2024-07-13 16:13 | XMS_ITS ---
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
--- OUTSIDE RECORDS SUMMARY | 2024-07-13 16:13 | XMS_ITS | Referral Summary ---
Author Organization [facility] Address [address] [place] [address] Care Team Providers Care Nougat Cutter Machine Name Role Phone Patient, Has No Pcp Or Ref Primary Care Provider Unavailable Encounters Date Type Department Care Team Description 05/31/2024 Telephone [facility] Transplant Department [address] [place] [address] [phone] Lori Mustafa, RN 05/27/2024 Telephone [facility] Transplant Department [address] [place] [address] 83014 Lori Mustafa, RN 05/11/2024 Telephone [facility] Transplant Department [address] [place] [address] 26505 Lori Mutsafa, raise driller - Kidney Txp 05/06/2024 11:15 AM EST Lab [facility] Draw Site [address] [place] [address] Pre-transplant evaluation for end stage renal disease; Chronic kidney disease, stage IV (severe) (HCC) 05/06/2024 10:15 AM EST Social Work [facility] Renal Transplant [address] [place] [address] 73293 Cecelia Hinton LICSW 05/06/2024 9:30 AM EST Office Visit [facility] Renal Transplant [address] [place] [address] [phone] Tobi Pollard MD Pre-transplant evaluation for kidney transplant (Primary Dx); Pre-transplant evaluation for end stage renal disease; Stage 4 chronic kidney disease (HCC) 05/06/2024 8:15 AM EST Evaluation [facility] Renal Transplant [address] [place] [address] Lori Mustafa RN Pre-transplant evaluation for end stage renal disease (Primary Dx) 05/06/2024 8:00 AM EST Office Visit [facility] Renal Transplant [address] [place] [address] Shanon De Anda RN Pre-transplant evaluation for kidney transplant (Primary Dx) 05/03/2024 Telephone [facility] Transplant Department [address] [place] [address] Lori Mustafa RN 04/27/2024 Orders Only [facility] Transplant Department [address] [place] [address] [phone] Lori Mustafa RN Pre-transplant evaluation for end stage renal disease (Primary Dx); Chronic kidney disease, stage IV (severe) ([facility]) from Last 3 Months Allergies No known [...] Description 05/03/2025 10:00 AM EST Follow-Up [facility] Renal Transplant [address] [place] [address] Tobi Pollard MD [address] [place] [address] 05/03/2025 10:30 AM EST Social Work [facility] Renal Transplant [address] [place] [address] Cecelia Hinton LICSW [address] [place] [address] Procedures * Due to [place] state law, this organization might not be [...] IV (severe) (HCC) QUANTIFERON-TB GOLD PLUS, 1 [id number] Routine 05/06/2024 11:27 AM EST Pre-transplant evaluation for end stage renal disease Chronic kidney disease, stage IV (severe) (HCC) RPR (DIAGNOSIS) W/REFLEX TO TITER & TPPA [id number] Routine 05/06/2024 11:27 AM EST Pre-transplant evaluation for end stage renal disease Chronic kidney disease, stage IV (severe) (HCC) VARICELLA ZOSTER ANTIBODY, IGG Routine 05/06/2024 11:27 AM EST Pre-transplant evaluation for end stage renal disease Chronic kidney disease, stage IV (severe) (HCC) HLA TRANSPLANT WORK-UP (ALLELE LEVEL A/B/C/DRB1/SSU851/DQA1/ DQB1/DPA1/DPB1) Routine 05/06/2024 11:27 AM EST Pre-transplant [...] CYSTATIN C WITH GLOMERULAR FILTRATION RATE, ESTIMATED (EGFR)-[id number] Routine 05/06/2024 11:27 AM EST Pre-transplant evaluation for end stage renal disease Chronic kidney disease, stage IV (severe) (HCC) from Last 3 Months Results * Due to [place] state law, this organization might not be sharing negative HIV tests. * HLA Transplan Work-Up(Allele Level A/B/C/DRB1/ZMS312/DQA1/DQB1/DPA1/DPB1) (05/06/2024 11:27 AM EST) [facility] Histocompatibility Laboratory Information See Below 05/12/2024 3:59 PM EST [facility] Comment: ROMULO: ??[id number] ?Director: ??Magdalena Garcia MD. [facility] [...] Edited Result - Final Performing Organization Address City/[facility]/ZIP Co de Phone Number [address] [address] [facility] Rm: [phone] [place] [address], * (ABNORMAL) Cystatin C with Glomerular Filtration [...] ORDERABLES Monica l Result Performing Organization Address City/[facility]/ZIP Co de Phone Number GENEVA DE LA CRUZ (TARYN) [address] [place], [place] , [place] * MMR Panel, IgG (05/06/2024 11:27 AM EST) Measles Antibody (IgG), Immune Status 136.00 AU/mL 05/07/2024 5:47 AM EST [facility] Comment: AU/mL ?Interpretation ----- ? <13.50 ? Not consistent with immunity 13.50-16.49 ?Equivocal >16.49 ? Consistent with immunity The presence of measles IgG suggests immunization or past or current infection with measles virus. For additional information, please refer to http://education.Financetesetudes/faq/TWY202 (This link is being provided for informational/ educational purposes only.) Mumps Antibody (IgG), Immune Status 37.60 AU/mL 05/07/2024 5:47 AM EST [facility] Comment: AU/mL ? Interpretation ------- ? <9.00 ? Not consistent with immunity 9.00-10.99 ?Equivocal >10.99 ?Consistent with immunity The presence of mumps IgG antibody suggests immunization or past or current infection with mumps virus. Rubella Antibody (IgG), Immune Status 2.45 Index 05/07/2024 5:47 AM EST [facility] Comment: ?Index ?Interpretation ?----- ?<0.90 ?Not consistent [...] [facility] 3rd Floor, [place] [address], [facility] [address], [address] [place] [address], * (ABNORMAL) Herpes Simplex Virus 1&2, IgG (05/06/2024 11:27 AM EST) HSV 1 IgG Type Specific Ab 5.17(H) index 05/07/2024 8:57 AM EST [facility] HSV 2 IgG Type Specific Ab <0.90 index 05/07/2024 8:57 AM EST [facility] Comment: ?Index ?Interpretation ?----- ?<0.90 ?Negative ?0.90-1.09 [...] screening. For additional information, please refer to http://education.Boxfish.Deposco/faq/XLB899 (This link is being provided for informational/ educational purposes only.) ?? Blood Structure of peripheral vein / Unknown Venipuncture / Unknown 05/06/2024 11:27 AM EST 05/06/2024 11:42 AM EST [facility]ative [facility] 05/07/2024 8:57 AM EST [facility] Received Date: Tobi Pollard MD LAB BLOOD ORDERABLES Monica l Result [facility]EVA TACOMA [address] [facility] [address] [facility], [place] [address], [place] [phone] [employer] [facility] 200 [facility] 3rd Floor, [place] [address], [place] [phone] * RPR (Diagnosis) w/Reflex to Titer & TPPA Confirm (05/06/2024 11:27 AM EST) Pathologist [facility] RPR W/Refl Titer NON-REACT KISHA NON-REACT KISHA 05/08/2024 6:27 PM EST [employer] [facility] Blood Structure of peripheral vein / Unknown Venipuncture / Unknown 05/06/2024 11:27 AM EST 05/06/2024 11:42 AM EST N[facility]ative [facility] 05/08/2024 6:27 PM EST [facility] Received Date: Tobi Pollard MD LAB BLOOD ORDERABLES Monica l Result Performing Organization Address City/[facility]/ZIP Co de Phone Number [facility] TACOMA [address] [facility] [address] [facility], [place] [address], [place] [phone] [employer] [facility] 200 [facility] [address] [facility], [place] [address], [place] [phone] * QuantiFERON-TB Gold Plus, 1 Tube (05/06/2024 11:27 AM EST) QuantiFERON-TB Gold Plus NEGATIVE NEGATIVE 05/08/2024 2:00 PM EST [employer] [facility] Comment: Negative test result. M. tuberculosis complex infection unlikely. NIL 0.04 IU/mL 05/08/2024 2:00 PM EST [employer] [facility] Mitogen-NIL 6.31 IU/mL 05/08/2024 2:00 PM EST [facility] TB1-NIL <0.00 IU/mL 05/08/2024 2:00 PM EST [facility] TB2-NIL 0.01 IU/mL 05/08/2024 2:00 PM EST [facility] Comment: The Nil tube value reflects the [...] T-lymphocytes. For additional information, please refer to https://education.AtriCure/faq/TNN320 (This link is being provided for informational/ educational purposes only.) Blood Structure of peripheral vein / Unknown Venipuncture / Unknown 05/06/2024 11:27 AM EST 05/06/2024 11:39 AM EST [facility] 05/08/2024 2:00 PM EST [facility] Received Date: Tobi Pollard MD LAB BLOOD ORDERABLES Monica abernathy Result [facility]ACOMA [address] [facility] 3rd Floor, [place] [address], [place] [phone] [employer] [facility] 200 [facility] 3rd Floor, [place] [address], * (ABNORMAL) CBC Auto Differential (05/06/2024 11:27 AM EST) WBC 8.1 3.8 - 10.8 10*3/uL 05/06/2024 11:51 AM EST [facility] RBC 4.64 4.20 - [...] - 7.80 10*3/uL 05/06/2024 11:51 AM EST [facility] Immature Grans # 0.04(H) <=0.03 10*3/uL 05/06/2024 11:51 AM EST [facility] Lymphocyte # 1.00 0.85 - 3.90 10*3/uL 05/06/2024 11:51 AM EST [facility] Monocyte # 0.30 0.20 - 0.95 10*3/uL 05/06/2024 11:51 AM EST [facility] Eosinophil # 0.10 0.02 - 0.50 10*3/uL 05/06/2024 11:51 AM EST [facility] Basophil # <0.03 0.00 - 0.20 10*3/uL 05/06/2024 11:51 AM EST [facility] nRBC % 0.0 /100 WBCs 05/06/2024 11:51 AM EST [facility] [facility] nRBC # <0.01 <0.01 10*3/uL 05/06/2024 11:51 AM EST [facility] Blood Structure of peripheral vein / Unknown Venipuncture / Unknown 05/06/2024 11:27 AM EST 05/06/2024 11:42 AM EST us Tobi Pollard MD LAB BLOOD ORDERABLES Monica l Result [facility] [address] [place] [address], * (ABNORMAL) Kendall-Llanos Virus VCA Antibody Panel (05/06/2024 11:27 AM EST) EBV Viral Capsid Ag Ab (IGM) <36.00 U/mL 05/07/2024 5:47 AM EST [facility] Comment: ?U/mL ?Interpretation ?---- ?<36.00 ?Negative ?36.00-43.99 ? Equivocal ?>43.99 ?Positive EBV Viral Capsid Ag Ab (IGG) >750.00(H) U/mL 05/07/2024 5:47 AM [facility] Comment: ? U/mL ? Interpretation ? ---- ? <18.00 ? Negative ? 18.00-21.99 ?Equivocal ? >21.99 ? Positive EBV Nuclear Ag Ab >600.00(H) U/mL 5:47 AM [facility] Comment: ? U/mL ? Interpretation ? ---- ? <18.00 ? Negative ? 18.00-21.99 ?Equivocal ? >21.99 ? 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 In infants, a similar pattern may occur as a result of passive maternal transfer of antibody. Blood Structure of peripheral vein / Unknown Venipuncture / Unknown 05/06/2024 11:27 AM EST 05/06/2024 11:42 AM EST Narrative [facility] RUPERT - 05/07/2024 5:47 AM EST [facility] Received Date: Tobi Pollard MD LAB BLOOD ORDERABLES Monica l Result [facility] [address], [place] [address], [place] [phone] [facility] [address], [place] [address], * Hepatitis C Antibody w/Reflex to PCR (05/06/2024 11:27 AM EST) Hepatitis C Antibody NON-REACT KISHA NON-REACT KISHA 05/07/2024 3:30 AM EST [employer] [facility] Comment: HCV antibody was non-reactive. There is no laboratory evidence of HCV infection. In most cases, no further action is required. However, if recent HCV exposure is suspected, a test for HCV RNA (test code 27080) is suggested. For additional information please refer to http://education.AtriCure/faq/CKJ09q8 (This link is being provided for informational/ educational purposes only.) Blood Structure of peripheral vein / Unknown Venipuncture / Unknown 05/06/2024 11:27 AM EST 05/06/2024 11:42 AM EST Narrative [facility] RUPERT - 05/07/2024 3:30 AM EST [facility] Received Date: Tobi Pollard MD LAB BLOOD ORDERABLES Monica l Result [facility] [address], [place] [address], [place] [phone] [facility] [address], [place] [address], * Hepatitis A Antibody, Total (05/06/2024 11:27 AM EST) Hepatitis A Ab, Total NON-REACT KISHA NON-REACT KISHA 05/07/2024 8:31 AM EST [employer] [facility] Comment: For additional information, please refer to http://Publicate.AtriCure/faq/KYA229 (This link is being provided for informational/ educational purposes only.) Blood Structure of peripheral vein / Unknown Venipuncture / Unknown 05/06/2024 11:27 AM EST 05/06/2024 11:42 AM EST Narrative [facility] - 05/07/2024 8:31 AM EST [facility] Received Date: us Tobi Pollard MD LAB BLOOD ORDERABLES Monica l Result Performing Organization Address City/[facility]/ZIP Co de Phone Number [facility] TACOMA [address] [facility] [address] [facility], [place] [address], [place] [phone] [facility] [address], [place] [address], [place] [phone] * Hepatitis B Core Antibody, Total (05/06/2024 11:27 AM EST) Hepatitis B Core Ab Total NON-REACT KISHA NON-REACT KISHA 05/07/2024 3:28 AM EST [employer] [facility] Comment: For additional information, please refer to http://Publicate.AtriCure/faq/TCK387 (This link is being provided for informational/ educational purposes only.) Blood Structure of peripheral vein / Unknown Venipuncture / Unknown 05/06/2024 11:27 AM EST 05/06/2024 11:42 AM EST Narrative [facility] - 05/07/2024 3:28 AM EST [facility] Received Date: us Tobi Pollard MD LAB BLOOD ORDERABLES Monica l Result [facility] [address] [facility] 3rd Floor, [place] [address], [place] [phone] [facility] [address] [facility] 3rd Floor, [place] [address], [place] [phone] * ABO/Rh Blood Type (05/06/2024 11:27 AM EST) ABO Blood Type A 05/06/2024 12:17 PM EST [facility] RH Type Positive 05/06/2024 12:17 PM EST [facility] Blood Structure of peripheral vein / Unknown Venipuncture / Unknown 05/06/2024 11:27 AM EST 05/06/2024 11:30 AM EST us Tobi Pollard MD LAB BLOOD BANK TEST ORDER LINH Final Result Performing Organization Address City/[facility]/ZIP Co de Phone Number [facility]LO[facility] INFCE [address] [place] [address], * (ABNORMAL) Hepatitis B Surface Antibody (05/06/2024 11:27 AM EST) Hepatitis B Surface Ab Immunity, Qn <5(L) > OR = 10 mIU/mL 05/07/2024 3:27 AM EST [facility] Comment: PATIENT DOES NOT HAVE IMMUNITY TO HEPATITIS B VIRUS. For additional information, please refer to http://education.AtriCure/faq/WZT172 (This link is being provided for informational/ educational purposes only). Blood Structure of peripheral vein / Unknown Venipuncture / Unknown 05/06/2024 11:27 AM EST 05/06/2024 11:42 AM EST Narrative [facility] - 05/07/2024 3:27 AM EST [facility] Received Date:[id number] us Tobi Pollard MD LAB BLOOD ORDERABLES Monica l Result [facility] [address] [facility] 3rd Floor, [place] [address], [place] [phone] [employer] [facility] 200 [facility] 3rd Floor, [place] [address], * Hepatitis B Surface Antigen w/Confirmation (05/06/2024 11:27 AM EST) Hepatitis B Surface Antigen NON-REACT KISHA NON-REACT KISHA 05/07/2024 3:55 AM EST [facility] Comment: For additional information, please refer to http://education.AtriCure/faq/VZB821 (This link is being provided for informational/ educational purposes only.) Blood Structure of peripheral vein / Unknown Venipuncture / Unknown 05/06/2024 11:27 AM EST 05/06/2024 11:42 AM EST Narrative [facility] - 05/07/2024 3:55 AM EST [facility] Received Date: Tobi Pollard MD LAB BLOOD ORDERABLES Monica abernathy Result Performing Organization Address City/State/[facility] Co de Phone Number [facility] [address] [facility] 3rd Floor, [place] [address], [employer] [facility] 200 [facility] 3rd Floor, [place] [address], * Cytomegalovirus Antibody, IgG (05/06/2024 11:27 AM EST) Pathologist [facility] Cytomegalovirus Antibody (IgG) <0.60 U/mL 05/07/2024 5:47 AM EST [facility] Comment: ? U/mL ? Interpretation ? ----- ? <0.60 ? Negative ? 0.60-0.69 ? Equivocal ? > or = 0.70 ?? Positive A positive result indicates that the patient has antibody to CMV. It does not differentiate between an active or past infection. Blood Structure of peripheral vein / Unknown Venipuncture / Unknown 05/06/2024 11:27 AM EST 05/06/2024 11:42 AM EST Narrative [facility] 05/07/2024 5:47 AM EST [facility] Received Date: Tobi Pollard MD LAB BLOOD ORDERABLES Monica l Result Performing Organization Address [facility] Co de Phone Number [facility] [address] [facility] [address] [facility], [place] [address], [employer] [facility] [address] [facility] [address] [facility], [place] [address], [place] [phone] * PTT (05/06/2024 11:27 AM EST) [facility] aPTT 25.4 23.0 - 32.0 Seconds 05/06/2024 12:09 PM EST [facility] Comment: Current PTT reagent is not sensitive to detect all Lupus Anticoagulant (LA) Inhibitor Cases. ?? If a LA is suspected, please order a Lupus Anticoagulation w/ Reflex Test which is performed at [facility] in [place], [place]. Blood Structure of peripheral vein / Unknown Venipuncture / Unknown 05/06/2024 11:27 AM EST 05/06/2024 11:42 AM EST Tobi Pollard MD LAB BLOOD ORDERABLES Monica l Result Performing Organization Address [facility] Co de Phone Number [facility] [facility] [address] [place] [address], * Protime-INR (05/06/2024 11:27 AM EST) Pathologist [facility] PT 9.6 9.6 - 12.4 Seconds 05/06/2024 12:09 PM EST [facility] INR 0.9 0.9 - 1.1 05/06/2024 12:09 PM EST [facility] Comment:The optimal therapeu tic INR range for patients treated with Vitamin K antagonists (VKAS, e.g., Warfarin) is 2.0 to 3.5. Discuss the desired range with your doctor/care team. Blood Structure of peripheral vein / Unknown Venipuncture / Unknown 05/06/2024 11:27 AM EST 05/06/2024 11:42 AM EST Tobi Pollard MD LAB BLOOD ORDERABLES Monica abernathy Result [facility] [address] [place] [address], * Varicella Zoster Antibody, IgG (05/06/2024 11:27 AM EST) Pathologist [facility] Varicella Zoster Virus Antibody 16.70 S/CO 05/07/2024 8:39 AM EST [facility] Comment: ?Signal to Cut-off ? S/CO ?Interpretation [...] AM EST 05/06/2024 11:42 AM EST Narrative [facility] 05/07/2024 8:39 AM EST [facility] Received Date: Tobi Pollard MD LAB BLOOD ORDERABLES Monica l Result [facility] [address] [facility] 3rd Floor, [place] [address], [place] [phone] [employer] [facility] [address] [facility] [address] [facility], [place] [address], [place] [phone] * (ABNORMAL) BUN (05/06/2024 11:27 AM EST) BUN 49(H) 7 - 23 mg/dL 05/06/2024 12:13 PM EST [facility] Blood Structure of peripheral vein / Unknown Venipuncture / Unknown 05/06/2024 11:27 AM EST 05/06/2024 11:42 AM EST Tobi Pollard MD LAB BLOOD ORDERABLES Monica l Result [facility] [address] [place] [address], * ALT (05/06/2024 11:27 AM EST) ALT 16 10 - 40 U/L 05/06/2024 12:13 PM EST [facility] Blood Structure of peripheral vein / Unknown Venipuncture / Unknown 05/06/2024 11:27 AM EST 05/06/2024 11:42 AM EST Tobi Pollard MD LAB BLOOD ORDERABLES Monica l Result Performing Organization Address City/[facility]/ZIP Co de Phone Number [facility] [address] [place] [address], * AST (05/06/2024 11:27 AM EST) AST 18 10 - 40 U/L 05/06/2024 12:13 PM EST [facility] Blood Structure of peripheral vein / Unknown Venipuncture / Unknown 05/06/2024 11:27 AM EST 05/06/2024 11:42 AM EST Tobi Pollard MD LAB BLOOD ORDERABLES Monica l Result Performing Organization Address [facility] Co de Phone Number [facility] [address] [place] [address], * Phosphorus (05/06/2024 11:27 AM EST) Phosphorus 3.8 2.5 - 4.5 mg/dL 05/06/2024 12:13 PM EST [facility] Blood Structure of peripheral vein / Unknown Venipuncture / Unknown 05/06/2024 11:27 AM EST 05/06/2024 11:42 AM EST Tobi Pollard MD LAB BLOOD ORDERABLES Monica l Result Performing Organization Address [facility] Co de Phone Number [facility] [address] [place] [address], * (ABNORMAL) Creatinine (05/06/2024 11:27 AM EST) Creatinine 5.03(H) 0.60 - 1.30 mg/dL 05/06/2024 12:13 PM EST [facility] eGFR 14(L) >=60 mL/min/1 .73m2 05/06/2024 12:13 PM EST [facility] Comment:The estimated glomer ular [...] ORDERABLES Monica l Result Performing Organization Address City/[facility]/ZIP Co de Phone Number [facility] [address] [place] [address], * Calcium (05/06/2024 11:27 AM EST) Calcium 9.5 8.6 - 10.5 mg/dL 05/06/2024 12:13 PM EST [facility] Blood Structure of peripheral vein / Unknown Venipuncture / Unknown 05/06/2024 11:27 AM EST 05/06/2024 11:42 AM EST Tobi Pollard MD LAB BLOOD ORDERABLES Monica l Result [facility] [address] [place] [address], * Bilirubin, Direct (05/06/2024 11:27 AM EST) Bilirubin, Direct 0.1 <=0.4 mg/dL 05/06/2024 12:13 PM EST [facility] Blood Structure of peripheral vein / Unknown Venipuncture / Unknown 05/06/2024 11:27 AM EST 05/06/2024 11:42 AM EST Tobi Pollard MD LAB BLOOD ORDERABLES Monica l Result [facility] [address] [place] [address] * Bilirubin, Total (05/06/2024 11:27 AM EST) Bilirubin, Total 0.3 0.2 - 1.2 mg/dL 05/06/2024 12:13 PM EST [facility] Blood Structure of peripheral vein / Unknown Venipuncture / Unknown 05/06/2024 11:27 AM EST 05/06/2024 11:42 AM EST Tobi Pollard MD LAB BLOOD ORDERABLES Monica l Result Performing Organization Address City/[facility]/ZIP Co de Phone Number [facility] [address] [place] [address], * Albumin (05/06/2024 11:27 AM EST) Albumin 4.3 3.5 - 5.2 g/dL 05/06/2024 12:13 PM EST [facility] Blood Structure of peripheral vein / Unknown Venipuncture / Unknown 05/06/2024 11:27 AM EST 05/06/2024 11:42 AM EST Tobi Pollard MD LAB BLOOD ORDERABLES Monica l Result [facility] [address] [place] [address], from Last 3 Months Insurance [employer] Advance Directives Documents on File Type Date Recorded Patient Cigar Head Stringer Expl anation Health Care Proxy 05/11/2024 1:39 PM 12-0 Care Teams Nougat Cutter Machine Relationship Specialty Start Date End Date Patient, Has No Pcp Or Ref DO NOT EDIT THIS RECORD VIA PROVIDER ON THE FLY PCP - General 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
--- OUTSIDE RECORDS SUMMARY | 2024-07-13 16:14 | XMS_ITS | Clinical Summary ---
Author Organization [facility] Address [address] [place] [address] Care Team Providers Care Neonatal Intensive Care Nurse Name Role Phone Patient, Has No Pcp [...] Type Department Care Team Description 05/31/2024 Telephone [facility] Transplant Department [address] [place] [address] Lori Mustafa RN 05/27/2024 Telephone [facility] Transplant Department [address] [place] [address] Lori Mustafa RN 05/11/2024 Telephone [facility] Transplant Department [address] [place] [address] Lori Mustafa, zipper lining folder - Kidney Txp 05/06/2024 11:15 AM EST Lab [facility] [place] Lab Draw Site [address] [place] [address] Pre-transplant evaluation for end stage renal disease; Chronic kidney disease, stage IV (severe) ([facility]) 05/06/2024 10:15 AM EST Social Work [facility] Renal Transplant [address] [place] [address] Cecelia Hinton LICSW 05/06/2024 9:30 AM EST Office Visit [facility] Renal Transplant [address] [place] [address] Tobi Pollard MD Pre-transplant evaluation for kidney transplant (Primary Dx); Pre-transplant evaluation for end stage renal disease; Stage 4 chronic kidney disease (HCC) 05/06/2024 8:15 AM EST Evaluation [facility] Renal Transplant [address] [place] [address] Lori Mustafa, DU Pre-transplant evaluation for end stage renal disease (Primary Dx) 05/06/2024 8:00 AM EST Office Visit [facility] Renal Transplant [address] [place] [address] Shanon De Anda RN Pre-transplant evaluation for kidney transplant (Primary Dx) 05/03/2024 Telephone [facility] Transplant Department [address] [place] [address] Lori Mustafa, DU 04/27/2024 Orders Only [facility] Transplant Department [address] [place] [address] Lori Mustafa, DU Pre-transplant evaluation for end [...] Info) Description 05/03/2025 10:00 AM EST Follow-Up [facility] Renal Transplant [address] [place] [address] Tobi Pollard MD [address] [place] [address] 05/03/2025 10:30 AM EST Social Work [facility] Renal Transplant [address] [place] [address] Cecelia Hinton LICSW [address] [place] [address] Health Maintenance Due Date Last Done Comments [...] complete this topic Procedures * Due to [place] state law, this organization might not be [...] IV (severe) (HCC) QUANTIFERON-TB GOLD PLUS, 1 [id number] Routine 05/06/2024 11:27 AM EST Pre-transplant evaluation for end stage renal disease Chronic kidney disease, stage IV (severe) (HCC) RPR (DIAGNOSIS) W/REFLEX TO TITER & TPPA [id number] Routine 05/06/2024 11:27 AM EST Pre-transplant evaluation for end stage renal disease Chronic kidney disease, stage IV (severe) (HCC) VARICELLA ZOSTER ANTIBODY, IGG Routine 05/06/2024 11:27 AM EST Pre-transplant evaluation for end stage renal disease Chronic kidney disease, stage IV (severe) (HCC) HLA TRANSPLANT WORK-UP (ALLELE LEVEL A/B/C/DRB1/DNK877/DQA1/ DQB1/DPA1/DPB1) Routine 05/06/2024 11:27 AM EST Pre-transplant [...] CYSTATIN C WITH GLOMERULAR FILTRATION RATE, ESTIMATED (EGFR)-[id number] Routine 05/06/2024 11:27 AM EST Pre-transplant evaluation for end stage renal disease Chronic kidney disease, stage IV (severe) (HCC) from Last 3 Months Results * Due to [place] state law, this organization might not be sharing negative HIV tests. * HLA Transplan Work-Up(Allele Level A/B/C/DRB1/MVV845/DQA1/DQB1/DPA1/DPB1) (05/06/2024 11:27 AM EST) Histocompatibility Laboratory Information See Below 05/12/2024 3:59 PM EST [facility] Comment: ROMULO: ??[id number] ?Director: ??Magdalena Garcia MD. [facility] PFI: ??[id number] UNOS: ??[id number] This test [...] [facility] [address] [facility] Rm: [id number] HLA LAB [place] [id number], * (ABNORMAL) Cystatin C with Glomerular Filtration [...] ORDERABLES Monica abernathy Result Performing Organization Address City/State/[facility] Co de Phone Number GENEVA DILLARD) [address] [place], [place] , [place] * MMR Panel, IgG (05/06/2024 11:27 AM EST) Measles Antibody (IgG), Immune Status 136.00 AU/mL 05/07/2024 5:47 AM EST [facility] Comment: AU/mL ?Interpretation ----- ? <13.50 ? Not consistent with immunity 13.50-16.49 ?Equivocal >16.49 ? Consistent with immunity The presence of measles IgG suggests immunization or past or current infection with measles virus. For additional information, please refer to http://education.Cybersource/faq/MYP591 (This link is being provided for informational/ educational purposes only.) Mumps Antibody (IgG), Immune Status 37.60 AU/mL 05/07/2024 5:47 AM EST [facility] Comment: AU/mL ? Interpretation ------- ? <9.00 ? Not consistent with immunity 9.00-10.99 ?Equivocal >10.99 ?Consistent with immunity The presence of mumps IgG antibody suggests immunization or past or current infection with mumps virus. Rubella Antibody (IgG), Immune Status 2.45 Index 05/07/2024 5:47 AM EST [facility] Comment: ?Index ?Interpretation ?----- ?<0.90 ?Not consistent with immunity ?0.90-0.99 ?Equivocal ?> or = 1.00 ?Consistent with immunity The presence of rubella IgG antibody suggests immunization or past or current infection with rubella virus. Blood Structure of peripheral vein / Unknown Venipuncture / Unknown 05/06/2024 11:27 AM EST 05/06/2024 11:42 AM EST [facility] - 05/07/2024 5:47 AM EST [facility] Received Date: Tobi Pollard MD LAB BLOOD ORDERABLES Monica abernathy Result [facility] [address] [facility] 3rd Floor, [place] [address], [facility] [address] [facility] 3rd Floor, [place] [address], * (ABNORMAL) Herpes Simplex Virus 1&2, IgG (05/06/2024 11:27 AM EST) HSV 1 IgG Type Specific Ab 5.17(H) index 05/07/2024 8:57 AM EST [facility] HSV 2 IgG Type Specific Ab <0.90 index 05/07/2024 8:57 AM EST [facility] Comment: ?Index ?Interpretation ?----- ?<0.90 ?Negative ?0.90-1.09 [...] screening. For additional information, please refer to http://education.Cybersource/faq/LEW865 (This link is being provided for informational/ educational purposes only.) ?? Blood Structure of peripheral vein / Unknown Venipuncture / Unknown 05/06/2024 11:27 AM EST 05/06/2024 11:42 AM EST Narrative [facility] - 05/07/2024 8:57 AM EST [facility] Received Date: Tobi Pollard MD LAB BLOOD ORDERABLES Monica abernathy Result [facility] [address] [facility] [address]rd Floor, [place] [address], [place] [phone] [facility] [address] [facility] 3rd Floor, [place] [address], * RPR (Diagnosis) w/Reflex to Titer & TPPA Confirm (05/06/2024 11:27 AM EST) [facility] RPR W/Refl Titer NON-REACT KISHA NON-REACT KISHA 05/08/2024 6:27 PM EST [facility] Blood Structure of peripheral vein / Unknown Venipuncture / Unknown 05/06/2024 11:27 AM EST 05/06/2024 11:42 AM EST Narrative [facility] - 05/08/2024 6:27 PM EST [facility] Received Date: Tobi Pollard MD LAB BLOOD ORDERABLES Monica abernathy Result [facility] [place] [address] [facility] [address]rd Floor, [place] [address], [facility] [address] [facility] [address]rd Floor, [place] [address], * QuantiFERON-TB Gold Plus, 1 Tube (05/06/2024 11:27 AM EST) [facility] QuantiFERON-TB Gold Plus NEGATIVE NEGATIVE 05/08/2024 2:00 PM EST [facility] Comment: Negative test result. M. tuberculosis complex infection unlikely. NIL 0.04 IU/mL 05/08/2024 2:00 PM EST [facility] Mitogen-NIL 6.31 IU/mL 05/08/2024 2:00 PM EST [facility] TB1-NIL <0.00 IU/mL 05/08/2024 2:00 PM EST [facility] TB2-NIL 0.01 IU/mL 05/08/2024 2:00 PM EST [facility] Comment: The Nil tube value reflects [...] T-lymphocytes. For additional information, please refer to https://education.Roombeats/faq/VAP204 (This link is being provided for informational/ educational purposes only.) Blood Structure of peripheral vein / Unknown Venipuncture / Unknown 05/06/2024 11:27 AM EST 05/06/2024 11:39 AM EST Narrative [facility] [place] - 05/08/2024 2:00 PM EST [facility] Received Date: us Tobi Pollard MD LAB BLOOD ORDERABLES Monica l Result [facility] [address] [facility] [address], [place] [address], [place] [phone] [facility] [address] [facility] 3rd Floor, [place] [address], * (ABNORMAL) CBC Auto Differential (05/06/2024 11:27 [...] - 0.20 10*3/uL 05/06/2024 11:51 AM EST [email or web address] nRBC % 0.0 /100 WBCs 05/06/2024 11:51 AM EST [facility] CL[facility]ICAL PATHOLOGY LABORATORY nRBC # <0.01 <0.01 10*3/uL 05/06/2024 11:51 AM EST [facility] Blood Structure of peripheral vein / Unknown Venipuncture / Unknown 05/06/2024 11:27 AM EST 05/06/2024 11:42 AM EST us Tobi Pollard MD LAB BLOOD ORDERABLES Monica abernathy Result [facility] [address] [place] [address], * (ABNORMAL) Kendall-Llanos Virus VCA Antibody Panel (05/06/2024 11:27 AM EST) EBV Viral Capsid Ag Ab (IGM) <36.00 U/mL 05/07/2024 5:47 AM EST [facility] Comment: ?U/mL ?Interpretation ?---- ?<36.00 ?Negative ?36.00-43.99 ? Equivocal ?>43.99 ?Positive EBV Viral Capsid Ag Ab (IGG) >750.00(H) U/mL 05/07/2024 5:47 AM EST [facility] Comment: ? U/mL ? Interpretation ? ---- ? <18.00 ? Negative ? 18.00-21.99 ?Equivocal ? >21.99 ? Positive EBV Nuclear Ag Ab >600.00(H) U/mL 024 5:47 AM EST [facility] Comment: ? U/mL ? Interpretation ? ---- ? <18.00 ? Negative ? 18.00-21.99 ?Equivocal ? >21.99 ? 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 In infants, a similar pattern may occur as a result of passive maternal transfer of antibody. Blood Structure of peripheral vein / Unknown Venipuncture / Unknown 05/06/2024 11:27 AM EST 05/06/2024 11:42 AM EST [facility] [place] - 05/07/2024 5:47 AM EST [facility] Received Date: Tobi Pollard MD LAB BLOOD ORDERABLES Monica abernathy Result [facility] [place] [address], [place] [address], [place] [phone] [facility] [address], [place] [address], * Hepatitis C Antibody w/Reflex to PCR (05/06/2024 11:27 AM EST) Hepatitis C Antibody NON-REACT KISHA NON-REACT KISHA 05/07/2024 3:30 AM EST [facility] Comment: HCV antibody was non-reactive. There is no laboratory evidence of HCV infection. In most cases, no further action is required. However, if recent HCV exposure is suspected, a test for HCV RNA (test code 48173) is suggested. For additional information please refer to http://Thumbplay.Roombeats/faq/YXV63t0 (This link is being provided for informational/ educational purposes only.) Blood Structure of peripheral vein / Unknown Venipuncture / Unknown 05/06/2024 11:27 AM EST 05/06/2024 11:42 AM EST Narrative [employer] [place] - 05/07/2024 3:30 AM EST [facility] Received Date: Tobi Pollard MD LAB BLOOD ORDERABLES Monica l Result Performing Organization Address City/[facility]/ZIP Co de Phone Number [facility] [address], [place] [address], [facility] [address], [place] [address], [place] [phone] * Hepatitis A Antibody, Total (05/06/2024 11:27 AM EST) Hepatitis A Ab, Total NON-REACT KISHA NON-REACT KISHA 05/07/2024 8:31 AM EST [facility] Comment: For additional information, please refer to http://Thumbplay.Roombeats/faq/AAK953 (This link is being provided for informational/ educational purposes only.) Blood Structure of peripheral vein / Unknown Venipuncture / Unknown 05/06/2024 11:27 AM EST 05/06/2024 11:42 AM EST Narrative [facility] - 05/07/2024 8:31 AM EST [facility] Received Date: us Tobi Pollard MD LAB BLOOD ORDERABLES Monica l Result Performing Organization Address City/[facility]/ZIP Co de Phone Number [facility] [place] [address], [place] [address], [place] [phone] [facility] [address] [facility] 3rd Floor, [place] [address], [place] [phone] * Hepatitis B Core Antibody, Total (05/06/2024 11:27 AM EST) Hepatitis B Core Ab Total NON-REACT KISHA NON-REACT KISHA 05/07/2024 3:28 AM EST [facility] Comment: For additional information, please refer to http://education.Roombeats/faq/HAR856 (This link is being provided for informational/ educational purposes only.) Blood Structure of peripheral vein / Unknown Venipuncture / Unknown 05/06/2024 11:27 AM EST 05/06/2024 11:42 AM EST Narrative [facility] [place] - 05/07/2024 3:28 AM EST [facility] Received Date: us Tobi Pollard MD LAB BLOOD ORDERABLES Monica l Result [facility] [address] [facility] [address], [place] [address], [place] [phone] [facility] [address] [facility] 3rd Floor, [place] [address], [place] [phone] * ABO/Rh Blood Type (05/06/2024 11:27 AM [...] Final Result [facility] [address] [place] [address], * (ABNORMAL) Hepatitis B Surface Antibody (05/06/2024 11:27 AM EST) Hepatitis B Surface Ab Immunity, Qn <5(L) > OR = 10 mIU/mL 05/07/2024 3:27 AM EST [facility] Comment: PATIENT DOES NOT HAVE IMMUNITY TO HEPATITIS B VIRUS. For additional information, please refer to http://Thumbplay.Roombeats/faq/WZL491 (This link is being provided for informational/ educational purposes only). Blood Structure of peripheral vein / Unknown Venipuncture / Unknown 05/06/2024 11:27 AM EST 05/06/2024 11:42 AM EST [facility] - 05/07/2024 3:27 AM EST [facility] Received Date: us Tobi Pollard MD LAB BLOOD ORDERABLES Monica l Result [facility] [address] [facility] [address], [place] [address], [facility] [address] [facility] [address]rd Floor, [place] [address], * Hepatitis B Surface Antigen w/Confirmation (05/06/2024 11:27 AM EST) Pathologist [facility] Hepatitis B Surface Antigen NON-REACT KISHA NON-REACT KISHA 05/07/2024 3:55 AM EST [facility] Comment: For additional information, please refer to http://Thumbplay.Roombeats/faq/CWA452 (This link is being provided for informational/ educational purposes only.) Blood Structure of peripheral vein / Unknown Venipuncture / Unknown 05/06/2024 11:27 AM EST 05/06/2024 11:42 AM EST Narrative [employer] [place] - 05/07/2024 3:55 AM EST [facility] Received Date:[id number] us Tobi Pollard MD LAB BLOOD ORDERABLES Monica l Result Performing Organization Address City/[facility]/ZIP Co de Phone Number [facility] [place] [address] [facility] [address], [place] [address], [facility] [address], [place] [address], [place] [phone] * Cytomegalovirus Antibody, IgG (05/06/2024 11:27 AM EST) Pathologist [facility] Cytomegalovirus Antibody (IgG) <0.60 U/mL 05/07/2024 5:47 AM EST [facility] Comment: ? U/mL ? Interpretation ? ----- ? <0.60 ? Negative ? 0.60-0.69 ? Equivocal ? > or = 0.70 ?? Positive A positive result indicates that the patient has antibody to CMV. It does not differentiate between an active or past infection. Blood Structure of peripheral vein / Unknown Venipuncture / Unknown 05/06/2024 11:27 AM EST 05/06/2024 11:42 AM EST [facility]ative [facility] - 05/07/2024 5:47 AM EST [facility] Received Date: Tobi Pollard MD LAB BLOOD ORDERABLES Monica l Result [facility] [place] [address], [place] [address], [place] [phone] [facility] [address] [facility] 3rd Floor, [place] [address], [place] [phone] * PTT (05/06/2024 11:27 AM EST) aPTT 25.4 23.0 - 32.0 Seconds 05/06/2024 12:09 PM EST [facility] Comment: Current PTT reagent is not sensitive to detect all Lupus Anticoagulant (LA) Inhibitor Cases. ?? If a LA is suspected, please order a Lupus Anticoagulation w/ Reflex Test which is performed at [facility] in [place], [place]. Blood Structure of peripheral vein / Unknown Venipuncture / Unknown 05/06/2024 11:27 AM EST 05/06/2024 11:42 AM EST Tobi Pollard MD LAB BLOOD ORDERABLES Monica l Result [facility] [address] [place] [address], * Protime-INR (05/06/2024 11:27 AM EST) PT 9.6 9.6 - 12.4 Seconds 05/06/2024 12:09 PM EST [facility] INR 0.9 0.9 - 1.1 05/06/2024 12:09 PM EST [facility]ands[facility] Comment:The optimal therapeu tic INR range for patients treated with Vitamin K antagonists (VKAS, e.g., Warfarin) is 2.0 to 3.5. Discuss the desired range with your doctor/care team. Blood Structure of peripheral vein / Unknown Venipuncture / Unknown 05/06/2024 11:27 AM EST 05/06/2024 11:42 AM EST us Tobi Pollard MD LAB BLOOD ORDERABLES Monica l Result Performing Organization Address City/[facility]/ZIP Co de Phone Number [facility] [address] [place] [address], * Varicella Zoster Antibody, IgG (05/06/2024 11:27 AM EST) Varicella Zoster Virus Antibody 16.70 S/CO 05/07/2024 8:39 AM EST [facility] Comment: ?Signal to Cut-off ? S/CO ?Interpretation [...] EST 05/06/2024 11:42 AM EST Narrative [facility] [place] - 05/07/2024 8:39 AM EST [facility] Received Date: Tobi Pollard MD LAB BLOOD ORDERABLES Monica abernathy Result Performing Organization Address City/[facility]/ZIP Co de Phone Number [facility] [address], [place] [address], [place] [phone] [facility] [address] [facility] [address]rd [address], [place] [address], [place] [phone] * (ABNORMAL) BUN (05/06/2024 11:27 AM EST) BUN 49(H) 7 - 23 mg/dL 05/06/2024 12:13 PM EST [facility] Blood Structure of peripheral vein / Unknown Venipuncture / Unknown 05/06/2024 11:27 AM EST 05/06/2024 11:42 AM EST Tobi Pollard MD LAB BLOOD ORDERABLES Monica l Result Performing Organization Address City/[facility]/ZIP Co de Phone Number [facility] [address] [place] [address], [place] * ALT (05/06/2024 11:27 AM EST) ALT 16 10 - 40 U/L 05/06/2024 12:13 PM EST [facility] Blood Structure of peripheral vein / Unknown Venipuncture / Unknown 05/06/2024 11:27 AM EST 05/06/2024 11:42 AM EST Tobi Pollard MD LAB BLOOD ORDERABLES Monica l Result [facility] [address] [place] [address], [place] * AST (05/06/2024 11:27 AM EST) AST 18 10 - 40 U/L 05/06/2024 12:13 PM EST [facility] Blood Structure of peripheral vein / Unknown Venipuncture / Unknown 05/06/2024 11:27 AM EST 05/06/2024 11:42 AM EST Tobi Pollard MD LAB BLOOD ORDERABLES Monica l Result Performing Organization Address City/[facility]/ZIP Co de Phone Number [facility]ITALOur Nurses NetworkAVITA [facility] LAB[facility] [address] [place] [address], * Phosphorus (05/06/2024 11:27 AM EST) Phosphorus 3.8 2.5 - 4.5 mg/dL 05/06/2024 12:13 PM EST [facility] LAB[facility] Blood Structure of peripheral vein / Unknown Venipuncture / Unknown 05/06/2024 11:27 AM EST 05/06/2024 11:42 AM EST Tobi Pollard MD LAB BLOOD ORDERABLES Monica l Result Performing Organization Address [facility] de Phone Number [facility] LAB[facility]ORY [address] [place] [address] * (ABNORMAL) Creatinine (05/06/2024 11:27 AM EST) Creatinine 5.03(H) 0.60 - 1.30 mg/dL 05/06/2024 12:13 PM EST [facility] CL[facility]ICAL PATHOLOG[facility] LABORATORY eGFR 14(L) >=60 mL/min/1 .73m2 05/06/2024 12:13 PM EST [facility] Comment:The estimated glomer ular [...] ORDERABLES Monica l Result Performing Organization Address [facility] Co de Phone Number [facility] [address] [place] [address], [place] * Calcium (05/06/2024 11:27 AM EST) Calcium 9.5 8.6 - 10.5 mg/dL 05/06/2024 12:13 PM EST [facility] Blood Structure of peripheral vein / Unknown Venipuncture / Unknown 05/06/2024 11:27 AM EST 05/06/2024 11:42 AM EST Tobi Pollard MD LAB BLOOD ORDERABLES Monica l Result Performing Organization Address [facility] Co de Phone Number [facility] [address] [place] [address], [place] * Bilirubin, Direct (05/06/2024 11:27 AM EST) Bilirubin, Direct 0.1 <=0.4 mg/dL 05/06/2024 12:13 PM EST [facility] Blood Structure of peripheral vein / Unknown Venipuncture / Unknown 05/06/2024 11:27 AM EST 05/06/2024 11:42 AM EST Tobi Pollard MD LAB BLOOD ORDERABLES Monica l Result Performing Organization Address City/[facility] Co de Phone Number [facility] [address] [place] [address], [place] * Bilirubin, Total (05/06/2024 11:27 AM EST) Bilirubin, Total 0.3 0.2 - 1.2 mg/dL 05/06/2024 12:13 PM EST [facility] Blood Structure of peripheral vein / Unknown Venipuncture / Unknown 05/06/2024 11:27 AM EST 05/06/2024 11:42 AM EST Tobi Pollard MD LAB BLOOD ORDERABLES Monica l Result [facility] [address] * Albumin (05/06/2024 11:27 AM EST) Albumin 4.3 3.5 - 5.2 g/dL 05/06/2024 12:13 PM EST [facility] Blood Structure of peripheral vein / Unknown Venipuncture / Unknown 05/06/2024 11:27 AM EST 05/06/2024 11:42 AM EST Tobi Pollard MD LAB BLOOD ORDERABLES Monica l Result Performing Organization Address City/[facility]/ZIP Co de Phone Number [facility] [address] [place] [address] from Last 3 Months Insurance [employer] Advance Directives Documents on File Type Date Recorded Patient Nursing Informatics Specialist Expl [facility] Care Proxy 05/11/2024 1:39 PM 12-0 Care Teams Neonatal Intensive Care Nurse Relationship Specialty Start Date End Date Patient, Has No Pcp Or Ref DO NOT EDIT THIS RECORD VIA PROVIDER ON THE FLY PCP - General Production Support Supervisor 05/06/24
[2024-07-13 16:40] LABS: Influenza A PCR NEGATIVE (Negative); Influenza B PCR NEGATIVE (Negative); Resp Syncy Virus RNA Qual PCR NEGATIVE (Negative); SARS COV2 PCR INHOUSE NEGATIVE (Negative)
== END 2024-07-13 15:38 | disposition home or self-care (01) ==
LOC: HO.LAB 15:37
PROVIDERS: PCP Internal Medicine
DX: J06.9 Acute upper respiratory infection, unspecified (principal)
CPT/HCPCS: 0241U

== ENCOUNTER 2024-07-14 13:58 | Outpatient (AMB) | payer OTHER, SELFPAY ==
--- NOTE | 2024-07-14 14:24 | HO.NEPHOV ---
Vital Signs 07/14/24 14:25 Height 5 ft 8 in Weight 175 lb 2 oz BMI 26.6 BP 120/70 Blood Pressure Location Rt brachial Position Sitting Pulse 101 H Pulse Source Pulse Oximeter Pulse Oximetry (%) 97 Oxygen Delivery Method Room Air Intake Visit Reasons: 4 Weeks/ Conf Utility Specialist Required: No Accompanied by: Spouse Allergies No Known Allergies Allergy (Verified 07/14/24 14:25) HPI Comments Details: Nasir was in follow-up of his chronic kidney disease and hypertension .He remains compliant with his medications. His BP is well controlled. He has no orthostatic symptoms. He denies nausea, vomiting, diarrhea, chest pain, shortness of breath, paroxysmal nocturnal dyspnea, orthopnea, pedal edema or urinary symptoms. He is compliant with his medications. He does not take any nonsteroidal anti-inflammatories. He has seen in transplant team in [facility] and is in the process of being listed. 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, 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 Cognitive needs: No Hearing needs: No Vision needs: No Review of Systems Const All systems reviewed & are unremarkable except as noted in HPI and below Physical Exam Vital Signs: Last Vital Signs Pulse 101 H 07/14/24 14:25 BP 120/70 07/14/24 14:25 Pulse Ox 97 07/14/24 14:25 Oxygen Delivery Method Room Air 07/14/24 14:25 BMI result Body Mass Index 26.6 Const General: comfortable and no acute distress Orientation/consciousness: patient oriented x3 HEENT Head: Yes normocephalic Mouth: Normal oral and palatal mucosa present Eyes EOM: EOMs intact bilaterally Neck Neck: Yes supple Resp Auscultation: clear to auscultation bilaterally Cardio Jugular venous distension: no JVD Rate: regular rate GI Palpation (GI): Soft to palpation Auscultation: normal bowel sounds General: Yes no CVA tenderness Back/Spine/Pelvis Back: no CVA tenderness Skin General skin exam: no rashes or lesions noted Neuro General: patient oriented x3 and moves all extremities Extrem General: Yes no pedal edema Results Reviewed Nephrology Results: Hgb 12.3 g/dl (14.0-18.0) L 07/09/24 WBC 5.6 X10*3/uL (4.8-10.8) 07/09/24 Plt Count 325 X10*3/uL (160-400) 07/09/24 Sodium 142 mmol/L (135-145) 07/09/24 Potassium 4.1 mmol/L (3.3-5.1) 07/09/24 Chloride 110 mmol/L (96-108) H 07/09/24 Carbon Dioxide 21 mmol/L (22-29) L 07/09/24 BUN 55 mg/dL (9-16) H 07/09/24 Creatinine 4.97 mg/dL (0.5-1.4) H* 07/09/24 Calcium 9.1 mg/dL (8.4-10.2) 07/09/24 Phosphorus 3.6 mg/dL (2.7-4.5) 07/09/24 Urine Protein 300 (3+) mg/dL (Neg-Trace) H 06/03/24 Assessment & Plan Assessment & Plan (1) CKD (chronic kidney disease) stage 5, GFR less than 15 ml/min: Code(s): N18.5 - Chronic kidney disease, stage 5 Category: Medical (2) Secondary hyperparathyroidism (of renal origin): Code(s): N25.81 - Secondary hyperparathyroidism of renal origin Category: Medical (3) Vitamin D deficiency: Code(s): E55.9 - Vitamin D deficiency, unspecified Category: Medical (4) Benign essential hypertension: Code(s): I10 - Essential (primary) hypertension Category: Medical Plan Nasir has stage IV CKD for a long time. His lisinopril has been on hold since serum creatinine has been going up. He is on a lipid-lowering agent. He takes low-sodium diet. He maintains good hydration. He avoids nonsteroidal anti-inflammatories. He should continue Amlodipine 10 mg daily. He is being evaluated in [facility] renal transplant division for listing.I also referred him to [facility] transplant. His uric acid level is 9 . I started him on Allopurinol 100 mg daily . I also referred him for PD education. I did not make any other medication changes today. Discussed about PD as well as renal transplant. Answered all questions. Follow-up appointment given Orders: Orders Creatinine 2 Months E55.9 - Vitamin D deficiency, unspecified, I10 - Essential (primary) hypertension, N18.5 - Chronic kidney disease, stage 5, N25.81 - Secondary hyperparathyroidism of renal origin Blood Urea Nitrogen 2 Months E55.9 - Vitamin D deficiency, unspecified, I10 - Essential (primary) hypertension, N18.5 - Chronic kidney disease, stage 5, N25.81 - Secondary hyperparathyroidism of renal origin Electrolytes 2 Months E55.9 - Vitamin D deficiency, unspecified, I10 - Essential (primary) hypertension, N18.5 - Chronic kidney disease, stage 5, N25.81 - Secondary hyperparathyroidism of renal origin Medications: New allopurinol 100 mg PO DAILY 30 tabs 10RF Coding Level of Care Code Est Pt Level 4 (31172) Diagnoses CKD (chronic kidney disease) stage 5, GFR less than 15 ml/min N18.5 Secondary hyperparathyroidism (of renal origin) N25.81 Vitamin D deficiency E55.9 Benign essential hypertension I10
[2024-07-14 14:25] VITALS: BP 120/70; PULSE 101; O2SAT 97; BMI 26.6
--- OUTSIDE RECORDS SUMMARY | 2024-07-14 15:16 | XMS_ITS | Referral Summary ---
Author Organization [facility] Address [address] [place] [address] Care Team Providers Care Flowers Salesperson Name Role Phone Patient, Has No Pcp Or Ref Primary Care Provider Unavailable Encounters Date Type Department Care Team Description 05/31/2024 Telephone [facility] Transplant Department [address] [place] [address] 48592 Lori Mustafa, RN 05/27/2024 Telephone [facility] Transplant Department [address] [place] [address] 75448 Lori Mustafa, RN 05/11/2024 Telephone [facility] Transplant Department [address] [place] [address] [phone] Lori Mustafa, shampoo person - Kidney Txp 05/06/2024 11:15 AM EST Lab [facility] [place] Lab Draw Site [address] [place] [address] Pre-transplant evaluation for end stage renal disease; Chronic kidney disease, stage IV (severe) (HCC) 05/06/2024 10:15 AM EST Social Work [facility] Renal Transplant [address] [place] [address] [phone] Cecelia Hinton LICSW 05/06/2024 9:30 AM EST Office Visit [facility] Renal Transplant [address] [place] [address] 50427 Tobi Pollard MD Pre-transplant evaluation for kidney transplant (Primary Dx); Pre-transplant evaluation for end stage renal disease; Stage 4 chronic kidney disease (HCC) 05/06/2024 8:15 AM EST Evaluation [facility] Renal Transplant [address] [place] [address] Lori Mustafa RN Pre-transplant evaluation for end stage renal disease (Primary Dx) 05/06/2024 8:00 AM EST Office Visit [facility] Renal Transplant [address] [place] [address] Shanon De Anda RN Pre-transplant evaluation for kidney transplant (Primary Dx) 05/03/2024 Telephone [facility] Transplant Department [address] [place] [address] Lori Mustafa RN 04/27/2024 Orders Only [facility] Transplant Department [address] [place] [address] [phone] Lori Mustafa RN Pre-transplant evaluation for end stage renal disease (Primary Dx); Chronic kidney disease, stage IV (severe) ([facility]) from Last 3 Months Allergies No known [...] Info) Description 05/03/2025 10:00 AM EST Follow-Up [facility] Renal Transplant [address] [place] [address] Tobi Pollard MD [address] [place] [address] 05/03/2025 10:30 AM EST Social Work [facility] Renal Transplant [address] [place] [address] Cecelia Hinton LICSW [address] [place] [address] Procedures * Due to [place] state law, this organization might not be [...] IV (severe) (HCC) QUANTIFERON-TB GOLD PLUS, 1 [id number] Routine 05/06/2024 11:27 AM EST Pre-transplant evaluation for end stage renal disease Chronic kidney disease, stage IV (severe) (HCC) RPR (DIAGNOSIS) W/REFLEX TO TITER & TPPA [id number] Routine 05/06/2024 11:27 AM EST Pre-transplant evaluation for end stage renal disease Chronic kidney disease, stage IV (severe) (HCC) VARICELLA ZOSTER ANTIBODY, IGG Routine 05/06/2024 11:27 AM EST Pre-transplant evaluation for end stage renal disease Chronic kidney disease, stage IV (severe) (HCC) HLA TRANSPLANT WORK-UP (ALLELE LEVEL A/B/C/DRB1/HWC320/DQA1/ DQB1/DPA1/DPB1) Routine 05/06/2024 11:27 AM EST Pre-transplant [...] CYSTATIN C WITH GLOMERULAR FILTRATION RATE, ESTIMATED (EGFR)-[id number] Routine 05/06/2024 11:27 AM EST Pre-transplant evaluation for end stage renal disease Chronic kidney disease, stage IV (severe) (HCC) from Last 3 Months Results * Due to [place] state law, this organization might not be sharing negative HIV tests. * HLA Transplan Work-Up(Allele Level A/B/C/DRB1/LBG728/DQA1/DQB1/DPA1/DPB1) (05/06/2024 11:27 AM EST) [facility] Histocompatibility Laboratory Information See Below 05/12/2024 3:59 PM EST [facility]With [facility] Comment: ROMULO: ??[id number] ?Director: ??Magdalena Garcia MD. [facility] PFI: ??[id number] UNOS: ??[id number] This test was [...] Edited Result - Final Performing Organization Address City/[facility]/ZIP Co de Phone Number [facility] [address] [facility] Rm: [id number] [place] [address], * (ABNORMAL) Cystatin C with Glomerular Filtration [...] ORDERABLES Monica l Result Performing Organization Address City/[facility]/ZIP Co de Phone Number GENEVA DE LA CRUZ (TARYN) [address] [place], [place] , [place] * MMR Panel, IgG (05/06/2024 11:27 AM EST) Measles Antibody (IgG), Immune Status 136.00 AU/mL 05/07/2024 5:47 AM EST [facility] Comment: AU/mL ?Interpretation ----- ? <13.50 ? Not consistent with immunity 13.50-16.49 ?Equivocal >16.49 ? Consistent with immunity The presence of measles IgG suggests immunization or past or current infection with measles virus. For additional information, please refer to http://education.Ribbon/faq/ZMP906 (This link is being provided for informational/ educational purposes only.) Mumps Antibody (IgG), Immune Status 37.60 AU/mL 05/07/2024 5:47 AM EST [facility] Comment: AU/mL ? Interpretation ------- ? <9.00 ? Not consistent with immunity 9.00-10.99 ?Equivocal >10.99 ?Consistent with immunity The presence of mumps IgG antibody suggests immunization or past or current infection with mumps virus. Rubella Antibody (IgG), Immune Status 2.45 Index 05/07/2024 5:47 AM EST [facility] Comment: ?Index ?Interpretation ?----- ?<0.90 ?Not consistent [...] ORDERABLES Monica abernathy Result [facility]A [facility] [address] [facility] [address], [place] [address], [facility] [address], [address] [place] [address], * (ABNORMAL) Herpes Simplex Virus 1&2, IgG (05/06/2024 11:27 AM EST) HSV 1 IgG Type Specific Ab 5.17(H) index 05/07/2024 8:57 AM EST [facility] HSV 2 IgG Type Specific Ab <0.90 index 05/07/2024 8:57 AM EST [facility] Comment: ?Index ?Interpretation ?----- ?<0.90 ?Negative [...] screening. For additional information, please refer to http://education.FluGen.Genasys/faq/JXD779 (This link is being provided for informational/ educational purposes only.) ?? Blood Structure of peripheral vein / Unknown Venipuncture / Unknown 05/06/2024 11:27 AM EST 05/06/2024 11:42 AM EST [facility] 05/07/2024 8:57 AM EST [facility] Received Date: Tobi Pollard MD LAB BLOOD ORDERABLES Monica l Result GENEVA SIMPSON [address] [facility] [address] [facility], [place] [address], [place] [phone] [facility] [address] [facility] [address]rd Floor, [place] [address], [place] [phone] * RPR (Diagnosis) w/Reflex to Titer & TPPA Confirm (05/06/2024 11:27 AM EST) Pathologist [facility] Emergency Department RPR W/Refl Titer NON-REACT KISHA NON-REACT KISHA 05/08/2024 6:[address] [facility] Blood Structure of peripheral vein / Unknown Venipuncture / Unknown 05/06/2024 11:27 AM EST 05/06/2024 11:42 AM EST N[facility]ative [facility] 05/08/2024 6:27 PM EST [facility] Received Date: Tobi Pollard MD LAB BLOOD ORDERABLES Monica l Result Performing Organization Address City/[facility]/ZIP Co de Phone Number GENEVA SIMPSON [address] [facility] [address] [facility], [place] [address], [place] [phone] [facility] [address] [facility] [address] [facility], [place] [address], [place] [phone] * QuantiFERON-TB Gold Plus, 1 Tube (05/06/2024 11:27 AM EST) QuantiFERON-TB Gold Plus NEGATIVE NEGATIVE 05/08/2024 2:[address] [facility] Comment: Negative test result. M. tuberculosis complex infection unlikely. NIL 0.04 IU/mL 05/08/2024 2:[address] [facility] Mitogen-NIL 6.31 IU/mL 05/08/2024 2:00 PM EST [facility] TB1-NIL <0.00 IU/mL 05/08/2024 2:00 PM EST [facility] TB2-NIL 0.01 IU/mL 05/08/2024 2:00 PM EST [facility] Comment: The Nil tube value reflects [...] T-lymphocytes. For additional information, please refer to https://education.Celframe/faq/HAN348 (This link is being provided for informational/ educational purposes only.) Blood Structure of peripheral vein / Unknown Venipuncture / Unknown 05/06/2024 11:27 AM EST 05/06/2024 11:39 AM EST [facility] 05/08/2024 2:00 PM EST [facility] Received Date: Tobi Pollard MD LAB BLOOD ORDERABLES Monica abernathy Result GENEVA SIMPSON [address] [facility] [address], [place] [address], [place] [phone] [facility] [address] [facility] [address], [place] [address], * (ABNORMAL) CBC Auto Differential (05/06/2024 11:27 AM EST) WBC 8.1 3.8 - 10.8 10*3/uL 05/06/2024 11:51 AM EST [facility] RBC 4.64 4.20 - [...] - 7.80 10*3/uL 05/06/2024 11:51 AM EST [facility] Immature Grans # 0.04(H) <=0.03 10*3/uL 05/06/2024 11:51 AM EST [facility] Lymphocyte # 1.00 0.85 - 3.90 10*3/uL 05/06/2024 11:51 AM EST [facility] - [facility] Monocyte # 0.30 0.20 - 0.95 10*3/uL 05/06/2024 11:51 AM EST [facility] Eosinophil # 0.10 0.02 - 0.50 10*3/uL 05/06/2024 11:51 AM EST [facility] Basophil # <0.03 0.00 - 0.20 10*3/uL 05/06/2024 11:51 AM EST [facility] nRBC % 0.0 /100 WBCs 05/06/2024 11:51 AM EST [facility] nRBC # <0.01 <0.01 10*3/uL 05/06/2024 11:51 AM EST [facility] Blood Structure of peripheral vein / Unknown Venipuncture / Unknown 05/06/2024 11:27 AM EST 05/06/2024 11:42 AM EST us Tobi Pollard MD LAB BLOOD ORDERABLES Monica l Result [facility] [address] [place] [address], * (ABNORMAL) Kendall-Llanos Virus VCA Antibody Panel (05/06/2024 11:27 AM EST) EBV Viral Capsid Ag Ab (IGM) <36.00 U/mL 05/07/2024 5:47 AM EST [facility] Comment: ?U/mL ?Interpretation ?---- ?<36.00 ?Negative ?36.00-43.99 ? Equivocal ?>43.99 ?Positive EBV Viral Capsid Ag Ab (IGG) >750.00(H) U/mL 05/07/2024 5:47 AM [facility] Comment: ? U/mL ? Interpretation ? ---- ? <18.00 ? Negative ? 18.00-21.99 ?Equivocal ? >21.99 ? Positive EBV Nuclear Ag Ab >600.00(H) U/mL 5:47 AM [facility] Comment: ? U/mL ? Interpretation ? ---- ? <18.00 ? Negative ? 18.00-21.99 ?Equivocal ? >21.99 ? 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 In infants, a similar pattern may occur as a result of passive maternal transfer of antibody. Blood Structure of peripheral vein / Unknown Venipuncture / Unknown 05/06/2024 11:27 AM EST 05/06/2024 11:42 AM EST Narrative [facility] RUPERT - 05/07/2024 5:47 AM EST [facility] Received Date: Tobi Pollard MD LAB BLOOD ORDERABLES Monica l Result [facility] [address], [place] [address], [place] [phone] [facility] [address], [place] [address], * Hepatitis C Antibody w/Reflex to PCR (05/06/2024 11:27 AM EST) Hepatitis C Antibody NON-REACT KISHA NON-REACT KISHA 05/07/2024 3:[address] [facility] Comment: HCV antibody was non-reactive. There is no laboratory evidence of HCV infection. In most cases, no further action is required. However, if recent HCV exposure is suspected, a test for HCV RNA (test code 53800) is suggested. For additional information please refer to http://education.Celframe/faq/NLM42s1 (This link is being provided for informational/ educational purposes only.) Blood Structure of peripheral vein / Unknown Venipuncture / Unknown 05/06/2024 11:27 AM EST 05/06/2024 11:42 AM EST Narrative [employer] [facility]UP[facility] - 05/07/2024 3:30 AM EST [facility] Received Date: Tobi Pollard MD LAB BLOOD ORDERABLES Monica l Result [facility] [address], [place] [address], [place] [phone] [facility] [address], [place] [address], * Hepatitis A Antibody, Total (05/06/2024 11:27 AM EST) Hepatitis A Ab, Total NON-REACT KISHA NON-REACT KISHA 05/07/2024 8:[address] [facility] Comment: For additional information, please refer to http://Ansible.Celframe/faq/MHI217 (This link is being provided for informational/ educational purposes only.) Blood Structure of peripheral vein / Unknown Venipuncture / Unknown 05/06/2024 11:27 AM EST 05/06/2024 11:42 AM EST Narrative [facility] - 05/07/2024 8:31 AM EST [facility] Received Date: us Tobi Pollard MD LAB BLOOD ORDERABLES Monica l Result Performing Organization Address City/[facility]/ZIP Co de Phone Number [facility]EV[facility] SIMPSON [address] [facility] [address] [facility], [place] [address], [place] [phone] [place] [address], [place] [address], [place] [phone] * Hepatitis B Core Antibody, Total (05/06/2024 11:27 AM EST) Hepatitis B Core Ab Total NON-REACT KISHA NON-REACT KISHA 05/07/2024 3:[address] [facility] Comment: For additional information, please refer to http://Ansible.Celframe/faq/TLY586 (This link is being provided for informational/ educational purposes only.) Blood Structure of peripheral vein / Unknown Venipuncture / Unknown 05/06/2024 11:27 AM EST 05/06/2024 11:42 AM EST Narrative [facility] - 05/07/2024 3:28 AM EST [facility] Received Date: us Tobi Pollard MD LAB BLOOD ORDERABLES Monica l Result [facility] SIM[facility]ON [address] [facility] [address], [place] [address], [place] [phone] [facility] [address] [facility] [address] Floor, [place] [address], [place] [phone] * ABO/Rh Blood Type (05/06/2024 11:27 AM EST) ABO Blood Type A 05/06/2024 12:17 PM EST [facility] RH Type Positive 05/06/2024 12:17 PM EST [facility] Blood Structure of peripheral vein / Unknown Venipuncture / Unknown 05/06/2024 11:27 AM EST 05/06/2024 11:30 AM EST us Tobi Pollard MD LAB BLOOD BANK TEST ORDER LINH Final Result Performing Organization Address City/[facility]/ZIP Co de Phone Number BLOOD BANK INFCE [address] [place] [address], * (ABNORMAL) Hepatitis B Surface Antibody (05/06/2024 11:27 AM EST) Hepatitis B Surface Ab Immunity, Qn <5(L) > OR = 10 mIU/mL 05/07/2024 3:27 AM EST [facility] Comment: PATIENT DOES NOT HAVE IMMUNITY TO HEPATITIS B VIRUS. For additional information, please refer to http://education.Celframe/faq/JUQ589 (This link is being provided for informational/ educational purposes only). Blood Structure of peripheral vein / Unknown Venipuncture / Unknown 05/06/2024 11:27 AM EST 05/06/2024 11:42 AM EST Narrative [facility] - 05/07/2024 3:27 AM EST [facility] Received Date:[id number] us Tobi Pollard MD LAB BLOOD ORDERABLES Monica l Result [facility] [address] [facility] [address], [place] [address], [place] [phone] [facility] [address] [facility] [address], [place] [address], * Hepatitis B Surface Antigen w/Confirmation (05/06/2024 11:27 AM EST) Hepatitis B Surface Antigen NON-REACT KISHA NON-REACT KISHA 05/07/2024 3:55 AM EST [facility] Comment: For additional information, please refer to http://education.Celframe/faq/QIQ682 (This link is being provided for informational/ educational purposes only.) Blood Structure of peripheral vein / Unknown Venipuncture / Unknown 05/06/2024 11:27 AM EST 05/06/2024 11:42 AM EST Narrative [facility] - 05/07/2024 3:55 AM EST [facility] Received Date: Tobi Pollard MD LAB BLOOD ORDERABLES Monica abernathy Result Performing Organization Address City/State/[facility] Co de Phone Number [facility] [address] [facility] [address], [place] [address], Machine [facility] [address] [facility] [address], [place] [address], * Cytomegalovirus Antibody, IgG (05/06/2024 11:27 AM EST) Pathologist [facility] Emergency Department Cytomegalovirus Antibody (IgG) <0.60 U/mL 05/07/2024 5:47 AM EST [facility] Comment: ? U/mL ? Interpretation ? ----- ? <0.60 ? Negative ? 0.60-0.69 ? Equivocal ? > or = 0.70 ?? Positive A positive result indicates that the patient has antibody to CMV. It does not differentiate between an active or past infection. Blood Structure of peripheral vein / Unknown Venipuncture / Unknown 05/06/2024 11:27 AM EST 05/06/2024 11:42 AM EST Narrative [facility] 05/07/2024 5:47 AM EST [facility] Received Date: Tobi Pollard MD LAB BLOOD ORDERABLES Monica l Result Performing Organization Address [facility] Co de Phone Number [facility] [address] [facility] [address] [facility], [place] [address], [facility] [address] [facility] [address] [facility], [place] [address], [place] [phone] * PTT (05/06/2024 11:27 AM EST) [facility] aPTT 25.4 23.0 - 32.0 Seconds 05/06/2024 12:09 PM EST [facility] Comment: Current PTT reagent is not sensitive to detect all Lupus Anticoagulant (LA) Inhibitor Cases. ?? If a LA is suspected, please order a Lupus Anticoagulation w/ Reflex Test which is performed at [facility] in [place], [place]. Blood Structure of peripheral vein / Unknown Venipuncture / Unknown 05/06/2024 11:27 AM EST 05/06/2024 11:42 AM EST Tobi Pollard MD LAB BLOOD ORDERABLES Monica l Result Performing Organization Address [facility] Co de Phone Number [facility] [address] [place] [address], * Protime-INR (05/06/2024 11:27 AM EST) Pathologist [facility] PT 9.6 9.6 - 12.4 Seconds 05/06/2024 12:09 PM EST [facility] INR 0.9 0.9 - 1.1 05/06/2024 12:09 PM EST [facility] Comment:The optimal therapeu tic INR range for patients treated with Vitamin K antagonists (VKAS, e.g., Warfarin) is 2.0 to 3.5. Discuss the desired range with your doctor/care team. Blood Structure of peripheral vein / Unknown Venipuncture / Unknown 05/06/2024 11:27 AM EST 05/06/2024 11:42 AM EST Tobi Pollard MD LAB BLOOD ORDERABLES Monica abernathy Result [facility] LAB[facility] [address] [place] [address], * Varicella Zoster Antibody, IgG (05/06/2024 11:27 AM EST) Pathologist [facility] Emergency Department Varicella Zoster Virus Antibody 16.70 S/CO 05/07/2024 8:39 AM EST [facility] Comment: ?Signal to Cut-off ? S/CO ?Interpretation [...] AM EST 05/06/2024 11:42 AM EST Narrative [facility] 05/07/2024 8:39 AM EST [facility] Received Date: Tobi Pollard MD LAB BLOOD ORDERABLES Monica l Result [facility] [address] [facility] [address], [place] [address], [place] [phone] [facility] [address] [facility] [address] [facility], [place] [address], [place] [phone] * (ABNORMAL) BUN (05/06/2024 11:27 AM EST) BUN 49(H) 7 - 23 mg/dL 05/06/2024 12:13 PM EST [facility] Blood Structure of peripheral vein / Unknown Venipuncture / Unknown 05/06/2024 11:27 AM EST 05/06/2024 11:42 AM EST Tobi Pollard MD LAB BLOOD ORDERABLES Monica l Result [facility] [address] [place] [address], * ALT (05/06/2024 11:27 AM EST) ALT 16 10 - 40 U/L 05/06/2024 12:13 PM EST [facility] Blood Structure of peripheral vein / Unknown Venipuncture / Unknown 05/06/2024 11:27 AM EST 05/06/2024 11:42 AM EST Tobi Pollard MD LAB BLOOD ORDERABLES Monica l Result Performing Organization Address City/[facility]/ZIP Co de Phone Number [facility] [address] [place] [address], * AST (05/06/2024 11:27 AM EST) AST 18 10 - 40 U/L 05/06/2024 12:13 PM EST [facility] Blood Structure of peripheral vein / Unknown Venipuncture / Unknown 05/06/2024 11:27 AM EST 05/06/2024 11:42 AM EST Tobi Pollard MD LAB BLOOD ORDERABLES Monica l Result Performing Organization Address [facility] Co de Phone Number [facility] [address] [place] [address], * Phosphorus (05/06/2024 11:27 AM EST) Phosphorus 3.8 2.5 - 4.5 mg/dL 05/06/2024 12:13 PM EST [facility] Blood Structure of peripheral vein / Unknown Venipuncture / Unknown 05/06/2024 11:27 AM EST 05/06/2024 11:42 AM EST Tobi Pollard MD LAB BLOOD ORDERABLES Monica l Result Performing Organization Address [facility] Co de Phone Number [facility] [address] [place] [address], * (ABNORMAL) Creatinine (05/06/2024 11:27 AM EST) Creatinine 5.03(H) 0.60 - 1.30 mg/dL 05/06/2024 12:13 PM EST [facility] eGFR 14(L) >=60 mL/min/1 .73m2 05/06/2024 12:13 PM EST [facility] Comment:The estimated glomer ular [...] ORDERABLES Monica l Result Performing Organization Address City/[facility]/ZIP Co de Phone Number [facility] [address] [place] [address], * Calcium (05/06/2024 11:27 AM EST) Calcium 9.5 8.6 - 10.5 mg/dL 05/06/2024 12:13 PM EST [facility] Blood Structure of peripheral vein / Unknown Venipuncture / Unknown 05/06/2024 11:27 AM EST 05/06/2024 11:42 AM EST Tobi Pollard MD LAB BLOOD ORDERABLES Monica l Result [facility] [address] [place] [address], * Bilirubin, Direct (05/06/2024 11:27 AM EST) Bilirubin, Direct 0.1 <=0.4 mg/dL 05/06/2024 12:13 PM EST [facility] Blood Structure of peripheral vein / Unknown Venipuncture / Unknown 05/06/2024 11:27 AM EST 05/06/2024 11:42 AM EST Tobi Pollard MD LAB BLOOD ORDERABLES Monica l Result [facility] [address] [place] [address] * Bilirubin, Total (05/06/2024 11:27 AM EST) Bilirubin, Total 0.3 0.2 - 1.2 mg/dL 05/06/2024 12:13 PM EST [facility] Blood Structure of peripheral vein / Unknown Venipuncture / Unknown 05/06/2024 11:27 AM EST 05/06/2024 11:42 AM EST Tobi Pollard MD LAB BLOOD ORDERABLES Monica l Result Performing Organization Address City/[facility]/ZIP Co de Phone Number [facility] [address] [place] [address], * Albumin (05/06/2024 11:27 AM EST) Albumin 4.3 3.5 - 5.2 g/dL 05/06/2024 12:13 PM EST [facility] Blood Structure of peripheral vein / Unknown Venipuncture / Unknown 05/06/2024 11:27 AM EST 05/06/2024 11:42 AM EST Tobi Pollard MD LAB BLOOD ORDERABLES Monica l Result [facility] [address] [place] [address], from Last 3 Months Insurance [employer] Advance Directives Documents on File Type Date Recorded Patient Automatic Blocker Expl anation Health Care Proxy 05/11/2024 1:39 PM 12-0 Care Teams Flowers Salesperson Relationship Specialty Start Date End Date Patient, Has No Pcp Or Ref DO NOT EDIT THIS RECORD VIA PROVIDER ON THE FLY PCP - General Financial Officer 05/06/24
--- OUTSIDE RECORDS SUMMARY | 2024-07-14 15:16 | XMS_ITS | Clinical Summary ---
Author Organization [facility] Address [address] [facility] [address] [place] [address] Phone Care Team Providers Care Unit Tender Name Role Phone Dwayne Jacobs MD Primary Care Provider [phone]- [phone] Allergies No known active allergies Medications omega-3 [...] Insurance COMPREHENSIVE BENEFITS COMPREHENSIVE BENEFITS Care Teams Unit Tender Relationship Specialty Start Date End Date Dwayne Jacobs MD [address] [place] [address] DRIVE [address] [place] [address] PCP - General 06/12/20
--- OUTSIDE RECORDS SUMMARY | 2024-07-14 15:16 | XMS_ITS | Clinical Summary ---
Author Organization [facility] Address [address] [place] [address] Care Team Providers Care Teacher Visually Impaired Name Role Phone Patient, Has No Pcp [...] Type Department Care Team Description 05/31/2024 Telephone [facility] Transplant Department [address] [place] [address] Lori Mustafa RN 05/27/2024 Telephone [facility] Transplant Department [address] [place] [address] Lori Mustafa RN 05/11/2024 Telephone [facility] Transplant Department [address] [place] [address] Lori Mustafa, modeling agent - Kidney Txp 05/06/2024 11:15 AM EST Lab [facility] Lab Draw Site [address] [place] [address] Pre-transplant evaluation for end stage renal disease; Chronic kidney disease, stage IV (severe) ([facility]) 05/06/2024 10:15 AM EST Social Work [facility] Renal Transplant [address] [place] [address] Cecelia Hinton LICSW 05/06/2024 9:30 AM EST Office Visit [facility] Renal Transplant [address] [place] [address] Tobi Pollard MD Pre-transplant evaluation for kidney transplant (Primary Dx); Pre-transplant evaluation for end stage renal disease; Stage 4 chronic kidney disease (HCC) 05/06/2024 8:15 AM EST Evaluation [facility] Renal Transplant [address] [place] [address] Lori Mustafa, DU Pre-transplant evaluation for end stage renal disease (Primary Dx) 05/06/2024 8:00 AM EST Office Visit [facility] Renal Transplant [address] [place] [address] Shanon De Anda RN Pre-transplant evaluation for kidney transplant (Primary Dx) 05/03/2024 Telephone [facility] Transplant Department [address] [place] [address] Lori Mustafa, DU 04/27/2024 Orders Only [facility] Transplant Department [address] [place] [address] Lori Mustafa, DU Pre-transplant evaluation for end [...] Info) Description 05/03/2025 10:00 AM EST Follow-Up [facility] Renal Transplant [address] [place] [address] Tobi Pollard MD [address] [place] [address] 05/03/2025 10:30 AM EST Social Work [facility] Renal Transplant [address] [place] [address] Cecelia Hinton LICSW [address] [place] [address] Health Maintenance Due Date Last Done Comments [...] complete this topic Procedures * Due to [place] state law, [...] IV (severe) (HCC) QUANTIFERON-TB GOLD PLUS, 1 [id number] Routine 05/06/2024 11:27 AM EST Pre-transplant evaluation for end stage renal disease Chronic kidney disease, stage IV (severe) (HCC) RPR (DIAGNOSIS) W/REFLEX TO TITER & TPPA [id number] Routine 05/06/2024 11:27 AM EST Pre-transplant evaluation for end stage renal disease Chronic kidney disease, stage IV (severe) (HCC) VARICELLA ZOSTER ANTIBODY, IGG Routine 05/06/2024 11:27 AM EST Pre-transplant evaluation for end stage renal disease Chronic kidney disease, stage IV (severe) (HCC) HLA TRANSPLANT WORK-UP (ALLELE LEVEL A/B/C/DRB1/EUB430/DQA1/ DQB1/DPA1/DPB1) Routine 05/06/2024 11:27 AM EST Pre-transplant [...] CYSTATIN C WITH GLOMERULAR FILTRATION RATE, ESTIMATED (EGFR)-[id number] Routine 05/06/2024 11:27 AM EST Pre-transplant evaluation for end stage renal disease Chronic kidney disease, stage IV (severe) (HCC) from Last 3 Months Results * Due to [place] state law, this organization might not be sharing negative HIV tests. * HLA Transplan Work-Up(Allele Level A/B/C/DRB1/TVK322/DQA1/DQB1/DPA1/DPB1) (05/06/2024 11:27 AM EST) Histocompatibility Laboratory Information See Below 05/12/2024 3:59 PM EST [facility] Comment: RMOULO: ??[id number] ?Director: ??Magdalena Garcia MD. [facility] PFI: ??[id number] UNOS: ??[id number] This test was [...] [facility] [address] [facility] Rm: [id number] HLA LAB [place] [id number], * (ABNORMAL) Cystatin C with Glomerular Filtration [...] Monica abernathy Result Performing Organization Address City/State/[facility] Co de Phone Number GENEVA DILLARD) [address] [place], [place] , [place] * MMR Panel, IgG (05/06/2024 11:27 AM EST) Measles Antibody (IgG), Immune Status 136.00 AU/mL 05/07/2024 5:47 AM EST [facility] Comment: AU/mL ?Interpretation ----- ? <13.50 ? Not consistent with immunity 13.50-16.49 ?Equivocal >16.49 ? Consistent with immunity The presence of measles IgG suggests immunization or past or current infection with measles virus. For additional information, please refer to http://education.Chirpify/faq/HFO753 (This link is being provided for informational/ educational purposes only.) Mumps Antibody (IgG), Immune Status 37.60 AU/mL 05/07/2024 5:47 AM EST [facility] Comment: AU/mL ? Interpretation ------- ? <9.00 ? Not consistent with immunity 9.00-10.99 ?Equivocal >10.99 ?Consistent with immunity The presence of mumps IgG antibody suggests immunization or past or current infection with mumps virus. Rubella Antibody (IgG), Immune Status 2.45 Index 05/07/2024 5:47 AM EST [facility] Comment: ?Index ?Interpretation ?----- ?<0.90 ?Not consistent with immunity ?0.90-0.99 ?Equivocal ?> or = 1.00 ?Consistent with immunity The presence of rubella IgG antibody suggests immunization or past or current infection with rubella virus. Blood Structure of peripheral vein / Unknown Venipuncture / Unknown 05/06/2024 11:27 AM EST 05/06/2024 11:42 AM EST [facility] - 05/07/2024 5:47 AM EST [facility] Received Date: Tobi Pollard MD LAB BLOOD ORDERABLES Monica abernathy Result [facility] [address] [facility] [address], [place] [address], [facility] [address] [facility] [address], [place] [address], * (ABNORMAL) Herpes Simplex Virus 1&2, IgG (05/06/2024 11:27 AM EST) HSV 1 IgG Type Specific Ab 5.17(H) index 05/07/2024 8:57 AM EST [facility] HSV 2 IgG Type Specific Ab <0.90 index 05/07/2024 8:57 AM EST [facility] Comment: ?Index ?Interpretation ?----- ?<0.90 ?Negative ?0.90-1.09 [...] screening. For additional information, please refer to http://education.Chirpify/faq/GZE594 (This link is being provided for informational/ educational purposes only.) ?? Blood Structure of peripheral vein / Unknown Venipuncture / Unknown 05/06/2024 11:27 AM EST 05/06/2024 11:42 AM EST Narrative [facility] - 05/07/2024 8:57 AM EST [facility] Received Date: Tobi Pollard MD LAB BLOOD ORDERABLES Monica abernathy Result [facility] [address] [facility] [address] Floor, [place] [address], [place] [phone] [facility] [address] [facility] [address] Floor, [place] [address], * RPR (Diagnosis) w/Reflex to Titer & TPPA Confirm (05/06/2024 11:27 AM EST) [facility] RPR W/Refl Titer NON-REACT KISHA NON-REACT KISHA 05/08/2024 6:27 PM EST [facility] Blood Structure of peripheral vein / Unknown Venipuncture / Unknown 05/06/2024 11:27 AM EST 05/06/2024 11:42 AM EST Narrative [facility] - 05/08/2024 6:27 PM EST [facility] Received Date: Tobi Pollard MD LAB BLOOD ORDERABLES Monica abernathy Result [facility] [place] [address] [facility] [address] Floor, [place] [address], [facility] [address] [facility] [address], [place] [address], * QuantiFERON-TB Gold Plus, 1 Tube (05/06/2024 11:27 AM EST) [facility] QuantiFERON-TB Gold Plus NEGATIVE NEGATIVE 05/08/2024 2:00 PM EST [facility] Comment: Negative test result. M. tuberculosis complex infection unlikely. NIL 0.04 IU/mL 05/08/2024 2:00 PM EST [facility] Mitogen-NIL 6.31 IU/mL 05/08/2024 2:00 PM EST [facility] TB1-NIL <0.00 IU/mL 05/08/2024 2:00 PM EST [facility] TB2-NIL 0.01 IU/mL 05/08/2024 2:00 PM EST [facility] Comment: The Nil tube value reflects [...] T-lymphocytes. For additional information, please refer to https://education.NovaRay Medical/faq/SYO402 (This link is being provided for informational/ educational purposes only.) Blood Structure of peripheral vein / Unknown Venipuncture / Unknown 05/06/2024 11:27 AM EST 05/06/2024 11:39 AM EST Narrative [facility] [place] - 05/08/2024 2:00 PM EST [facility] Received Date: us Tobi Pollard MD LAB BLOOD ORDERABLES Monica l Result [facility] [address] [facility] [address], [place] [address], [place] [phone] [facility] [address] [facility] [address] Floor, [place] [address], * (ABNORMAL) CBC Auto Differential (05/06/2024 11:27 [...] - 0.20 10*3/uL 05/06/2024 11:51 AM EST [facility] nRBC % 0.0 /100 WBCs 05/06/2024 11:51 AM EST [facility] nRBC # <0.01 <0.01 10*3/uL 05/06/2024 11:51 AM EST [facility] Blood Structure of peripheral vein / Unknown Venipuncture / Unknown 05/06/2024 11:27 AM EST 05/06/2024 11:42 AM EST us Tobi Pollard MD LAB BLOOD ORDERABLES Monica abernathy Result [facility] [address] [place] [address], * (ABNORMAL) Kendall-Llanos Virus VCA Antibody Panel (05/06/2024 11:27 AM EST) EBV Viral Capsid Ag Ab (IGM) <36.00 U/mL 05/07/2024 5:47 AM EST [facility] Comment: ?U/mL ?Interpretation ?---- ?<36.00 ?Negative ?36.00-43.99 ? Equivocal ?>43.99 ?Positive EBV Viral Capsid Ag Ab (IGG) >750.00(H) U/mL 05/07/2024 5:47 AM EST [facility] Comment: ? U/mL ? Interpretation ? ---- ? <18.00 ? Negative ? 18.00-21.99 ?Equivocal ? >21.99 ? Positive EBV Nuclear Ag Ab >600.00(H) U/mL 024 5:47 AM EST [facility] Comment: ? U/mL ? Interpretation ? ---- ? <18.00 ? Negative ? 18.00-21.99 ?Equivocal ? >21.99 ? 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 In infants, a similar pattern may occur as a result of passive maternal transfer of antibody. Blood Structure of peripheral vein / Unknown Venipuncture / Unknown 05/06/2024 11:27 AM EST 05/06/2024 11:42 AM EST [facility] [place] - 05/07/2024 5:47 AM EST [facility] Received Date: Tobi Pollard MD LAB BLOOD ORDERABLES Monica abernathy Result [facility] [place] [address], [place] [address], [place] [phone] [facility] [address], [place] [address], * Hepatitis C Antibody w/Reflex to PCR (05/06/2024 11:27 AM EST) Hepatitis C Antibody NON-REACT KISHA NON-REACT KISHA 05/07/2024 3:30 AM EST [facility] Comment: HCV antibody was non-reactive. There is no laboratory evidence of HCV infection. In most cases, no further action is required. However, if recent HCV exposure is suspected, a test for HCV RNA (test code 02390) is suggested. For additional information please refer to http://NanoGram.NovaRay Medical/faq/RDW76j2 (This link is being provided for informational/ educational purposes only.) Blood Structure of peripheral vein / Unknown Venipuncture / Unknown 05/06/2024 11:27 AM EST 05/06/2024 11:42 AM EST Narrative [employer] [facility] [place] - 05/07/2024 3:30 AM EST [facility] Received Date: Tobi Pollard MD LAB BLOOD ORDERABLES Monica l Result Performing Organization Address City/[facility]/ZIP Co de Phone Number GENEVA [address], [place] [address], [facility] [address], [place] [address], [place] [phone] * Hepatitis A Antibody, Total (05/06/2024 11:27 AM EST) Hepatitis A Ab, Total NON-REACT KISHA NON-REACT KISHA 05/07/2024 8:31 AM EST [facility] Comment: For additional information, please refer to http://NanoGram.NovaRay Medical/faq/AZU985 (This link is being provided for informational/ educational purposes only.) Blood Structure of peripheral vein / Unknown Venipuncture / Unknown 05/06/2024 11:27 AM EST 05/06/2024 11:42 AM EST Narrative [facility] - 05/07/2024 8:31 AM EST [facility] Received Date: us Tobi Pollard MD LAB BLOOD ORDERABLES Monica l Result Performing Organization Address City/[facility]/ZIP Co de Phone Number [facility] [place] [address], [place] [address], [place] [phone] [facility] [address] [facility] [address] Floor, [place] [address], [place] [phone] * Hepatitis B Core Antibody, Total (05/06/2024 11:27 AM EST) Hepatitis B Core Ab Total NON-REACT KISHA NON-REACT KISHA 05/07/2024 3:28 AM EST [facility] Comment: For additional information, please refer to http://education.NovaRay Medical/faq/VRT907 (This link is being provided for informational/ educational purposes only.) Blood Structure of peripheral vein / Unknown Venipuncture / Unknown 05/06/2024 11:27 AM EST 05/06/2024 11:42 AM EST Narrative [facility] [place] - 05/07/2024 3:28 AM EST [facility] Received Date: us Tobi Pollard MD LAB BLOOD ORDERABLES Monica l Result [facility] [address] [facility] [address], [place] [address], [place] [phone] [facility] [address] [facility] [address] Floor, [place] [address], [place] [phone] * ABO/Rh Blood Type (05/06/2024 11:27 AM [...] Final Result [facility] [address] [place] [address], * (ABNORMAL) Hepatitis B Surface Antibody (05/06/2024 11:27 AM EST) Hepatitis B Surface Ab Immunity, Qn <5(L) > OR = 10 mIU/mL 05/07/2024 3:27 AM EST [facility] Comment: PATIENT DOES NOT HAVE IMMUNITY TO HEPATITIS B VIRUS. For additional information, please refer to http://NanoGram.NovaRay Medical/faq/IUD240 (This link is being provided for informational/ educational purposes only). Blood Structure of peripheral vein / Unknown Venipuncture / Unknown 05/06/2024 11:27 AM EST 05/06/2024 11:42 AM EST Narrative [facility] - 05/07/2024 3:27 AM EST [facility] Received Date: us Tobi Pollard MD LAB BLOOD ORDERABLES Monica l Result [facility] [address] [facility] [address], [place] [address], [facility] [address] [facility] [address], [place] [address], * Hepatitis B Surface Antigen w/Confirmation (05/06/2024 11:27 AM EST) Pathologist [facility] Hepatitis B Surface Antigen NON-REACT KISHA NON-REACT KISHA 05/07/2024 3:55 AM EST [facility] Comment: For additional information, please refer to http://NanoGram.NovaRay Medical/faq/KRA270 (This link is being provided for informational/ educational purposes only.) Blood Structure of peripheral vein / Unknown Venipuncture / Unknown 05/06/2024 11:27 AM EST 05/06/2024 11:42 AM EST Narrative [employer] [place] - 05/07/2024 3:55 AM EST [facility] Received Date:[id number] us Tobi Pollard MD LAB BLOOD ORDERABLES Monica l Result Performing Organization Address City/[facility]/ZIP Co de Phone Number [facility] [place] [address] [facility] [address], [place] [address], [facility] [address], [address] [place] [address], [place] [phone] * Cytomegalovirus Antibody, IgG (05/06/2024 11:27 AM EST) Pathologist [facility] Cytomegalovirus Antibody (IgG) <0.60 U/mL 05/07/2024 5:47 AM EST [facility] Comment: ? U/mL ? Interpretation ? ----- ? <0.60 ? Negative ? 0.60-0.69 ? Equivocal ? > or = 0.70 ?? Positive A positive result indicates that the patient has antibody to CMV. It does not differentiate between an active or past infection. Blood Structure of peripheral vein / Unknown Venipuncture / Unknown 05/06/2024 11:27 AM EST 05/06/2024 11:42 AM EST Narrative [facility] - 05/07/2024 5:47 AM EST [facility] Received Date: Tobi Pollard MD LAB BLOOD ORDERABLES Monica l Result [facility] [place] [address], [place] [address], [place] [phone] [facility] [address] [facility] [address] Floor, [place] [address], [place] [phone] * PTT (05/06/2024 11:27 AM EST) aPTT 25.4 23.0 - 32.0 Seconds 05/06/2024 12:09 PM EST [facility] Comment: Current PTT reagent is not sensitive to detect all Lupus Anticoagulant (LA) Inhibitor Cases. ?? If a LA is suspected, please order a Lupus Anticoagulation w/ Reflex Test which is performed at [facility] in [place], [place]. Blood Structure of peripheral vein / Unknown Venipuncture / Unknown 05/06/2024 11:27 AM EST 05/06/2024 11:42 AM EST Tobi Pollard MD LAB BLOOD ORDERABLES Monica l Result [facility] LABOR[facility]ORY [address] [place] [address], * Protime-INR (05/06/2024 11:27 AM EST) PT 9.6 9.6 - 12.4 Seconds 05/06/2024 12:09 PM EST [facility] INR 0.9 0.9 - 1.1 05/06/2024 12:09 PM EST [facility]ENTERHorizon Data Center SolutionsNY [facility] Comment:The optimal therapeu tic INR range for patients treated with Vitamin K antagonists (VKAS, e.g., Warfarin) is 2.0 to 3.5. Discuss the desired range with your doctor/care team. Blood Structure of peripheral vein / Unknown Venipuncture / Unknown 05/06/2024 11:27 AM EST 05/06/2024 11:42 AM EST us Tobi Pollard MD LAB BLOOD ORDERABLES Monica l Result Performing Organization Address City/[facility]/ZIP Co de Phone Number [facility] [address] [place] [address], * Varicella Zoster Antibody, IgG (05/06/2024 11:27 AM EST) Varicella Zoster Virus Antibody 16.70 S/CO 05/07/2024 8:39 AM EST [facility] Comment: ?Signal to Cut-off ? S/CO ?Interpretation [...] EST 05/06/2024 11:42 AM EST Narrative [facility] [place] - 05/07/2024 8:39 AM EST [facility] Received Date: Tobi Pollard MD LAB BLOOD ORDERABLES Monica abernathy Result Performing Organization Address City/[facility]/ZIP Co de Phone Number GENEVA [address], [place] [address], [place] [phone] [facility] [address] [facility] [address], [place] [address], [place] [phone] * (ABNORMAL) BUN (05/06/2024 11:27 AM EST) BUN 49(H) 7 - 23 mg/dL 05/06/2024 12:13 PM EST [facility] Blood Structure of peripheral vein / Unknown Venipuncture / Unknown 05/06/2024 11:27 AM EST 05/06/2024 11:42 AM EST Tobi Pollard MD LAB BLOOD ORDERABLES Monica l Result Performing Organization Address City/[facility]/ZIP Co de Phone Number [facility] [address] [place] [address], [place] * ALT (05/06/2024 11:27 AM EST) ALT 16 10 - 40 U/L 05/06/2024 12:13 PM EST [facility] Blood Structure of peripheral vein / Unknown Venipuncture / Unknown 05/06/2024 11:27 AM EST 05/06/2024 11:42 AM EST Tobi Pollard MD LAB BLOOD ORDERABLES Monica l Result [facility] [address] [place] [address], [place] * AST (05/06/2024 11:27 AM EST) AST 18 10 - 40 U/L 05/06/2024 12:13 PM EST [facility] Blood Structure of peripheral vein / Unknown Venipuncture / Unknown 05/06/2024 11:27 AM EST 05/06/2024 11:42 AM EST Tobi Pollard MD LAB BLOOD ORDERABLES Monica l Result Performing Organization Address City/[facility]/ZIP Co de Phone Number [facility]ENTERK121[facility] [address] [place] [address], * Phosphorus (05/06/2024 11:27 AM EST) Phosphorus 3.8 2.5 - 4.5 mg/dL 05/06/2024 12:13 PM EST [facility] Blood Structure of peripheral vein / Unknown Venipuncture / Unknown 05/06/2024 11:27 AM EST 05/06/2024 11:42 AM EST Tobi Pollard MD LAB BLOOD ORDERABLES Monica l Result Performing Organization Address [facility] de Phone Number [facility] [address] [place] [address] * (ABNORMAL) Creatinine (05/06/2024 11:27 AM EST) Creatinine 5.03(H) 0.60 - 1.30 mg/dL 05/06/2024 12:13 PM EST [facility] CL[facility]ICAL PATHOLOGY LABORATORY eGFR 14(L) >=60 mL/min/1 .73m2 05/06/2024 12:13 PM EST [facility] Comment:The estimated glomer ular [...] l Result Performing Organization Address [facility] Co de Phone Number [facility] [address] [place] [address], [place] * Calcium (05/06/2024 11:27 AM EST) Calcium 9.5 8.6 - 10.5 mg/dL 05/06/2024 12:13 PM EST [facility] Blood Structure of peripheral vein / Unknown Venipuncture / Unknown 05/06/2024 11:27 AM EST 05/06/2024 11:42 AM EST Tobi Pollard MD LAB BLOOD ORDERABLES Monica l Result Performing Organization Address [facility] Co de Phone Number [facility] [address] [place] [address], [place] * Bilirubin, Direct (05/06/2024 11:27 AM EST) Bilirubin, Direct 0.1 <=0.4 mg/dL 05/06/2024 12:13 PM EST [facility] Blood Structure of peripheral vein / Unknown Venipuncture / Unknown 05/06/2024 11:27 AM EST 05/06/2024 11:42 AM EST Tobi Pollard MD LAB BLOOD ORDERABLES Monica l Result Performing Organization Address City/[facility] Co de Phone Number [facility] [address] [place] [address], [place] * Bilirubin, Total (05/06/2024 11:27 AM EST) Bilirubin, Total 0.3 0.2 - 1.2 mg/dL 05/06/2024 12:13 PM EST [facility] Blood Structure of peripheral vein / Unknown Venipuncture / Unknown 05/06/2024 11:27 AM EST 05/06/2024 11:42 AM EST Tobi Pollard MD LAB BLOOD ORDERABLES Monica l Result [facility] [address] * Albumin (05/06/2024 11:27 AM EST) Albumin 4.3 3.5 - 5.2 g/dL 05/06/2024 12:13 PM EST [facility] Blood Structure of peripheral vein / Unknown Venipuncture / Unknown 05/06/2024 11:27 AM EST 05/06/2024 11:42 AM EST Tobi Pollard MD LAB BLOOD ORDERABLES Monica l Result Performing Organization Address City/[facility]/ZIP Co de Phone Number [employer] [facility] LAB[facility] [address] [place] [address] from Last 3 Months Insurance [employer] Advance Directives Documents on File Type Date Recorded Patient Snow Maker Expl [facility] Care Proxy 05/11/2024 1:39 PM 12-0 Care Teams Teacher Visually Impaired Relationship Specialty Start Date End Date Patient, Has No Pcp Or Ref DO NOT EDIT THIS RECORD VIA PROVIDER ON THE FLY PCP - General Interpretative Dancer 05/06/24
--- OUTSIDE RECORDS SUMMARY | 2024-07-14 15:16 | XMS_ITS ---
Author Organization [facility] Address [address] [place] [address] Care Team Providers Care Accounting Machine Servicer Name Role Phone Reynaldo SAMAYOA [place] Primary Care Provider Unava ilLori Cam [phone] REASON FOR VISIT issues with nail Encounters Encounter Location Date Provider Diagnosis [facility] [address] [place] [address] 08/19/2023 Lori Bacon Plan Of Treatment No Information Progress Notes * Nasir JODOB:1980 (43 yo M)Acc No.[id number]:08/19/2023 Patient:?Nasir Jo :1980???Age:43 Y???Sex:Male Address:[address] [place] [address], [address] * true * Date:? Generated for Cotyi coco/Jose Carlos/eTransmitting on:?07/14/2024 03:16 PM EST
--- OUTSIDE RECORDS SUMMARY | 2024-07-14 15:16 | XMS_ITS ---
Author Organization [facility] Address [address] [place] [address] Care Team Providers Care Director Of National Sales Name Role Phone Patient, Has No Pcp Or Ref Primary Care Provider Unavailable Transplant Episode Kidney Candidate [facility] ([place], [place]) - [facility] Evaluation began on 05/06/2024 Marked as Active on 05/06/2024 Kidney CoordinatorLori Mustafa RN Email: N/A Scores Score Value Updated Exceptions/Reas ons CPRA Not available EPTS (Calc) 10 07/14/2024 [place] Organ Diagnosis Organ Primary Contributory Kidney Hypertensive Nephrosclerosis Care Team Name Role Phone Fax Email Lori Mustafa RN Kidney Coordinator [phone] N/A David Antonio Referring Physician [phone] N/A Events Pre-Transplant Referred: 04/15/2024 Evaluation began: 05/06/2024
--- OUTSIDE RECORDS SUMMARY | 2024-07-14 15:16 | XMS_ITS | Patient Health Record ---
[facility] Address [address] [place] [address] Care Team Providers Care Supervisor Production Managing Name Role Phone Reynaldo SAMAYOA, Dwayne Primary Care Provider Lori Jasmine Unavailable [phone] Allergies No Known Allergies Reason For Referral No Information Medications Medication SIG (Take, Route, Frequency, Duration) Notes Start Date End Date Status Atorvastatin Calcium 10 MG 1 tablet Oral ly Once a day for 30 day(s) Active Ciclopirox 0.77 % 1 application Order Department Supervisor ally Twice a day for 365 days [...] Problem Status W/U Status Risk Notes Problem [id number] Gouty arthritis of right foot (M10.9) Active confirmed Vital Signs Blood pressure diastolic 70 mm Hg 09/12/2023 Height 5 ft 6 in in 09/12/2023 Blood pressure systolic 120 mm Hg 09/12/2023 Weight 183 lbs 09/12/2023 BMI 29.53 kg/m2 09/12/2023 Encounters Encounter Location Date Provider Diagnosis [facility] [address] [place] [address] 09/12/2023 Lori Bacon Fungal infection of nail B35.1 [facility] [address] [place] [address] 08/19/2023 Lori Bacon Assessments Encounter Date Diagnosis (ICD Code) Assessment Notes Treatment Notes Treatment Clinical Notes Section Notes 09/12/2023 Fungal infection of nail (ICD-10 - B35.1) Rx management (4) Plan Of Treatment Pending Test Test Name Order Date , [id number]/INJECT, JOINT/BURSA 0 09/20/2022 Insurance Providers Payer Name Payer Address Payer Phone Subscriber Number Group Number Insured Name Patient Relationship to Insured Coverage Start Date Coverage End Date Blue Benefits [address] [address] [place] [address] [id number] Nasir Jo Self - patient is the insured Medical (General) History Medical History History ICD Code Hypertension Hyperlipidemia Chronic Kidney Disease, stage III (moder ate) Vitamin D deficiency Obesity Surgical History Surgery Date(Month/Year) eye surgery
--- OUTSIDE RECORDS SUMMARY | 2024-07-14 15:17 | XMS_ITS ---
[facility] Address [address] [place] [address] Care Team Providers Care Supervisor Lead Burning Name Role Phone Glen Jacobs MDneth Primary Care Provider Lori Jasmine Unavailable [phone] Allergies No Known Allergies REASON FOR VISIT Pcp- 09/12/23, Fungal Nails Medications Medication SIG (Take, Route, Frequency, Duration) Notes Start Date End Date Status Atorvastatin Calcium 10 MG 1 tablet Oral ly Once a day for 30 day(s) Active Ciclopirox 0.77 % 1 application Stem Cutter ally Twice a day for 365 days [...] 024 Encounters Encounter Location Date Provider Diagnosis [facility] [address] [place] [address] 09/12/2023 Lori Bacon Fungal infection of nail B35.1 Assessments Encounter Date Diagnosis (ICD Code) Assessment Notes Treatment Notes Treatment Clinical Notes Section Notes 09/12/2023 Fungal infection of nail (ICD-10 - B35.1) Rx management (4) Plan Of Treatment Medication Medication Name Sig Start Date Stop Date Notes Ciclopirox 0.77 % 1 application Stem Cutter ally Twice a day for 365 days Next Appt Details Follow Up: prn, Reason: Progress Notes * Nasir WHITEDOB:1980 (43 yo M)Acc No.[id number]:09/12/2023 Progress Note Patient:?Nasir White Provider:?Lori Bacon DPM :1980???Age:43 Y???Sex:Male Wolf e:09/12/2023 Address:[address] [place], [place] [id number] Pcp:Dwayne Jacobs MD Subjective: * Chief Complaints: [...] DPM Date:?05/2024 Generated for Jewel sepulveda/Jose Carlos/[place] on:?07/14/2024 03:16 PM EST History and Physical Notes * [...]
== END 2024-07-14 14:40 | disposition home or self-care (01) ==
PROVIDERS: PCP Internal Medicine; Visit Provider Internal Medicine Nephrology
DX: N18.5 Chronic kidney disease, stage 5 (principal); N25.81 Secondary hyperparathyroidism of renal origin; E55.9 Vitamin D deficiency, unspecified; I12.0 Hypertensive chronic kidney disease with stage 5 chronic kidney disease or end stage renal disease
CPT/HCPCS: 99214

== ENCOUNTER → 2024-07-14 13:58 | Outpatient (BNVA) | payer OTHER, SELFPAY | PROVIDERS: PCP Internal Medicine; Visit Provider Internal Medicine Nephrology ==

== ENCOUNTER 2024-07-28 14:12 | Outpatient (REF) | payer OTHER, SELFPAY ==
[2024-07-28 14:44] LABS: MANUAL DIFF FLAG NO
[2024-07-28 15:29] LABS: Basophils Percent Auto 0.6 % (0-2); Eosinophils Absolute Auto 0.1 X10*3/uL (0.0-0.4); Eosinophils Percent Auto 1.7 % (0-4); Hematocrit 33.9 % (42.0-52.0); Hemoglobin 11.5 g/dl (14.0-18.0); Imm Gran Abs Auto 0.02 X10*3/uL (0.00-0.03); Imm Gran Pct Auto 0.3 % (0.0-0.4); Lymphocytes Absolute Auto 1.1 X10*3/uL (1.2-4.9); Lymphocytes Percent Auto 15.4 % (20-40); Mean Corpuscular HGB Conc 33.9 g/dl (31.0-36.0); Mean Corpuscular Volume 88.5 fL (80.0-98.0); Mean Platelet Volume 9.9 fL (9.4-12.4); Monocytes Absolute Auto 0.3 X10*3/uL (0.1-1.2); Monocytes Percent Auto 4.3 % (2-11); Neutrophils Absolute Auto 5.4 x10*3/uL (2.0-8.3); Neutrophils Percent Auto 77.7 % (45-73); Platelet Count 322 X10*3/uL (160-400); Red Blood Count 3.83 X10*6/uL (4.60-5.80); Red Cell Distribution Width 11.9 % (11.0-16.0)
[2024-07-28 15:39] LABS: Appearance Urine Clear; Color Urine Yellow; Glucose Urine UA Negative (Negative); Leukocyte Esterase Urine Negative (Negative); Nitrite Urine Negative (Negative); PH 6.5 (5.0-9.0); UMIC TRIGGER UACC YES; Urine Blood Trace (Negative); Urine Ketones Negative (Negative); Urine Protein 300 (3+) mg/dL (Neg-Trace)
[2024-07-28 15:42] LABS: Bacteria Urine None Seen (None Seen); Hyaline Casts Urine 0-2 /LPF (0-2); RBC Urine 0-2 /HPF (0-2); Squamous Epithelial Cell Urine 0-2 /HPF (0-2); WBC Urine 0-5 /HPF (0-5)
[2024-07-28 16:02] LABS: B Type Natriuretic Peptide 10 pg/mL (<100)
[2024-07-28 17:02] LABS: TSH reflex Free T4 2.41 uIU/mL (0.32-4.0)
[2024-07-28 17:11] LABS: Alanine Aminotransferase 14 U/L (0-40); Alkaline Phosphatase 76 U/L (39-117); Anion Gap 15 (12-20); Aspartate Amino Transferase 18 U/L (5-37); Bilirubin Total 0.4 mg/dL (0.0-1.0); Blood Urea Nitrogen 57 mg/dL (9-16); Calcium 8.9 mg/dL (8.4-10.2); Carbon Dioxide 24 mmol/L (22-29); Chloride 104 mmol/L (96-108); Glucose Random 119 mg/dL (60-115); Potassium 3.3 mmol/L (3.3-5.1); Sodium 140 mmol/L (135-145); Total Protein 6.7 g/dL (6.5-8.0)
[2024-07-28 17:14] LABS: Estimated Glomerular Filt Rate 12
--- OUTSIDE RECORDS SUMMARY | 2024-07-28 17:28 | XMS_ITS ---
Author Organization [facility] Address [address] [place] [address] Care Team Providers Care Test Equipment Mechanic Name Role Phone Reynaldo SAMAYOA [place] Primary Care Provider Unava ilLori Cam [phone] REASON FOR VISIT issues with nail Encounters Encounter Location Date Provider Diagnosis [facility] [address] [place] [address] 08/19/2023 Lori Bacon Plan Of Treatment No Information Progress Notes * Nasir JODOB:1980 (43 yo M)Acc No.[id number]:08/19/2023 Patient:?Nasir Jo :1980???Age:43 Y???Sex:Male Address:[address] [place] [address], [address] * true * Date:? Generated for Cotyi coco/Jose Carlos/eTransmitting on:?07/28/2024 05:28 PM EST
--- OUTSIDE RECORDS SUMMARY | 2024-07-28 17:28 | XMS_ITS ---
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
--- OUTSIDE RECORDS SUMMARY | 2024-07-28 17:29 | XMS_ITS | Referral Summary ---
Author Organization [facility] Address [address] [place] [address] Care Team Providers Care License Issuer Name Role Phone Patient, Has No Pcp Or Ref Primary Care Provider Unavailable Encounters Date Type Department Care Team Description 05/31/2024 Telephone [facility] Transplant Department [address] [place] [address] Lori Mustafa, RN 05/27/2024 Telephone [facility] Transplant Department [address] [place] [address] 78702 Lori Mustafa, RN 05/11/2024 Telephone [facility] Transplant Department [address] [place] [address] 32916 Lori Mustafa, time study clerk - Kidney Txp 05/06/2024 11:15 AM EST Lab [facility] [place] Lab Draw Site [address] [place] [address] Pre-transplant evaluation for end stage renal disease; Chronic kidney disease, stage IV (severe) (HCC) 05/06/2024 10:15 AM EST Social Work [facility] Renal Transplant [address] [place] [address] Cecelia Hinton LICSW 05/06/2024 9:30 AM EST Office Visit [facility] Renal Transplant [address] [place] [address] Tobi Pollard MD Pre-transplant evaluation for kidney transplant (Primary Dx); Pre-transplant evaluation for end stage renal disease; Stage 4 chronic kidney disease (HCC) 05/06/2024 8:15 AM EST Evaluation [facility] Renal Transplant [address] [place] [address] Lori Mustafa RN Pre-transplant evaluation for end stage renal disease (Primary Dx) 05/06/2024 8:00 AM EST Office Visit [facility] Renal Transplant [address] [place] [address] Shanon De Anda RN Pre-transplant evaluation for kidney transplant (Primary Dx) 05/03/2024 Telephone [facility] Transplant Department [address] [place] [address] Lori Mustafa RN 04/27/2024 Orders Only [facility] Transplant Department [address] [place] [phone] Lori Mustafa RN Pre-transplant evaluation for end [...] Info) Description 05/03/2025 10:00 AM EST Follow-Up [facility] Renal Transplant [address] [place] [address] Tobi Pollard MD [address] [place] [address] 05/03/2025 10:30 AM EST Social Work [facility] Renal Transplant [address] [place] [address] Cecelia Hinton LICSW [address] [place] [address] Procedures * Due to [place] state law, this organization might not be [...] IV (severe) (HCC) QUANTIFERON-TB GOLD PLUS, 1 [id number] Routine 05/06/2024 11:27 AM EST Pre-transplant evaluation for end stage renal disease Chronic kidney disease, stage IV (severe) (HCC) RPR (DIAGNOSIS) W/REFLEX TO TITER & TPPA [id number] Routine 05/06/2024 11:27 AM EST Pre-transplant evaluation for end stage renal disease Chronic kidney disease, stage IV (severe) (HCC) VARICELLA ZOSTER ANTIBODY, IGG Routine 05/06/2024 11:27 AM EST Pre-transplant evaluation for end stage renal disease Chronic kidney disease, stage IV (severe) (HCC) HLA TRANSPLANT WORK-UP (ALLELE LEVEL A/B/C/DRB1/APK629/DQA1/ DQB1/DPA1/DPB1) Routine 05/06/2024 11:27 AM EST Pre-transplant [...] CYSTATIN C WITH GLOMERULAR FILTRATION RATE, ESTIMATED (EGFR)-[id number] Routine 05/06/2024 11:27 AM EST Pre-transplant evaluation for end stage renal disease Chronic kidney disease, stage IV (severe) (HCC) from Last 3 Months Results * Due to [place] state law, this organization might not be sharing negative HIV tests. * HLA Transplan Work-Up(Allele Level A/B/C/DRB1/FCB954/DQA1/DQB1/DPA1/DPB1) (05/06/2024 11:27 AM EST) [facility] Histocompatibility Laboratory Information See Below 05/12/2024 3:59 PM EST [employer] [facility] Comment: ROMULO: ??[id number] ?Director: ??Magdalena Garcia MD. [facility] PFI: ??[id number] UNOS: ??[id number] This test [...] Edited Result - Final Performing Organization Address City/[facility]/ZIP Co de Phone Number [facility] [address] [facility] Rm: [id number] [place] [address], * (ABNORMAL) Cystatin C with Glomerular Filtration [...] ORDERABLES Monica l Result Performing Organization Address City/[facility]/ZIP Co de Phone Number [facility] (TARYN) [address] [place], [place] , [place] * MMR Panel, IgG (05/06/2024 11:27 AM EST) Measles Antibody (IgG), Immune Status 136.00 AU/mL 05/07/2024 5:47 AM EST [employer] Comment: AU/mL ?Interpretation ----- ? <13.50 ? Not consistent with immunity 13.50-16.49 ?Equivocal >16.49 ? Consistent with immunity The presence of measles IgG suggests immunization or past or current infection with measles virus. For additional information, please refer to http://education.Octoplus/faq/MJU912 (This link is being provided for informational/ educational purposes only.) Mumps Antibody (IgG), Immune Status 37.60 AU/mL 05/07/2024 5:47 AM EST [employer] Comment: AU/mL ? Interpretation ------- ? <9.00 ? Not consistent with immunity 9.00-10.99 ?Equivocal >10.99 ?Consistent with immunity The presence of mumps IgG antibody suggests immunization or past or current infection with mumps virus. Rubella Antibody (IgG), Immune Status 2.45 Index 05/07/2024 5:47 AM EST [employer] Comment: ?Index ?Interpretation ?----- ?<0.90 ?Not consistent [...] ORDERABLES Monica abernathy Result [facility] [address] [facility] 3rd Floor, [place] [address], [facility] [address], [address] [place] [address], * (ABNORMAL) Herpes Simplex Virus 1&2, IgG (05/06/2024 11:27 AM EST) HSV 1 IgG Type Specific Ab 5.17(H) index 05/07/2024 8:57 AM EST [facility] HSV 2 IgG Type Specific Ab <0.90 index 05/07/2024 8:57 AM EST [facility] Comment: ?Index ?Interpretation ?----- ?<0.90 ?Negative [...] screening. For additional information, please refer to http://education.Novavax AB.Gummii/faq/SYX273 (This link is being provided for informational/ educational purposes only.) ?? Blood Structure of peripheral vein / Unknown Venipuncture / Unknown 05/06/2024 11:27 AM EST 05/06/2024 11:42 AM EST Narrative [facility] - 05/07/2024 8:57 AM EST [facility] Received Date: Tobi Pollard MD LAB BLOOD ORDERABLES Monica l Result [facility] [address] [facility] [address] [facility], [place] [address], [place] [phone] [facility] [address] [facility] 3rd Floor, [place] [address], [place] [phone] * RPR (Diagnosis) w/Reflex to Titer & TPPA Confirm (05/06/2024 11:27 AM EST) Pathologist [facility] RPR W/Refl Titer NON-REACT KISHA NON-REACT KISHA 05/08/2024 6:27 PM EST [facility] Blood Structure of peripheral vein / Unknown Venipuncture / Unknown 05/06/2024 11:27 AM EST 05/06/2024 11:42 AM EST Narrative [facility] - 05/08/2024 6:27 PM EST [facility] Received Date: Tobi Pollard MD LAB BLOOD ORDERABLES Monica l Result Performing Organization Address City/[facility]/ZIP Co de Phone Number [facility] [address] [facility] [address] [facility], [place] [address], [place] [phone] [facility] [address] [facility] [address] [facility], [place] [address], [place] [phone] * QuantiFERON-TB Gold Plus, 1 Tube (05/06/2024 11:27 AM EST) QuantiFERON-TB Gold Plus NEGATIVE NEGATIVE 05/08/2024 2:00 PM EST [facility] Comment: Negative test result. M. tuberculosis complex infection unlikely. NIL 0.04 IU/mL 05/08/2024 2:00 PM EST [facility] Mitogen-NIL 6.31 IU/mL 05/08/2024 2:00 PM EST [facility] TB1-NIL <0.00 IU/mL 05/08/2024 2:00 PM EST [facility] TB2-NIL 0.01 IU/mL 05/08/2024 2:00 PM EST [facility] Comment: The Nil tube value reflects [...] T-lymphocytes. For additional information, please refer to https://education.Taskhero.com/faq/XFT031 (This link is being provided for informational/ educational purposes only.) Blood Structure of peripheral vein / Unknown Venipuncture / Unknown 05/06/2024 11:27 AM EST 05/06/2024 11:39 AM EST [facility] 05/08/2024 2:00 PM EST [facility] Received Date: Tobi Pollard MD LAB BLOOD ORDERABLES Monica abernathy Result [facility] [address] [facility] 3rd Floor, [place] [address], [place] [phone] [facility] [address] [facility] 3rd Floor, [place] [address], * (ABNORMAL) CBC Auto Differential (05/06/2024 11:27 AM EST) WBC 8.1 3.8 - 10.8 10*3/uL 05/06/2024 11:51 AM EST [facility] RBC 4.64 4.20 - [...] - 7.80 10*3/uL 05/06/2024 11:51 AM EST [facility] [employer] [facility] LABOR[facility] Immature Grans # 0.04(H) <=0.03 10*3/uL 05/06/2024 11:51 AM EST [facility] [employer] [facility] LAB[facility] Lymphocyte # 1.00 0.85 - 3.90 10*3/uL 05/06/2024 11:51 AM EST [facility] - [employer] [facility]OLOGY LABORATORY Monocyte # 0.30 0.20 - 0.95 10*3/uL 05/06/2024 11:51 AM EST [employer] [facility] [employer] CL[facility]ICAL PATHOLOGY LABORATORY Eosinophil # 0.10 0.02 - 0.50 10*3/uL 05/06/2024 11:51 AM EST [employer] [facility] [employer] [facility] LAB[facility] Basophil # <0.03 0.00 - 0.20 10*3/uL 05/06/2024 11:51 AM EST [facility] [employer] [facility] LABOR[facility] nRBC % 0.0 /100 WBCs 05/06/2024 11:51 AM EST [facility] LAB[facility] nRBC # <0.01 <0.01 10*3/uL 05/06/2024 11:51 AM EST [facility] Blood Structure of peripheral vein / Unknown Venipuncture / Unknown 05/06/2024 11:27 AM EST 05/06/2024 11:42 AM EST us Tobi Pollard MD LAB BLOOD ORDERABLES Monica l Result [facility] [employer] [facility] LABORAT[facility] [address] [place] [address], * (ABNORMAL) Kendall-Llanos Virus VCA Antibody Panel (05/06/2024 11:27 AM EST) EBV Viral Capsid Ag Ab (IGM) <36.00 U/mL 05/07/2024 5:47 AM EST [employer] Comment: ?U/mL ?Interpretation ?---- ?<36.00 ?Negative ?36.00-43.99 ? Equivocal ?>43.99 ?Positive EBV Viral Capsid Ag Ab (IGG) >750.00(H) U/mL 05/07/2024 5:47 AM [employer] Comment: ? U/mL ? Interpretation ? ---- ? <18.00 ? Negative ? 18.00-21.99 ?Equivocal ? >21.99 ? Positive EBV Nuclear Ag Ab >600.00(H) U/mL 5:47 AM [employer] Comment: ? U/mL ? Interpretation ? ---- ? <18.00 ? Negative ? 18.00-21.99 ?Equivocal ? >21.99 ? 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 In infants, a similar pattern may occur as a result of passive maternal transfer of antibody. Blood Structure of peripheral vein / Unknown Venipuncture / Unknown 05/06/2024 11:27 AM EST 05/06/2024 11:42 AM EST Narrative [employer] [facility] - 05/07/2024 5:47 AM EST [facility] Received Date: Tobi Pollard MD LAB BLOOD ORDERABLES Monica l Result [facility] [address], [place] [address], [place] [phone] [facility] [address], [place] [address], * Hepatitis C Antibody w/Reflex to PCR (05/06/2024 11:27 AM EST) Hepatitis C Antibody NON-REACT KISHA NON-REACT KISHA 05/07/2024 3:30 AM EST [facility] Comment: HCV antibody was non-reactive. There is no laboratory evidence of HCV infection. In most cases, no further action is required. However, if recent HCV exposure is suspected, a test for HCV RNA (test code 46349) is suggested. For additional information please refer to http://education.Taskhero.com/faq/UYZ43n9 (This link is being provided for informational/ educational purposes only.) Blood Structure of peripheral vein / Unknown Venipuncture / Unknown 05/06/2024 11:27 AM EST 05/06/2024 11:42 AM EST Narrative [employer] [facility] - 05/07/2024 3:30 AM EST [facility] Received Date: Tobi Pollard MD LAB BLOOD ORDERABLES Monica l Result [facility] [address], [place] [address], [place] [phone] [facility] [address], [place] [address], * Hepatitis A Antibody, Total (05/06/2024 11:27 AM EST) Hepatitis A Ab, Total NON-REACT KISHA NON-REACT KISHA 05/07/2024 8:31 AM EST [facility] Comment: For additional information, please refer to http://LinQpay.Taskhero.com/faq/EQA301 (This link is being provided for informational/ educational purposes only.) Blood Structure of peripheral vein / Unknown Venipuncture / Unknown 05/06/2024 11:27 AM EST 05/06/2024 11:42 AM EST Narrative [facility] - 05/07/2024 8:31 AM EST [facility] Received Date: us Tobi Pollard MD LAB BLOOD ORDERABLES Monica l Result Performing Organization Address City/[facility]/ZIP Co de Phone Number [facility] [address] [facility] [address] [facility], [place] [address], [place] [phone] [facility] [address], [place] [address], [place] [phone] * Hepatitis B Core Antibody, Total (05/06/2024 11:27 AM EST) Hepatitis B Core Ab Total NON-REACT KISHA NON-REACT KISHA 05/07/2024 3:28 AM EST [facility] Comment: For additional information, please refer to http://LinQpay.Taskhero.com/faq/LON965 (This link is being provided for informational/ educational purposes only.) Blood Structure of peripheral vein / Unknown Venipuncture / Unknown 05/06/2024 11:27 AM EST 05/06/2024 11:42 AM EST Narrative [facility] - 05/07/2024 3:28 AM EST [facility] Received Date: us Tobi Pollard MD LAB BLOOD ORDERABLES Monica l Result [facility] [address] [facility] 3rd [address], [place] [address], [place] [phone] [facility] [address] [facility] 3rd Floor, [place] [address], [place] [phone] * ABO/Rh Blood Type (05/06/2024 11:27 AM EST) ABO Blood Type A 05/06/2024 12:17 PM EST [facility] RH Type Positive 05/06/2024 12:17 PM EST [facility] Blood Structure of peripheral vein / Unknown Venipuncture / Unknown 05/06/2024 11:27 AM EST 05/06/2024 11:30 AM EST us Tobi Pollard MD LAB BLOOD BANK TEST ORDER LINH Final Result Performing Organization Address City/[facility]/ZIP Co de Phone Number [facility]ANK INFCE [address] [place] [address], * (ABNORMAL) Hepatitis B Surface Antibody (05/06/2024 11:27 AM EST) Hepatitis B Surface Ab Immunity, Qn <5(L) > OR = 10 mIU/mL 05/07/2024 3:27 AM EST [facility] Comment: PATIENT DOES NOT HAVE IMMUNITY TO HEPATITIS B VIRUS. For additional information, please refer to http://education.Taskhero.com/faq/MXN201 (This link is being provided for informational/ educational purposes only). Blood Structure of peripheral vein / Unknown Venipuncture / Unknown 05/06/2024 11:27 AM EST 05/06/2024 11:42 AM EST Narrative [facility] - 05/07/2024 3:27 AM EST [facility] Received Date:[id number] us Tobi Pollard MD LAB BLOOD ORDERABLES Monica l Result [facility] [address] [facility] 3rd Floor, [place] [address], [place] [phone] [facility] [address] [facility] 3rd Floor, [place] [address], * Hepatitis B Surface Antigen w/Confirmation (05/06/2024 11:27 AM EST) Hepatitis B Surface Antigen NON-REACT KISHA NON-REACT KISHA 05/07/2024 3:55 AM EST [employer] Comment: For additional information, please refer to http://education.Taskhero.com/faq/CLR376 (This link is being provided for informational/ educational purposes only.) Blood Structure of peripheral vein / Unknown Venipuncture / Unknown 05/06/2024 11:27 AM EST 05/06/2024 11:42 AM EST Narrative [facility] - 05/07/2024 3:55 AM EST [facility] Received Date: Tobi Pollard MD LAB BLOOD ORDERABLES Monica abernathy Result Performing Organization Address City/State/[facility] Co de Phone Number [facility] [address] [facility] 3rd [address], [place] [address], [facility] [address] [facility] 3rd Floor, [place] [address], * Cytomegalovirus Antibody, IgG (05/06/2024 11:27 AM EST) Pathologist [facility] Cytomegalovirus Antibody (IgG) <0.60 U/mL 05/07/2024 5:47 AM EST [employer] Comment: ? U/mL ? Interpretation ? ----- ? <0.60 ? Negative ? 0.60-0.69 ? Equivocal ? > or = 0.70 ?? Positive A positive result indicates that the patient has antibody to CMV. It does not differentiate between an active or past infection. Blood Structure of peripheral vein / Unknown Venipuncture / Unknown 05/06/2024 11:27 AM EST 05/06/2024 11:42 AM EST Narrative [facility] 05/07/2024 5:47 AM EST [facility] Received Date: Tobi Pollard MD LAB BLOOD ORDERABLES Monica l Result Performing Organization Address [facility] Co de Phone Number [facility] [address] [facility] [address] [facility], [place] [address], [facility] [address] [facility] [address] [facility], [place] [address], [place] [phone] * PTT (05/06/2024 11:27 AM EST) [facility] aPTT 25.4 23.0 - 32.0 Seconds 05/06/2024 12:09 PM EST [facility] Comment: Current PTT reagent is not sensitive to detect all Lupus Anticoagulant (LA) Inhibitor Cases. ?? If a LA is suspected, please order a Lupus Anticoagulation w/ Reflex Test which is performed at [facility] in [place], [place]. Blood Structure of peripheral vein / Unknown Venipuncture / Unknown 05/06/2024 11:27 AM EST 05/06/2024 11:42 AM EST Tobi Pollard MD LAB BLOOD ORDERABLES Monica l Result Performing Organization Address [facility] Co de Phone Number [facility] [address] [place] [address], * Protime-INR (05/06/2024 11:27 AM EST) Pathologist [facility] PT 9.6 9.6 - 12.4 Seconds 05/06/2024 12:09 PM EST [facility] INR 0.9 0.9 - 1.1 05/06/2024 12:09 PM EST [facility] Comment:The optimal therapeu tic INR range for patients treated with Vitamin K antagonists (VKAS, e.g., Warfarin) is 2.0 to 3.5. Discuss the desired range with your doctor/care team. Blood Structure of peripheral vein / Unknown Venipuncture / Unknown 05/06/2024 11:27 AM EST 05/06/2024 11:42 AM EST Tobi Pollard MD LAB BLOOD ORDERABLES Monica abernathy Result [facility] [address] [place] [address], * Varicella Zoster Antibody, IgG (05/06/2024 11:27 AM EST) Pathologist [facility] Varicella Zoster Virus Antibody 16.70 S/CO 05/07/2024 8:39 AM EST [facility] Comment: ?Signal to Cut-off ? S/CO ?Interpretation [...] AM EST 05/06/2024 11:42 AM EST Narrative [facility] 05/07/2024 8:39 AM EST [facility] Received Date: Tobi Pollard MD LAB BLOOD ORDERABLES Monica l Result [facility] [address] [facility] 3rd [address], [place] [address], [place] [phone] [facility] [address] [facility] [address] [facility], [place] [address], [place] [phone] * (ABNORMAL) BUN (05/06/2024 11:27 AM EST) BUN 49(H) 7 - 23 mg/dL 05/06/2024 12:13 PM EST [facility] Blood Structure of peripheral vein / Unknown Venipuncture / Unknown 05/06/2024 11:27 AM EST 05/06/2024 11:42 AM EST Tobi Pollard MD LAB BLOOD ORDERABLES Monica l Result [facility] [address] [place] [address], * ALT (05/06/2024 11:27 AM EST) ALT 16 10 - 40 U/L 05/06/2024 12:13 PM EST [facility] Blood Structure of peripheral vein / Unknown Venipuncture / Unknown 05/06/2024 11:27 AM EST 05/06/2024 11:42 AM EST Tobi Pollard MD LAB BLOOD ORDERABLES Monica l Result Performing Organization Address City/[facility]/ZIP Co de Phone Number [facility] [address] [place] [address], * AST (05/06/2024 11:27 AM EST) AST 18 10 - 40 U/L 05/06/2024 12:13 PM EST [facility] Blood Structure of peripheral vein / Unknown Venipuncture / Unknown 05/06/2024 11:27 AM EST 05/06/2024 11:42 AM EST Tobi Pollard MD LAB BLOOD ORDERABLES Monica l Result Performing Organization Address [facility] Co de Phone Number [facility] [address] [place] [address], * Phosphorus (05/06/2024 11:27 AM EST) Phosphorus 3.8 2.5 - 4.5 mg/dL 05/06/2024 12:13 PM EST [facility] Blood Structure of peripheral vein / Unknown Venipuncture / Unknown 05/06/2024 11:27 AM EST 05/06/2024 11:42 AM EST Tobi Pollard MD LAB BLOOD ORDERABLES Monica l Result Performing Organization Address [facility] Co de Phone Number [facility] [address] [place] [address], * (ABNORMAL) Creatinine (05/06/2024 11:27 AM EST) Creatinine 5.03(H) 0.60 - 1.30 mg/dL 05/06/2024 12:13 PM EST [facility] [employer] [facility] LAB[facility] eGFR 14(L) >=60 mL/min/1 .73m2 05/06/2024 12:13 PM EST [facility] [employer] [facility] Comment:The estimated glomer ular [...] ORDERABLES Monica l Result Performing Organization Address City/[facility]/ZIP Co de Phone Number [facility] [facility] LAB[facility]ORY [address] [place] [address], * Calcium (05/06/2024 11:27 AM EST) Calcium 9.5 8.6 - 10.5 mg/dL 05/06/2024 12:13 PM EST [facility] [employer] [facility] Blood Structure of peripheral vein / Unknown Venipuncture / Unknown 05/06/2024 11:27 AM EST 05/06/2024 11:42 AM EST Tobi Pollard MD LAB BLOOD ORDERABLES Monica l Result [facility] [facility] LAB[facility] [address] [place] [address], * Bilirubin, Direct (05/06/2024 11:27 AM EST) Bilirubin, Direct 0.1 <=0.4 mg/dL 05/06/2024 12:13 PM EST [facility] Blood Structure of peripheral vein / Unknown Venipuncture / Unknown 05/06/2024 11:27 AM EST 05/06/2024 11:42 AM EST Tobi Pollard MD LAB BLOOD ORDERABLES Monica l Result [facility] [address] [place] [address] * Bilirubin, Total (05/06/2024 11:27 AM EST) Bilirubin, Total 0.3 0.2 - 1.2 mg/dL 05/06/2024 12:13 PM EST [facility] Blood Structure of peripheral vein / Unknown Venipuncture / Unknown 05/06/2024 11:27 AM EST 05/06/2024 11:42 AM EST Tobi Pollard MD LAB BLOOD ORDERABLES Monica l Result Performing Organization Address City/[facility]/ZIP Co de Phone Number [facility] [address] [place] [address], * Albumin (05/06/2024 11:27 AM EST) Albumin 4.3 3.5 - 5.2 g/dL 05/06/2024 12:13 PM EST [facility] Blood Structure of peripheral vein / Unknown Venipuncture / Unknown 05/06/2024 11:27 AM EST 05/06/2024 11:42 AM EST Tobi Pollard MD LAB BLOOD ORDERABLES Monica l Result [facility] [address] [place] [address], from Last 3 Months Insurance [employer] [employer] Advance Directives Documents on File Type Date Recorded Patient Guide Dog Mobility Instructor Expl anation Health Care Proxy 05/11/2024 1:39 PM 12-0 Care Teams License Issuer Relationship Specialty Start Date End Date Patient, Has No Pcp Or Ref DO NOT EDIT THIS RECORD VIA PROVIDER ON THE FLY PCP - General Food Preparation Supervisor 05/06/24
--- OUTSIDE RECORDS SUMMARY | 2024-07-28 17:29 | XMS_ITS ---
[facility] [place] Address [address] [place] [address] Care Team Providers Care Director Of Institutional Giving Name Role Phone Glen Jacobs MDneth Primary Care Provider Lori Jasmine Unavailable [phone] Allergies No Known Allergies REASON FOR VISIT Pcp- 09/12/23, Fungal Nails Medications Medication SIG (Take, Route, Frequency, Duration) Notes Start Date End Date Status Atorvastatin Calcium 10 MG 1 tablet Oral ly Once a day for 30 day(s) Active Ciclopirox 0.77 % 1 application Pharmacist'S Aide ally Twice a day for 365 days [...] 024 Encounters Encounter Location Date Provider Diagnosis [facility] [address] [place] [address] 09/12/2023 Lori Bacon Fungal infection of nail B35.1 Assessments Encounter Date Diagnosis (ICD Code) Assessment Notes Treatment Notes Treatment Clinical Notes Section Notes 09/12/2023 Fungal infection of nail (ICD-10 - B35.1) Rx management (4) Plan Of Treatment Medication Medication Name Sig Start Date Stop Date Notes Ciclopirox 0.77 % 1 application Pharmacist'S Aide ally Twice a day for 365 days Next Appt Details Follow Up: prn, Reason: Progress Notes * Nasir WHITEDOB:1980 (43 yo M)Acc No.[id number]:09/12/2023 Progress Note Patient:?Nasir White Provider:?Lori Bacon DPM :1980???Age:43 Y???Sex:Male Wolf e:09/12/2023 Address:[address] [place], [place] [id number] Pcp:Dwayne Jacobs MD Subjective: * Chief Complaints: [...] DPM Date:?05/2024 Generated for Jewel sepulveda/Jose Carlos/Seymour on:?07/28/2024 05:28 PM EST History and Physical Notes * [...]
--- OUTSIDE RECORDS SUMMARY | 2024-07-28 17:29 | XMS_ITS | Clinical Summary ---
Author Organization [facility] Address [address] [facility] [address] [place] [address] Phone Care Team Providers Care Technical Marketing Consultant Name Role Phone Dwayne Jacobs MD Primary Care Provider [phone] Allergies No known active allergies Medications omega-3 [...] Insurance COMPREHENSIVE BENEFITS COMPREHENSIVE BENEFITS Care Teams Technical Marketing Consultant Relationship Specialty Start Date End Date Dwayne Jacobs MD [address] [place] [address] [address] [place] [address] PCP - General 06/12/20
--- OUTSIDE RECORDS SUMMARY | 2024-07-28 17:29 | XMS_ITS | Patient Health Record ---
[facility] Address [address] [facility] [place] [address] Care Team Providers Care Pipe And Boiler Covers Supervisor Name Role Phone Reynaldo SAMAYOA, Dwayne Primary Care Provider Lori Jasmine Unavailable [phone] Allergies No Known Allergies Reason For Referral No Information Medications Medication SIG (Take, Route, Frequency, Duration) Notes Start Date End Date Status Atorvastatin Calcium 10 MG 1 tablet Oral ly Once a day for 30 day(s) Active Ciclopirox 0.77 % 1 application Bakery Chef ally Twice a day for 365 days [...] Problem Status W/U Status Risk Notes Problem [id number] Gouty arthritis of right foot (M10.9) Active confirmed Vital Signs Blood pressure diastolic 70 mm Hg 09/12/2023 Height 5 ft 6 in in 09/12/2023 Blood pressure systolic 120 mm Hg 09/12/2023 Weight 183 lbs 09/12/2023 BMI 29.53 kg/m2 09/12/2023 Encounters Encounter Location Date Provider Diagnosis [facility] [address] [place] [address] 09/12/2023 Lori Bacon Fungal infection of nail B35.1 [facility] [address] [place] [address] 08/19/2023 Lori Bacon Assessments Encounter Date Diagnosis (ICD Code) Assessment Notes Treatment Notes Treatment Clinical Notes Section Notes 09/12/2023 Fungal infection of nail (ICD-10 - B35.1) Rx management (4) Plan Of Treatment Pending Test Test Name Order Date , [id number]/INJECT, JOINT/BURSA 0 09/20/2022 Insurance Providers Payer Name Payer Address Payer Phone Subscriber Number Group Number Insured Name Patient Relationship to Insured Coverage Start Date Coverage End Date Blue Benefits [address] [address] [place] [address] [id number] Nasir Jo Self - patient is the insured Medical (General) History Medical History History ICD Code Hypertension Hyperlipidemia Chronic Kidney Disease, stage III (moder ate) Vitamin D deficiency Obesity Surgical History Surgery Date(Month/Year) eye surgery
--- OUTSIDE RECORDS SUMMARY | 2024-07-28 17:29 | XMS_ITS | Clinical Summary ---
Author Organization [facility] Address [address] [place] [address] Care Team Providers Care Barrel Assembly Inspector Name Role Phone Patient, Has No Pcp [...] Type Department Care Team Description 05/31/2024 Telephone [facility] Transplant Department [address] [place] [address] Lori Mustafa RN 05/27/2024 Telephone [facility] Transplant Department [address] [place] [address] Lori Mustafa RN 05/11/2024 Telephone [facility] Transplant Department [address] [place] [address] Lori Mustafa, field coil winder - Kidney Txp 05/06/2024 11:15 AM EST Lab [facility] Lab Draw Site [address] [place] [address] Pre-transplant evaluation for end stage renal disease; Chronic kidney disease, stage IV (severe) ([facility]) 05/06/2024 10:15 AM EST Social Work [facility] Renal Transplant [address] [place] [address] Cecelia Hinton LICSW 05/06/2024 9:30 AM EST Office Visit [facility] Renal Transplant [address] [place] [address] Tobi Pollard MD Pre-transplant evaluation for kidney transplant (Primary Dx); Pre-transplant evaluation for end stage renal disease; Stage 4 chronic kidney disease (HCC) 05/06/2024 8:15 AM EST Evaluation [facility] Renal Transplant [address] [place] [address] Lori Mustafa, DU Pre-transplant evaluation for end stage renal disease (Primary Dx) 05/06/2024 8:00 AM EST Office Visit [facility] Renal Transplant [address] [place] [address] Shanon De Anda RN Pre-transplant evaluation for kidney transplant (Primary Dx) 05/03/2024 Telephone [facility] Transplant Department [address] [place] [address] Lori Mustafa, DU 04/27/2024 Orders Only [facility] Transplant Department [address] [place] [address] Lori Mustafa, DU Pre-transplant evaluation for end [...] Info) Description 05/03/2025 10:00 AM EST Follow-Up [facility] Renal Transplant [address] [place] [address] Tobi Pollard MD [address] [place] [address] 05/03/2025 10:30 AM EST Social Work [facility] Renal Transplant [address] [place] [address] Cecelia Hinton LICSW [address] [place] [address] Health Maintenance Due Date Last Done Comments [...] Pediat jarad (0-5 Years) and At-Risk Patients (6-50 Years) Aged Out No longer eligible b ased on patient's age to complete this topic Procedures * Due to [place] state law, this organization might not be [...] IV (severe) (HCC) QUANTIFERON-TB GOLD PLUS, 1 [id number] Routine 05/06/2024 11:27 AM EST Pre-transplant evaluation for end stage renal disease Chronic kidney disease, stage IV (severe) (HCC) RPR (DIAGNOSIS) W/REFLEX TO TITER & TPPA [id number] Routine 05/06/2024 11:27 AM EST Pre-transplant evaluation for end stage renal disease Chronic kidney disease, stage IV (severe) (HCC) VARICELLA ZOSTER ANTIBODY, IGG Routine 05/06/2024 11:27 AM EST Pre-transplant evaluation for end stage renal disease Chronic kidney disease, stage IV (severe) (HCC) HLA TRANSPLANT WORK-UP (ALLELE LEVEL A/B/C/DRB1/QIK086/DQA1/ DQB1/DPA1/DPB1) Routine 05/06/2024 11:27 AM EST Pre-transplant [...] CYSTATIN C WITH GLOMERULAR FILTRATION RATE, ESTIMATED (EGFR)-[id number] Routine 05/06/2024 11:27 AM EST Pre-transplant evaluation for end stage renal disease Chronic kidney disease, stage IV (severe) (HCC) from Last 3 Months Results * Due to [place] state law, this organization might not be sharing negative HIV tests. * HLA Transplan Work-Up(Allele Level A/B/C/DRB1/PHX029/DQA1/DQB1/DPA1/DPB1) (05/06/2024 11:27 AM EST) Histocompatibility Laboratory Information See Below 05/12/2024 3:59 PM EST [facility] Comment: ROMULO: ??[id number] ?Director: ??Magdalena Garcia MD. [facility] PFI: ??[id number] UNOS: ??MAUM-IT-1 This test [...] [facility] [address] [facility] Rm: [id number] HLA LAB [place] [id number], * (ABNORMAL) Cystatin C with Glomerular Filtration [...] Monica abernathy Result Performing Organization Address City/State/[facility] Co de Phone Number GENEVA DILLARD) [address] [place], [place] , [place] * MMR Panel, IgG (05/06/2024 11:27 AM EST) Measles Antibody (IgG), Immune Status 136.00 AU/mL 05/07/2024 5:47 AM EST Event[facility] Comment: AU/mL ?Interpretation ----- ? <13.50 ? Not consistent with immunity 13.50-16.49 ?Equivocal >16.49 ? Consistent with immunity The presence of measles IgG suggests immunization or past or current infection with measles virus. For additional information, please refer to http://education.Neoantigenics/faq/HPW806 (This link is being provided for informational/ educational purposes only.) Mumps Antibody (IgG), Immune Status 37.60 AU/mL 05/07/2024 5:47 AM EST [facility] Comment: AU/mL ? Interpretation ------- ? <9.00 ? Not consistent with immunity 9.00-10.99 ?Equivocal >10.99 ?Consistent with immunity The presence of mumps IgG antibody suggests immunization or past or current infection with mumps virus. Rubella Antibody (IgG), Immune Status 2.45 Index 05/07/2024 5:47 AM EST [facility] Comment: ?Index ?Interpretation ?----- ?<0.90 ?Not consistent with immunity ?0.90-0.99 ?Equivocal ?> or = 1.00 ?Consistent with immunity The presence of rubella IgG antibody suggests immunization or past or current infection with rubella virus. Blood Structure of peripheral vein / Unknown Venipuncture / Unknown 05/06/2024 11:27 AM EST 05/06/2024 11:42 AM EST [facility] - 05/07/2024 5:47 AM EST [facility] Received Date: Tobi Pollard MD LAB BLOOD ORDERABLES Monica abernathy Result [facility] [address], [place] [address], [employer] [facility] [address], [place] [address], * (ABNORMAL) Herpes Simplex Virus 1&2, IgG (05/06/2024 11:27 AM EST) HSV 1 IgG Type Specific Ab 5.17(H) index 05/07/2024 8:57 AM EST [facility] HSV 2 IgG Type Specific Ab <0.90 index 05/07/2024 8:57 AM EST [facility] Comment: ?Index ?Interpretation ?----- ?<0.90 ?Negative ?0.90-1.09 [...] screening. For additional information, please refer to http://education.Neoantigenics/faq/GNW884 (This link is being provided for informational/ educational purposes only.) ?? Blood Structure of peripheral vein / Unknown Venipuncture / Unknown 05/06/2024 11:27 AM EST 05/06/2024 11:42 AM EST Narrative [facility] - 05/07/2024 8:57 AM EST [facility] Received Date: Tobi Pollard MD LAB BLOOD ORDERABLES Monica abernathy Result [facility] [address], [place] [address], [place] [phone] [employer] [facility] [address], [place] [address], * RPR (Diagnosis) w/Reflex to Titer & TPPA Confirm (05/06/2024 11:27 AM EST) [facility] RPR W/Refl Titer NON-REACT KISHA NON-REACT KISHA 05/08/2024 6:27 PM EST [facility] Blood Structure of peripheral vein / Unknown Venipuncture / Unknown 05/06/2024 11:27 AM EST 05/06/2024 11:42 AM EST Narrative [facility] - 05/08/2024 6:27 PM EST [facility] Received Date: Tobi Pollard MD LAB BLOOD ORDERABLES Monica abernathy Result [facility] [place] [address], [place] [address], [employer] [facility] [address], [place] [address], * QuantiFERON-TB Gold Plus, 1 Tube (05/06/2024 11:27 AM EST) [facility] QuantiFERON-TB Gold Plus NEGATIVE NEGATIVE 05/08/2024 2:00 PM EST [facility] Comment: Negative test result. M. tuberculosis complex infection unlikely. NIL 0.04 IU/mL 05/08/2024 2:00 PM EST [facility] Mitogen-NIL 6.31 IU/mL 05/08/2024 2:00 PM EST [facility] TB1-NIL <0.00 IU/mL 05/08/2024 2:00 PM EST [facility] TB2-NIL 0.01 IU/mL 05/08/2024 2:00 PM EST [employer] [facility] Comment: The Nil tube value reflects [...] T-lymphocytes. For additional information, please refer to https://education.Emu Solutions/faq/LAS486 (This link is being provided for informational/ educational purposes only.) Blood Structure of peripheral vein / Unknown Venipuncture / Unknown 05/06/2024 11:27 AM EST 05/06/2024 11:39 AM EST Narrative [facility] [place] - 05/08/2024 2:00 PM EST [facility] Received Date: us Tobi Pollard MD LAB BLOOD ORDERABLES Monica l Result [facility] [address], [place] [address], [place] [phone] [employer] [facility] [address], [place] [address], * (ABNORMAL) CBC Auto Differential (05/06/2024 11:27 [...] - 0.20 10*3/uL 05/06/2024 11:51 AM EST [facility] nRBC % 0.0 /100 WBCs 05/06/2024 11:51 AM EST [facility] nRBC # <0.01 <0.01 10*3/uL 05/06/2024 11:51 AM EST [facility] Blood Structure of peripheral vein / Unknown Venipuncture / Unknown 05/06/2024 11:27 AM EST 05/06/2024 11:42 AM EST us Tobi Pollard MD LAB BLOOD ORDERABLES Monica abernathy Result [facility] [address] [place] [address], * (ABNORMAL) Kendall-Llanos Virus VCA Antibody Panel (05/06/2024 11:27 AM EST) EBV Viral Capsid Ag Ab (IGM) <36.00 U/mL 05/07/2024 5:47 AM EST [facility] Comment: ?U/mL ?Interpretation ?---- ?<36.00 ?Negative ?36.00-43.99 ? Equivocal ?>43.99 ?Positive EBV Viral Capsid Ag Ab (IGG) >750.00(H) U/mL 05/07/2024 5:47 AM EST [facility] Comment: ? U/mL ? Interpretation ? ---- ? <18.00 ? Negative ? 18.00-21.99 ?Equivocal ? >21.99 ? Positive EBV Nuclear Ag Ab >600.00(H) U/mL 024 5:47 AM EST [facility] Comment: ? U/mL ? Interpretation ? ---- ? <18.00 ? Negative ? 18.00-21.99 ?Equivocal ? >21.99 ? 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 In infants, a similar pattern may occur as a result of passive maternal transfer of antibody. Blood Structure of peripheral vein / Unknown Venipuncture / Unknown 05/06/2024 11:27 AM EST 05/06/2024 11:42 AM EST [facility] [place] - 05/07/2024 5:47 AM EST [facility] Received Date: Tobi Pollard MD LAB BLOOD ORDERABLES Monica abernathy Result [facility] [place] [address], [place] [address], [place] [phone] [employer] [facility] [address], [place] [address], * Hepatitis C Antibody w/Reflex to PCR (05/06/2024 11:27 AM EST) Hepatitis C Antibody NON-REACT KISHA NON-REACT KISHA 05/07/2024 3:30 AM EST [facility] Comment: HCV antibody was non-reactive. There is no laboratory evidence of HCV infection. In most cases, no further action is required. However, if recent HCV exposure is suspected, a test for HCV RNA (test code 24951) is suggested. For additional information please refer to http://Tetragenetics.Emu Solutions/faq/ZOX76h8 (This link is being provided for informational/ educational purposes only.) Blood Structure of peripheral vein / Unknown Venipuncture / Unknown 05/06/2024 11:27 AM EST 05/06/2024 11:42 AM EST Narrative [facility] [place] - 05/07/2024 3:30 AM EST [facility] Received Date: Tobi Pollard MD LAB BLOOD ORDERABLES Monica l Result Performing Organization Address City/[facility]/ZIP Co de Phone Number [facility] [address], [place] [address], [employer] [address], [place] [address], [place] [phone] * Hepatitis A Antibody, Total (05/06/2024 11:27 AM EST) Hepatitis A Ab, Total NON-REACT KISHA NON-REACT KISHA 05/07/2024 8:31 AM EST [employer] [facility] Comment: For additional information, please refer to http://Tetragenetics.Emu Solutions/faq/ZJY109 (This link is being provided for informational/ educational purposes only.) Blood Structure of peripheral vein / Unknown Venipuncture / Unknown 05/06/2024 11:27 AM EST 05/06/2024 11:42 AM EST Narrative [facility] - 05/07/2024 8:31 AM EST [facility] Received Date: us Tobi Pollard MD LAB BLOOD ORDERABLES Monica l Result Performing Organization Address City/[facility]/ZIP Co de Phone Number [facility] [place] [address], [place] [address], [place] [phone] [employer] [facility] [address], [place] [address], [place] [phone] * Hepatitis B Core Antibody, Total (05/06/2024 11:27 AM EST) Hepatitis B Core Ab Total NON-REACT KISHA NON-REACT KISHA 05/07/2024 3:28 AM EST [employer] [facility] Comment: For additional information, please refer to http://education.Emu Solutions/faq/TIM475 (This link is being provided for informational/ educational purposes only.) Blood Structure of peripheral vein / Unknown Venipuncture / Unknown 05/06/2024 11:27 AM EST 05/06/2024 11:42 AM EST Narrative [facility] [place] - 05/07/2024 3:28 AM EST [facility] Received Date: us Tobi Pollard MD LAB BLOOD ORDERABLES Monica l Result [facility] [address], [place] [address], [place] [phone] [employer] [facility] [address], [place] [address], [place] [phone] * ABO/Rh Blood Type (05/06/2024 11:27 AM [...] Final Result [facility] [address] [place] [address], * (ABNORMAL) Hepatitis B Surface Antibody (05/06/2024 11:27 AM EST) Hepatitis B Surface Ab Immunity, Qn <5(L) > OR = 10 mIU/mL 05/07/2024 3:27 AM EST [employer] [facility] Comment: PATIENT DOES NOT HAVE IMMUNITY TO HEPATITIS B VIRUS. For additional information, please refer to http://Tetragenetics.Emu Solutions/faq/CGM548 (This link is being provided for informational/ educational purposes only). Blood Structure of peripheral vein / Unknown Venipuncture / Unknown 05/06/2024 11:27 AM EST 05/06/2024 11:42 AM EST Narrative [facility] - 05/07/2024 3:27 AM EST [facility] Received Date: us Tobi Pollard MD LAB BLOOD ORDERABLES Monica l Result [facility] [address], [place] [address], [employer] [facility] [address], [place] [address], * Hepatitis B Surface Antigen w/Confirmation (05/06/2024 11:27 AM EST) Pathologist [facility] Hepatitis B Surface Antigen NON-REACT KISHA NON-REACT KISHA 05/07/2024 3:55 AM EST [employer] [facility] Comment: For additional information, please refer to http://Tetragenetics.Emu Solutions/faq/CRX521 (This link is being provided for informational/ educational purposes only.) Blood Structure of peripheral vein / Unknown Venipuncture / Unknown 05/06/2024 11:27 AM EST 05/06/2024 11:42 AM EST Narrative [facility] [place] - 05/07/2024 3:55 AM EST [facility] Received Date:[id number] us Tobi Pollard MD LAB BLOOD ORDERABLES Monica l Result Performing Organization Address City/[facility]/ZIP Co de Phone Number [facility] [place] [address], [place] [address], [employer] [facility] [address], [address] [place] [address], [place] [phone] * Cytomegalovirus Antibody, IgG (05/06/2024 11:27 AM EST) Pathologist [facility] Cytomegalovirus Antibody (IgG) <0.60 U/mL 05/07/2024 5:47 AM EST EventBoard Comment: ? U/mL ? Interpretation ? ----- [...] 05/06/2024 11:42 AM EST Narrative [facility] - 05/07/2024 5:47 AM EST [facility] Received Date: Tobi Pollard MD LAB BLOOD ORDERABLES Monica l Result [facility] [place] [address], [place] [address], [place] [phone] [employer] [facility] [address], [place] [address], [place] [phone] * PTT (05/06/2024 11:27 AM EST) aPTT 25.4 23.0 - 32.0 Seconds 05/06/2024 12:09 PM EST [facility] Comment: Current PTT reagent is not sensitive to detect all Lupus Anticoagulant (LA) Inhibitor Cases. ?? If a LA is suspected, please order a Lupus Anticoagulation w/ Reflex Test which is performed at [facility] in [place], [place]. Blood Structure of peripheral vein / Unknown Venipuncture / Unknown 05/06/2024 11:27 AM EST 05/06/2024 11:42 AM EST Tobi Pollard MD LAB BLOOD ORDERABLES Monica l Result [facility] [address] [place] [address], * Protime-INR (05/06/2024 11:27 AM EST) PT 9.6 9.6 - 12.4 Seconds 05/06/2024 12:09 PM EST [facility] INR 0.9 0.9 - 1.1 05/06/2024 12:09 PM EST [facility] Comment:The optimal therapeu tic INR range for patients treated with Vitamin K antagonists (VKAS, e.g., Warfarin) is 2.0 to 3.5. Discuss the desired range with your doctor/care team. Blood Structure of peripheral vein / Unknown Venipuncture / Unknown 05/06/2024 11:27 AM EST 05/06/2024 11:42 AM EST us Tobi Pollard MD LAB BLOOD ORDERABLES Monica l Result Performing Organization Address City/[facility]/ZIP Co de Phone Number [facility] [address] [place] [address], * Varicella Zoster Antibody, IgG (05/06/2024 11:27 AM EST) Varicella Zoster Virus Antibody 16.70 S/CO 05/07/2024 8:39 AM EST [facility] Comment: ?Signal to Cut-off ? S/CO ?Interpretation [...] EST 05/06/2024 11:42 AM EST Narrative [facility] [place] - 05/07/2024 8:39 AM EST [facility] Received Date: Tobi Pollard MD LAB BLOOD ORDERABLES Monica abernathy Result Performing Organization Address City/[facility]/ZIP Co de Phone Number [facility] [address], [place] [address], [place] [phone] [facility] [address], [place] [address], [place] [phone] * (ABNORMAL) BUN (05/06/2024 11:27 AM EST) BUN 49(H) 7 - 23 mg/dL 05/06/2024 12:13 PM EST [facility] Blood Structure of peripheral vein / Unknown Venipuncture / Unknown 05/06/2024 11:27 AM EST 05/06/2024 11:42 AM EST Tobi Pollard MD LAB BLOOD ORDERABLES Monica l Result Performing Organization Address City/[facility]/ZIP Co de Phone Number [facility] [address] [place] [address], [place] * ALT (05/06/2024 11:27 AM EST) ALT 16 10 - 40 U/L 05/06/2024 12:13 PM EST [facility] Blood Structure of peripheral vein / Unknown Venipuncture / Unknown 05/06/2024 11:27 AM EST 05/06/2024 11:42 AM EST Tobi Pollard MD LAB BLOOD ORDERABLES Monica l Result [facility] [address] [place] [address], [place] * AST (05/06/2024 11:27 AM EST) AST 18 10 - 40 U/L 05/06/2024 12:13 PM EST [facility] Blood Structure of peripheral vein / Unknown Venipuncture / Unknown 05/06/2024 11:27 AM EST 05/06/2024 11:42 AM EST Tobi Pollard MD LAB BLOOD ORDERABLES Monica l Result Performing Organization Address City/[facility]/ZIP Co de Phone Number [facility] [address] [place] [address], * Phosphorus (05/06/2024 11:27 AM EST) Phosphorus 3.8 2.5 - 4.5 mg/dL 05/06/2024 12:13 PM EST [facility] Blood Structure of peripheral vein / Unknown Venipuncture / Unknown 05/06/2024 11:27 AM EST 05/06/2024 11:42 AM EST Tobi Pollard MD LAB BLOOD ORDERABLES Monica l Result Performing Organization Address [facility] de Phone Number [facility] [address] [place] [address] * (ABNORMAL) Creatinine (05/06/2024 11:27 AM EST) Creatinine 5.03(H) 0.60 - 1.30 mg/dL 05/06/2024 12:13 PM EST [facility] eGFR 14(L) >=60 mL/min/1 .73m2 05/06/2024 12:13 PM EST [facility] Comment:The estimated glomer ular [...] ORDERABLES Monica l Result Performing Organization Address [facility] Co de Phone Number [facility] [address] [place] [address], [place] * Calcium (05/06/2024 11:27 AM EST) Calcium 9.5 8.6 - 10.5 mg/dL 05/06/2024 12:13 PM EST [facility] Blood Structure of peripheral vein / Unknown Venipuncture / Unknown 05/06/2024 11:27 AM EST 05/06/2024 11:42 AM EST Tobi Pollard MD LAB BLOOD ORDERABLES Monica l Result Performing Organization Address [facility] Co de Phone Number [facility] [address] [place] [address], [place] * Bilirubin, Direct (05/06/2024 11:27 AM EST) Bilirubin, Direct 0.1 <=0.4 mg/dL 05/06/2024 12:13 PM EST [facility] Blood Structure of peripheral vein / Unknown Venipuncture / Unknown 05/06/2024 11:27 AM EST 05/06/2024 11:42 AM EST Tobi Pollard MD LAB BLOOD ORDERABLES Monica l Result Performing Organization Address City/[facility] Co de Phone Number [facility] [address] [place] [address], [place] * Bilirubin, Total (05/06/2024 11:27 AM EST) Bilirubin, Total 0.3 0.2 - 1.2 mg/dL 05/06/2024 12:13 PM EST [facility] Blood Structure of peripheral vein / Unknown Venipuncture / Unknown 05/06/2024 11:27 AM EST 05/06/2024 11:42 AM EST Tobi Pollard MD LAB BLOOD ORDERABLES Monica l Result [facility] [address] * Albumin (05/06/2024 11:27 AM EST) Albumin 4.3 3.5 - 5.2 g/dL 05/06/2024 12:13 PM EST [facility] Blood Structure of peripheral vein / Unknown Venipuncture / Unknown 05/06/2024 11:27 AM EST 05/06/2024 11:42 AM EST Tobi Pollard MD LAB BLOOD ORDERABLES Monica l Result Performing Organization Address City/[facility]/ZIP Co de Phone Number [facility] [address] [place] [address] from Last 3 Months Insurance [employer] Advance Directives Documents on File Type Date Recorded 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
== END 2024-07-28 14:13 | disposition home or self-care (01) ==
LOC: HO.LAB 14:12
PROVIDERS: PCP Internal Medicine; Visit Provider Internal Medicine
DX: M79.89 Other specified soft tissue disorders (principal); D64.9 Anemia, unspecified; I50.9 Heart failure, unspecified; E78.00 Pure hypercholesterolemia, unspecified
CPT/HCPCS: 36415; 80053; 81001; 83880; 84443; 85025

== ENCOUNTER 2024-08-16 10:22 | Outpatient (AMB) | payer OTHER, SELFPAY ==
--- NOTE | 2024-08-16 10:37 | A.OFFPC_ITS ---
Vital Signs 08/16/24 10:38 Height 5 ft 8 in Weight 168 lb BMI 25.5 BP 130/78 Blood Pressure Location Lt brachial Position Sitting Pulse 86 Pulse Source Pulse Oximeter Temp 97.6 F Temp Source Oral Pulse Oximetry (%) 97 Oxygen Delivery Method Room Air Intake Visit Reasons: lump on neck Allergies No Known Allergies Allergy (Verified 07/14/24 23:42) Tobacco use date assessed: 07/13/24 Dental Screening Dental Screen Date: 07/13/24 HPI lump on neck HPI Details The patient is a 44 year male with significant past medical history of CKD stage 5, secondary hyperparathyroidism, benign essential hypertension, sinusitis The patient reports left neck lump for over a week. Reports that has not have any other symptoms. Reports that it has gotten bigger since. Reports that it is pain when he turn his head to the right. C/o left ear drainage that started around the same time, denies otalgia or hearing loss. On exam: Bilateral ear looks opaque > in the left ear Left cervical lump is consistent with lymph node: Will started the patient on Augmentin BID x10 days PFSH Medical History Chronic kidney disease, stage 4 (severe) Overweight (BMI 25.0-29.9) Acute angle-closure glaucoma of right eye Obesity (BMI 30-39.9) Vitamin D deficiency Pure hypercholesterolemia Benign essential hypertension Surgical History History of eye surgery Family History Father Medical history unknown Mother Cancer Social History Housing: House Alcohol intake: never Patient Tobacco Use Status: Never used Tobacco e-Cigarette/Vaping Use: Never Used Second Hand Smoke Exposure: Yes service: No Current occupational status: employed 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 Crow Marley, Dafne Rivero, Micky Leos and colleagues, with an educational zafar from [employer]. Review of Systems Const Denies headache(s) Eyes Denies loss of vision ENT Denies vertigo, Denies dizziness, Reports ear discharge (reports yellowish drainage that started over a week ago), Denies headache(s), Denies sore throat and Reports other (left neck lump) Card Denies chest pain, Denies leg edema and Denies lightheadedness Resp Denies cough, Denies hemoptysis and Denies wheezing GI Denies abdominal pain, Denies melena, Denies constipation, Denies diarrhea and Denies vomiting Denies dysuria, Denies urinary frequency and Denies urinary urgency Musc Denies arthralgias, Denies joint swelling, Denies numbness and Denies tingling Neuro Denies Abnormal speech present, Denies behavioral changes, Denies vertigo, Denies dizziness, Denies headache(s), Denies loss of vision, Denies memory loss, Denies numbness and Denies tingling Psych Denies anxiety, Denies behavioral changes, Denies depression, Denies memory loss and Denies panic attacks Alfredo/Lymph Denies easy bleeding and Denies easy bruising Aller/Immun Denies wheezing Physical exam (Primary Care) Vital Signs: Last Vital Signs Temp 97.6 F 08/16/24 10:38 Pulse 86 08/16/24 10:38 BP 130/78 08/16/24 10:38 Pulse Ox 97 08/16/24 10:38 Oxygen Delivery Method Room Air 08/16/24 10:38 BMI result Body Mass Index 25.5 Tobacco/Smoking Status: Tobacco use Status Tobacco use date assessed 07/13/24 08/16/24 10:42 Patient Tobacco Use Status Never used Tobacco 08/16/24 10:42 e-Cigarette/Vaping Use Never Used 08/16/24 10:42 Thrive Assessment: Date of Thrive Assessment Date Thrive assessed 05/21/24 08/16/24 10:42 Const General: healthy appearing, no acute distress, alert and awake Nutritional Appearance: well nourished Orientation/consciousness: oriented to person, oriented to place and oriented to time HENMT Ears: TM abnormal (opague worse on the left side) bulging, dull and with loss of landmarks General nose exam: Normal nasal mucous membranes and turbinates present Eyes Conjunctivae: conjunctivae normal Sclerae: sclerae normal Pupils: Equal, round and reactive pupils present Neck Neck: Yes lymphadenopathy (left cervical lymph node) and Yes no JVD Thyroid: Thyroid normal Carotids: no bruits Resp Effort & Inspection: normal respiratory effort and not tachypneic Auscultation: no crackles, no rales, no rhonchi and no wheezes Cardio Rate: regular rate Rhythm: regular rhythm Heart sounds: no murmurs and normal S1 and S2 GI Palpation (GI): Soft to palpation, nontender, no hepatomegaly and no splenomegaly Auscultation: normal bowel sounds Skin General skin exam: no rashes or lesions noted and dry skin Lesions: lesion noted (left cervical lump-consistent with lymph node) Neuro General: oriented to person, oriented to place and oriented to time Cranial nerves: Yes Equal, round and reactive pupils present Speech: No Abnormal speech present Gait exam (Neuro): Normal gait present Motor exam (neuro): no tremor noted Extrem Right upper extremity: full ROM Left upper extremity: full ROM Right lower extremity: full ROM; no edema Left lower extremity: full ROM; no edema Psych Mental Status: mental status grossly normal Speech and movement: Normal speech and movement present Affect: normal affect Attitude: cooperative Thought process: Normal thought process present Coding Level of Care Code Est Pt Level 3 (01930) Diagnoses Left otitis media, unspecified otitis media type H66.92 Otitis media type: unspecified Laterality: left Time Spent (min) 31 Assessment & Plan Assessment & Plan (1) Otitis media: Code(s): H66.90 - Otitis media, unspecified, unspecified ear Category: Medical Qualifiers: Otitis media type: unspecified Laterality: left Qualified Code(s): H66.92 - Otitis media, unspecified, left ear Plan: Augmentin BID x10 days ordered. The patient to follow up with office the lump is not resolving or if ear drainage continue Medications: New amoxicillin-pot clavulanate 875-125 mg 1 tab PO BID 10 days 20 tabs 0RF H66.90 - Otitis media, unspecified, unspecified ear
[2024-08-16 10:38] VITALS: BP 130/78; PULSE 86; TEMP 36.4; O2SAT 97; BMI 25.5
--- OUTSIDE RECORDS SUMMARY | 2024-08-16 11:39 | XMS_ITS | Clinical Summary ---
Author Organization [facility] Address [address] [facility] [address] [place] [address] Phone Care Team Providers Care Phlebotomist Supervisor/Instructor Name Role Phone Dwayne Jacobs MD Primary Care Provider [phone] Allergies No known active allergies Medications omega-3 [...] Insurance COMPREHENSIVE BENEFITS COMPREHENSIVE BENEFITS Care Teams Phlebotomist Supervisor/Instructor Relationship Specialty Start Date End Date Dwayne Jacobs MD [address] [place] [address] [address] [place] [address] PCP - General 06/12/20
--- OUTSIDE RECORDS SUMMARY | 2024-08-16 11:39 | XMS_ITS | Patient Health Record ---
Author Organization [facility] Address [address] [facility] [place] [address] Care Team Providers Care Multi Media Specialist Name Role Phone Reynaldo SAMAYOA, Dwayne Primary Care Provider Lori Jasmine Unavailable [phone] Allergies No Known Allergies Reason For Referral No Information Medications Medication SIG (Take, Route, Frequency, Duration) Notes Start Date End Date Status Atorvastatin Calcium 10 MG 1 tablet Oral ly Once a day for 30 day(s) Active Ciclopirox 0.77 % 1 application Used Building Materials Yard Worker ally Twice a day for 365 days [...] Problem Status W/U Status Risk Notes Problem [id number] Gouty arthritis of right foot (M10.9) Active confirmed Vital Signs Blood pressure diastolic 70 mm Hg 09/12/2023 Height 5 ft 6 in in 09/12/2023 Blood pressure systolic 120 mm Hg 09/12/2023 Weight 183 lbs 09/12/2023 BMI 29.53 kg/m2 09/12/2023 Encounters Encounter Location Date Provider Diagnosis [facility] [place] [address] [place] [address] 09/12/2023 Lori Bacon Fungal infection of nail B35.1 [facility] [place] [address] [place] [address] 08/19/2023 Lori Bacon Assessments Encounter Date Diagnosis (ICD Code) Assessment Notes Treatment Notes Treatment Clinical Notes Section Notes 09/12/2023 Fungal infection of nail (ICD-10 - B35.1) Rx management (4) Plan Of Treatment Pending Test Test Name Order Date , [id number]/INJECT, JOINT/BURSA 0 09/20/2022 Insurance Providers Payer Name Payer Address Payer Phone Subscriber Number Group Number Insured Name Patient Relationship to Insured Coverage Start Date Coverage End Date Blue Benefits [address] [address] [place] [address] [phone] [id number] Nasir Jo Self - patient is the insured Medical (General) History Medical History History ICD Code Hypertension Hyperlipidemia Chronic Kidney Disease, stage III (moder ate) Vitamin D deficiency Obesity Surgical History Surgery Date(Month/Year) eye surgery
--- OUTSIDE RECORDS SUMMARY | 2024-08-16 11:39 | XMS_ITS | Referral Summary ---
Author Organization [facility] Address [address] [place] [address] Care Team Providers Care Yarn Washer Name Role Phone Patient, Has No Pcp Or Ref Primary Care Provider Unavailable Encounters Date Type Department Care Team Description 05/31/2024 Telephone [facility] Transplant Department [address] [place] [address] Lori Mustafa, DU 05/27/2024 Telephone [facility] Transplant Department [address] [place] [address] Lori Mustafa, RN from Last 3 Months Allergies No known [...] Info) Description 05/03/2025 10:00 AM EST Follow-Up [facility] Renal Transplant [address] [place] [address] Tobi Pollard MD [address] [place] [address] 05/03/2025 10:30 AM EST Social Work [facility] Renal Transplant [address] [place] [address] Cecelia Hinton LICSW [address] [place] [address] Procedures * Due to [place] [employer] law, this organization might not be sharing negative HIV tests. Procedure Name Priority Date/Time Associated Diagnosis Comments HEPATITIS C ANTIBODY W/REFLEX TO HCV RNA, [...] IV (severe) (HCC) from Last 3 Months or Most Recently Relevant to Health Maintenance Results * Due to [place] [employer] law, this organization might not be sharing negative HIV tests. * (ABNORMAL) CBC Auto Differential (05/06/2024 11:27 [...] % 0.9 % 05/06/2024 11:51 AM EST [facility] Basophil % 0.4 % 05/06/2024 11:51 AM EST [facility] Neutrophil # 6.74 1.50 - 7.80 10*3/uL 05/06/2024 11:51 AM EST [facility] Immature Grans # 0.04(H) <=0.03 10*3/uL 05/06/2024 11:51 AM EST [facility] Lymphocyte # 1.00 0.85 - 3.90 10*3/uL 05/06/2024 11:51 AM EST [facility] Monocyte # 0.30 0.20 - 0.95 10*3/uL 05/06/2024 11:51 AM EST [facility] Eosinophil # 0.10 0.02 - 0.50 10*3/uL 05/06/2024 11:51 AM EST [facility] Basophil # <0.03 0.00 - 0.20 10*3/uL 05/06/2024 11:51 AM EST [facility] nRBC % 0.0 /100 WBCs 05/06/2024 11:51 AM EST [facility] nRBC # <0.01 <0.01 10*3/uL 05/06/2024 11:51 AM EST [facility] [employer] [facility] LAB[facility] Blood Structure of peripheral vein / Unknown Venipuncture / Unknown 05/06/2024 11:27 AM EST 05/06/2024 11:42 AM EST us Tobi Pollard MD LAB BLOOD ORDERABLES Monica l Result [facility] [employer] [facility] LAB[facility]ORY [address] [place] [address], * Hepatitis C Antibody w/Reflex to PCR (05/06/2024 11:27 AM EST) Hepatitis C Antibody NON-REACT KISHA NON-REACT KISHA 05/07/2024 3:30 AM EST [employer] [facility] Comment: HCV antibody was non-reactive. There is no laboratory evidence of HCV infection. In most cases, no further action is required. However, if recent HCV exposure is suspected, a test for HCV RNA (test code 95699) is suggested. For additional information please refer to http://education.[employer]/faq/KJR81z9 (This link is being provided for informational/ educational purposes only.) Blood Structure of peripheral vein / Unknown Venipuncture / Unknown 05/06/2024 11:27 AM EST 05/06/2024 11:42 AM EST Narrative [facility] 05/07/2024 3:30 AM EST [facility] Received Date: Tobi Pollard MD LAB BLOOD ORDERABLES Monica l Result [facility] [address] [facility] [address], [place] [address], [place] [phone] [employer] [facility] [address] [facility], [place] [address], [place] [phone] * Phosphorus (05/06/2024 11:27 AM EST) Phosphorus 3.8 2.5 - 4.5 mg/dL 05/06/2024 12:13 PM EST [facility] Blood Structure of peripheral vein / Unknown Venipuncture / Unknown 05/06/2024 11:27 AM EST 05/06/2024 11:42 AM EST Tobi Pollard MD LAB BLOOD ORDERABLES Monica l Result [facility] [address] [place] [address], from Last 3 Months or Most Recently Relevant to Health Maintenance Insurance [employer] Advance Directives Documents on File Type Date Recorded Patient Tubing Oiler Expl anation Health Care Proxy 05/11/2024 1:39 PM 12-0 Care Teams Yarn Washer Relationship Specialty Start Date End Date Patient, Has No Pcp Or Ref DO NOT EDIT THIS RECORD VIA PROVIDER ON THE FLY PCP - General Worm Packer 05/06/24
--- OUTSIDE RECORDS SUMMARY | 2024-08-16 11:39 | XMS_ITS ---
Author Organization [facility] Address [address] [place] [address] Care Team Providers Care Information Systems Security Specialist Name Role Phone Patient, Has No Pcp Or Ref Primary Care Provider Unavailable Transplant Episode Kidney Candidate [facility] ([place], [place]) - [facility] Evaluation began on 05/06/2024 Marked as Active on 05/06/2024 Kidney CoordinatorLori Mustafa RN Email: N/A Scores Score Value Updated Exceptions/Reas ons CPRA Not available EPTS (Calc) 10 08/16/2024 [facility] Diagnosis Organ Primary Contributory Kidney Hypertensive Nephrosclerosis Care Team Name Role Phone Fax Email Lori Mustafa RN Kidney Coordinator [phone] N/A David Antonio Referring Physician [phone] N/A Events Pre-Transplant Referred: 04/15/2024 Evaluation began: 05/06/2024
--- OUTSIDE RECORDS SUMMARY | 2024-08-16 11:39 | XMS_ITS | Clinical Summary ---
Author Organization [facility] Address [address] [place] [address] Care Team Providers Care Service Supervisor Name Role Phone Patient, Has No [...] Type Department Care Team Description 05/31/2024 Telephone [facility] Transplant Department [address] [place] [address] Lori Mustafa, RN 05/27/2024 Telephone [facility] Transplant Department [address] [place] [address] Lori Mustafa, RN from Last 3 Months Social History Tobacco [...] Info) Description 05/03/2025 10:00 AM EST Follow-Up [facility] Renal Transplant [address] [place] [address] Tobi Pollard MD [address] [place] [address] 05/03/2025 10:30 AM EST Social Work [facility] Renal Transplant [address] [place] [address] Cecelia Hinton LICSW [address] [place] [address] Health Maintenance Due Date Last Done Comments [...] complete this topic Procedures * Due to [place] [employer] law, this organization might not be sharing [...] Health Maintenance Results * Due to [place] [employer] law, this organization might not be sharing [...] - 0.95 10*3/uL 05/06/2024 11:51 AM EST [facility] Eosinophil # 0.10 0.02 - 0.50 10*3/uL 05/06/2024 11:51 AM EST [facility] Basophil # <0.03 0.00 - 0.20 10*3/uL 05/06/2024 11:51 AM EST [employer] [facility] LAB[facility] nRBC % 0.0 /100 WBCs 05/06/2024 11:51 AM EST [facility] nRBC # <0.01 <0.01 10*3/uL 05/06/2024 11:51 AM EST [facility] Blood Structure of peripheral vein / Unknown Venipuncture / Unknown 05/06/2024 11:27 AM EST 05/06/2024 11:42 AM EST Tobi Pollard MD LAB BLOOD ORDERABLES Monica abernathy Result [facility] [address] [place] [address], * Hepatitis C Antibody w/Reflex to PCR (05/06/2024 11:27 AM EST) Hepatitis C Antibody NON-REACT KISHA NON-REACT KISHA 05/07/2024 3:30 AM EST [facility] Comment: HCV antibody was non-reactive. There is no laboratory evidence of HCV infection. In most cases, no further action is required. However, if recent HCV exposure is suspected, a test for HCV RNA (test code 46453) is suggested. For additional information please refer to http://education.[employer]/faq/ASG69e4 (This link is being provided for informational/ educational purposes only.) Blood Structure of peripheral vein / Unknown Venipuncture / Unknown 05/06/2024 11:27 AM EST 05/06/2024 11:42 AM EST Narrative [facility] 05/07/2024 3:30 AM EST [facility] Received Date: Tobi Pollard MD LAB BLOOD ORDERABLES Monica l Result [facility] [address] [facility] 3rd [address], [place] [address], [place] [phone] [facility] [employer] [facility] [address] [facility] [address], [place] [address], [place] [phone] * Phosphorus (05/06/2024 11:27 AM EST) Phosphorus 3.8 2.5 - 4.5 mg/dL 05/06/2024 12:13 PM EST [facility] Blood Structure of peripheral vein / Unknown Venipuncture / Unknown 05/06/2024 11:27 AM EST 05/06/2024 11:42 AM EST Tobi Pollard MD LAB BLOOD ORDERABLES Monica l Result [facility] LAB[facility] [address] from Last 3 Months or Most Recently Relevant to Health Maintenance Insurance [employer] Advance Directives Documents on File Type Date Recorded Patient Integration Solution Architect Expl [facility] Care Proxy 05/11/2024 1:39 PM 12-0 Care Teams Service Supervisor Relationship Specialty Start Date End Date Patient, Has No Pcp Or Ref DO NOT EDIT THIS RECORD VIA PROVIDER ON THE FLY PCP - General President [employer] 05/06/24
--- OUTSIDE RECORDS SUMMARY | 2024-08-16 11:39 | XMS_ITS ---
Author Organization [facility] Address [address] [place] [address] Care Team Providers Care Instructional Manager Name Role Phone Reynaldo SAMAYOA [place] Primary Care Provider Unava ilLori Cam [phone] REASON FOR VISIT issues with nail Encounters Encounter Location Date Provider Diagnosis [facility] [address] [place] [address] 08/19/2023 Lori Bacon Plan Of Treatment No Information Progress Notes * Nasir JODOB:1980 (43 yo M)Acc No.[id number]:08/19/2023 Patient:?Nasir Jo :1980???Age:43 Y???Sex:Male Address:[address] [place] [address], [address] * true * Date:? Generated for Printi coco/Jose Carlos/eTransmitting on:?08/16/2024 11:39 AM EDT
--- OUTSIDE RECORDS SUMMARY | 2024-08-16 11:40 | XMS_ITS ---
[facility] Address [address] [place] [address] Care Team Providers Care Planer Chain Offbearer Name Role Phone Glen Jacobs MDneth Primary Care Provider Lori Jasmine Unavailable [phone] Allergies No Known Allergies REASON FOR VISIT Pcp- 09/12/23, Fungal Nails Medications Medication SIG (Take, Route, Frequency, Duration) Notes Start Date End Date Status Atorvastatin Calcium 10 MG 1 tablet Oral ly Once a day for 30 day(s) Active Ciclopirox 0.77 % 1 application Prevention Rn ally Twice a day for 365 days [...] 024 Encounters Encounter Location Date Provider Diagnosis [facility] [address] [place] [address] 09/12/2023 Lori Bacon Fungal infection of nail B35.1 Assessments Encounter Date Diagnosis (ICD Code) Assessment Notes Treatment Notes Treatment Clinical Notes Section Notes 09/12/2023 Fungal infection of nail (ICD-10 - B35.1) Rx management (4) Plan Of Treatment Medication Medication Name Sig Start Date Stop Date Notes Ciclopirox 0.77 % 1 application Prevention Rn ally Twice a day for 365 days Next Appt Details Follow Up: prn, Reason: Progress Notes * Nasir WHITEDOB:1980 (43 yo M)Acc No.[id number]:09/12/2023 Progress Note Patient:?Nasir White Provider:?Lori Bacon DPM :1980???Age:43 Y???Sex:Male Wolf e:09/12/2023 Address:[address] [place], [place] [id number] Pcp:Dwayne Jacobs MD Subjective: * Chief Complaints: [...] DPM Date:?05/2024 Generated for Jewel sepulveda/Jose Carlos/Seymour on:?08/16/2024 11:39 AM EDT History and Physical Notes * HPI (History [...]
== END 2024-08-16 11:22 | disposition home or self-care (01) ==
LOC: HO.HMCH 10:23
PROVIDERS: PCP Internal Medicine
DX: H66.92 Otitis media, unspecified, left ear (principal)

== ENCOUNTER → 2024-08-16 10:22 | Outpatient (BNVA) | payer OTHER, SELFPAY | PROVIDERS: PCP Internal Medicine ==

== ENCOUNTER 2024-09-04 09:17 | Outpatient (REF) | payer OTHER, SELFPAY ==
--- OUTSIDE RECORDS SUMMARY | 2024-09-04 09:20 | XMS_ITS ---
Author Organization [facility] [place] Address [address] [place] [address] Care Team Providers Care Preprint Analyst Name Role Phone Glen Jacobs MDneth Primary Care Provider Lori Jasmine Unavailable [phone] Allergies No Known Allergies REASON FOR VISIT Pcp- 09/12/23, Fungal Nails Medications Medication SIG (Take, Route, Frequency, Duration) Notes Start Date End Date Status Atorvastatin Calcium 10 MG 1 tablet Oral ly Once a day for 30 day(s) Active Ciclopirox 0.77 % 1 application Chart Writer ally Twice a day for 365 days [...] Date Provider Diagnosis [facility] [address] [place] [address] 09/12/2023 Lori Bacon Fungal infection of nail B35.1 Assessments Encounter Date Diagnosis (ICD Code) Assessment Notes Treatment Notes Treatment Clinical Notes Section Notes 09/12/2023 Fungal infection of nail (ICD-10 - B35.1) Rx management (4) Plan Of Treatment Medication Medication Name Sig Start Date Stop Date Notes Ciclopirox 0.77 % 1 application Chart Writer ally Twice a day for 365 days Next Appt Details Follow Up: prn, Reason: Progress Notes * Nasir WHITEDOB:1980 (43 yo M)Acc No.[id number]:09/12/2023 Progress Note Patient:?Nasir White Provider:?Lori Bacon DPM :1980???Age:43 Y???Sex:Male Wolf e:09/12/2023 Address:[address] [place], [place] [address] Pcp:Dwayne Jacobs MD Subjective: * Chief Complaints: [...] DPM Date:?05/2024 Generated for Jewel sepulveda/Jose Carlos/Seymour on:?09/04/2024 09:20 AM EDT History and Physical Notes * [...]
--- OUTSIDE RECORDS SUMMARY | 2024-09-04 09:20 | XMS_ITS | Clinical Summary ---
Author Organization [facility] Address [address] [facility] [address] [place] [address] Phone Care Team Providers Care Short Haul Driver Name Role Phone Dwayne Jacobs MD Primary Care Provider [phone]- [phone] Allergies No known active allergies Medications omega-3 [...] Insurance COMPREHENSIVE BENEFITS COMPREHENSIVE BENEFITS Care Teams Short Haul Driver Relationship Specialty Start Date End Date Dwayne Jacobs MD [address] [place] [address] DRIVE [address] [place] [address] PCP - General 06/12/20
--- OUTSIDE RECORDS SUMMARY | 2024-09-04 09:20 | XMS_ITS | Encounter Summary ---
Author Organization [facility] Address [address] [address]506 Care Team Providers Care Holistic Specialist Name Role Phone Patient, Has No Pcp Or Ref Primary Care Provider Unavailable Reason for Visit * Reason Onset Date Comments Referral - Kidney Txp 09/01/2024 Encounter Details Date Type Department Care Team (Late Contact Info) Description 09/01/2024 Telephone [facility] Transplant Department [address] [place] [address] [phone] Lori Mustafa RN [address] [place] [address] [phone] Referral - Kidney Txp Social History Tobacco Use Types Packs/Day Years Used Date Smoking Tobacco: Never Smokeless Tobacco: Never Alcohol Use Standard Drinks/Week Comments Never 0 (1 standard drink = 0.6 oz pur e alcohol) Sex and Gender Information Value Date Recorded Sex Assigned at Male 05/06/2024 7:52 AM EST Legal Sex Male 4:41 PM EST Gender Identity Not on file Sexual Orientation Not on file documented as of this encounter Miscellaneous Notes * Telephone Encounter - Lori Mustafa RN - 09/01/2024 2:07 PM EDT Transplant Telephone Encounter Message left for Nasir regarding need for second ABO typing as he has been approved as a kidney transplant candidate. Second ABO and monthly antibody screening needed. documented in this encounter Plan of Treatment Upcoming Encounters Date Type Department Care Team (Late st Contact Info) Description 05/03/2025 10:00 AM EST Follow-Up [facility] Renal Transplant [address] [place] [address] Tobi Pollard MD [address] [place] [address] 05/03/2025 10:30 AM EST Social Work [facility] Renal Transplant [address] [place] [address] Cecelia Hinton LICSW [address] [place] [address] documented as of this encounter Visit Diagnoses Not on filedocumented in this encounter Care Teams Holistic Specialist Relationship Specialty Start Date End Date Patient, Has No Pcp Or Ref DO NOT EDIT THIS RECORD VIA PROVIDER ON THE FLY PCP - General Director Of Archives 05/06/24 documented as of this encounter
--- OUTSIDE RECORDS SUMMARY | 2024-09-04 09:20 | XMS_ITS | Referral Summary ---
Author Organization [facility] Address [address] [place] [address] Care Team Providers Care Machine Container Washer Name Role Phone Patient, Has No Pcp Or Ref Primary Care Provider Unavailable Encounters Date Type Department Care Team Description 09/01/2024 Telephone [facility] Transplant Department [address] [place] [address] Lori Mustafa migration agent - Kidney Txp from Last 3 Months Allergies No known [...] Info) Description 05/03/2025 10:00 AM EST Follow-Up [facility] Renal Transplant [address] [place] [address] Tobi Pollard MD [address] [place], [place] [phone] 05/03/2025 10:30 AM EST Social Work [facility] Renal Transplant [address] [place] [address] Cecelia Hinton LICSW [address] [place] [address] Procedures * Due to [place] [employer] law, this organization might not be sharing negative HIV tests. Procedure Name Priority Date/Time Associated Diagnosis Comments HEPATITIS C ANTIBODY W/REFLEX TO HCV RNA, QUANTITATIVE PCR Routine 05/06/2024 11:27 AM EST Pre-transplant evaluation for end stage renal disease Chronic kidney disease, stage IV (severe) CBC AUTO DIFFERENTIAL Routine 05/06/2024 11:27 AM EST Pre-transplant evaluation for end stage renal disease Chronic kidney disease, stage IV (severe) PHOSPHORUS Routine 05/06/2024 11:27 AM EST Pre-transplant evaluation for end stage renal disease Chronic kidney disease, stage IV (severe) from Last 3 Months or Most Recently Relevant to Health Maintenance Results * Due to [place] [employer] law, this organization might not be sharing [...] % 0.4 % 05/06/2024 11:51 AM EST [facility] Neutrophil # 6.74 1.50 - 7.80 10*3/uL 05/06/2024 11:51 AM EST [facility] Immature Grans # 0.04(H) <=0.03 10*3/uL 05/06/2024 11:51 AM EST [facility] Lymphocyte # 1.00 0.85 - 3.90 10*3/uL 05/06/2024 11:51 AM EST [facility] Monocyte # 0.30 0.20 - 0.95 10*3/uL 05/06/2024 11:51 AM EST [facility] Eosinophil # 0.10 0.02 - 0.50 10*3/uL 05/06/2024 11:51 AM EST [facility] Basophil # <0.03 0.00 - 0.20 10*3/uL 05/06/2024 11:51 AM EST [facility] nRBC % 0.0 /100 WBCs 05/06/2024 11:51 AM EST [facility] nRBC # <0.01 <0.01 10*3/uL 05/06/2024 11:51 AM EST [facility] Blood Structure of peripheral vein / Unknown Venipuncture / Unknown 05/06/2024 11:27 AM EST 05/06/2024 11:42 AM EST us Tobi Pollard MD LAB BLOOD ORDERABLES Monica l Result [facility] [address] [place] [address], * Hepatitis C Antibody w/Reflex to PCR (05/06/2024 11:27 AM EST) Hepatitis C Antibody NON-REACT KISHA NON-REACT KISHA 05/07/2024 3:30 AM EST [facility] Comment: HCV antibody was non-reactive. There is no laboratory evidence of HCV infection. In most cases, no further action is required. However, if recent HCV exposure is suspected, a test for HCV RNA (test code 71060) is suggested. For additional information please refer to http://education.Tricycle/faq/UOD16r8 (This link is being provided for informational/ educational purposes only.) Blood Structure of peripheral vein / Unknown Venipuncture / Unknown 05/06/2024 11:27 AM EST 05/06/2024 11:42 AM EST Narrative [facility] 05/07/2024 3:30 AM EST [facility] Received Date: Tobi Pollard MD LAB BLOOD ORDERABLES Monica l Result Performing Organization Address City/[facility]/ZIP Co de Phone Number [facility] [address] [facility] [address] [facility], [place] [address], [employer] [facility] [address] [facility] [address] [facility], [place] [address], [place] [phone] * Phosphorus (05/06/2024 11:27 AM EST) Phosphorus 3.8 2.5 - 4.5 mg/dL 05/06/2024 12:13 PM EST [facility] Blood Structure of peripheral vein / Unknown Venipuncture / Unknown 05/06/2024 11:27 AM EST 05/06/2024 11:42 AM EST Tobi Pollard MD LAB BLOOD ORDERABLES Monica l Result [facility] [address] [place] [address] from Last 3 Months or Most Recently Relevant to Health Maintenance Insurance [employer] Advance Directives Documents on File Type Date Recorded Patient Sports Photographer Expl [facility] Health Care Proxy 05/11/2024 1:39 PM 12-0 Care Teams Machine Container Washer Relationship Specialty Start Date End Date Patient, Has No Pcp Or Ref DO NOT EDIT THIS RECORD VIA PROVIDER ON THE FLY PCP - General Bill Of Lading Clerk 05/06/24
--- OUTSIDE RECORDS SUMMARY | 2024-09-04 09:20 | XMS_ITS ---
Author Organization [facility] Address [address] [place] [address] Care Team Providers Care Clipman Name Role Phone Reynaldo SAMAYOA [place] Primary Care Provider Unava ilLori Cam [phone] REASON FOR VISIT issues with nail Encounters Encounter Location Date Provider Diagnosis [facility] [address] [place] [address] 08/19/2023 Lori Bacon Plan Of Treatment No Information Progress Notes * Nasir JODOB:1980 (43 yo M)Acc No.[id number]:08/19/2023 Patient:?Nasir Jo :1980???Age:43 Y???Sex:Male Address:[address] [place] [address], [address] * true * Date:? Generated for Cotyi coco/Jose Carlos/eTransmitting on:?09/04/2024 09:19 AM EDT
--- OUTSIDE RECORDS SUMMARY | 2024-09-04 09:20 | XMS_ITS | Patient Health Record ---
Author Organization [facility] Address [address] [place] [address] Care Team Providers Care Litigation Associate Name Role Phone Reynaldo SAMAYOA, Dwayne Primary Care Provider Lori Jasmine Unavailable [phone] Allergies No Known Allergies Reason For Referral No Information Medications Medication SIG (Take, Route, Frequency, Duration) Notes Start Date End Date Status Atorvastatin Calcium 10 MG 1 tablet Oral ly Once a day for 30 day(s) Active Ciclopirox 0.77 % 1 application Hospitalist Physician ally Twice a day for 365 days [...] Problem Status W/U Status Risk Notes Problem [id number] Gouty arthritis of right foot (M10.9) Active confirmed Vital Signs Blood pressure diastolic 70 mm Hg 09/12/2023 Height 5 ft 6 in in 09/12/2023 Blood pressure systolic 120 mm Hg 09/12/2023 Weight 183 lbs 09/12/2023 BMI 29.53 kg/m2 09/12/2023 Encounters Encounter Location Date Provider Diagnosis [facility] [address] [place] [address] 09/12/2023 Lori Bacon Fungal infection of nail B35.1 Assessments Encounter Date Diagnosis (ICD Code) Assessment Notes Treatment Notes Treatment Clinical Notes Section Notes 09/12/2023 Fungal infection of nail (ICD-10 - B35.1) Rx management (4) Plan Of Treatment Pending Test Test Name Order Date , [id number]/INJECT, JOINT/BURSA 0 09/20/2022 Insurance Providers Payer Name Payer Address Payer Phone Subscriber Number Group Number Insured Name Patient Relationship to Insured Coverage Start Date Coverage End Date Blue Benefits [address] [address] [place] [address] [id number] Nasir Jo Self - patient is the insured Medical (General) History Medical History History ICD Code Hypertension Hyperlipidemia Chronic Kidney Disease, stage III (moder ate) Vitamin D deficiency Obesity Surgical History Surgery Date(Month/Year) eye surgery
--- OUTSIDE RECORDS SUMMARY | 2024-09-04 09:20 | XMS_ITS | Clinical Summary ---
Author Organization [facility] Address [address] [place] [address] Care Team Providers Care It Disaster Recovery Manager Name Role Phone Patient, Has No Pcp [...] Type Department Care Team Description 09/01/2024 Telephone [facility] Transplant Department [address] [place] [address] Lori Mustafa RN Referral - Kidney Txp from Last 3 Months Social History Tobacco [...] Info) Description 05/03/2025 10:00 AM EST Follow-Up [facility] Renal Transplant [address] [place] [address] Tobi Pollard MD [address] [place] [address] 05/03/2025 10:30 AM EST Social Work [facility] Renal Transplant [address] [place] [address] Cecelia Hinton LICSW [address] [place] [address] Health Maintenance Due Date Last Done Comments 25 Hydroxy / Vitamin D 1981 Basic Metabolic Panel 1980 PTH 1981 Urine Microalbumin 1991 Varicella Vaccines (1 of 2 - 13+ 2-dose series) 1994 Hepatitis B Vaccines (1 of 3 - 19+ 3-dose series) 01/11/2000 DTaP,Tdap,and Td Vaccines (1 - Tdap) 2003 COVID-19 Vaccine ( - 2023-2 5 season) 2024 Alcohol/Substance Use Screening 06/02/2024 Depression Screening and Follow-Up 06/02/2024 Social Drivers of Health Mary ual Screening 06/02/2024 Influenza Vaccine (Season Ended) 2025 Hemoglobin 05/06/2025 05/06/2024 Phosphorus 05/06/2025 05/06/2024 RSV [...] complete this topic Procedures * Due to [place] [employer] law, this organization might not be sharing [...] to Health Maintenance Results * Due to [place] [employer] law, this organization might not be sharing [...] - 0.20 10*3/uL 05/06/2024 11:51 AM EST [facility] nRBC % 0.0 /100 WBCs 05/06/2024 11:51 AM EST [facility] nRBC # <0.01 <0.01 10*3/uL 05/06/2024 11:51 AM EST [facility] Blood Structure of peripheral vein / Unknown Venipuncture / Unknown 05/06/2024 11:27 AM EST 05/06/2024 11:42 AM EST Tobi Pollard MD LAB BLOOD ORDERABLES Monica l Result Performing Organization Address City/[facility]/ZIP Co de Phone Number [facility] [address] [place] [address], * Hepatitis C Antibody w/Reflex to PCR (05/06/2024 11:27 AM EST) Hepatitis C Antibody NON-REACT KISHA NON-REACT KISHA 05/07/2024 3:30 AM EST [facility] Comment: HCV antibody was non-reactive. There is no laboratory evidence of HCV infection. In most cases, no further action is required. However, if recent HCV exposure is suspected, a test for HCV RNA (test code 79345) is suggested. For additional information please refer to http://education.Cellomics Technology/faq/ZQH84h4 (This link is being provided for informational/ educational purposes only.) Blood Structure of peripheral vein / Unknown Venipuncture / Unknown 05/06/2024 11:27 AM EST 05/06/2024 11:42 AM EST Narrative [facility] - 05/07/2024 3:30 AM EST [facility] Received Date: Tobi Pollard MD LAB BLOOD ORDERABLES Monica l Result [facility] [address] [facility] 3rd Floor, [place] [address], [place] [phone] [employer] [facility] [address] [facility] 3rd Floor, [place] [address], [place] [phone] * Phosphorus (05/06/2024 11:27 AM EST) Phosphorus 3.8 2.5 - 4.5 mg/dL 05/06/2024 12:13 PM EST [facility] Blood Structure of peripheral vein / Unknown Venipuncture / Unknown 05/06/2024 11:27 AM EST 05/06/2024 11:42 AM EST Tobi Pollard MD LAB BLOOD ORDERABLES Monica abernathy Result [facility] [address] [place] [address] from Last 3 Months or Most Recently Relevant to Health Maintenance Insurance [employer] Advance Directives Documents on File Type Date Recorded Patient Pantograph Watcher Expl [facility] Health Care Proxy 05/11/2024 1:39 PM 12-0 Care Teams It Disaster Recovery Manager Relationship Specialty Start Date End Date Patient, Has No Pcp Or Ref DO NOT EDIT THIS RECORD VIA PROVIDER ON THE FLY PCP - General Tents Assembler 05/06/24
--- OUTSIDE RECORDS SUMMARY | 2024-09-04 09:20 | XMS_ITS ---
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
[2024-09-04 10:05] LABS: Anion Gap 12 (12-20); Blood Urea Nitrogen 68 mg/dL (9-16); Carbon Dioxide 23 mmol/L (22-29); Chloride 109 mmol/L (96-108); Potassium 4.2 mmol/L (3.3-5.1); Sodium 140 mmol/L (135-145)
[2024-09-04 10:13] LABS: Estimated Glomerular Filt Rate 13
== END 2024-09-04 09:18 | disposition home or self-care (01) ==
LOC: HO.LAB 09:17
PROVIDERS: PCP Internal Medicine; Visit Provider Internal Medicine Nephrology
DX: N18.5 Chronic kidney disease, stage 5 (principal); N25.81 Secondary hyperparathyroidism of renal origin; E55.9 Vitamin D deficiency, unspecified; I10 Essential (primary) hypertension
CPT/HCPCS: 36415; 80051; 82565; 84520

== ENCOUNTER 2024-09-10 11:37 | Outpatient (REF) | payer OTHER, SELFPAY ==
--- OUTSIDE RECORDS SUMMARY | 2024-09-10 12:37 | XMS_ITS ---
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
--- OUTSIDE RECORDS SUMMARY | 2024-09-10 12:38 | XMS_ITS | Encounter Summary ---
Author Organization [facility] Address [address] [place] [address] Care Team Providers Care Transport Nurse Name Role Phone Patient, Has No Pcp Or Ref Primary Care Provider Unavailable Reason for Visit * Reason Onset Date Comments Referral - Kidney Txp 09/07/2024 Encounter Details Date Type Department Care Team (Late st Contact Info) Description 09/07/2024 Telephone [facility] Transplant Department [address] [place] [phone] Lori Mustafa RN [address] [place] [address] Referral - Kidney Txp Social History Tobacco [...] Telephone Encounter - Lori Mustafa RN - 09/07/2024 1:21 PM EDT Transplant Telephone Encounter Attempted to contact patient again today as no return phone call from 09/01/24 message. I spoke to Nasir's Denisa who said she tried to call me back but no one knew my name. Denisa stated that Nasir had his ABO drawn at [facility] in [place], [place]. I contacted [facility] andspoke to Rochelle who was unable to locate the lab result. I called patient back and again spoke to Quang maddox who states that Nasir informed her he did NOT have his ABO typing drawn yet but would do so this week. I gave Denisa the transplant office fax number and asked for the result to be faxed to our office. Denisa stated that Nasir has an appointment with his primary scheduling clerk this week. I advised herthat he could perhaps have the lab drawn at that office. I also advised her that his labwork revealed he is not immune to Hepatitis A or B and that he should request vaccinations. documented in this encounter Plan of Treatment Upcoming Encounters Date Type Department Care Team (Late st Contact Info) Description 05/03/2025 10:00 AM EST Follow-Up [facility] Renal Transplant [address] [place] [address] Tobi Pollard MD [address] [place] [address] 05/03/2025 10:30 AM EST Social Work [facility] Renal Transplant [address] [place] [address] Cecelia Hinton LICSW [address] [place] [address] documented as of this encounter Visit Diagnoses Not on filedocumented in this encounter Care Teams Transport Nurse Relationship Specialty Start Date End Date Patient, Has No Pcp Or Ref DO NOT EDIT THIS RECORD VIA PROVIDER ON THE FLY PCP - General Bond Writer 05/06/24 documented as of this encounter
--- OUTSIDE RECORDS SUMMARY | 2024-09-10 12:38 | XMS_ITS | Clinical Summary ---
Author Organization [facility] Address [address] [place] [address] Care Team Providers Care Block Breaker Operator Name Role Phone Patient, Has No [...] Encounters Date Type Department Care Team Description 09/07/2024 Telephone [facility] Transplant Department [address] [place] [address] Lori Mustafa RN Referral - Kidney Txp 09/01/2024 Telephone [facility] Transplant Department [address] [place] [address] Lori Mustafa RN Referral - Kidney Txp [...] Info) Description 05/03/2025 10:00 AM EST Follow-Up [facility] Renal Transplant [address] [place] [address] Tobi Pollard MD [address] [place] [address] 05/03/2025 10:30 AM EST Social Work [facility] Renal Transplant [address] [place] [address] Cecelia Hinton LICSW [address] [place] [address] Health Maintenance Due Date Last Done Comments [...] complete this topic Procedures * Due to [place] [employer] law, this organization might not be sharing [...] to Health Maintenance Results * Due to [place] [employer] law, this organization might not be sharing [...] - 0.95 10*3/uL 05/06/2024 11:51 AM EST [facility] Eosinophil # 0.10 0.02 - 0.50 10*3/uL 05/06/2024 11:51 AM EST [facility] Basophil # <0.03 0.00 - 0.20 10*3/uL 05/06/2024 11:51 AM EST [facility] nRBC % 0.0 /100 WBCs 05/06/2024 11:51 AM EST [facility] nRBC # <0.01 <0.01 10*3/uL 05/06/2024 11:51 AM EST [facility] Blood Structure of peripheral vein / Unknown Venipuncture / Unknown 05/06/2024 11:27 AM EST 05/06/2024 11:42 AM EST Tobi Pollard MD LAB BLOOD ORDERABLES Monica abernathy Result [email or web address] [address] [place] [address], * Hepatitis C Antibody w/Reflex to PCR (05/06/2024 11:27 AM EST) Hepatitis C Antibody NON-REACT KISHA NON-REACT KISHA 05/07/2024 3:30 AM EST [facility] Comment: HCV antibody was non-reactive. There is no laboratory evidence of HCV infection. In most cases, no further action is required. However, if recent HCV exposure is suspected, a test for HCV RNA (test code 01959) is suggested. For additional information please refer to http://education.WatrHub/faq/TVP73p7 (This link is being provided for informational/ educational purposes only.) Blood Structure of peripheral vein / Unknown Venipuncture / Unknown 05/06/2024 11:27 AM EST 05/06/2024 11:42 AM EST Narrative [facility] 05/07/2024 3:30 AM EST [facility] Received Date: Tobi Pollard MD LAB BLOOD ORDERABLES Monica l Result [facility] [address] [facility] 3rd Floor, [place] [address], [place] [phone] [facility] [address] [facility] 3rd Floor, [place] [address], [place] [phone] * Phosphorus (05/06/2024 11:27 AM EST) Phosphorus 3.8 2.5 - 4.5 mg/dL 05/06/2024 12:13 PM EST [facility] Blood Structure of peripheral vein / Unknown Venipuncture / Unknown 05/06/2024 11:27 AM EST 05/06/2024 11:42 AM EST Tobi Pollard MD LAB BLOOD ORDERABLES Monica l Result [facility] [address] from Last 3 Months or Most Recently Relevant to Health Maintenance Insurance [employer] [place] [address] Advance Directives Documents on File Type Date Recorded Patient Senior Java Data Architect Expl [facility] Care Proxy 05/11/2024 1:39 PM 12-0 Care Teams Block Breaker Operator Relationship Specialty Start Date End Date Patient, Has No Pcp Or Ref DO NOT EDIT THIS RECORD VIA PROVIDER ON THE FLY PCP - General Crotch Breaker 05/06/24
--- OUTSIDE RECORDS SUMMARY | 2024-09-10 12:38 | XMS_ITS | Clinical Summary ---
Author Organization [facility] Address [address] [facility] [address] [place] [address] Phone Care Team Providers Care Grazing Aide Name Role Phone Dwayne Jacobs MD Primary Care Provider [phone] Allergies No known active allergies Medications omega-3 [...] Due Date Last Done Comments Pneumococcal Vaccine: Peds ( 0 to 5 Years) and At-Risk Patients (6 to 49 Years) (1 of 2 - PCV) 1987 Hepatitis B Vaccine (1 of 3 - 19+ 3-dose series) 01/10 Influenza Vaccine (Season Ended) 2025 Insurance Comprehensive Benefits Comprehensive Benefits Care Teams Grazing Aide Relationship Specialty Start Date End Date Dwayne Jacobs MD [address] [place] [address] [address] [place] [address] PCP - General 06/12/20
--- OUTSIDE RECORDS SUMMARY | 2024-09-10 12:38 | XMS_ITS | Patient Health Record ---
Author Organization [facility] Address [address] [facility] [place] [address] Care Team Providers Care Winemaker Name Role Phone Reynaldo SAMAYOA, Dwayne Primary Care Provider Lori Jasmine Unavailable [phone] Allergies No Known Allergies Reason For Referral No Information Medications Medication SIG (Take, Route, Frequency, Duration) Notes Start Date End Date Status Atorvastatin Calcium 10 MG 1 tablet Oral ly Once a day for 30 day(s) Active Ciclopirox 0.77 % 1 application Fixture Designer ally Twice a day for 365 days [...] Problem Status W/U Status Risk Notes Problem [id number] Gouty arthritis of right foot (M10.9) Active confirmed Vital Signs Blood pressure diastolic 70 mm Hg 09/12/2023 Height 5 ft 6 in in 09/12/2023 Blood pressure systolic 120 mm Hg 09/12/2023 Weight 183 lbs 09/12/2023 BMI 29.53 kg/m2 09/12/2023 Encounters Encounter Location Date Provider Diagnosis [facility] [address] [place] [address] 09/12/2023 Lori Bacon Fungal infection of nail B35.1 Assessments Encounter Date Diagnosis (ICD Code) Assessment Notes Treatment Notes Treatment Clinical Notes Section Notes 09/12/2023 Fungal infection of nail (ICD-10 - B35.1) Rx management (4) Plan Of Treatment Pending Test Test Name Order Date , [id number]/INJECT, JOINT/BURSA 0 09/20/2022 Insurance Providers Payer Name Payer Address Payer Phone Subscriber Number Group Number Insured Name Patient Relationship to Insured Coverage Start Date Coverage End Date Blue Benefits [address] [address] [place] [address] [id number] Nasir Jo Self - patient is the insured Medical (General) History Medical History History ICD Code Hypertension Hyperlipidemia Chronic Kidney Disease, stage III (moder ate) Vitamin D deficiency Obesity Surgical History Surgery Date(Month/Year) eye surgery
--- OUTSIDE RECORDS SUMMARY | 2024-09-10 12:38 | XMS_ITS | Referral Summary ---
Author Organization [facility] Address [address] [place] [address] Care Team Providers Care Hair Machine Operator Name Role Phone Patient, Has No Pcp Or Ref Primary Care Provider Unavailable Encounters Date Type Department Care Team Description 09/07/2024 Telephone [facility] Transplant Department [address] [place] [address] Lori Mustafa RN Referral - Kidney Txp 09/01/2024 Telephone [facility] Transplant Department [address] [place] [address] Lori Mustafa RN Referral - Kidney Txp [...] Follow-Up [facility] Renal Transplant [address] [place] [address] Tobi Pollard MD [address] [place] [address] 05/03/2025 10:30 AM EST Social Work [facility] Renal Transplant [address] [place] [address] Cecelia Hinton LICSW [address] [place] [address] Procedures * Due to [place] law, this organization might not be sharing [...] Health Maintenance Results * Due to [place] law, this organization might not be sharing [...] % 0.9 % 05/06/2024 11:51 AM EST [facility] Basophil % 0.4 % 05/06/2024 11:51 AM EST [facility] Neutrophil # 6.74 1.50 - 7.80 10*3/uL 05/06/2024 11:51 AM EST [facility] Immature Grans # 0.04(H) <=0.03 10*3/uL 05/06/2024 11:51 AM EST [facility] Lymphocyte # 1.00 0.85 - 3.90 10*3/uL 05/06/2024 11:51 AM EST [facility] Monocyte # 0.30 0.20 - 0.95 10*3/uL 05/06/2024 11:51 AM EST [facility] Eosinophil # 0.10 0.02 - 0.50 10*3/uL 05/06/2024 11:51 AM EST [facility] [employer] [facility] Basophil # <0.03 0.00 - 0.20 10*3/uL 05/06/2024 11:51 AM EST [facility] [employer] [facility] nRBC % 0.0 /100 WBCs 05/06/2024 11:51 AM EST [facility] [employer] [facility] nRBC # <0.01 <0.01 10*3/uL 05/06/2024 11:51 AM EST [facility] Blood Structure of peripheral vein / Unknown Venipuncture / Unknown 05/06/2024 11:27 AM EST 05/06/2024 11:42 AM EST us Tobi Pollard MD LAB BLOOD ORDERABLES Monica abernathy Result [facility] [address] [place] [address], * Hepatitis C Antibody w/Reflex to PCR (05/06/2024 11:27 AM EST) Hepatitis C Antibody NON-REACT KISHA NON-REACT KISHA 05/07/2024 3:30 AM EST [employer] [facility] Comment: HCV antibody was non-reactive. There is no laboratory evidence of HCV infection. In most cases, no further action is required. However, if recent HCV exposure is suspected, a test for HCV RNA (test code 25345) is suggested. For additional information please refer to http://education.[employer]/faq/SXM38z1 (This link is being provided for informational/ educational purposes only.) Blood Structure of peripheral vein / Unknown Venipuncture / Unknown 05/06/2024 11:27 AM EST 05/06/2024 11:42 AM EST Narrative [facility] 05/07/2024 3:30 AM EST [facility] Received Date: Tobi Pollard MD LAB BLOOD ORDERABLES Monica l Result [facility] [address] [facility] [address] Floor, [place] [address], [place] [phone] [employer] [address] [facility] [address], [place] [address], [place] [phone] * Phosphorus (05/06/2024 11:27 AM EST) Phosphorus 3.8 2.5 - 4.5 mg/dL 05/06/2024 12:13 PM EST [facility] Blood Structure of peripheral vein / Unknown Venipuncture / Unknown 05/06/2024 11:27 AM EST 05/06/2024 11:42 AM EST Tobi Pollard MD LAB BLOOD ORDERABLES Monica l Result [facility] [address] [place] [address], from Last 3 Months or Most Recently Relevant to Health Maintenance Insurance [employer] Advance Directives Documents on File Type Date Recorded Patient Plug Cutting Machine Operator Expl anation Health Care Proxy 05/11/2024 1:39 PM 12-0 Care Teams Hair Machine Operator Relationship Specialty Start Date End Date Patient, Has No Pcp Or Ref DO NOT EDIT THIS RECORD VIA PROVIDER ON THE FLY PCP - General Dental Officer 05/06/24
--- OUTSIDE RECORDS SUMMARY | 2024-09-10 12:38 | XMS_ITS ---
[facility] Address [address] [place] [address] Care Team Providers Care Sap Security Consultant Name Role Phone Glen Jacobs MDneth Primary Care Provider Lori Jasmine Unavailable [phone] Allergies No Known Allergies REASON FOR VISIT Pcp- 09/12/23, Fungal Nails Medications Medication SIG (Take, Route, Frequency, Duration) Notes Start Date End Date Status Atorvastatin Calcium 10 MG 1 tablet Oral ly Once a day for 30 day(s) Active Ciclopirox 0.77 % 1 application Rubble Placer ally Twice a day for 365 days [...] 024 Encounters Encounter Location Date Provider Diagnosis [facility] [address] [place] [address] 09/12/2023 Lori Bacon Fungal infection of nail B35.1 Assessments Encounter Date Diagnosis (ICD Code) Assessment Notes Treatment Notes Treatment Clinical Notes Section Notes 09/12/2023 Fungal infection of nail (ICD-10 - B35.1) Rx management (4) Plan Of Treatment Medication Medication Name Sig Start Date Stop Date Notes Ciclopirox 0.77 % 1 application Rubble Placer ally Twice a day for 365 days Next Appt Details Follow Up: prn, Reason: Progress Notes * Nasir WHITEDOB:1980 (43 yo M)Acc No.[id number]:09/12/2023 Progress Note Patient:?Nasir White Provider:?Lori Bacon DPM :1980???Age:43 Y???Sex:Male Wolf e:09/12/2023 Address:[address] [place], [place] [id number] Pcp:Dwayne Jacobs MD Subjective: * Chief Complaints: [...] DPM Date:?05/2024 Generated for Jewel sepulveda/Jose Carlos/Seymour on:?09/10/2024 12:38 PM EDT History and Physical Notes * HPI [...]
--- OUTSIDE RECORDS SUMMARY | 2024-09-10 12:38 | XMS_ITS ---
Author Organization [facility] Address [address] [place] [address] Care Team Providers Care Dairy Store Manager Name Role Phone Reynaldo SAMAYOA Center Primary Care Provider Unava ilLori Cam [phone] REASON FOR VISIT issues with nail Encounters Encounter Location Date Provider Diagnosis [facility] [address] [place] [address] 08/19/2023 Lori Bacon Plan Of Treatment No Information Progress Notes * Nasir OJDOB:1980 (43 yo M)Acc No.[id number]:08/19/2023 Patient:?Nasir Jo :1980???Age:43 Y???Sex:Male Address:[address] [place] [address], [address] * true * Date:? Generated for Cotyi coco/Jose Carlos/eTransmitting on:?09/10/2024 12:37 PM EDT
== END 2024-09-10 11:38 | disposition home or self-care (01) ==
LOC: HO.LAB 11:37
PROVIDERS: PCP Internal Medicine; Visit Provider Internal Medicine Nephrology
DX: Z01.83 Encounter for blood typing (principal); Z01.818 Encounter for other preprocedural examination; N18.4 Chronic kidney disease, stage 4 (severe)
CPT/HCPCS: 86900; 86901

== ENCOUNTER 2024-09-10 13:50 | Outpatient (AMB) | payer OTHER, SELFPAY ==
--- NOTE | 2024-09-10 14:07 | HO.NEPHOV_ITS ---
Vital Signs 09/10/24 14:09 Height 5 ft 8 in Weight 164 lb 7 oz BMI 25.0 BP 120/78 Blood Pressure Location Rt brachial Position Sitting Pulse 78 Pulse Source Pulse Oximeter Pulse Oximetry (%) 100 Oxygen Delivery Method Room Air Intake Visit Reasons: Benign essential hypertension-Conf Circus Roustabout Required: No Accompanied by: Spouse Allergies No Known Allergies Allergy (Verified 09/10/24 14:10) Do you need a note to return to daycare/school/sports/work: No HPI Comments Details: Nasir was in follow-up of his chronic kidney disease and hypertension .He remains compliant with his medications. His BP is well controlled. He has no orthostatic symptoms. He denies nausea, vomiting, diarrhea, chest pain, shortness of breath, paroxysmal nocturnal dyspnea, orthopnea, pedal edema or urinary symptoms. He is compliant with his medications. He does not take any nonsteroidal anti-inflammatories. He has seen in transplant team in [facility] and is in the process of being listed. 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 Cognitive needs: No Hearing needs: No Vision needs: No Review of Systems Const All systems reviewed & are unremarkable except as noted in HPI and below Physical Exam Vital Signs: BMI result Body Mass Index 25.0 Const General: comfortable and no acute distress Orientation/consciousness: patient oriented x3 HEENT Head: Yes normocephalic Mouth: Normal oral and palatal mucosa present Eyes EOM: EOMs intact bilaterally Neck Neck: Yes supple Resp Auscultation: clear to auscultation bilaterally Cardio Jugular venous distension: no JVD Rate: regular rate GI Palpation (GI): Soft to palpation Auscultation: normal bowel sounds General: Yes no CVA tenderness Back/Spine/Pelvis Back: no CVA tenderness Skin General skin exam: no rashes or lesions noted Neuro General: patient oriented x3 and moves all extremities Extrem General: Yes no pedal edema Results Reviewed Nephrology Results: Hgb 11.5 g/dl (14.0-18.0) L 07/28/24 WBC 7.0 X10*3/uL (4.8-10.8) 07/28/24 Plt Count 322 X10*3/uL (160-400) 07/28/24 Sodium 140 mmol/L (135-145) 09/04/24 Potassium 4.2 mmol/L (3.3-5.1) 09/04/24 Chloride 109 mmol/L (96-108) H 09/04/24 Carbon Dioxide 23 mmol/L (22-29) 09/04/24 BUN 68 mg/dL (9-16) H 09/04/24 Creatinine 4.87 mg/dL (0.5-1.4) H* 09/04/24 Calcium 8.9 mg/dL (8.4-10.2) 07/28/24 Phosphorus 3.6 mg/dL (2.7-4.5) 07/09/24 Urine Protein 300 (3+) mg/dL (Neg-Trace) H 07/28/24 Assessment & Plan Assessment & Plan (1) CKD (chronic kidney disease) stage 5, GFR less than 15 ml/min: Code(s): N18.5 - Chronic kidney disease, stage 5 Category: Medical (2) Secondary hyperparathyroidism (of renal origin): Code(s): N25.81 - Secondary hyperparathyroidism of renal origin Category: Medical (3) Benign essential hypertension: Code(s): I10 - Essential (primary) hypertension Category: Medical Plan Nasir has stage V CKD for a long time. His lisinopril has been on hold since serum creatinine has been going up. He is on a lipid-lowering agent. He takes low-sodium diet. He maintains good hydration. He avoids nonsteroidal anti- inflammatories. He should continue Amlodipine 10 mg daily. He is being evaluated in [facility] renal transplant division for listing.I also referred him to [facility] transplant. His uric acid level is 9 & is on Allopurinol 100 mg daily . He had PD education. I did not make any other medication changes today. Discussed about PD as well as renal transplant. Answered all questions. Follow-up appointment given Orders: Orders Blood Urea Nitrogen 2 Months N18.5 - Chronic kidney disease, stage 5 Creatinine 2 Months N18.5 - Chronic kidney disease, stage 5 Electrolytes 2 Months N18.5 - Chronic kidney disease, stage 5 Coding Level of Care Code Est Pt Level 4 (86693) Diagnoses CKD (chronic kidney disease) stage 5, GFR less than 15 ml/min N18.5 Secondary hyperparathyroidism (of renal origin) N25.81 Benign essential hypertension I10
[2024-09-10 14:09] VITALS: BP 120/78; PULSE 78; O2SAT 100; BMI 25.0
--- OUTSIDE RECORDS SUMMARY | 2024-09-10 14:12 | XMS_ITS ---
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
--- OUTSIDE RECORDS SUMMARY | 2024-09-10 14:12 | XMS_ITS | Clinical Summary ---
Author Organization [facility] Address [address] [place] [address] Care Team Providers Care Case Operator Name Role Phone Patient, Has No [...] Type Department Care Team Description 09/07/2024 Telephone [facility] Transplant Department [address] [place] [address] Lori Mustafa RN Referral - Kidney Txp 09/01/2024 Telephone [facility] Transplant Department [address] [place] [address] Lori Mustafa RN Referral - Kidney Txp [...] Info) Description 05/03/2025 10:00 AM EST Follow-Up [facility] Renal Transplant [address] [place] [address] Tobi Pollard MD [address] [place] [address] 05/03/2025 10:30 AM EST Social Work [facility] Renal Transplant [address] [place] [address] Cecelia Hinton LICSW [address] [place] [address] Health Maintenance Due Date Last Done Comments [...] complete this topic Procedures * Due to [place] law, this organization might not be sharing [...] to Health Maintenance Results * Due to [place] law, this organization might not be sharing [...] - 0.95 10*3/uL 05/06/2024 11:51 AM EST [facility] Eosinophil # 0.10 0.02 - 0.50 10*3/uL 05/06/2024 11:51 AM EST [facility] Basophil # <0.03 0.00 - 0.20 10*3/uL 05/06/2024 11:51 AM EST [facility] nRBC % 0.0 /100 WBCs 05/06/2024 11:51 AM EST [facility] nRBC # <0.01 <0.01 10*3/uL 05/06/2024 11:51 AM EST [facility] Blood Structure of peripheral vein / Unknown Venipuncture / Unknown 05/06/2024 11:27 AM EST 05/06/2024 11:42 AM EST Tobi Pollard MD LAB BLOOD ORDERABLES Monica abernathy Result [facility] [address] [place] [address], * Hepatitis C Antibody w/Reflex to PCR (05/06/2024 11:27 AM EST) Hepatitis C Antibody NON-REACT KISHA NON-REACT KISHA 05/07/2024 3:30 AM EST [employer] [facility] Comment: HCV antibody was non-reactive. There is no laboratory evidence of HCV infection. In most cases, no further action is required. However, if recent HCV exposure is suspected, a test for HCV RNA (test code 39456) is suggested. For additional information please refer to http://education.Cloudian/faq/BAF00j0 (This link is being provided for informational/ educational purposes only.) Blood Structure of peripheral vein / Unknown Venipuncture / Unknown 05/06/2024 11:27 AM EST 05/06/2024 11:42 AM EST Narrative [facility] 05/07/2024 3:30 AM EST [facility] Received Date: Tobi Pollard MD LAB BLOOD ORDERABLES Monica l Result [facility] [address] [facility] [address], [place] [address], [place] [phone] [facility] [employer] [facility] [address] [facility] [address], [place] [address], [place] [phone] * Phosphorus (05/06/2024 11:27 AM EST) Phosphorus 3.8 2.5 - 4.5 mg/dL 05/06/2024 12:13 PM EST [facility] Blood Structure of peripheral vein / Unknown Venipuncture / Unknown 05/06/2024 11:27 AM EST 05/06/2024 11:42 AM EST oTbi Pollard MD LAB BLOOD ORDERABLES Monica l Result [employer] [facility] [address] from Last 3 Months or Most Recently Relevant to Health Maintenance Insurance [employer] [address] Advance Directives Documents on File Type Date Recorded Patient Nutrition Associate Expl [facility] Care Proxy 05/11/2024 1:39 PM 12-0 Care Teams Case Operator Relationship Specialty Start Date End Date Patient, Has No Pcp Or Ref DO NOT EDIT THIS RECORD VIA PROVIDER ON THE FLY PCP - General Anesthesiology Resident 05/06/24
--- OUTSIDE RECORDS SUMMARY | 2024-09-10 14:12 | XMS_ITS | Referral Summary ---
Author Organization [facility] Address [address] [place] [address] Care Team Providers Care Shop Service Technician Name Role Phone Patient, Has No Pcp Or Ref Primary Care Provider Unavailable Encounters Date Type Department Care Team Description 09/07/2024 Telephone [facility] Transplant Department [address] [place] [address] Lori Mustafa RN Referral - Kidney Txp 09/01/2024 Telephone [facility] Transplant Department [address] [place] [address] Lori Mustafa RN Referral - Kidney Txp [...] Info) Description 05/03/2025 10:00 AM EST Follow-Up [facility] Renal Transplant [address] [place] [address] Tobi Pollard MD [address] [place] [address] 05/03/2025 10:30 AM EST Social Work [facility] Renal Transplant [address] [place] [address] Cecelia Hinton LICSW [address] [place] [address] Procedures * Due to [place] law, this organization might not be sharing [...] to Health Maintenance Results * Due to [place] [employer] law, this organization might not be sharing [...] % 0.9 % 05/06/2024 11:51 AM EST [facility] Basophil % 0.4 % 05/06/2024 11:51 AM EST [facility] Neutrophil # 6.74 1.50 - 7.80 10*3/uL 05/06/2024 11:51 AM EST [facility] Immature Grans # 0.04(H) <=0.03 10*3/uL 05/06/2024 11:51 AM EST [facility] Lymphocyte # 1.00 0.85 - 3.90 10*3/uL 05/06/2024 11:51 AM EST [facility] Monocyte # 0.30 0.20 - 0.95 10*3/uL 05/06/2024 11:51 AM EST [facility] Eosinophil # 0.10 0.02 - 0.50 10*3/uL 05/06/2024 11:51 AM EST [facility] [employer] [facility] Basophil # <0.03 0.00 - 0.20 10*3/uL 05/06/2024 11:51 AM EST [facility] [employer] [facility] nRBC % 0.0 /100 WBCs 05/06/2024 11:51 AM EST [facility] [employer] [facility] nRBC # <0.01 <0.01 10*3/uL 05/06/2024 11:51 AM EST [employer] [facility] Blood Structure of peripheral vein / Unknown Venipuncture / Unknown 05/06/2024 11:27 AM EST 05/06/2024 11:42 AM EST us Tobi Pollard MD LAB BLOOD ORDERABLES Monica abernathy Result [facility] [address] [place] [address], * Hepatitis C Antibody w/Reflex to PCR (05/06/2024 11:27 AM EST) Hepatitis C Antibody NON-REACT KISHA NON-REACT KISHA 05/07/2024 3:30 AM EST [facility] Comment: HCV antibody was non-reactive. There is no laboratory evidence of HCV infection. In most cases, no further action is required. However, if recent HCV exposure is suspected, a test for HCV RNA (test code 84478) is suggested. For additional information please refer to http://education.ImageVision/faq/VBZ28i9 (This link is being provided for informational/ educational purposes only.) Blood Structure of peripheral vein / Unknown Venipuncture / Unknown 05/06/2024 11:27 AM EST 05/06/2024 11:42 AM EST Narrative [facility] 05/07/2024 3:30 AM EST [facility] Received Date: Tobi Pollard MD LAB BLOOD ORDERABLES Monica l Result [facility] [address] [facility] [address], [place] [address], [place] [phone] [employer] [facility] [address] [facility] [address], [place] [address], [place] [phone] * Phosphorus (05/06/2024 11:27 AM EST) Phosphorus 3.8 2.5 - 4.5 mg/dL 05/06/2024 12:13 PM EST [employer] [facility] Blood Structure of peripheral vein / Unknown Venipuncture / Unknown 05/06/2024 11:27 AM EST 05/06/2024 11:42 AM EST Tobi Pollard MD LAB BLOOD ORDERABLES Monica l Result [employer] [facility] [address] [place] [address], from Last 3 Months or Most Recently Relevant to Health Maintenance Insurance [employer] Advance Directives Documents on File Type Date Recorded Patient Finishing Area Operator Expl anation Health Care Proxy 05/11/2024 1:39 PM 12-0 Care Teams Shop Service Technician Relationship Specialty Start Date End Date Patient, Has No Pcp Or Ref DO NOT EDIT THIS RECORD VIA PROVIDER ON THE FLY PCP - General Swage Toolsetter 05/06/24
--- OUTSIDE RECORDS SUMMARY | 2024-09-10 14:12 | XMS_ITS | Clinical Summary ---
Author Organization [facility] Address [address] [facility] [address] [place] [address] Phone Care Team Providers Care Natural Resource Officer Name Role Phone Dwayne Jacobs MD Primary Care Provider [phone] Allergies No known active allergies Medications omega-3 [...] Insurance Comprehensive Benefits Comprehensive Benefits Care Teams Natural Resource Officer Relationship Specialty Start Date End Date Dwayne Jacobs MD [address] [place] [address] [address] [place] [address] PCP - General 06/12/20
--- OUTSIDE RECORDS SUMMARY | 2024-09-10 14:12 | XMS_ITS | Encounter Summary ---
Author Organization [facility] Address [address] [place] [address] Care Team Providers Care Linux Vmware Administrator Name Role Phone Patient, Has No Pcp Or Ref Primary Care Provider Unavailable Reason for Visit * Reason Onset Date Comments Referral - Kidney Txp 09/07/2024 Encounter Details Date Type Department Care Team (Late st Contact Info) Description 09/07/2024 Telephone [facility] Transplant Department [address] [place] [address] [phone] Lori Mustafa RN [address] [place] [phone] Referral - Kidney Txp Social History Tobacco [...] that Nasir had his ABO drawn at [facility] in [place], [place]. I contacted [facility] andspoke to Rochelle who was unable [...] Nasir has an appointment with his primary incident response analyst this week. I advised herthat he could perhaps have the lab drawn at that office. I also advised her that his labwork revealed he is not immune to Hepatitis A or B and that he should request vaccinations. documented in this encounter Plan of Treatment Upcoming Encounters Date Type Department Care Team (Late st Contact Info) Description 05/03/2025 10:00 AM EST Follow-Up [facility] Renal Transplant [address] [place] [phone] Tobi Pollard MD [address] [place] [address] 05/03/2025 10:30 AM EST Social Work [facility] Renal Transplant [address] [place] [address] Cecelia Hinton LICSW [address] [place] [address] documented as of this encounter Visit Diagnoses Not on filedocumented in this encounter Care Teams Linux Vmware Administrator Relationship Specialty Start Date End Date Patient, Has No Pcp Or Ref DO NOT EDIT THIS RECORD VIA PROVIDER ON THE FLY PCP - General Application Specialist 05/06/24 documented as of this encounter
== END 2024-09-10 14:27 | disposition home or self-care (01) ==
LOC: HO.HKA 13:51
PROVIDERS: PCP Internal Medicine; Visit Provider Internal Medicine Nephrology
DX: N18.5 Chronic kidney disease, stage 5 (principal); N25.81 Secondary hyperparathyroidism of renal origin; I12.0 Hypertensive chronic kidney disease with stage 5 chronic kidney disease or end stage renal disease
CPT/HCPCS: 99214

== ENCOUNTER 2024-10-13 16:44 | Outpatient (AMB) | payer OTHER, SELFPAY ==
--- NOTE | 2024-10-13 16:47 | A.OFFPC_ITS ---
Vital Signs 10/13/24 16:48 Height 5 ft 8 in Weight 166 lb 4 oz BMI 25.3 BP 120/82 Blood Pressure Location Lt brachial Position Sitting Pulse 95 Pulse Source Pulse Oximeter Pulse Oximetry (%) 98 Oxygen Delivery Method Room Air Intake Visit Reasons: follow up Analytical Research Chemist Required: No Accompanied by: Self / Same As Patient Allergies No Known Allergies Allergy (Verified 10/14/24 03:27) Medication List - Last Reconciled 10/14/24 by Dwayne Jacobs MD allopurinol 100 mg PO DAILY amlodipine 5 mg PO BID atorvastatin 20 mg PO DAILY 90 days cholecalciferol (vitamin D3) 25 mcg PO DAILY 90 days fexofenadine 180 mg PO DAILY PRN 30 days fluticasone propionate 50 mcg/actuation 2 sprays intranasal DAILY PRN 30 days loratadine 10 mg PO DAILY PRN 90 days nystatin 1 appl topical TID 10 days omega-3 fatty acids (Fish Oil Concentrate) 1,000 mg PO DAILY Tobacco use date assessed: 10/13/24 Dental Screening Dental Screen Date: 10/13/24 Did you have a dental visit in the last 12 months?: Yes Did you have a dental problem in the last 6 months where you did not have access to dental care?: No Was dental information given to patient?: Patient has dentist HPI follow up HPI Details Patient comes in today for his follow up visit He is scheduled to have an EKG and chest x-rays done at [facility] later this week (Friday) as part of his work ups to get on the transplant list States that he has been experiencing some symptoms of allergies lately but he feels okay otherwise He denies any headaches or dizziness; denies any fever or sore throat Denies any chest pains, no SOB No nausea/vomiting, no abdominal pain No change in bowel habits noted Needs his Fluticasone nasal spray Rx refilled He had some follow up labs done for Dr. Antonio last month and a few other labs done sometime in July 2024 - to discuss his results [facility] Medical History (Updated 10/14/24 @ 04:14 by Dwayne Jacobs MD) Hyperuricemia Allergic rhinitis Chronic kidney disease, stage V Chronic kidney disease, stage 4 (severe) Overweight (BMI 25.0-29.9) Acute angle-closure glaucoma of right eye Obesity (BMI 30-39.9) Vitamin D deficiency Pure hypercholesterolemia Benign essential hypertension Surgical History History of eye surgery Family History Father Medical history unknown Mother Cancer Social History Housing: House Alcohol intake: never Patient Tobacco Use Status: Never used Tobacco e-Cigarette/Vaping Use: Never Used Second Hand Smoke Exposure: Yes service: No Current occupational status: employed 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 1. Little interest or pleasure in doing things: not at all 2. Feeling down, depressed, or hopeless: not at all 3. Trouble falling or staying asleep, or sleeping too much: not at all 4. Feeling tired or having little energy: not at all 5. Poor appetite or overeating: not at all 6. Feeling bad about yourself - or that you are a failure or have let yourself or your family down: not at all 7. Trouble concentrating on things, such as reading the newspaper or watching television: not at all 8. Moving or speaking so slowly that other people could have noticed. Or the opposite - being so fidgety or restless that you have been moving around a lot more than usual: not at all 9. Thoughts that you would be better off or of hurting yourself in some way: not at all Total score: 0 Depression Screening Interpretation: Negative Depression Screening Done: Yes 25506 - PHQ-9 Billing: Yes Source: Developed by Drs. Crow Marley, Dafne Rivero, Micky Leos and colleagues, with an educational zafar from [employer]. Thrive Questionnaire Date Thrive assessed: 10/13/24 I am a: Patient What is your living situation today?: I have a steady place to live Within the past 12 months, did the food you bought not last and you didn't have the money to get more?: Never true Within the past 12 months, did you worry whether your food would run out before you got money to buy more?: Never true Do you have trouble paying for medicines?: No Do you have trouble getting transportation to medical appointments?: No Do you have trouble paying your heating and electricity bill?: No Do you have trouble taking care of your child, family member or friend?: No Do you have trouble with day-to-day activities such as bathing, preparing meals, shopping, managing finances, etc.?: No Are you currently unemployed and looking for a job?: Yes Are you interested in more education?: No Please select the resources that you would like help with: None Currently or been in a relationship where the following occur: No concerns reported THRIVE Score: 0 AUDIT C Alcohol Use Questionnaire (AUDIT-C) 1. How often do you have a drink containing alcohol?: Never 3. How often do you have six or more drinks on one occasion?: Never Total Score: 0 Score Reviewed/Action Taken: Yes GUERA-7 AMB Questionnaire GUERA-7 Date GUERA - 7 assessed: 10/13/24 Feeling nervous, anxious, or on edge: 0 = Not at all Not being able to stop or control worryin = Not at all Worrying too much about different things: 0 = Not at all Trouble relaxin = Not at all Being so restless that it is hard to sit still: 0 = Not at all Becoming easily annoyed or irritable: 0 = Not at all Feeling afraid as if something awful might happen: 0 = Not at all Total GUERA-7 score (0-4 normal; 5-9 mild; 10-14 moderate; 15-21 severe): 0 Source: Developed by Drs. Crow Marley, Dafne Rivero, Micky Leos and colleagues, with an educational zafar from [employer]. Review of Systems Const Denies chills, Denies fatigue, Denies fever(s) and Denies headache(s) ENT Denies dysphagia, Denies dizziness, Denies otalgia, Denies headache(s), Denies neck pain, Denies odynophagia and Denies sore throat Card Denies chest pain, Denies palpitations and Denies dyspnea Resp Denies chest congestion, Denies cough and Denies dyspnea GI Denies abdominal pain, Denies dysphagia, Denies diarrhea, Denies nausea, Denies odynophagia and Denies vomiting Denies difficulty urinating, Denies dysuria, Denies nocturia and Denies urinary frequency Musc Denies back pain and Denies neck pain Skin/Breast Denies rash Neuro Denies dizziness and Denies headache(s) Endo Denies fatigue and Denies palpitations Aller/Immun Reports seasonal rhinorrhea Physical exam (Primary Care) Vital Signs: Last Vital Signs Pulse 95 10/13/24 16:48 BP 120/82 10/13/24 16:48 Pulse Ox 98 10/13/24 16:48 Oxygen Delivery Method Room Air 10/13/24 16:48 BMI result Body Mass Index 25.3 Tobacco/Smoking Status: Tobacco use Status Tobacco use date assessed 10/13/24 10/13/24 16:52 Patient Tobacco Use Status Never used Tobacco 10/13/24 16:52 e-Cigarette/Vaping Use Never Used 10/13/24 16:52 PHQ-9: PHQ-9 Score PHQ-9: Total score 0 10/13/24 16:59 Depression Screening Interpretation: Negative Thrive Assessment: Date of Thrive Assessment Date Thrive assessed 10/13/24 10/13/24 16:52 Currently or been in a relationship where the following occur: No concerns reported Const General: no acute distress and alert HENMT Ears: TM's normal bilaterally and EAC's normal Throat: Yes posterior oropharynx normal and Yes tonsils normal (no TP congestion) Neck Neck: Yes supple and No lymphadenopathy Thyroid: Thyroid normal Resp Auscultation: clear to auscultation bilaterally, no rales and no wheezes Cardio Rate: regular rate Rhythm: regular rhythm Heart sounds: no murmurs GI Palpation (GI): Soft to palpation and nontender Auscultation: normal bowel sounds General: Yes no CVA tenderness Back/Spine/Pelvis Back: no CVA tenderness Thoracic/Lumbar Spine: No lumbar spinal tenderness Skin Rashes: no rashes Extrem General: Yes no clubbing, cyanosis or edema Results Reviewed Results Reviewed: Laboratory Tests 04/03/24 07/28/24 07/28/24 09:53 14:39 14:43 WBC 7.0 Hgb 11.5 L Hct 33.9 L Plt Count 322 Sodium 143 Potassium 4.0 Creatinine Estimated GFR 17 Random Glucose 119 H Calcium 8.9 AST 18 ALT 14 B-Natriuretic Peptide 10 TSH 2.41 Ur Specific [place] 1.010 Urine Protein 300 (3+) H Urine Blood Trace H Urine Nitrite Negative Ur Leukocyte Esterase Negative 09/04/24 09:28 WBC Hgb Hct Plt Count Sodium 140 Potassium 4.2 D Creatinine 4.87 H* Estimated GFR 13 Random Glucose Calcium AST ALT B-Natriuretic Peptide TSH Ur Specific [place] Urine Protein Urine Blood Urine Nitrite Ur Leukocyte Esterase Coding Level of Care Code Est Pt Level 4 (88297) Diagnoses Benign essential hypertension I10 Chronic kidney disease, stage V N18.5 Pure hypercholesterolemia E78.00 Hyperuricemia E79.0 Vitamin D deficiency E55.9 Seasonal allergic rhinitis, unspecified trigger J30.2 Allergic rhinitis trigger: unspecified Allergic rhinitis seasonality: seasonal Acute angle-closure glaucoma of right eye H40.211 Overweight (BMI 25.0-29.9) E66.3 Additional Codes PHQ-9 - 23120 - PHQ-9 Billing: Yes ([id number]) Assessment & Plan Assessment & Plan (1) Benign essential hypertension: Code(s): I10 - Essential (primary) hypertension Category: Medical Plan: Reinforced low sodium diet - goal is systolic BP of 120 mm or less due to his CKD Continue Amlodipine 5 mg BID He was on Lisinopril 5 mg QD previously but this was discontinued by nephrology a few months ago because of his declining renal function Patient is reminded to continue monitoring his blood pressure regularly (2) Chronic kidney disease, stage V: Code(s): N18.5 - Chronic kidney disease, stage 5 Category: Medical Plan: Patient has been referred to [facility] in [place] for renal transplant and he is currently undergoing pretransplant evaluation He was also referred by Dr. Antonio for the transplant list at [facility] and he is scheduled for EKG and CXR at [facility] later this week Follow up with nephrology as scheduled (3) Pure hypercholesterolemia: Code(s): E78.00 - Pure hypercholesterolemia, unspecified Category: Medical Plan: Patient reportedly has had extensive labs done at [facility] over the past few months as work ups for his pretransplant evaluation and had some follow up done here locally as well over the past couple of months, including labs for nephrology a couple of weeks ago His fasting lipids done most recently in June 2024 came out okay and are near goal Reinforced low cholesterol diet Continue Atorvastatin 20 mg QD Will recheck his fasting lipids and labs in 4 months for follow up (4) Hyperuricemia: Code(s): E79.0 - Hyperuricemia without signs of inflammatory arthritis and tophaceous disease Category: Medical Plan: His serum uric acid level was still elevated at 9.2 mg/dl back in July 2024 - this is likely due to his renal failure Continue Allopurinol 100 mg QD Will recheck his uric acid level in 4 months for follow up (5) Vitamin D deficiency: Code(s): E55.9 - Vitamin D deficiency, unspecified Category: Medical Plan: Continue Vitamin D3 2000 units QD (6) Allergic rhinitis: Code(s): J30.9 - Allergic rhinitis, unspecified Category: Medical Qualifiers: Allergic rhinitis trigger: unspecified Allergic rhinitis seasonality: seasonal Qualified Code(s): J30.2 - Other seasonal allergic rhinitis Plan: Continue Fexofenadine 180 mg QD PRN and Fluticasone 50 mcg nasal spray QD PRN (Rx refilled) (7) Acute angle-closure glaucoma of right eye: Comment: S/P emergent laser peripheral iridotomy on 07/17/2020 Also had cataract extraction of the right eye on 08/02/2020 Had glaucoma implant drain placed in November 2020 Code(s): H40.211 - Acute angle-closure glaucoma, right eye Category: Medical Plan: He initially failed laser surgery (iridotomy) on 11/16/20 and patient underwent a stent (glaucoma implant drain) insertion in his eye on 12/07/[address] Max, with significant improvement of his eye symptoms since States that he's had no problems with his vision and has no eye pain lately although he still has some light sensitivity in the right eye Follow up with ophthalmology as scheduled (8) Overweight (BMI 25.0-29.9): Code(s): E66.3 - Overweight Category: Medical Plan: Reinforced diet/exercise as tolerated/lose weight Plan Follow up in 4 months Orders: Orders Complete Blood Count Auto Diff 4 Months D64.9 - Anemia, unspecified Lipid Panel 4 Months E78.00 - Pure hypercholesterolemia, unspecified Vitamin D 25-OH Total 4 Months E55.9 - Vitamin D deficiency, unspecified Uric Acid 4 Months E79.0 - Hyperuricemia without signs of inflammatory arthritis and tophaceous disease Comprehensive [place]. Panel Fast 4 Months E78.00 - Pure hypercholesterolemia, unspecified UA CC w/rflx Micro + Cult 4 Months R30.0 - Dysuria TSH reflex Free T4 4 Months E78.00 - Pure hypercholesterolemia, unspecified Medications: Refilled fluticasone propionate 50 mcg/actuation administer into each nostril 2 sprays intranasal DAILY 30 days PRN 16 grams 5RF allergy symptoms
--- OUTSIDE RECORDS SUMMARY | 2024-10-13 16:47 | XMS_ITS | Referral Summary ---
Author Organization [facility] Address [address] [place] [address] Care Team Providers Care Wedding Photographer Name Role Phone Patient, Has No Pcp Or Ref Primary Care Provider Unavailable Encounters Date Type Department Care Team Description 09/28/2024 Telephone [facility] Transplant Department [address] [place] [phone] Lori Mustafa RN Waitlist Maintenance 09/14/2024 Documentation [facility] Transplant Department [address] [place] [phone] Aline Galvez RN ABO Dual Validation 09/13/2024 External Result Entry [facility] Transplant Department [address] [place] [phone] Lori Mustafa RN 09/07/2024 Telephone [facility] Transplant Department [address] [place] [phone] Lori Mustafa RN Referral - Kidney Txp 09/01/2024 Telephone [facility] Transplant Department [address] [place] [phone] Lori Mustafa RN Referral - Kidney Txp [...] Info) Description 05/03/2025 10:00 AM EST Follow-Up [facility] Renal Transplant [address] [place] [address] Tobi Pollard MD [address] [place] [address] 05/03/2025 10:30 AM EST Social Work [facility] Renal Transplant [address] [place] [address] Cecelia Hinton LICSW [address] [place] [address] Procedures * Due to [place] state law, this organization might not be sharing negative HIV tests. Procedure Name Priority Date/Time Associated Diagnosis Comments TYPE AND SCREEN - TRANSPLANT MANUAL ABSTRACTION Routine 09/10/2024 11:50 AM EDT HEPATITIS C ANTIBODY W/REFLEX TO HCV RNA, [...] to Health Maintenance Results * Due to [place] state law, this organization might not be sharing negative HIV tests. * TYPE AND SCREEN - TRANSPLANT MANUAL ABSTRACTION (09/10/2024 11:50 AM EDT) ABO A [facility] RH Positive [facility] 09/10/2024 11:5 0 AM EDT us Unknown Provider MD LAB HISTORICAL RESULTS Final Result Performing Organization Address City/State/[facility] Co de Phone Number [facility] [address] [place] [address] [phone] * (ABNORMAL) CBC Auto Differential (05/06/2024 11:27 [...] - 0.95 10*3/uL 05/06/2024 11:51 AM EST [facility] Eosinophil # 0.10 0.02 - 0.50 10*3/uL 05/06/2024 11:51 AM EST [facility] Basophil # <0.03 0.00 - 0.20 10*3/uL 05/06/2024 11:51 AM EST [facility] nRBC % 0.0 /100 WBCs 05/06/2024 11:51 AM EST [facility] nRBC # <0.01 <0.01 10*3/uL 05/06/2024 11:51 AM EST [facility] Blood Structure of peripheral vein / Unknown Venipuncture / Unknown 05/06/2024 11:27 AM EST 05/06/2024 11:42 AM EST Tobi Pollard MD LAB BLOOD ORDERABLES Monica abernathy Result [facility] [address] [place] [address], * Hepatitis C Antibody w/Reflex to PCR (05/06/2024 11:27 AM EST) Hepatitis C Antibody NON-REACT KISHA NON-REACT KISHA 05/07/2024 3:[address] [facility] Comment: HCV antibody was non-reactive. There is no laboratory evidence of HCV infection. In most cases, no further action is required. However, if recent HCV exposure is suspected, a test for HCV RNA (test code 62244) is suggested. For additional information please refer to http://education.Delphi/faq/FQO48a9 (This link is being provided for informational/ educational purposes only.) Blood Structure of peripheral vein / Unknown Venipuncture / Unknown 05/06/2024 11:27 AM EST 05/06/2024 11:42 AM EST Narrative [facility] 05/07/2024 3:30 AM EST [facility] Received Date: Tobi Pollard MD LAB BLOOD ORDERABLES Monica l Result [facility] [address] [facility] [address], [place] [address], [place] [phone] [facility] [address] [facility] [address], [place] [address], [place] [phone] * Phosphorus (05/06/2024 11:27 AM EST) Phosphorus 3.8 2.5 - 4.5 mg/dL 05/06/2024 12:13 PM EST [facility] Blood Structure of peripheral vein / Unknown Venipuncture / Unknown 05/06/2024 11:27 AM EST 05/06/2024 11:42 AM EST Tobi Pollard MD LAB BLOOD ORDERABLES Monica l Result [facility] [address] from Last 3 Months or Most Recently Relevant to Health Maintenance Insurance [employer] [address] [address] [employer] Advance Directives Documents on File Type Date Recorded Patient Glass Glazier Expl [facility] Care Proxy 05/11/2024 1:39 PM 12-0 Care Teams Wedding Photographer Relationship Specialty Start Date End Date Patient, Has No Pcp Or Ref DO NOT EDIT THIS RECORD VIA PROVIDER ON THE FLY PCP - General Finger Buffs Assembler 05/06/24
--- OUTSIDE RECORDS SUMMARY | 2024-10-13 16:47 | XMS_ITS ---
Author Organization [facility] Address [address] [place] [address] Care Team Providers Care Interactive Media Marketing Director Name Role Phone Reynaldo SAMAYOA [place] Primary Care Provider Unava ilLori Cam [phone] REASON FOR VISIT issues with nail Encounters Encounter Location Date Provider Diagnosis [facility] [address] [place] [address] 08/19/2023 Lori Bacon Plan Of Treatment No Information Progress Notes * Nasir JODOB:1980 (43 yo M)Acc No.[id number]:08/19/2023 Patient:?Nasir Jo :1980???Age:43 Y???Sex:Male Address:[address] [place] [address], [id number] * true * Date:? Generated for Cotyi coco/Jose Carlos/eTransmitting on:?10/13/2024 04:47 PM EDT
[2024-10-13 16:48] VITALS: BP 120/82; PULSE 95; O2SAT 98; BMI 25.3
--- OUTSIDE RECORDS SUMMARY | 2024-10-13 16:48 | XMS_ITS ---
[facility] [place] Address [address] [place] [address] Care Team Providers Care Entertainment Centre Manager Name Role Phone Glen Jacobs MDneth Primary Care Provider Lori Jasmine Unavailable [phone] Allergies No Known Allergies REASON FOR VISIT Pcp- 09/12/23, Fungal Nails Medications Medication SIG (Take, Route, Frequency, Duration) Notes Start Date End Date Status Atorvastatin Calcium 10 MG 1 tablet Oral ly Once a day for 30 day(s) Active Ciclopirox 0.77 % 1 application Nutrition Services Worker ally Twice a day for 365 [...] 024 Encounters Encounter Location Date Provider Diagnosis [facility] [address] [place] [address] 09/12/2023 Lori Bacon Fungal infection of nail B35.1 Assessments Encounter Date Diagnosis (ICD Code) Assessment Notes Treatment Notes Treatment Clinical Notes Section Notes 09/12/2023 Fungal infection of nail (ICD-10 - B35.1) Rx management (4) Plan Of Treatment Medication Medication Name Sig Start Date Stop Date Notes Ciclopirox 0.77 % 1 application Nutrition Services Worker ally Twice a day for 365 days Next Appt Details Follow Up: prn, Reason: Progress Notes * Nasir WHITEDOB:1980 (43 yo M)Acc No.[id number]:09/12/2023 Progress Note Patient:?Nasir White Provider:?Lori Bacon DPM :1980???Age:43 Y???Sex:Male Wolf e:09/12/2023 Address:[address] [place], [place] [id number] Pcp:Dwayne Jacobs MD Subjective: * Chief Complaints: [...] DPM Date:?05/2024 Generated for Jewel sepulveda/Jose Carlos/Seymour on:?10/13/2024 04:47 PM EDT History and Physical Notes * [...]
--- OUTSIDE RECORDS SUMMARY | 2024-10-13 16:48 | XMS_ITS | Patient Health Record ---
Author Organization [facility] Address [address] [facility] [place] [address] Care Team Providers Care Eap Consultant Name Role Phone Reynaldo SAMAYOA, [place] Primary Care Provider Lori Jasmine Unavailable [phone] Allergies No Known Allergies Reason For Referral No Information Medications Medication SIG (Take, Route, Frequency, Duration) Notes Start Date End Date Status Atorvastatin Calcium 10 MG 1 tablet Oral ly Once a day for 30 day(s) Active Ciclopirox 0.77 % 1 application Instant Potato Processing Supervisor ally Twice a day for 365 [...] Problem Status W/U Status Risk Notes Problem [id number] 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
--- OUTSIDE RECORDS SUMMARY | 2024-10-13 16:48 | XMS_ITS | Clinical Summary ---
Author Organization [facility] Address [address] [facility] [address] [place] [address] Phone Care Team Providers Care Sanitor Name Role Phone Dwayne Jacobs MD Primary Care Provider +1- [phone] Allergies No known active allergies Medications omega-3 [...] Health Maintenance Due Date Last Done Comments Hepatitis B Vaccine (1 of 3 - 19+ 3-dose series) 01/10 Pneumococcal Vaccine: Peds ( 0 to 5 Years) and At-Risk Patients (6 to 49 Years) (1 of 2 - PCV) 01/11/2000 Influenza Vaccine (Season Ended) 2025 Insurance Comprehensive Benefits Comprehensive Benefits Care Teams Sanitor Relationship Specialty Start Date End Date Dwayne Jacobs MD [address] [place] [address] DRIVE [address] [place] [address] PCP - General 06/12/20
--- OUTSIDE RECORDS SUMMARY | 2024-10-13 16:48 | XMS_ITS | Clinical Summary ---
Author Organization [facility] Address [address] [place] [address] Care Team Providers Care Printing Sign Machine Operator Name Role Phone Patient, Has [...] Type Department Care Team Description 09/28/2024 Telephone [facility] Transplant Department [address] [place] [address] Lori Mustafa RN Waitlist Maintenance 09/14/2024 Documentation [facility] Transplant Department [address] [place] [address] Aline Galvez RN ABO Dual Validation 09/13/2024 External Result Entry [facility] Transplant Department [address] [place] [address] Lori Mustafa RN 09/07/2024 Telephone [facility] Transplant Department [address] [place] [address] Lori Mustafa, disaster recovery specialist - Kidney Txp 09/01/2024 Telephone [facility] Transplant Department [address] [place] [address] Lori Mustafa disaster recovery specialist - Kidney Txp from Last 3 Months [...] Info) Description 05/03/2025 10:00 AM EST Follow-Up [facility] Transplant [address] [place] [address] Tobi Pollard MD [address] [place] [address] 05/03/2025 10:30 AM EST Social Work [facility] [address] [place] [address] Cecelia Hinton LICSW [address] [place] [address] Health Maintenance Due Date Last Done Comments 25 Hydroxy / Vitamin D 1981 Basic Metabolic Panel 1981 PTH 1981 Urine Microalbumin 1991 Varicella Vaccines (1 of 2 - 13+ 2-dose series) 1994 Hepatitis B Vaccines (1 of 3 - 19+ 3-dose series) 01/11/2000 DTaP,Tdap,and Td Vaccines (1 - Tdap) 2003 COVID-19 Vaccine (1 - 2023-2 5 season) 2024 Alcohol/Substance Use [...] this topic Procedures * Due to [place] Conergy law, this organization might not be sharing [...] to Health Maintenance Results * Due to [place] Con[place] law, this organization might not be sharing negative HIV tests. * TYPE AND SCREEN - TRANSPLANT MANUAL ABSTRACTION (09/10/2024 11:50 AM EDT) ABO A [facility] RH Positive [facility] 09/10/2024 11:5 0 AM EDT us Unknown Provider MD LAB HISTORICAL RESULTS Final Result [facility] [address] [place] [address] * (ABNORMAL) CBC Auto Differential (05/06/2024 11:27 [...] - 0.20 10*3/uL 05/06/2024 11:51 AM EST [facility] nRBC % 0.0 /100 WBCs 05/06/2024 11:51 AM EST [facility] nRBC # <0.01 <0.01 10*3/uL 05/06/2024 11:51 AM EST [facility] Blood Structure of peripheral vein / Unknown Venipuncture / Unknown 05/06/2024 11:27 AM EST 05/06/2024 11:42 AM EST Tobi Pollard MD LAB BLOOD ORDERABLES Monica l Result [facility] [address] [place] [address], [place] * Hepatitis C Antibody w/Reflex to PCR (05/06/2024 11:27 AM EST) Hepatitis C Antibody NON-REACT KISHA NON-REACT KISHA 05/07/2024 3:30 AM EST [facility] Comment: HCV antibody was non-reactive. There is no laboratory evidence of HCV infection. In most cases, no further action is required. However, if recent HCV exposure is suspected, a test for HCV RNA (test code 99856) is suggested. For additional information please refer to http://education.[employer]/faq/VTF28c5 (This link is being provided for informational/ educational purposes only.) Blood Structure of peripheral vein / Unknown Venipuncture / Unknown 05/06/2024 11:27 AM EST 05/06/2024 11:42 AM EST Narrative [facility] 05/07/2024 3:30 AM EST [facility] Received Date: Tobi Pollard MD LAB BLOOD ORDERABLES Monica l Result Performing Organization Address City/[facility]/ZIP Co de Phone Number [facility] [address] [facility] [address], [place] [address], [place] [phone] [employer] [facility] [address], [place] [address], [place] [phone] * Phosphorus (05/06/2024 11:27 AM EST) Phosphorus 3.8 2.5 - 4.5 mg/dL 05/06/2024 12:13 PM EST [facility] Blood Structure of peripheral vein / Unknown Venipuncture / Unknown 05/06/2024 11:27 AM EST 05/06/2024 11:42 AM EST us Tobi Pollard MD LAB BLOOD ORDERABLES Monica josemanuel Result [facility] [address] [place] [address], from Last 3 Months or Most Recently Relevant to Health Maintenance Insurance [employer] Advance Directives Documents on File Type Date Recorded Patient Order Builder Expl anation Health Care Proxy 05/11/2024 1:39 PM Care Teams Printing Sign Machine Operator Relationship Specialty Start Date End Date Patient, Has No Pcp Or Ref DO NOT EDIT THIS RECORD VIA PROVIDER ON THE FLY PCP - General Asset Recovery Specialist 05/06/24
== END 2024-10-13 17:04 | disposition home or self-care (01) ==
LOC: HO.HMCH 16:45
PROVIDERS: PCP Internal Medicine; Visit Provider Internal Medicine
DX: I12.0 Hypertensive chronic kidney disease with stage 5 chronic kidney disease or end stage renal disease (principal); N18.5 Chronic kidney disease, stage 5; E78.00 Pure hypercholesterolemia, unspecified; E79.0 Hyperuricemia without signs of inflammatory arthritis and tophaceous disease; E55.9 Vitamin D deficiency, unspecified; J30.2 Other seasonal allergic rhinitis; H40.211 Acute angle-closure glaucoma, right eye; E66.3 Overweight

== ENCOUNTER → 2024-10-13 16:44 | Outpatient (BNVA) | payer OTHER, SELFPAY | PROVIDERS: PCP Internal Medicine; Visit Provider Internal Medicine | DX: R42 Dizziness and giddiness (principal); I10 Essential (primary) hypertension; N18.5 Chronic kidney disease, stage 5; E78.00 Pure hypercholesterolemia, unspecified; E79.0 Hyperuricemia without signs of inflammatory arthritis and tophaceous disease; E55.9 Vitamin D deficiency, unspecified; J30.2 Other seasonal allergic rhinitis; H40.211 Acute angle-closure glaucoma, right eye; E66.3 Overweight; D64.9 Anemia, unspecified; R30.0 Dysuria | CPT/HCPCS: 96127 ==

== ENCOUNTER 2024-11-17 12:53 | Outpatient (REF) | payer OTHER, SELFPAY ==
[2024-11-17 14:21] LABS: Anion Gap 12 (12-20); Blood Urea Nitrogen 52 mg/dL (9-16); Calcium 9.3 mg/dL (8.4-10.2); Carbon Dioxide 27 mmol/L (22-29); Chloride 107 mmol/L (96-108); Estimated Glomerular Filt Rate 12; Phosphorus 3.9 mg/dL (2.7-4.5); Sodium 142 mmol/L (135-145)
--- OUTSIDE RECORDS SUMMARY | 2024-11-17 14:45 | XMS_ITS ---
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
== END 2024-11-17 12:54 | disposition home or self-care (01) ==
LOC: HO.LAB 12:53
PROVIDERS: PCP Internal Medicine; Visit Provider Internal Medicine Nephrology
DX: I12.9 Hypertensive chronic kidney disease with stage 1 through stage 4 chronic kidney disease, or unspecified chronic kidney disease (principal); N18.5 Chronic kidney disease, stage 5; N18.4 Chronic kidney disease, stage 4 (severe); N25.81 Secondary hyperparathyroidism of renal origin
CPT/HCPCS: 36415; 80051; 82310; 82565; 84100; 84520

== ENCOUNTER 2024-11-19 10:35 | Outpatient (AMB) | payer OTHER, SELFPAY ==
[2024-11-19 10:53] VITALS: BP 120/80; PULSE 87; O2SAT 97; BMI 25.4
--- NOTE | 2024-11-19 10:53 | HO.NEPHOV ---
Vital Signs 11/19/24 10:53 Height 5 ft 8 in Weight 167 lb BMI 25.4 BP 120/80 Blood Pressure Location Lt brachial Position Sitting Pulse 87 Pulse Source Pulse Oximeter Pulse Oximetry (%) 97 Oxygen Delivery Method Room Air Intake Visit Reasons: -[facility] Market Development Manager Required: No Accompanied by: Spouse Allergies No Known Allergies Allergy (Verified 11/19/24 10:53) HPI Comments Details: Nasir was in follow-up of his chronic kidney disease and hypertension .He remains compliant with his medications. His BP is well controlled. He has no orthostatic symptoms. He denies nausea, vomiting, diarrhea, chest pain, shortness of breath, paroxysmal nocturnal dyspnea, orthopnea, pedal edema or urinary symptoms. He is compliant with his medications. He does not take any nonsteroidal anti-inflammatories. [facility] Medical History (Updated 10/14/24 @ 04:14 by Dwayne Jacobs MD) Hyperuricemia Allergic rhinitis Chronic kidney disease, stage V Chronic kidney disease, stage 4 (severe) Overweight (BMI 25.0-29.9) Acute angle-closure glaucoma of right eye Obesity (BMI 30-39.9) Vitamin D deficiency Pure hypercholesterolemia Benign essential hypertension Surgical History History of eye surgery Family History Father Medical history unknown Mother Cancer Social History Housing: House Alcohol intake: never Patient Tobacco Use Status: Never used Tobacco e-Cigarette/Vaping Use: Never Used Second Hand Smoke Exposure: Yes service: No Current occupational status: employed 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, 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 Cognitive needs: No Hearing needs: No Vision needs: No Review of Systems Const All systems reviewed & are unremarkable except as noted in HPI and below Physical Exam Vital Signs: Last Vital Signs Pulse 87 11/19/24 10:53 BP 120/80 11/19/24 10:53 Pulse Ox 97 11/19/24 10:53 Oxygen Delivery Method Room Air 11/19/24 10:53 BMI result Body Mass Index 25.4 Const General: comfortable and no acute distress Orientation/consciousness: patient oriented x3 HEENT Head: Yes normocephalic Mouth: Normal oral and palatal mucosa present Eyes EOM: EOMs intact bilaterally Neck Neck: Yes supple Resp Auscultation: clear to auscultation bilaterally Cardio Jugular venous distension: no JVD Rate: regular rate GI Palpation (GI): Soft to palpation Auscultation: normal bowel sounds General: Yes no CVA tenderness Back/Spine/Pelvis Back: no CVA tenderness Skin General skin exam: no rashes or lesions noted Neuro General: patient oriented x3 and moves all extremities Extrem General: Yes no pedal edema Results Reviewed Nephrology Results: Hgb, (14.0-18.0) 11.5 g/dl L 07/28/24 WBC, (4.8-10.8) 7.0 X10*3/uL 07/28/24 Plt Count, (160-400) 322 X10*3/uL 07/28/24 Sodium, (135-145) 142 mmol/L 11/17/24 Potassium, (3.3-5.1) 4.0 mmol/L 11/17/24 Chloride, (96-108) 107 mmol/L 11/17/24 Carbon Dioxide, (22-29) 27 mmol/L 11/17/24 BUN, (9-16) 52 mg/dL H 11/17/24 Creatinine, (0.5-1.4) 5.23 mg/dL H* 11/17/24 Calcium, (8.4-10.2) 9.3 mg/dL 11/17/24 Phosphorus, (2.7-4.5) 3.9 mg/dL 11/17/24 Urine Protein, (Neg-Trace) 300 (3+) mg/dL H 07/28/24 Assessment & Plan Assessment & Plan (1) Benign essential hypertension: Code(s): I10 - Essential (primary) hypertension Category: Medical (2) Secondary hyperparathyroidism (of renal origin): Code(s): N25.81 - Secondary hyperparathyroidism of renal origin Category: Medical (3) Vitamin D deficiency: Code(s): E55.9 - Vitamin D deficiency, unspecified Category: Medical (4) CKD (chronic kidney disease) stage 5, GFR less than 15 ml/min: Code(s): N18.5 - Chronic kidney disease, stage 5 Category: Medical Plan Nasir has stage V CKD for a long time. His lisinopril has been on hold since serum creatinine has been going up. He is on a lipid-lowering agent. He takes low-sodium diet. He maintains good hydration. He avoids nonsteroidal anti-inflammatories. He should continue Amlodipine 10 mg daily. He is [facility] renal transplant and [facility] transplant. He is on Allopurinol 100 mg daily . He had PD education. I did not make any other medication changes today. Discussed about PD as well as renal transplant. Answered all questions. Follow-up appointment given Orders: Orders Creatinine 2 Months E55.9 - Vitamin D deficiency, unspecified, I10 - Essential (primary) hypertension, N18.5 - Chronic kidney disease, stage 5, N25.81 - Secondary hyperparathyroidism of renal origin Electrolytes 2 Months E55.9 - Vitamin D deficiency, unspecified, I10 - Essential (primary) hypertension, N18.5 - Chronic kidney disease, stage 5, N25.81 - Secondary hyperparathyroidism of renal origin Blood Urea Nitrogen 2 Months E55.9 - Vitamin D deficiency, unspecified, I10 - Essential (primary) hypertension, N18.5 - Chronic kidney disease, stage 5, N25.81 - Secondary hyperparathyroidism of renal origin Coding Level of Care Code Est Pt Level 4 (63167) Diagnoses Benign essential hypertension I10 Secondary hyperparathyroidism (of renal origin) N25.81 Vitamin D deficiency E55.9 CKD (chronic kidney disease) stage 5, GFR less than 15 ml/min N18.5
--- OUTSIDE RECORDS SUMMARY | 2024-11-19 11:01 | XMS_ITS ---
Author Organization [facility] Address [address] [place] [address] Care Team Providers Care Geospatial Intelligence Analyst Name Role Phone Patient, Has No Pcp Or Ref Primary Care Provider Unavailable Transplant Episode Kidney Candidate [facility] ([place], [place]) - 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
== END 2024-11-19 11:14 | disposition home or self-care (01) ==
LOC: HO.HKA 10:36
PROVIDERS: PCP Internal Medicine; Visit Provider Internal Medicine Nephrology
DX: I12.0 Hypertensive chronic kidney disease with stage 5 chronic kidney disease or end stage renal disease (principal); N25.81 Secondary hyperparathyroidism of renal origin; E55.9 Vitamin D deficiency, unspecified; N18.5 Chronic kidney disease, stage 5
CPT/HCPCS: 99214

== ENCOUNTER 2025-01-17 15:06 | Outpatient (REF) | payer OTHER, SELFPAY ==
--- OUTSIDE RECORDS SUMMARY | 2025-01-17 15:43 | XMS_ITS | Clinical Summary ---
Author Organization [facility] Address [address] [facility] [address] [place] [address] Phone Care Team Providers Care Hand Bindery Assembly Worker Name Role Phone Dwayne Jacobs MD Primary Care Provider +1- [phone] Allergies No known active allergies Medications omega-3 [...] of 2 - PCV) 01/11/2000 Influenza Vaccine (#1) 2025 Insurance Comprehensive Benefits Member Subscriber Plan / Payer (Ef fective 2021-Present) Name:Nasir Jo Relation to Subscriber:Self Name:Deysi Nasir Payer ID:Not on file Group ID:Not on file Type:Not on file Address: [facility] [id number] [place] [phone] Comprehensive Benefits Member Subscriber Plan / Payer (Ef fective 2021-Present) Name:Nasir Jo Relation to Subscriber:Self Name:Nasir Jo Payer ID:Not on file Group ID:Not on file Type:Not on file Address: [facility] [id number] [place] [phone] Care Teams Hand Bindery Assembly Worker Relationship Specialty Start Date End Date Dwayne Jacobs MD [address] [place] [address] [address] [place] [address] PCP - General 06/12/20
--- OUTSIDE RECORDS SUMMARY | 2025-01-17 15:43 | XMS_ITS ---
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
--- OUTSIDE RECORDS SUMMARY | 2025-01-17 15:43 | XMS_ITS | Patient Health Record ---
Author Organization [facility] Address [address] [facility] [place] [address] Care Team Providers Care Labor Relations Specialist Name Role Phone Reynaldo SAMAYOA, Dwayne Primary Care Provider Lori Jasmine Unavailable [phone] Allergies No Known Allergies Reason For Referral No Information Medications Medication SIG (Take, Route, Frequency, Duration) Notes Start Date End Date Status Atorvastatin Calcium 10 MG 1 tablet Oral ly Once a day; Duration: 30 day(s) Active Ciclopirox 0.77 % 1 application Yarn Weight And Strength Tester ally Twice a day; Duration: 365 days Active Fish Oil 1000 MG 1 capsule Orally Onc e a day; Duration: 30 day(s) Active Vitamin D 1000 UNIT 1 tablet Orally Once a day; Duration: 30 day(s) Active Lisinopril 10 MG 1 tablet Orally Once a day; Duration: 30 day(s) Active Social History Tobacco Use: [...] Problem Status W/U Status Risk Notes Problem Gouty arthritis of right foot ([id number]) Gouty arthritis of right foot (M10.9) Active confirmed Plan Of Treatment Pending Test Test Name Order Date , [id number]/INJECT, JOINT/BURSA 0 09/20/2022 Insurance Providers Payer Name Payer Address Payer Phone Subscriber Number Group Number Insured Name Patient Relationship to Insured Coverage Start Date Coverage End Date Blue Benefits [address] [address] [place] [address] [id number] Nasir Jo Self - patient is the insured Medical (General) History Medical History History ICD Code Hypertension Hyperlipidemia Chronic Kidney Disease, stage III (moder ate) Vitamin D deficiency Obesity Surgical History Surgery Date(Month/Year) eye surgery
[2025-01-17 17:40] LABS: Anion Gap 19 (12-20); Blood Urea Nitrogen 69 mg/dL (9-16); Carbon Dioxide 19 mmol/L (22-29); Chloride 106 mmol/L (96-108); Potassium 4.0 mmol/L (3.3-5.1); Sodium 140 mmol/L (135-145)
[2025-01-17 18:06] LABS: Estimated Glomerular Filt Rate 9
== END 2025-01-17 15:07 | disposition home or self-care (01) ==
LOC: HO.LAB 15:06
PROVIDERS: PCP Internal Medicine; Visit Provider Internal Medicine Nephrology
DX: I12.0 Hypertensive chronic kidney disease with stage 5 chronic kidney disease or end stage renal disease (principal); N18.5 Chronic kidney disease, stage 5; N25.81 Secondary hyperparathyroidism of renal origin; E55.9 Vitamin D deficiency, unspecified
CPT/HCPCS: 36415; 80051; 82565; 84520

== ENCOUNTER 2025-01-18 16:21 | Outpatient (AMB) | payer OTHER, SELFPAY ==
[2025-01-18 16:25] VITALS: BP 120/84; PULSE 79; O2SAT 97; BMI 25.7
--- NOTE | 2025-01-18 16:25 | MHC.PC.OV ---
Vital Signs 01/18/25 16:25 Height 5 ft 8 in Weight 169 lb 2 oz BMI 25.7 BP 120/84 Blood Pressure Location Lt brachial Position Sitting Pulse 79 Pulse Source Pulse Oximeter Pulse Oximetry (%) 97 Oxygen Delivery Method Room Air Intake Visit Reasons: CKD stage 4, HTN Feature Writer Required: No Accompanied by: Self / Same As Patient Allergies No Known Allergies Allergy (Verified 04/04/25 03:17) Medication List - Last Reconciled 01/18/25 by Dwayne Jacobs MD allopurinol 100 mg PO DAILY amlodipine 5 mg PO BID atorvastatin 20 mg PO DAILY 90 days cholecalciferol (vitamin D3) 25 mcg PO DAILY 90 days fexofenadine 180 mg PO DAILY PRN 30 days fluticasone propionate 50 mcg/actuation 2 sprays intranasal DAILY PRN 30 days loratadine 10 mg PO DAILY PRN 90 days nystatin 1 appl topical TID 10 days omega-3 fatty acids (Fish Oil Concentrate) 1,000 mg PO DAILY Tobacco use date assessed: 01/18/25 Dental Screening Dental Screen Date: 01/18/25 Did you have a dental visit in the last 12 months?: Yes Did you have a dental problem in the last 6 months where you did not have access to dental care?: No Was dental information given to patient?: Patient has dentist HPI CKD stage 4, HTN HPI Details - The patient is a 45-year-old male presenting with chronic kidney disease - GFR has declined to 9, indicating severe kidney impairment. - Previously stable GFR at 19-21, progressively decreased over the past year. - Approaching need for dialysis, awaiting kidney transplant. - Reports peripheral edema, new symptom with declining kidney function. - Advised to control blood pressure, compliant with medication, avoids anti-inflammatory medications. [facility] Medical History Hyperuricemia Allergic rhinitis Chronic kidney disease, stage V Chronic kidney disease, stage 4 (severe) Overweight (BMI 25.0-29.9) Acute angle-closure glaucoma of right eye Obesity (BMI 30-39.9) Vitamin D deficiency Pure hypercholesterolemia Benign essential hypertension Surgical History History of eye surgery Family History Father Medical history unknown Mother Cancer Social History Housing: House Alcohol intake: never Patient Tobacco Use Status: Never used Tobacco e-Cigarette/Vaping Use: Never Used Second Hand Smoke Exposure: Yes service: No Current occupational status: employed 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 1. Little interest or pleasure in doing things: not at all 2. Feeling down, depressed, or hopeless: not at all 3. Trouble falling or staying asleep, or sleeping too much: not at all 4. Feeling tired or having little energy: not at all 5. Poor appetite or overeating: not at all 6. Feeling bad about yourself - or that you are a failure or have let yourself or your family down: not at all 7. Trouble concentrating on things, such as reading the newspaper or watching television: not at all 8. Moving or speaking so slowly that other people could have noticed. Or the opposite - being so fidgety or restless that you have been moving around a lot more than usual: not at all 9. Thoughts that you would be better off or of hurting yourself in some way: not at all Total score: 0 Depression Screening Interpretation: Negative Depression Screening Done: Yes 17432 - PHQ-9 Billing: Yes Source: Developed by Drs. Crow Marley, Dafne Rivero, Micky Leos and colleagues, with an educational zafar from [employer]. Thrive Questionnaire Date Thrive assessed: 01/18/25 I am a: Patient What is your living situation today?: I have a steady place to live Within the past 12 months, did the food you bought not last and you didn't have the money to get more?: Never true Within the past 12 months, did you worry whether your food would run out before you got money to buy more?: Never true Do you have trouble paying for medicines?: No Do you have trouble getting transportation to medical appointments?: No Do you have trouble paying your heating and electricity bill?: No Do you have trouble taking care of your child, family member or friend?: No Do you have trouble with day-to-day activities such as bathing, preparing meals, shopping, managing finances, etc.?: No Are you currently unemployed and looking for a job?: Yes Are you interested in more education?: No Please select the resources that you would like help with: None Currently or been in a relationship where the following occur: No concerns reported THRIVE Score: 0 AUDIT C Alcohol Use Questionnaire (AUDIT-C) 1. How often do you have a drink containing alcohol?: Never 3. How often do you have six or more drinks on one occasion?: Never Total Score: 0 Score Reviewed/Action Taken: Yes GUERA-7 AMB Questionnaire GUERA-7 Date GUERA - 7 assessed: 01/18/25 Feeling nervous, anxious, or on edge: 0 = Not at all Not being able to stop or control worryin = Not at all Worrying too much about different things: 0 = Not at all Trouble relaxin = Not at all Being so restless that it is hard to sit still: 0 = Not at all Becoming easily annoyed or irritable: 0 = Not at all Feeling afraid as if something awful might happen: 0 = Not at all Total GUERA-7 score (0-4 normal; 5-9 mild; 10-14 moderate; 15-21 severe): 0 Source: Developed by Drs. Crow Marley, Dafne Rivero, Micky Leos and colleagues, with an educational zafar from [employer]. Review of Systems Const Denies chills, Denies fatigue, Denies fever(s) and Denies headache(s) ENT Denies dysphagia, Denies dizziness, Denies otalgia, Denies headache(s), Denies neck pain, Denies odynophagia and Denies sore throat Card Denies chest pain, Denies palpitations and Denies dyspnea Resp Denies chest congestion, Denies cough and Denies dyspnea GI Denies abdominal pain, Denies dysphagia, Denies diarrhea, Denies nausea, Denies odynophagia and Denies vomiting Denies difficulty urinating, Denies dysuria, Denies nocturia and Denies urinary frequency Musc Denies back pain and Denies neck pain Skin/Breast Denies rash Neuro Denies dizziness and Denies headache(s) Endo Denies fatigue and Denies palpitations Aller/Immun Reports seasonal rhinorrhea Physical exam (Primary Care) Vital Signs: Last Vital Signs Pulse 79 01/18/25 16:25 BP 120/84 01/18/25 16:25 Pulse Ox 97 01/18/25 16:25 Oxygen Delivery Method Room Air 01/18/25 16:25 BMI result Body Mass Index 25.7 Tobacco/Smoking Status: Tobacco use Status Tobacco use date assessed 01/18/25 01/18/25 16:29 Patient Tobacco Use Status Never used Tobacco 01/18/25 16:29 e-Cigarette/Vaping Use Never Used 01/18/25 16:29 PHQ-9: PHQ-9 Score PHQ-9: Total score 0 01/18/25 16:51 Depression Screening Interpretation: Negative Thrive Assessment: Date of Thrive Assessment Date Thrive assessed 01/18/25 01/18/25 16:29 Currently or been in a relationship where the following occur: No concerns reported Const General: no acute distress and alert HENMT Throat: Yes posterior oropharynx normal and Yes tonsils normal (no TP congestion) Neck Neck: Yes supple and No lymphadenopathy Thyroid: Thyroid normal Resp Auscultation: clear to auscultation bilaterally, no rales and no wheezes Cardio Rate: regular rate Rhythm: regular rhythm Heart sounds: no murmurs GI Palpation (GI): Soft to palpation and nontender Auscultation: normal bowel sounds General: Yes no CVA tenderness Back/Spine/Pelvis Back: no CVA tenderness Thoracic/Lumbar Spine: No lumbar spinal tenderness Skin Rashes: no rashes Extrem General: Yes no clubbing, cyanosis or edema Results Reviewed Results Reviewed: Laboratory Tests 11/17/24 01/17/25 13:03 15:24 Sodium 140 Potassium 4.0 Creatinine 6.71 H* Calcium 9.3 Coding Level of Care Code Est Pt Level 4 (25306) Diagnoses Benign essential hypertension I10 Chronic kidney disease, stage V N18.5 Pure hypercholesterolemia E78.00 Hyperuricemia E79.0 Vitamin D deficiency E55.9 Seasonal allergic rhinitis, unspecified trigger J30.2 Allergic rhinitis trigger: unspecified Allergic rhinitis seasonality: seasonal Acute angle-closure glaucoma of right eye H40.211 Overweight (BMI 25.0-29.9) E66.3 Additional Codes PHQ-9 - 36765 - PHQ-9 Billing: Yes ([id number]) Assessment & Plan Assessment & Plan (1) Benign essential hypertension: Code(s): I10 - Essential (primary) hypertension Category: Medical Plan: Reinforced low sodium diet - goal is systolic BP of 120 mm or less due to his CKD Continue Amlodipine 5 mg BID Lisinopril 5 mg QD was discontinued by nephrology because of his declining renal function Patient is reminded to continue monitoring his blood pressure regularly (2) Chronic kidney disease, stage V: Code(s): N18.5 - Chronic kidney disease, stage 5 Category: Medical Plan: Patient has been referred to [facility] in [place] for renal transplant and he is currently undergoing pretransplant evaluation He was also referred by Dr. Antonio for the transplant list at [facility] Follow up with nephrology as scheduled (3) Pure hypercholesterolemia: Code(s): E78.00 - Pure hypercholesterolemia, unspecified Category: Medical Plan: His fasting lipids done most recently in June 2024 came out okay and are near goal Reinforced low cholesterol diet Continue Atorvastatin 20 mg QD Will recheck his fasting lipids and labs in 3 months for follow up (4) Hyperuricemia: Code(s): E79.0 - Hyperuricemia without signs of inflammatory arthritis and tophaceous disease Category: Medical Plan: His serum uric acid level was still elevated at 9.2 mg/dl back in July 2024 - this is likely due to his renal failure Continue Allopurinol 100 mg QD Will recheck his uric acid level in 3 months for follow up (5) Vitamin D deficiency: Code(s): E55.9 - Vitamin D deficiency, unspecified Category: Medical Plan: Continue Vitamin D3 2000 units QD (6) Allergic rhinitis: Code(s): J30.9 - Allergic rhinitis, unspecified Category: Medical Qualifiers: Allergic rhinitis trigger: unspecified Allergic rhinitis seasonality: seasonal Qualified Code(s): J30.2 - Other seasonal allergic rhinitis Plan: Continue Fexofenadine 180 mg QD PRN and Fluticasone 50 mcg nasal spray QD PRN (Rx refilled) (7) Acute angle-closure glaucoma of right eye: Comment: S/P emergent laser peripheral iridotomy on 07/17/2020 Also had cataract extraction of the right eye on 08/02/2020 Had glaucoma implant drain placed in November 2020 Code(s): H40.211 - Acute angle-closure glaucoma, right eye Category: Medical Plan: He initially failed laser surgery (iridotomy) on 11/16/20 and patient underwent a stent (glaucoma implant drain) insertion in his eye on 12/07/[address] Max, with significant improvement of his eye symptoms since States that he's had no problems with his vision and has no eye pain lately although he still has some light sensitivity in the right eye Follow up with ophthalmology as scheduled (8) Overweight (BMI 25.0-29.9): Code(s): E66.3 - Overweight Category: Medical Plan: Reinforced diet/exercise as tolerated/lose weight Plan Discussed with the patient the progression of his chronic kidney disease and the need for dialysis as a temporary measure until a kidney transplant is available. We reviewed the importance of controlling blood pressure and avoiding anti-inflammatory medications to prevent further kidney damage. I advised him to follow up with Dr. Antonio in three days for further management and to continue monitoring his kidney function closely. Follow up in 3 months
--- OUTSIDE RECORDS SUMMARY | 2025-01-18 17:40 | XMS_ITS | Patient Health Record ---
[facility] Address [address] [place] [address] Care Team Providers Care Automatic Lathe Tender Name Role Phone Reynaldo SAMAYOA, Dwayne Primary Care Provider Lori Jasmine Unavailable [phone] Allergies No Known Allergies Reason For Referral No Information Medications Medication SIG (Take, Route, Frequency, Duration) Notes Start Date End Date Status Atorvastatin Calcium 10 MG 1 tablet Oral ly Once a day; Duration: 30 day(s) Active Ciclopirox 0.77 % 1 application Firer Powerhouse ally Twice a day; Duration: 365 days [...] Notes Problem Gouty arthritis of right foot ([id number] 107) Gouty arthritis of right foot (M10.9) Active confirmed Plan Of Treatment Pending Test Test Name Order Date , [id number]/INJECT, JOINT/BURSA 0 09/20/2022 Insurance Providers Payer Name Payer Address Payer Phone Subscriber Number Group Number Insured Name Patient Relationship to Insured Coverage Start Date Coverage End Date Blue Benefits [address] [address] [place] [address] [id number] Nasir Jo Self - patient is the insured Medical (General) History Medical History History ICD Code Hypertension Hyperlipidemia Chronic Kidney Disease, stage III (moder ate) Vitamin D deficiency Obesity Surgical History Surgery Date(Month/Year) eye surgery
--- OUTSIDE RECORDS SUMMARY | 2025-01-18 17:40 | XMS_ITS ---
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
--- OUTSIDE RECORDS SUMMARY | 2025-01-18 17:40 | XMS_ITS | Clinical Summary ---
Author Organization [facility] Address [address] [facility] [place] [address] Phone Care Team Providers Care Test Development Engineer Name Role Phone Dwayne Jacobs MD Primary Care Provider +1- [phone] Allergies No known active allergies Medications omega-3 [...] Influenza Vaccine (#1) 2025 Insurance Comprehensive Benefits Comprehensive Benefits Care Teams Test Development Engineer Relationship Specialty Start Date End Date Dwayne Jacobs MD [address] [place] [address] [address] [place] [address] PCP - General 06/12/20
== END 2025-01-18 16:52 | disposition home or self-care (01) ==
LOC: HO.HMCH 16:21
PROVIDERS: PCP Internal Medicine; Visit Provider Internal Medicine
DX: I12.0 Hypertensive chronic kidney disease with stage 5 chronic kidney disease or end stage renal disease (principal); N18.5 Chronic kidney disease, stage 5; E78.00 Pure hypercholesterolemia, unspecified; E79.0 Hyperuricemia without signs of inflammatory arthritis and tophaceous disease; E55.9 Vitamin D deficiency, unspecified; J30.2 Other seasonal allergic rhinitis; H40.211 Acute angle-closure glaucoma, right eye; E66.3 Overweight

== ENCOUNTER → 2025-01-18 16:21 | Outpatient (BNVA) | payer OTHER, SELFPAY | PROVIDERS: PCP Internal Medicine; Visit Provider Internal Medicine | DX: I12.0 Hypertensive chronic kidney disease with stage 5 chronic kidney disease or end stage renal disease (principal); N18.5 Chronic kidney disease, stage 5 | CPT/HCPCS: 96127 ==

== ENCOUNTER 2025-01-21 11:54 | Outpatient (AMB) | payer OTHER, SELFPAY ==
--- OUTSIDE RECORDS SUMMARY | 2025-01-21 11:56 | XMS_ITS ---
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
--- OUTSIDE RECORDS SUMMARY | 2025-01-21 11:56 | XMS_ITS | Patient Health Record ---
[facility] Address [address] [facility] [place] [address] Care Team Providers Care Breaker Oiler Name Role Phone Reynaldo SAMAYOA, Dwayne Primary Care Provider Lori Jasmine Unavailable [phone] Allergies No Known Allergies Reason For Referral No Information Medications Medication SIG (Take, Route, Frequency, Duration) Notes Start Date End Date Status Atorvastatin Calcium 10 MG 1 tablet Oral ly Once a day; Duration: 30 day(s) Active Ciclopirox 0.77 % 1 application Gold Letterer ally Twice a day; Duration: 365 days [...] Notes Problem Gouty arthritis of right foot ([id number] 107) Gouty arthritis of right foot (M10.9) Active confirmed Plan Of Treatment Pending Test Test Name Order Date , [id number]/INJECT, JOINT/BURSA 0 09/20/2022 Insurance Providers Payer Name Payer Address Payer Phone Subscriber Number Group Number Insured Name Patient Relationship to Insured Coverage Start Date Coverage End Date Blue Benefits [address] [address] [place] [address] [id number] Nasir Jo Self - patient is the insured Medical (General) History Medical History History ICD Code Hypertension Hyperlipidemia Chronic Kidney Disease, stage III (moder ate) Vitamin D deficiency Obesity Surgical History Surgery Date(Month/Year) eye surgery
--- OUTSIDE RECORDS SUMMARY | 2025-01-21 11:56 | XMS_ITS | Clinical Summary ---
Author Organization [facility] Address [address] [facility] [address] [place] [address] Phone Care Team Providers Care Faith Doctor Name Role Phone Dwayne Jacobs MD Primary Care Provider [phone]- [phone] Allergies No known active allergies Medications omega-3 [...] Insurance Comprehensive Benefits Comprehensive Benefits Care Teams Faith Doctor Relationship Specialty Start Date End Date Dwayne Jacobs MD [address] [place] [address] [address] [place] [address] PCP - General 06/12/20
--- NOTE | 2025-01-21 12:33 | HO.NEPHOV ---
Vital Signs 01/21/25 12:34 Height 5 ft 8 in Weight 165 lb 8 oz BMI 25.2 BP 122/80 Blood Pressure Location Lt brachial Position Sitting Pulse 92 Pulse Source Pulse Oximeter Pulse Oximetry (%) 96 Oxygen Delivery Method Room Air Intake Visit Reasons: 2mon follow-up w/labs-Conf Air Pollution Control Engineer Required: No Accompanied by: Spouse Allergies No Known Allergies Allergy (Verified 01/21/25 12:34) HPI Comments Details: Nasir was in follow-up of his chronic kidney disease and hypertension .He remains compliant with his medications. His BP is well controlled. He has no orthostatic symptoms. He denies nausea, vomiting, diarrhea, chest pain, shortness of breath, paroxysmal nocturnal dyspnea, orthopnea, pedal edema or urinary symptoms. He is compliant with his medications. He does not take any nonsteroidal anti-inflammatories. [facility] Medical History (Updated 10/14/24 @ 04:14 by Dwayne Jacobs MD) Hyperuricemia Allergic rhinitis Chronic kidney disease, stage V Chronic kidney disease, stage 4 (severe) Overweight (BMI 25.0-29.9) Acute angle-closure glaucoma of right eye Obesity (BMI 30-39.9) Vitamin D deficiency Pure hypercholesterolemia Benign essential hypertension Surgical History History of eye surgery Family History Father Medical history unknown Mother Cancer Social History Housing: House Alcohol intake: never Patient Tobacco Use Status: Never used Tobacco e-Cigarette/Vaping Use: Never Used Second Hand Smoke Exposure: Yes service: No Current occupational status: employed 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, 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 Cognitive needs: No Hearing needs: No Vision needs: No Review of Systems Const All systems reviewed & are unremarkable except as noted in HPI and below Physical Exam Vital Signs: Last Vital Signs Pulse 92 01/21/25 12:34 BP 122/80 01/21/25 12:34 Pulse Ox 96 01/21/25 12:34 Oxygen Delivery Method Room Air 01/21/25 12:34 BMI result Body Mass Index 25.2 Const General: comfortable and no acute distress Orientation/consciousness: patient oriented x3 HEENT Head: Yes normocephalic Mouth: Normal oral and palatal mucosa present Eyes EOM: EOMs intact bilaterally Neck Neck: Yes supple Resp Auscultation: clear to auscultation bilaterally Cardio Jugular venous distension: no JVD Rate: regular rate GI Palpation (GI): Soft to palpation Auscultation: normal bowel sounds General: Yes no CVA tenderness Back/Spine/Pelvis Back: no CVA tenderness Skin General skin exam: no rashes or lesions noted Neuro General: patient oriented x3 and moves all extremities Extrem General: Yes no pedal edema Results Reviewed Nephrology Results: Sodium, (135-145) 140 mmol/L 01/17/25 Potassium, (3.3-5.1) 4.0 mmol/L 01/17/25 Chloride, (96-108) 106 mmol/L 01/17/25 Carbon Dioxide, (22-29) 19 mmol/L L 01/17/25 BUN, (9-16) 69 mg/dL H 01/17/25 Creatinine, (0.5-1.4) 6.71 mg/dL H* 01/17/25 Calcium, (8.4-10.2) 9.3 mg/dL 11/17/24 Phosphorus, (2.7-4.5) 3.9 mg/dL 11/17/24 Assessment & Plan Assessment & Plan (1) Secondary hyperparathyroidism (of renal origin): Code(s): N25.81 - Secondary hyperparathyroidism of renal origin Category: Medical (2) Vitamin D deficiency: Code(s): E55.9 - Vitamin D deficiency, unspecified Category: Medical (3) CKD (chronic kidney disease) stage 5, GFR less than 15 ml/min: Code(s): N18.5 - Chronic kidney disease, stage 5 Category: Medical Plan Nasir has stage V CKD for a long time. His lisinopril has been on hold since serum creatinine has been going up. He is on a lipid-lowering agent. He takes low-sodium diet. He maintains good hydration. He avoids nonsteroidal anti-inflammatories. He should continue Amlodipine 10 mg daily. He is listed in [facility] renal transplant and [facility] transplant. He is on Allopurinol 100 mg daily . He had PD education. I did not make any other medication changes today. Discussed about PD as well as renal transplant. Answered all questions. Follow-up appointment given Orders: Orders Complete Blood Count Auto Diff 6 Weeks E55.9 - Vitamin D deficiency, unspecified, N18.5 - Chronic kidney disease, stage 5, N25.81 - Secondary hyperparathyroidism of renal origin Blood Urea Nitrogen 6 Weeks E55.9 - Vitamin D deficiency, unspecified, N18.5 - Chronic kidney disease, stage 5, N25.81 - Secondary hyperparathyroidism of renal origin Calcium 6 Weeks E55.9 - Vitamin D deficiency, unspecified, N18.5 - Chronic kidney disease, stage 5, N25.81 - Secondary hyperparathyroidism of renal origin Creatinine 6 Weeks E55.9 - Vitamin D deficiency, unspecified, N18.5 - Chronic kidney disease, stage 5, N25.81 - Secondary hyperparathyroidism of renal origin Electrolytes 6 Weeks E55.9 - Vitamin D deficiency, unspecified, N18.5 - Chronic kidney disease, stage 5, N25.81 - Secondary hyperparathyroidism of renal origin Phosphorus 6 Weeks E55.9 - Vitamin D deficiency, unspecified, N18.5 - Chronic kidney disease, stage 5, N25.81 - Secondary hyperparathyroidism of renal origin Parathyroid Hormone Intact 6 Weeks E55.9 - Vitamin D deficiency, unspecified, N18.5 - Chronic kidney disease, stage 5, N25.81 - Secondary hyperparathyroidism of renal origin Coding Level of Care Code Est Pt Level 4 (61864) Diagnoses Secondary hyperparathyroidism (of renal origin) N25.81 Vitamin D deficiency E55.9 CKD (chronic kidney disease) stage 5, GFR less than 15 ml/min N18.5
[2025-01-21 12:34] VITALS: BP 122/80; PULSE 92; O2SAT 96; BMI 25.2
== END 2025-01-21 12:52 | disposition home or self-care (01) ==
LOC: HO.HKA 11:54
PROVIDERS: PCP Internal Medicine; Visit Provider Internal Medicine Nephrology
DX: N25.81 Secondary hyperparathyroidism of renal origin (principal); E55.9 Vitamin D deficiency, unspecified; N18.5 Chronic kidney disease, stage 5
CPT/HCPCS: 99214

== ENCOUNTER 2025-03-14 14:20 | Outpatient (REF) | payer OTHER, SELFPAY ==
[2025-03-14 14:30] LABS: MANUAL DIFF FLAG NO
[2025-03-14 15:06] LABS: Hematocrit 33.3 % (42.0-52.0); Hemoglobin 10.7 g/dl (14.0-18.0); Imm Gran Abs Auto 0.01 X10*3/uL (0.00-0.03); Imm Gran Pct Auto 0.1 % (0.0-0.4); Lymphocytes Absolute Auto 1.1 X10*3/uL (1.2-4.9); Mean Corpuscular HGB Conc 32.1 g/dl (31.0-36.0); Mean Corpuscular Hemoglobin 29.6 pg (27.0-33.0); Mean Corpuscular Volume 92.0 fL (80.0-98.0); NRBC Abs Auto 0.000 X10*3/uL (0.0-0.012); NRBC Pct Auto 0.0 /100WBC (0.0-0.2); Platelet Count 294 X10*3/uL (160-400); Red Blood Count 3.62 X10*6/uL (4.60-5.80); White Blood Count 7.1 X10*3/uL (4.8-10.8)
[2025-03-14 15:29] LABS: Parathyroid Hormone Intact 680.0 pg/mL (8.7-77.1)
[2025-03-14 15:41] LABS: Anion Gap 15 (12-20); Blood Urea Nitrogen 81 mg/dL (9-16); Calcium 8.5 mg/dL (8.4-10.2); Carbon Dioxide 25 mmol/L (22-29); Chloride 105 mmol/L (96-108); Estimated Glomerular Filt Rate 9; Potassium 4.4 mmol/L (3.3-5.1); Sodium 141 mmol/L (135-145)
== END 2025-03-14 14:21 | disposition home or self-care (01) ==
LOC: HO.LAB 14:20
PROVIDERS: PCP Internal Medicine; Visit Provider Internal Medicine Nephrology
DX: N18.5 Chronic kidney disease, stage 5 (principal); N25.81 Secondary hyperparathyroidism of renal origin; E55.9 Vitamin D deficiency, unspecified
CPT/HCPCS: 36415; 80051; 82310; 82565; 83970; 84100; 84520; 85025

== ENCOUNTER 2025-03-18 14:04 | Outpatient (AMB) | payer OTHER, SELFPAY ==
--- NOTE | 2025-03-18 14:20 | HO.NEPHOV ---
Vital Signs 03/18/25 14:21 Height 5 ft 8 in Weight 166 lb 8 oz BMI 25.3 BP 116/80 Blood Pressure Location Lt brachial Position Sitting Pulse 93 Pulse Source Pulse Oximeter Pulse Oximetry (%) 97 Oxygen Delivery Method Room Air Intake Visit Reasons: 2mon f/u w/labs-Conf Digital Hardware Design Engineer Required: No Accompanied by: Spouse Allergies No Known Allergies Allergy (Verified 03/18/25 14:21) HPI Comments Details: Nasir was in follow-up of his chronic kidney disease and hypertension .He remains compliant with his medications. His BP is well controlled. He has no orthostatic or uremic symptoms. He denies nausea, vomiting, diarrhea, chest pain, shortness of breath, paroxysmal nocturnal dyspnea, orthopnea, pedal edema or urinary symptoms. He is compliant with his medications. He does not take any nonsteroidal anti-inflammatories. [facility] Medical History (Updated 10/14/24 @ 04:14 by Dwayne Jacobs MD) Hyperuricemia Allergic rhinitis Chronic kidney disease, stage V Chronic kidney disease, stage 4 (severe) Overweight (BMI 25.0-29.9) Acute angle-closure glaucoma of right eye Obesity (BMI 30-39.9) Vitamin D deficiency Pure hypercholesterolemia Benign essential hypertension Surgical History History of eye surgery Family History Father Medical history unknown Mother Cancer Social History Housing: House Alcohol intake: never Patient Tobacco Use Status: Never used Tobacco e-Cigarette/Vaping Use: Never Used Second Hand Smoke Exposure: Yes service: No Current occupational status: employed 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, 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 Cognitive needs: No Hearing needs: No Vision needs: No Review of Systems Const All systems reviewed & are unremarkable except as noted in HPI and below Physical Exam Vital Signs: Last Vital Signs Pulse 93 03/18/25 14:21 BP 116/80 03/18/25 14:21 Pulse Ox 97 03/18/25 14:21 Oxygen Delivery Method Room Air 03/18/25 14:21 BMI result Body Mass Index 25.3 Const General: comfortable and no acute distress Orientation/consciousness: patient oriented x3 HEENT Head: Yes normocephalic Mouth: Normal oral and palatal mucosa present Eyes EOM: EOMs intact bilaterally Neck Neck: Yes supple Resp Auscultation: clear to auscultation bilaterally Cardio Jugular venous distension: no JVD Rate: regular rate GI Palpation (GI): Soft to palpation Auscultation: normal bowel sounds General: Yes no CVA tenderness Back/Spine/Pelvis Back: no CVA tenderness Skin General skin exam: no rashes or lesions noted Neuro General: patient oriented x3 and moves all extremities Extrem General: Yes no pedal edema Results Reviewed Nephrology Results: Hgb, (14.0-18.0) 10.7 g/dl L 03/14/25 WBC, (4.8-10.8) 7.1 X10*3/uL 03/14/25 Plt Count, (160-400) 294 X10*3/uL 03/14/25 Sodium, (135-145) 141 mmol/L 03/14/25 Potassium, (3.3-5.1) 4.4 mmol/L 03/14/25 Chloride, (96-108) 105 mmol/L 03/14/25 Carbon Dioxide, (22-29) 25 mmol/L 03/14/25 BUN, (9-16) 81 mg/dL H 03/14/25 Creatinine, (0.5-1.4) 6.67 mg/dL H* 03/14/25 Calcium, (8.4-10.2) 8.5 mg/dL Δ 03/14/25 Phosphorus, (2.7-4.5) 5.0 mg/dL H 03/14/25 PTH Intact, (8.7-77.1) 680.0 pg/mL H 03/14/25 Assessment & Plan Assessment & Plan (1) CKD (chronic kidney disease) stage 5, GFR less than 15 ml/min: Code(s): N18.5 - Chronic kidney disease, stage 5 Category: Medical (2) Benign essential hypertension: Code(s): I10 - Essential (primary) hypertension Category: Medical (3) Secondary hyperparathyroidism (of renal origin): Code(s): N25.81 - Secondary hyperparathyroidism of renal origin Category: Medical (4) Vitamin D deficiency: Code(s): E55.9 - Vitamin D deficiency, unspecified Category: Medical Plan Nasir has stage V CKD for a long time. His lisinopril has been on hold since serum creatinine has been going up. He is on a lipid-lowering agent. He takes low-sodium diet. He maintains good hydration. He avoids nonsteroidal anti-inflammatories. He should continue Amlodipine 10 mg daily. I started him on calcitriol 0.25 mcg three times a week. He may need a phos lowering medication soon. He is listed in [facility] renal transplant and [facility]. He is on Allopurinol 100 mg daily . He had PD education. I did not make any other medication changes today. Discussed about PD as well as renal transplant. Answered all questions. Follow-up appointment given Orders: Orders Calcium 2 Months N18.5 - Chronic kidney disease, stage 5 Phosphorus 2 Months N18.5 - Chronic kidney disease, stage 5 Complete Blood Count Auto Diff 2 Months N18.5 - Chronic kidney disease, stage 5 IRON PROFILE 2 Months N18.5 - Chronic kidney disease, stage 5 Ferritin 2 Months N18.5 - Chronic kidney disease, stage 5 Electrolytes 2 Months N18.5 - Chronic kidney disease, stage 5 Blood Urea Nitrogen 2 Months N18.5 - Chronic kidney disease, stage 5 Creatinine 2 Months N18.5 - Chronic kidney disease, stage 5 Medications: New calcitriol 0.25 mcg PO 3XW 14 caps 3RF Coding Level of Care Code Est Pt Level 4 (68487) Diagnoses CKD (chronic kidney disease) stage 5, GFR less than 15 ml/min N18.5 Benign essential hypertension I10 Secondary hyperparathyroidism (of renal origin) N25.81 Vitamin D deficiency E55.9
[2025-03-18 14:21] VITALS: BP 116/80; PULSE 93; O2SAT 97; BMI 25.3
--- OUTSIDE RECORDS SUMMARY | 2025-03-18 16:46 | XMS_ITS | Clinical Summary ---
Author Organization [facility] Address [address] [place] [address] Care Team Providers Care Executive Meeting Manager Name Role Phone Ref, Has No Pcp Or Primary Care Provider Unavail able Allergies No known active allergies Medications amLODIPine [...] 104 05/06/2024 8:07 AM EST Temperature 36.6 C (97.9 F) 05/06/2024 8:07 AM EST Respiratory Rate 18 05/06/2024 8:07 AM EST [...] Info) Description 05/03/2025 10:00 AM EST Follow-Up [facility] Renal Transplant [address] [place] [address] Tobi Pollard MD [address] [place] [address] 05/03/2025 10:30 AM EST Social Work [facility] Renal Transplant [address] [place] [address] Cecelia Hinton LICSW [address] [place] [address] Health Maintenance Due Date Last Done Comments 25 Hydroxy / Vitamin D 1981 Basic Metabolic Panel 1981 PTH 1981 Urine Microalbumin 1991 Varicella Vaccines (1 of 2 - 13+ 2-dose series) 1994 Hepatitis B Vaccines (1 of 3 - 19+ 3-dose series) 01/11/2000 DTaP,Tdap,and Td Vaccines (1 - Tdap) 2003 Diabetes Screening 01/11/2016 Alcohol/Substance Use Screening 06/02/2024 Depression Screening and Follow-Up 06/02/2024 Social Drivers of Health Mary ual Screening 06/02/2024 COVID-19 Vaccine (1 - 2024-2 6 season) 2025 Influenza Vaccine (#1) 2025 Hemoglobin 05/06/2025 05/06/2024 Phosphorus 05/06/2025 05/06/2024 [...] complete this topic Procedures * Due to [place] state law, this organization might not [...] to Health Maintenance Results * Due to [place] Eachbaby law, this organization might not be sharing [...] % 3.3 % 05/06/2024 11:51 AM EST [facility] Eosinophil % 0.9 % 05/06/2024 11:51 AM EST [facility] Basophil % [...] - 0.20 10*3/uL 05/06/2024 11:51 AM EST [facility] nRBC % 0.0 /100 WBCs 05/06/2024 11:51 AM EST [facility] nRBC # <0.01 <0.01 10*3/uL 05/06/2024 11:51 AM EST [facility] Blood Structure of peripheral vein / Unknown Venipuncture / Unknown 05/06/2024 11:27 AM EST 05/06/2024 11:42 AM EST Tobi Pollard MD LAB BLOOD ORDERABLES Monica l Result [facility] [address] [place] [address], [place] * Hepatitis C Antibody w/Reflex to PCR (05/06/2024 11:27 AM EST) Hepatitis C Antibody NON-REACT KISHA NON-REACT KISHA 05/07/2024 3:30 AM EST [facility] Comment: HCV antibody was non-reactive. There is no laboratory evidence of HCV infection. In most cases, no further action is required. However, if recent HCV exposure is suspected, a test for HCV RNA (test code 54605) is suggested. For additional information please refer to http://education.[employer]/faq/ZVM09p3 (This link is being provided for informational/ educational purposes only.) Blood Structure of peripheral vein / Unknown Venipuncture / Unknown 05/06/2024 11:27 AM EST 05/06/2024 11:42 AM EST Narrative [facility] 05/07/2024 3:30 AM EST [facility] Received Date:[id number] Tobi Pollrad MD LAB BLOOD ORDERABLES Monica l Result [facility] [address], [place] [address], [place] [phone] [facility] [address] [facility] [address] [facility] [address], [place] [address], [place] [phone] * Phosphorus (05/06/2024 11:27 AM EST) Phosphorus 3.8 2.5 - 4.5 mg/dL 05/06/2024 12:13 PM EST [employer] [facility] Blood Structure of peripheral vein / Unknown Venipuncture / Unknown 05/06/2024 11:27 AM EST 05/06/2024 11:42 AM EST us Tobi Pollard MD LAB BLOOD ORDERABLES Monica l Result [employer] [facility] [address] [place] [address], from Last 3 Months or Most Recently Relevant to Health Maintenance Insurance [employer] [phone] [employer] Advance Directives Documents on File Type Date Recorded 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
--- OUTSIDE RECORDS SUMMARY | 2025-03-18 16:46 | XMS_ITS | Patient Health Record ---
Author [facility] Address [address] [place] [address] Care Team Providers Care Catastrophe Claims Supervisor Name Role Phone Reynaldo SAMAYOA, Dwayne Primary Care Provider Lori Jasmine Unavailable [phone] Allergies No Known Allergies Reason For Referral No Information Medications Medication SIG (Take, Route, Frequency, Duration) Notes Start Date End Date Status Atorvastatin Calcium 10 MG 1 tablet Oral ly Once a day; Duration: 30 day(s) Active Ciclopirox 0.77 % 1 application Route Cdl Driver ally Twice a day; Duration: 365 days [...] Notes Problem Gouty arthritis of right foot ([id number] 107) Gouty arthritis of right foot (M10.9) Active confirmed Plan Of Treatment Pending Test Test Name Order Date , [id number]/INJECT, JOINT/BURSA 0 09/20/2022 Insurance Providers Payer Name Payer Address Payer Phone Subscriber Number Group Number Insured Name Patient Relationship to Insured Coverage Start Date Coverage End Date Blue Benefits [address] [address] [place] [address] [id number] Nasir Jo Self - patient is the insured Medical (General) History Medical History History ICD Code Hypertension Hyperlipidemia Chronic Kidney Disease, stage III (moder ate) Vitamin D deficiency Obesity Surgical History Surgery Date(Month/Year) eye surgery
--- OUTSIDE RECORDS SUMMARY | 2025-03-18 16:46 | XMS_ITS ---
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
== END 2025-03-18 14:45 | disposition home or self-care (01) ==
LOC: HO.HKA 14:04
PROVIDERS: PCP Internal Medicine; Visit Provider Internal Medicine Nephrology
DX: N18.5 Chronic kidney disease, stage 5 (principal); I12.0 Hypertensive chronic kidney disease with stage 5 chronic kidney disease or end stage renal disease; N25.81 Secondary hyperparathyroidism of renal origin; E55.9 Vitamin D deficiency, unspecified
CPT/HCPCS: 99214

== ENCOUNTER 2025-05-07 10:04 | Outpatient (REF) | payer OTHER, SELFPAY ==
--- OUTSIDE RECORDS SUMMARY | 2025-05-03 10:00 | XMS_ITS | Encounter Summary ---
Author Organization [facility] Address [address] [place] [address] Care Team Providers Care Assembler Lay Ups Name Role Phone Ref, Hasnopcp Primary Care Provider Unavailabl e Reason for Visit * Reason Comments Follow-up Encounter Details Date Type Department Care Team (Late st Contact Info) Description 05/03/2025 10:00 AM EST Follow-Up [facility] Renal Transplant [address] [place], [place] [id number] Tobi Pollard MD [address] [place] [address] [phone] Pre-transplant evaluation for kidney transplant (Primary Dx); Stage 5 chronic kidney disease not on chronic dialysis Social History Tobacco Use Types Packs/Day Years [...] on file documented as of this encounter Last Filed Vital Signs Vital Sign Reading Time Taken Comments Blood Pressure 123/82 05/03/2025 9:43 AM EST Pulse 85 05/03/2025 9:43 AM EST Temperature 37.1 C (98.8 F) 05/03/2025 9:43 AM EST Respiratory Rate 18 05/03/2025 9:43 AM EST Oxygen Saturation 99% 05/03/2025 9:43 AM EST Inhaled Oxygen Concentration - - Weight 77.2 kg (170 lb 3.1 oz) 05/03/2025 9:43 A M EST Height - - Body Mass Index 25.5 05/06/2024 8:07 AM EST documented in this encounter Progress Notes * Tobi Pollard MD - 05/03/2025 10:57 AM EST TRANSPLANT NEPHROLOGY FOLLOW-UP EVALUATION NOTE Name: Nasir French Date of : 1980 Date of Service: 05/03/[address] Justice, Reason for clinic visit: Followup of continued evaluation as potential kidney transplant recipient. HPI: Nasir French is 45 y.o. male with CKD G4 with latest eGFR of about 9 mL/min/BSA secondary to presumed hypertensive nephrosclerosis. 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 His primary lead data architect is Dr Justice and he is returning to the clinic for continued evaluation as potential kidney transplant recipient. He is seen annually for wait list management. He is doing well without overt symptoms from his kidney disease. He sees his primary lead data architect every two months. He denies any recent hospitalization. Current Outpatient Medications Medication Sig Dispense Refill amLODIPine (NORVASC) 5 mg tablet Take 5 mg by mouth 2 times a day. atorvastatin (LIPITOR) 20 mg tablet Take 20 mg by mouth once a day. fish oil 340-1,000 mg capsule Take 1,000 mg by mouth once a day. Vitamin D3 25 mcg (1,000 unit) capsule Take 1 capsule by mouth once a day. No current facility-administered medications for this visit. No Known Allergies Review of Systems: Review of Systems Constitutional: Positive for weight loss. Negative for activity change, appetite change, chills, diaphoresis, fatigue and fever. Eyes: Negative. Respiratory: Negative. Negative for apnea, shortness of breath and wheezing. Cardiovascular: Positive for leg swelling. Negative for chest pain and palpitations. Gastrointestinal: Negative. Negative for abdominal pain, constipation, diarrhea, nausea and vomiting. Genitourinary: Negative for difficulty urinating, dysuria, hematuria, no kidney stone and nocturia. Endocrine: Negative. Negative for cold intolerance. Musculoskeletal: Negative. Skin: Negative. Negative for rash and wound. Allergic/Immunologic: Positive for environmental allergies. Neurological: Negative. Negative for dizziness, headaches, light-headedness, numbness, tremors and weakness. Hematological: Negative. Does not bruise/bleed easily. Psychiatric/Behavioral: Negative. Negative for sleep disturbance. The patient is not nervous/anxious. All other systems reviewed and are negative. Physical Examination: BP 123/82 Pulse 85 Temp 37.1 ??C (98.8 ??F) Resp 18 Wt 77.2 kg (170 lb 3.1 oz) SpO2 99% BMI 25.50 kg/m?? General: Well-looking, no acute distress HENT: Normocephalic and atraumatic. Oropharynx clear. Mucus membranes moist. No carotid bruits Eyes: Anicteric and not pale. Respiratory: Symmetrical chest expansion. Adequate air-entry bilaterally. No crackles or wheezes Cardiovascular: Regular rate and rhythm, no rubs, gallops. no murmur; trace edema. Intact femoral pulse. GI: Abd is soft and full. BS is present and normoactive. No tenderness. Lymphatic: No cervical or axillary adenopathy Musculoskeletal: Normal muscle tone, no clubbing, cyanosis. Integument: No lesions, rashes or ulcers Psychiatric: Normal mood and affect. Neurological: Alert and oriented x 3. No asterixis. No tremor. 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 Patient has accumulated 231 days on the transplant waiting list. He has a calculated PRA of 0 and EPTS score of 10 . He is Blood group A.The patient is interested in both living donor and donor transplantation. There are no potential living donors at this time. Patient's lab testing will be updated as necessary to be in compliance with our minimum testing requirements to maintain his listing. His evaluation is complete and he should be active on the waitlist to benefit from six antigen match kidney offers. I spent a total of about 40 minutes with patient during this encounter. Greater than 50% of the time spent was devoted to counseling and coordinating care including review of records, pertinent lab data and studies, as well as discussing diagnostic evaluation and work up, planned therapeutic interventions and future disposition of care. This includes any additional research needed to obtain further information in formulating the plan of care of this patient. RTC in 12 months. Tobi Pollard MD documented in this encounter Plan of Treatment Upcoming Encounters Date Type Department Care Team (Late st Contact Info) Description 05/02/2026 10:00 AM EST Follow-Up [facility] Renal Transplant [address] [place] [address] Tobi Pollard MD [address] [place] [id number] 05/02/2026 10:30 AM EST Social Work [facility] Renal Transplant [address] [place] [address] Tobi Pollard MD [address] [place] [phone] Cecelia Hinton LICSW [address] [place] [address] documented as of this encounter Visit Diagnoses Diagnosis Pre-transplant evaluation for kidney transplant- Primary Stage 5 chronic kidney disease not on chronic dialysis documented in this encounter Care Teams Assembler Lay Ups Relationship Specialty Start Date End Date Ref, [place] DO NOT EDIT THIS RECORD VIA PROVIDER ON THE FLY PCP - General Stone Repairer 05/06/24 documented as of this encounter
--- OUTSIDE RECORDS SUMMARY | 2025-05-03 10:30 | XMS_ITS | Encounter Summary ---
Author Organization [facility] Address [address] [place] [address] Care Team Providers Care Cellular Phone Repairer Name Role Phone Ref, Hasnopcp Primary Care Provider Unavailabl e Encounter Details Date Type Department Care Team (Late st Contact Info) Description 05/03/2025 10:30 AM EST Social Work [facility] Renal Transplant [address] [place] [phone] Cecelia Hinton LICSW [address] [place] [address] Social History Tobacco Use Types Packs/Day Years [...] on file documented as of this encounter Progress Notes * OLGA Demarco - 05/03/2025 10:30 AM EST Kidney Transplant Psychosocial Evaluation Update Patient is a 45-year-old gentleman who arrived in the clinic this date for a kidney transplant psychosocial evaluation. Patient arrived with his significant other Denisa Chen. The patient drove the couple to the hospital. The patient qualified for the list in August 2024. The patient has been listed as inactive on the transplant list, pending completion of his evaluation. As of this date, according to the char filter tank tender head who met with patient today, patient's evaluation is complete and patient willbe made active. Miller First introduced self and the social work role. Patient, Denisa and mortgage loan underwriter have met previously for psychosocial evaluation. Please see an initial psychosocial evaluation dated 05/06/2024. Miller First reminded the patient that the purpose of mortgage loan underwriter's evaluation is to get to know the patient better and to assess the appropriateness of the patient for transplant from a psychosocial perspective. Patient was re-educated regarding the psychosocial issues and commitment involved with kidney transplantation, including the importance of adherence to posttransplant follow- up appointments, lab work and taking immunosuppressive medication. The cause of the patient's kidney disease is listed as hypertension.The patient is not yet on dialysis. According to patient he participated in home dialysis training in July of this year. Patient added that he lost some weight and did not need to start dialysis. Patient is reporting no limiting symptoms. Patient continues to work full-time. Patient is also endorsing having excellent sleep . When discussing his thoughts regarding going forward with transplant patient continues to accept the potential need for this treatment. Social history: Patient was born and raised in [place]. He came to live in the [facility] in [place]. Patient and Denisa live in their own home in [place]. The couple have been together for 24 years. Also in the homeis Denisa's 31-year-old son. According to Denisa her son carries an autism diagnosis. Patient's 3brothers live upstairs from the couple in this two -family home. Patient's parents are . Patient's sister resides in [place]. Patient has various nieces and nephews in the area. The patient completed grade 10. 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 He has worked with the [employer] for 14 years. Patient reports no service or benefits.For relaxation, patient continues to enjoy working on cars and playing video games. According to patient adventism or spirituality is not a source of support in his life. Financial history: The source of income for the patient is his full-time employment. Denisa receives food stamps. Thecouple report housing and food security. The patient is insured by his employer group health plan [employer]. Miller First briefly re- educated the couple on ESRD Medicare as it coordinates with employergroup health plans. Miller First reminded patient to inform the transplant team of any insurance changes or concerns. Miller First added that it is best practice to consult with the transplant team prior to making any insurance changes. Miller First discussed the family and medical leave act coverage for any potential future need. Support system: The patient reports being independent in all of his activities of daily living including medicationand appointment management. The patient reports no use of any assistive devices. According to patient there are no agencies assisting with any community services. In the event of a transplant Denisa continues to state that she will be patient's main source of social support. Denisa drives and has a flexible schedule. Denisa is not employed outside of the home. According to Denisa she will always be there for the patient. She states that she would rearrange her schedule at any time to be at appointments with patient. According to Denisa she wants to be present during appointments to know what is happening with the patient. If a backup is ever needed, Denisa states that patient's brothers are all upstairs and would help in a pinch. Patient discussed living donor potential. According to Denisa a few family members have offered totest. Denisa also is willing to test as well as her son. According to the couple, they are aware that if Denisa were to donate, due to her own recovery needs, staggering their surgeries and/or having additional support, would be crucial. Miller First also briefly re-educated the patient on the NationalKidney Registry (NKR) as a potential source for actively listed patients to find a living donor. Miller First informed patient that potential donors need to initiate their own education and evaluation, by either calling the transplant clinic or reaching out to NKR. Substance use/substance treatment: The patient reports no history of alcohol concerns or treatment. He reports no alcohol use. Patientreports no past or present use of any recreational substances. He reports no past or present misuse/overuse of any opiates/narcotics. Patient reports no history of smoking. Patient reports no alcoholor substance use concerns in his environment or life situation. Psychiatric treatment: The patient reports no history of inpatient or outpatient mental health care. He reports no historyof use of any medications for mood support. Denisa has stated, that He's always happy . Denisa has added that patient Always has a smile on his face and that she is the one who does most of the worrying. Patient reported no limiting mood concerns. His presentation is quiet and laid back, however patient engages readily in the conversation. Miller First reminded patient of the potential psychosocial risks of transplant including depression, anxiety, PTSD and guilt. Miller First added that in the event of any such concerns the transplant team is available for support. Mental status assessment: The patient was neat in appearance. Patient engaged quietly, yet effectively in the conversation. Patient's attitude was positive, cooperative and forward- looking. His affect was within normal range for the conversation. Patient's speech was clear. His thoughts were well-formed and logical. Patientis oriented to person, place, time and situation. Patient is reporting no limiting mood concerns. Patient is reporting no changes or concerns with memory, focus or concentration. Patient appears to demonstrate realistic insight into his illness, as he continues to work, care for himself and family and plan for his future. Impression: The patient continues to appear to have a clear understanding of the process and commitment involved in transplant. Patient is not on dialysis, however as previously stated, presents today as part ofplanning for his medical future. The patient reports having a safe, secure home. He reports having reliable social support from his significant other and realistic potential for backup support, from his brothers living upstairs from him. The patient reports adequate health insurance and prescription coverage. He reports stable finances. Patient reports no alcohol or substance use. He is reportingno mental health concerns. Patient is reporting no cognitive concerns. Given the information received today, patient does appear to continue to be a suitable candidate for transplant from a psychosocial perspective. Plan: 1. Process Designer provided contact information to the patient. 2. Process Designer reminded patient of the Social Work role and that of the transplant team going forward. 3. Process Designer reminded patient of the [facility] pre and post transplant educational support group being held by [employer]. 4. Patient maintains a healthcare proxy listing his significant other Denisa ÁlvarezDom, as his healthcare agent. 5. Patient maintains an authorization for verbal communications listing his significant other Denisa. documented in this encounter Plan of Treatment Upcoming Encounters Date Type Department Care Team (Late st Contact Info) Description 05/02/2026 10:00 AM EST Follow-Up [facility] Renal Transplant [address] [place] [address] Tobi Pollard MD [address] [place] [id number] 05/02/2026 10:30 AM EST Social Work [facility] Renal Transplant [address] [place] [address] Tobi Pollard MD [address] [place] [address] Cecelia Hinton LICSW [address] [place] [address] documented as of this encounter Visit Diagnoses Not on filedocumented in this encounter Care Teams Cellular Phone Repairer Relationship Specialty Start Date End Date Ref, Hasnoisis DO NOT EDIT THIS RECORD VIA PROVIDER ON THE FLY PCP - General Sewing Techniques Demonstrator 05/06/24 documented as of this encounter
--- OUTSIDE RECORDS SUMMARY | 2025-05-07 10:07 | XMS_ITS | Encounter Summary ---
Author Organization [facility] Address [address] [place] [address] Care Team Providers Care Paster Operator Name Role Phone Ref, Hasnopcp Primary Care Provider Unavailabl e Encounter Details Date Type Department Care Team (Late st Contact Info) Description 05/03/2025 Orders Only [facility] Transplant Department [address] [place] [address] Lori Mustafa RN [address] [place] [id number] Pre-transplant evaluation for end stage renal disease (Primary Dx) Social History Tobacco Use Types Packs/Day Years [...] on file documented as of this encounter Plan of Treatment Upcoming Encounters Date Type Department Care Team (Late st Contact Info) Description 05/02/2026 10:00 AM EST Follow-Up [facility] Renal Transplant [address] [place] [address] Tobi Pollard MD [address] [place] [address] 05/02/2026 10:30 AM EST Social Work [facility] Renal Transplant [address] [place] [address] Tobi Pollard MD [address], [place] [phone] Cecelia Hinton LICSW [address], [place] [phone] documented as of this encounter Visit Diagnoses Diagnosis Pre-transplant evaluation for end stage renal disease- Primary Other specified pre-operative examination documented in this encounter Care Teams Paster Operator Relationship Specialty Start Date End Date Ref, Hasnopcp DO NOT EDIT THIS RECORD VIA PROVIDER ON THE FLY PCP - General Electronic News Gathering Editor 05/06/24 documented as of this encounter
--- OUTSIDE RECORDS SUMMARY | 2025-05-07 10:07 | XMS_ITS ---
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) Hypertensive Nephrosclerosis Care Team Name Role Phone Fax Email Lori Mustafa RN Kidney Coordinator [phone] N/A David Antonio Referring Physician [phone] N/A Events Pre-Transplant Referred: 04/15/2024 Evaluation began: 05/06/2024 Committee: 09/01/2024 Center waitlisted: 09/14/2024 Appointments (04/07/2025 - 06/07/2025) When With Visit Type Description 05/03/2025 Transplant - Belem Hinton Follow U p 05/03/2025 Transplant - Amelia Pollard Follow Up Pre -transplant evaluation for kidney transplant (Primary Dx); Stage 5 chronic kidney disease not on chronic dialysis
--- OUTSIDE RECORDS SUMMARY | 2025-05-07 10:07 | XMS_ITS | Clinical Summary ---
Author Organization [facility] Address [address] [place] [address] Care Team Providers Care Screen Printing Inspector Name Role Phone Ref, Hasnopcp Primary Care Provider Unavailabl e Allergies No known active allergies Medications amLODIPine [...] Encounters Date Type Department Care Team Description 05/03/2025 10:30 AM EST Social Work [facility] Renal Transplant [address] [place] [address] Cecelia Hinton LICSW 05/03/2025 10:00 AM EST Follow-Up [facility] Renal Transplant [address] [place] [address] Tobi Pollard MD Pre-transplant evaluation for kidney transplant (Primary Dx); Stage 5 chronic kidney disease not on chronic dialysis 05/03/2025 Orders Only [facility] Transplant Department [address] [place] [address] Lori Mustafa RN Pre-transplant evaluation for end stage renal disease (Primary Dx) from Last 3 Months Social History Tobacco [...] oz) 05/03/2025 9:43 A M EST Height 174 cm (5' 8.5 ) 05/06/2024 8:07 AM EST Body Mass Index 25.5 05/06/2024 8:07 AM EST Plan of Treatment Upcoming Encounters Date Type Department Care Team (Late st Contact Info) Description 05/02/2026 10:00 AM EST Follow-Up [facility] Renal Transplant [address] [place] [address] Tobi Pollard MD [address] [place] [address] 05/02/2026 10:30 AM EST Social Work [facility] Renal Transplant [address] [place] [address] oTbi Pollard MD [address] [place] [address] Cecelia Hinton LICSW [address] [place] [address] Health Maintenance Due Date Last Done Comments 25 Hydroxy / Vitamin D 1981 Basic Metabolic Panel 1981 PTH 1981 Urine Microalbumin 1991 Varicella Vaccines (1 of 2 - 13+ 2-dose series) 1994 DTaP,Tdap,and Td Vaccines (1 - Tdap) 2003 Diabetes Screening 01/11/2016 Alcohol/Substance Use Screening 06/02/2024 Depression Screening and Follow-Up 06/02/2024 Social Drivers of Health Annual Screening 06/02/2024 Influenza Vaccine (#1) 2024 COVID-19 Vaccine (1 - 2024-2 6 season) 2025 Hemoglobin 05/06/2025 05/06/2024 Phosphorus 05/06/2025 05/06/2024 HIV Screening Completed 05/06/2024 Hepatitis C Screening Completed 05/06/2024 Hepatitis B Vaccines Completed 12/24/2024, 11/02/2024 CKD: Referral to Nephrology Completed 05/03/2025 Pneumococcal Vaccine: Pediatric (0-5 Years) and At-Risk Patients (6-50 Years) Aged Out No longer eligible based on patient's age to complete this topic Procedures * Due to [place] law, this organization might not be sharing [...] to Health Maintenance Results * Due to [place] law, this organization might not be sharing negative HIV tests. * (ABNORMAL) CBC Auto Differential (05/06/2024 11:27 AM EST) WBC 8.1 3.8 - 10.8 10*3/uL 05/06/2024 11:51 AM EST [facility] RBC 4.64 4.20 - [...] 0.04(H) <=0.03 10*3/uL 05/06/2024 11:51 AM EST [facility] Lymphocyte # 1.00 0.85 - 3.90 10*3/uL 05/06/2024 11:51 AM EST [facility] Monocyte # 0.30 0.20 - 0.95 10*3/uL 05/06/2024 11:51 AM EST [facility] Eosinophil # 0.10 0.02 - 0.50 10*3/uL 05/06/2024 11:51 AM EST [facility] Basophil # <0.03 0.00 - 0.20 10*3/uL 05/06/2024 11:51 AM EST [facility] nRBC % 0.0 /100 WBCs 05/06/2024 11:51 AM EST [facility] nRBC # <0.01 <0.01 10*3/uL 05/06/2024 11:51 AM EST [facility] Blood Structure of peripheral vein / Unknown Venipuncture / Unknown 05/06/2024 11:27 AM EST 05/06/2024 11:42 AM EST Tobi Pollard MD LAB BLOOD ORDERABLES Monica l Result Performing Organization Address City/State/[facility] Co de Phone Number [facility] Giving Assistant [facility] LAB[facility] [address] [place] [address], * Hepatitis C Antibody w/Reflex to PCR (05/06/2024 11:27 AM EST) Hepatitis C Antibody NON-REACT KISHA NON-REACT KISHA 05/07/2024 3:30 AM EST [email or web address] [facility] Comment: HCV antibody was non-reactive. There is no laboratory evidence of HCV infection. In most cases, no further action is required. However, if recent HCV exposure is suspected, a test for HCV RNA (test code 10595) is suggested. For additional information please refer to http://education.m0um0u/faq/PTO34j7 (This link is being provided for informational/ educational purposes only.) Blood Structure of peripheral vein / Unknown Venipuncture / Unknown 05/06/2024 11:27 AM EST 05/06/2024 11:42 AM EST Narrative [facility] 05/07/2024 3:30 AM EST [facility] Received Date: Tobi Pollard MD LAB BLOOD ORDERABLES Monica l Result [facility] [address], [place] [address], [place] [phone] [facility] [address], [place] [address], [place] [phone] * Phosphorus (05/06/2024 11:27 AM EST) Phosphorus 3.8 2.5 - 4.5 mg/dL 05/06/2024 12:13 PM EST [facility] Blood Structure of peripheral vein / Unknown Venipuncture / Unknown 05/06/2024 11:27 AM EST 05/06/2024 11:42 AM EST Tobi Pollard MD LAB BLOOD ORDERABLES Monica l Result [facility] [address] [place] [address], from Last 3 Months or Most Recently Relevant to Health Maintenance Insurance [employer] Advance Directives Documents on File Type Date Recorded Patient Fish Tender Expl [facility] Health Care Proxy 05/11/2024 1:39 PM 12-0 Care Teams Screen Printing Inspector Relationship Specialty Start Date End Date Ref, [place] DO NOT EDIT THIS RECORD VIA PROVIDER ON THE FLY PCP - General Cafeteria Team Leader 05/06/24
[2025-05-07 10:33] LABS: MANUAL DIFF FLAG NO
[2025-05-07 10:43] LABS: Hematocrit 36.7 % (42.0-52.0); Hemoglobin 12.5 g/dl (14.0-18.0); Imm Gran Abs Auto 0.01 X10*3/uL (0.00-0.03); Imm Gran Pct Auto 0.1 % (0.0-0.4); Lymphocytes Absolute Auto 0.9 X10*3/uL (1.2-4.9); Mean Corpuscular HGB Conc 34.1 g/dl (31.0-36.0); Mean Corpuscular Hemoglobin 30.7 pg (27.0-33.0); Mean Corpuscular Volume 90.2 fL (80.0-98.0); NRBC Abs Auto 0.000 X10*3/uL (0.0-0.012); NRBC Pct Auto 0.0 /100WBC (0.0-0.2); Platelet Count 283 X10*3/uL (160-400); Red Blood Count 4.07 X10*6/uL (4.60-5.80); White Blood Count 7.0 X10*3/uL (4.8-10.8)
[2025-05-07 11:04] LABS: Appearance Urine Cloudy; Glucose Urine UA Negative (Negative); PH 6.0 (5.0-9.0); Specific Gravity - Urine 1.010 (1.005-1.025); UMIC TRIGGER UACC YES
[2025-05-07 11:41] LABS: Ferritin 156 ng/mL (20-250)
[2025-05-07 12:41] LABS: Alanine Aminotransferase 13 U/L (0-40); Albumin Level 4.6 g/dL (3.5-5.0); Alkaline Phosphatase 76 U/L (39-117); Anion Gap 16 (12-20); Aspartate Amino Transferase 15 U/L (5-37); Blood Urea Nitrogen 74 mg/dL (9-16); Calcium 9.0 mg/dL (8.4-10.2); Carbon Dioxide 23 mmol/L (22-29); Chloride 107 mmol/L (96-108); Cholesterol 167 mg/dL (<200); HDL Cholesterol 50 mg/dL (>40); Iron 63 mcg/dL (45-160); Percent Iron Saturation 26 % (15-50); Potassium 3.9 mmol/L (3.3-5.1); Sodium 142 mmol/L (135-145); Total Iron Binding Capacity 241 mcg/dL (228-428); Total Protein 6.9 g/dL (6.5-8.0); Triglycerides 89 mg/dL (<150); Unsaturated Iron Binding 178 ug/dL; Uric Acid 8.3 mg/dL (3.4-7.0)
[2025-05-07 12:45] LABS: Estimated Glomerular Filt Rate 8
== END 2025-05-07 10:05 | disposition home or self-care (01) ==
LOC: HO.LAB 10:04
PROVIDERS: Internal Medicine Nephrology; PCP Internal Medicine; Visit Provider Internal Medicine
DX: N18.5 Chronic kidney disease, stage 5 (principal); E78.00 Pure hypercholesterolemia, unspecified; E55.9 Vitamin D deficiency, unspecified; E79.0 Hyperuricemia without signs of inflammatory arthritis and tophaceous disease
CPT/HCPCS: 36415; 80053; 80061; 81001; 81003; 82306; 82728; 83540; 84100; 84443; 84550; 85025

== ENCOUNTER 2025-05-16 15:40 | Outpatient (REF) | payer OTHER, SELFPAY ==
[2025-05-16 16:14] LABS: MANUAL DIFF FLAG NO
[2025-05-16 17:11] LABS: Hematocrit 34.4 % (42.0-52.0); Hemoglobin 11.6 g/dl (14.0-18.0); Imm Gran Abs Auto 0.02 X10*3/uL (0.00-0.03); Imm Gran Pct Auto 0.3 % (0.0-0.4); Lymphocytes Absolute Auto 1.2 X10*3/uL (1.2-4.9); Mean Corpuscular HGB Conc 33.7 g/dl (31.0-36.0); Mean Corpuscular Hemoglobin 30.6 pg (27.0-33.0); Mean Corpuscular Volume 90.8 fL (80.0-98.0); NRBC Abs Auto 0.000 X10*3/uL (0.0-0.012); NRBC Pct Auto 0.0 /100WBC (0.0-0.2); Platelet Count 301 X10*3/uL (160-400); Red Blood Count 3.79 X10*6/uL (4.60-5.80); White Blood Count 7.5 X10*3/uL (4.8-10.8)
[2025-05-16 18:03] LABS: Anion Gap 14 (12-20); Blood Urea Nitrogen 80 mg/dL (9-16); Calcium 8.8 mg/dL (8.4-10.2); Carbon Dioxide 25 mmol/L (22-29); Chloride 103 mmol/L (96-108); Estimated Glomerular Filt Rate 8; Ferritin 136 ng/mL (20-250); Iron 58 mcg/dL (45-160); Percent Iron Saturation 25 % (15-50); Potassium 4.4 mmol/L (3.3-5.1); Sodium 138 mmol/L (135-145); Total Iron Binding Capacity 230 mcg/dL (228-428); Unsaturated Iron Binding 172 ug/dL
--- OUTSIDE RECORDS SUMMARY | 2025-05-16 22:09 | XMS_ITS | Clinical Summary ---
Author Organization [facility] Address [address] [place] [address] Care Team Providers Care Campground Manager Name Role Phone Ref, Hasnopcp Primary [...] Description 05/03/2025 10:30 AM EST Social Work [facility] [address] [place] [address] Cecelia Hinton LICSW 05/03/2025 10:00 AM EST Follow-Up [facility] [address] [place] [address] Tobi Pollard MD Pre-transplant evaluation for kidney transplant (Primary Dx); Stage 5 chronic kidney disease not on chronic dialysis 05/03/2025 Orders Only [facility] Trans[facility] Department [address] [place] [address] Lori Mustafa RN Pre-transplant evaluation for end [...] Info) Description 05/02/2026 10:00 AM EST Follow-Up [facility] [address] [place] [address] Tobi Pollard MD [address] [place] [address] 05/02/2026 10:30 AM EST Social Work [facility] [address] [place] [address] Tobi Pollard MD [address] [place] [address] Cecelia Hinton LICSW [address] [place] [address] Health Maintenance Due Date Last Done Comments 25 Hydroxy / Vitamin D 1981 Basic Metabolic Panel 1981 PTH 1981 Urine Microalbumin 1991 Varicella Vaccines (1 of 2 - 13+ 2-dose series) 1994 DTaP,Tdap,and Td Vaccines (1 - Tdap) 2003 Alcohol/Substance Use Screening 06/02/2024 Depression Screening and [...] complete this topic Procedures * Due to [place] law, this organization might not be sharing [...] to Health Maintenance Results * Due to [place] law, this organization might not be sharing negative HIV tests. * (ABNORMAL) CBC Auto Differential (05/06/2024 11:27 AM EST) WBC 8.1 3.8 - 10.8 10*3/uL 05/06/2024 11:51 AM EST [facility] RBC 4.64 4.20 - 5.80 10*6/uL 05/06/2024 11:51 AM EST [facility] Hemoglobin 13.8 13.2 - [...] 0.04(H) <=0.03 10*3/uL 05/06/2024 11:51 AM EST [facility] Lymphocyte # 1.00 0.85 - 3.90 10*3/uL 05/06/2024 11:51 AM EST [facility]ule[facility]ILoom[facility] - agreement24 avtal24 [facility] Monocyte # 0.30 0.20 - 0.95 10*3/uL 05/06/2024 11:51 AM EST [facility] - agreement24 avtal24 [facility] Eosinophil # 0.10 0.02 - 0.50 10*3/uL 05/06/2024 11:51 AM EST [facility] Basophil # <0.03 0.00 - 0.20 10*3/uL 05/06/2024 11:51 AM EST [facility] nRBC % 0.0 /100 WBCs 05/06/2024 11:51 AM EST [facility] nRBC # <0.01 <0.01 10*3/uL 05/06/2024 11:51 AM EST [facility] Blood Structure of peripheral vein / Unknown Venipuncture / Unknown 05/06/2024 11:27 AM EST 05/06/2024 11:42 AM EST us Tobi Pollard MD LAB BLOOD ORDERABLES Monica abernathy Result [facility] [address] [place] [address], * Hepatitis C Antibody w/Reflex to PCR (05/06/2024 11:27 AM EST) Hepatitis C Antibody NON-REACT KISHA NON-REACT KISHA 05/07/2024 3:30 AM EST [facility] Comment: HCV antibody was non-reactive. There is no laboratory evidence of HCV infection. In most cases, no further action is required. However, if recent HCV exposure is suspected, a test for HCV RNA (test code 72684) is suggested. For additional information please refer to http://education.[employer]/faq/QOK97k0 (This link is being provided for informational/ educational purposes only.) Blood Structure of peripheral vein / Unknown Venipuncture / Unknown 05/06/2024 11:27 AM EST 05/06/2024 11:42 AM EST Narrative [facility] - 05/07/2024 3:30 AM EST [facility] Received Date: Tobi Pollard MD LAB BLOOD ORDERABLES Monica l Result [facility] [address] [facility] [address], [place] [address], [place] [phone] [facility] [address], [place] [address], [place] [phone] * Phosphorus (05/06/2024 11:27 AM EST) Phosphorus 3.8 2.5 - 4.5 mg/dL 05/06/2024 12:13 PM EST [facility] Blood Structure of peripheral vein / Unknown Venipuncture / Unknown 05/06/2024 11:27 AM EST 05/06/2024 11:42 AM EST Tobi Pollard MD LAB BLOOD ORDERABLES Monica l Result [facility] [address] [place] [address] from Last 3 Months or Most Recently Relevant to Health Maintenance Insurance [employer] Advance Directives Documents on File Type Date Recorded 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 Health Care Proxy 05/11/2024 1:39 PM 12-0 Care Teams Campground Manager Relationship Specialty Start Date End Date Ref, [place] DO NOT EDIT THIS RECORD VIA PROVIDER ON THE FLY PCP - General Coding Spec 05/06/24
--- OUTSIDE RECORDS SUMMARY | 2025-05-16 22:09 | XMS_ITS ---
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) Hypertensive Nephrosclerosis Care Team Name Role Phone Fax Email Lori Mustafa RN Kidney Coordinator [phone] N/A David Antonio Referring Physician [phone] N/A Events Pre-Transplant Referred: 04/15/2024 Evaluation began: 05/06/2024 Committee: 09/01/2024 Center waitlisted: 09/14/2024 Appointments (04/16/2025 - 06/16/2025) When With Visit Type Description 05/03/2025 Transplant - Belem Hinton Follow U p 05/03/2025 Transplant - Amelia Pollard Follow Up Pre -transplant evaluation for kidney transplant (Primary Dx); Stage 5 chronic kidney disease not on chronic dialysis
--- OUTSIDE RECORDS SUMMARY | 2025-05-16 22:09 | XMS_ITS | Patient Health Record ---
Author Organization [facility] Address [address] [place] [address] Care Team Providers Care Code Official Name Role Phone Reynaldo SAMAYOA, Dwayne Primary Care Provider Lori Jasmine Unavailable [phone] Allergies No Known Allergies Reason For Referral No Information Medications Medication SIG (Take, Route, Frequency, Duration) Notes Start Date End Date Status Atorvastatin Calcium 10 MG 1 tablet Oral ly Once a day; Duration: 30 day(s) Active Ciclopirox 0.77 % 1 application Will Call Order Clerk ally Twice a day; Duration: 365 days [...] Notes Problem Gouty arthritis of right foot ([id number]) Gouty arthritis of right foot (M10.9) Active confirmed Plan Of Treatment Pending Test Test Name Order Date , [id number]/INJECT, JOINT/BURSA 0 09/20/2022 Insurance Providers Payer Name Payer Address Payer Phone Subscriber Number Group Number Insured Name Patient Relationship to Insured Coverage Start Date Coverage End Date [employer] Benefits [address] [address] [place] [address] [id number] Nasir Jo Self - patient is the insured Medical (General) History Medical History History ICD Code Hypertension Hyperlipidemia Chronic Kidney Disease, stage III (moder ate) Vitamin D deficiency Obesity Surgical History Surgery Date(Month/Year) eye surgery
== END 2025-05-16 15:41 | disposition home or self-care (01) ==
LOC: HO.LAB 15:40
PROVIDERS: PCP Internal Medicine; Visit Provider Internal Medicine Nephrology
DX: I12.9 Hypertensive chronic kidney disease with stage 1 through stage 4 chronic kidney disease, or unspecified chronic kidney disease (principal); N18.6 End stage renal disease; E78.00 Pure hypercholesterolemia, unspecified; E79.0 Hyperuricemia without signs of inflammatory arthritis and tophaceous disease; E55.9 Vitamin D deficiency, unspecified; E66.3 Overweight; J30.2 Other seasonal allergic rhinitis; H40.211 Acute angle-closure glaucoma, right eye; Z68.25 Body mass index [BMI] 25.0-25.9, adult
CPT/HCPCS: 36415; 80051; 82310; 82565; 82728; 83540; 84100; 84520; 85025

== ENCOUNTER 2025-05-16 16:56 | Outpatient (AMB) | payer OTHER, SELFPAY ==
--- NOTE | 2025-05-16 17:07 | MHC.PC.OV ---
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 Required: No Accompanied by: Self / Same As Patient Allergies No Known Allergies Allergy (Verified 05/23/25 03:17) Medication List - Last Reconciled 05/16/25 by Dwayne Jacobs MD allopurinol 100 mg PO DAILY amlodipine 5 mg PO BID atorvastatin 20 mg PO DAILY 90 days calcitriol 0.25 mcg PO 3XW cholecalciferol (vitamin D3) 25 mcg PO DAILY 90 days fexofenadine 180 mg PO DAILY PRN 30 days fluticasone propionate 50 mcg/actuation 2 sprays intranasal DAILY PRN 30 days loratadine 10 mg PO DAILY PRN 90 days nystatin 1 appl topical TID 10 days omega-3 fatty acids (Fish Oil Concentrate) 1,000 mg PO DAILY Tobacco use date assessed: 01/18/25 Dental Screening Dental Screen Date: 01/18/25 HPI 3 Months HPI Details Patient comes in today for his follow up visit States that he feels okay He denies any headaches or dizziness Denies any chest pains, no SOB No nausea/vomiting, no abdominal pain No change in bowel habits noted Needs his Amlodipine Rx refilled He had his follow up labs done about a week ago - to discuss his results [facility] Medical History Hyperuricemia Allergic rhinitis Chronic kidney disease, stage V Chronic kidney disease, stage 4 (severe) Overweight (BMI 25.0-29.9) Acute angle-closure glaucoma of right eye Obesity (BMI 30-39.9) Vitamin D deficiency Pure hypercholesterolemia Benign essential hypertension Surgical History History of eye surgery Family History Father Medical history unknown Mother Cancer Social History Housing: House Alcohol intake: never Patient Tobacco Use Status: Never used Tobacco e-Cigarette/Vaping Use: Never Used Second Hand Smoke Exposure: Yes service: No Current occupational status: employed 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 Depression Screening Interpretation: Negative Depression Screening Done: Yes Source: Developed by Drs. Crow Marley, Dafne Rivero, Micky Leos and colleagues, with an educational zafar from [employer]. Thrive Questionnaire Date Thrive assessed: 01/18/25 I am a: Patient What is your living situation today?: I have a steady place to live Within the past 12 months, did the food you bought not last and you didn't have the money to get more?: Never true Within the past 12 months, did you worry whether your food would run out before you got money to buy more?: Never true Do you have trouble paying for medicines?: No Do you have trouble getting transportation to medical appointments?: No Do you have trouble paying your heating and electricity bill?: No Do you have trouble taking care of your child, family member or friend?: No Do you have trouble with day-to-day activities such as bathing, preparing meals, shopping, managing finances, etc.?: No Are you currently unemployed and looking for a job?: Yes Are you interested in more education?: No Please select the resources that you would like help with: None Currently or been in a relationship where the following occur: No concerns reported THRIVE Score: 0 AUDIT C Alcohol Use Questionnaire (AUDIT-C) 3. How often do you have six or more drinks on one occasion?: Never Total Score: 0 GUERA-7 AMB Questionnaire GUERA-7 Date GUERA - 7 assessed: 01/18/25 Source: Developed by Drs. Crow Marley, Dafne Rivero, Micky Leos and colleagues, with an educational zafar from [employer]. Review of Systems Const Denies chills, Denies fatigue, Denies fever(s) and Denies headache(s) ENT Denies dysphagia, Denies dizziness, Denies otalgia, Denies headache(s), Denies neck pain, Denies odynophagia and Denies sore throat Card Denies chest pain, Denies palpitations and Denies dyspnea Resp Denies chest congestion, Denies cough and Denies dyspnea GI Denies abdominal pain, Denies dysphagia, Denies diarrhea, Denies nausea, Denies odynophagia and Denies vomiting Denies difficulty urinating, Denies dysuria, Denies nocturia and Denies urinary frequency Musc Denies back pain and Denies neck pain Skin/Breast Denies rash Neuro Denies dizziness and Denies headache(s) Endo Denies fatigue and Denies palpitations Aller/Immun Reports seasonal rhinorrhea Physical exam (Primary Care) Vital Signs: Last Vital Signs Temp 97.3 F 05/16/25 17:09 Pulse 76 05/16/25 17:09 BP 138/88 05/16/25 17:09 Pulse Ox 98 05/16/25 17:09 Oxygen Delivery Method Room Air 05/16/25 17:09 BMI result Body Mass Index 25.9 Tobacco/Smoking Status: Tobacco use Status Tobacco use date assessed 01/18/25 05/16/25 17:08 Patient Tobacco Use Status Never used Tobacco 05/16/25 17:08 e-Cigarette/Vaping Use Never Used 05/16/25 17:08 Depression Screening Interpretation: Negative Thrive Assessment: Date of Thrive Assessment Date Thrive assessed 01/18/25 05/16/25 17:08 Currently or been in a relationship where the following occur: No concerns reported Const General: no acute distress and alert [facility] Throat: Yes posterior oropharynx normal and Yes tonsils normal (no TP congestion) Neck Neck: Yes supple and No lymphadenopathy Thyroid: Thyroid normal Resp Auscultation: clear to auscultation bilaterally, no rales and no wheezes Cardio Rate: regular rate Rhythm: regular rhythm Heart sounds: no murmurs GI Palpation (GI): Soft to palpation and nontender Auscultation: normal bowel sounds General: Yes no CVA tenderness Back/Spine/Pelvis Back: no CVA tenderness Thoracic/Lumbar Spine: No lumbar spinal tenderness Skin Rashes: no rashes Extrem General: Yes no clubbing, cyanosis or edema Results Reviewed Results Reviewed: Laboratory Tests 05/07/25 05/07/25 05/16/25 10:27 10:32 16:06 WBC 7.5 Hgb 11.6 L Hct 34.4 L Plt Count 301 Sodium 142 Potassium 3.9 Creatinine 7.29 H* Estimated GFR 8 Fasting Glucose 90 Uric Acid 8.3 H Calcium 9.0 Phosphorus 5.0 H Iron 63 TIBC 241 % Saturation 26 Ferritin 156 AST 15 ALT 13 Triglycerides 89 Cholesterol 167 LDL Cholesterol, Calc 100 H HDL Cholesterol 50 25-OH Vitamin D Total 51.9 TSH 2.91 Ur Specific [place] 1.010 Urine Protein 300 (3+) H Urine Glucose (UA) Negative Urine Blood Trace H Urine Nitrite Negative Ur Leukocyte Esterase Negative Coding Level of Care Code Est Pt Level 4 (68759) Diagnoses Benign essential hypertension I10 Chronic kidney disease, stage V N18.5 Pure hypercholesterolemia E78.00 Hyperuricemia E79.0 Vitamin D deficiency E55.9 Seasonal allergic rhinitis, unspecified trigger J30.2 Allergic rhinitis seasonality: seasonal Allergic rhinitis trigger: unspecified Acute angle-closure glaucoma of right eye H40.211 Overweight (BMI 25.0-29.9) E66.3 Assessment & Plan Assessment & Plan (1) Benign essential hypertension: Code(s): I10 - Essential (primary) hypertension Category: Medical Plan: Reinforced low sodium diet - goal is systolic BP of 120 mm or less due to his CKD Continue Amlodipine 5 mg BID - Rx refilled Lisinopril 5 mg QD was discontinued by nephrology a few months ago because of his declining renal function Patient is reminded to continue monitoring his blood pressure regularly (2) Chronic kidney disease, stage V: Code(s): N18.5 - Chronic kidney disease, stage 5 Category: Medical Plan: Patient has been referred to [facility] in [place] for renal transplant and he is currently undergoing pretransplant evaluation He has also been referred by Dr. Antonio for the transplant list at [facility] Follow up with nephrology as scheduled (3) Pure hypercholesterolemia: Code(s): E78.00 - Pure hypercholesterolemia, unspecified Category: Medical Plan: Results of his labs done about a week ago reviewed and discussed with patient - his fasting lipids have improved slightly from his previous numbers in June 2024 Reinforced low cholesterol diet Continue Atorvastatin 20 mg QD Will recheck his fasting lipids and labs in 3 months for follow up (4) Hyperuricemia: Code(s): E79.0 - Hyperuricemia without signs of inflammatory arthritis and tophaceous disease Category: Medical Plan: His serum uric acid level was still elevated at 8.3 mg/dl on his recent labs - this is likely due to his renal failure Continue Allopurinol 100 mg QD Will recheck his uric acid level in 3 months for follow up (5) Vitamin D deficiency: Code(s): E55.9 - Vitamin D deficiency, unspecified Category: Medical Plan: Continue Vitamin D3 2000 units QD (6) Allergic rhinitis: Code(s): J30.9 - Allergic rhinitis, unspecified Category: Medical Qualifiers: Allergic rhinitis seasonality: seasonal Allergic rhinitis trigger: unspecified Qualified Code(s): J30.2 - Other seasonal allergic rhinitis Plan: Continue Fexofenadine 180 mg QD PRN and Fluticasone 50 mcg nasal spray QD PRN (7) Acute angle-closure glaucoma of right eye: Comment: S/P emergent laser peripheral iridotomy on 07/17/2020 Also had cataract extraction of the right eye on 08/02/2020 Had glaucoma implant drain placed in November 2020 Code(s): H40.211 - Acute angle-closure glaucoma, right eye Category: Medical Plan: He initially failed laser surgery (iridotomy) on 11/16/20 and patient underwent a stent (glaucoma implant drain) insertion in his eye on 12/07/[address] Max, with significant improvement of his eye symptoms since States that he's had no problems with his vision and has no eye pain lately although he still has some light sensitivity in the right eye Follow up with ophthalmology as scheduled (8) Overweight (BMI 25.0-29.9): Code(s): E66.3 - Overweight Category: Medical Plan: Reinforced diet/exercise as tolerated/lose weight Plan Follow up in 3 months Orders: Orders Complete Blood Count Auto Diff 3 Months D64.9 - Anemia, unspecified Comprehensive [place]. Panel Fast 3 Months E78.00 - Pure hypercholesterolemia, unspecified Lipid Panel 3 Months E78.00 - Pure hypercholesterolemia, unspecified UA CC w/rflx Micro + Cult 3 Months R30.0 - Dysuria Uric Acid 3 Months E79.0 - Hyperuricemia without signs of inflammatory arthritis and tophaceous disease Vitamin D 25-OH Total 3 Months E55.9 - Vitamin D deficiency, unspecified Medications: Refilled amlodipine 5 mg PO BID 60 tabs 5RF
[2025-05-16 17:09] VITALS: BP 138/88; PULSE 76; TEMP 36.3; O2SAT 98; BMI 25.9
== END 2025-05-16 17:36 | disposition home or self-care (01) ==
LOC: HO.HMCH 16:56
PROVIDERS: PCP Internal Medicine; Visit Provider Internal Medicine
DX: I12.0 Hypertensive chronic kidney disease with stage 5 chronic kidney disease or end stage renal disease (principal); N18.5 Chronic kidney disease, stage 5; E78.00 Pure hypercholesterolemia, unspecified; E79.0 Hyperuricemia without signs of inflammatory arthritis and tophaceous disease; E55.9 Vitamin D deficiency, unspecified; J30.2 Other seasonal allergic rhinitis; H40.211 Acute angle-closure glaucoma, right eye; E66.3 Overweight

== ENCOUNTER 2025-05-20 14:34 | Outpatient (AMB) | payer OTHER, SELFPAY ==
--- NOTE | 2025-05-20 14:44 | HO.NEPHOV_ITS ---
Vital Signs 05/20/25 14:45 Height 5 ft 8 in Weight 172 lb BMI 26.1 BP 120/80 Blood Pressure Location Lt brachial Position Sitting Pulse 90 Pulse Source Pulse Oximeter Pulse Oximetry (%) 97 Oxygen Delivery Method Room Air Intake Visit Reasons: 2mon f/u w/labs-Conf w/ Surgery Manager Required: No Accompanied by: Spouse Allergies No Known Allergies Allergy (Verified 05/20/25 14:45) HPI Comments Details: Nasir was in follow-up of his chronic kidney disease and hypertension .He remains compliant with his medications. His BP is well controlled. He has no orthostatic or uremic symptoms. He denies nausea, vomiting, diarrhea, chest pain, shortness of breath, paroxysmal nocturnal dyspnea, orthopnea, pedal edema or urinary symptoms. He is compliant with his medications. He does not take any nonsteroidal anti-inflammatories. [facility] Medical History Hyperuricemia Allergic rhinitis Chronic kidney disease, stage V Chronic kidney disease, stage 4 (severe) Overweight (BMI 25.0-29.9) Acute angle-closure glaucoma of right eye Obesity (BMI 30-39.9) Vitamin D deficiency Pure hypercholesterolemia Benign essential hypertension Surgical History History of eye surgery Family History Father Medical history unknown Mother Cancer Social History Housing: House Alcohol intake: never Patient Tobacco Use Status: Never used Tobacco e-Cigarette/Vaping Use: Never Used Second Hand Smoke Exposure: Yes service: No Current occupational status: employed 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, 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 Cognitive needs: No Hearing needs: No Vision needs: No Review of Systems Const All systems reviewed & are unremarkable except as noted in HPI and below Physical Exam Vital Signs: Last Vital Signs Pulse 90 05/20/25 14:45 BP 120/80 05/20/25 14:45 Pulse Ox 97 05/20/25 14:45 Oxygen Delivery Method Room Air 05/20/25 14:45 BMI result Body Mass Index 26.1 Const General: comfortable and no acute distress Orientation/consciousness: patient oriented x3 HEENT Head: Yes normocephalic Mouth: Normal oral and palatal mucosa present Eyes EOM: EOMs intact bilaterally Neck Neck: Yes supple Resp Auscultation: clear to auscultation bilaterally Cardio Jugular venous distension: no JVD Rate: regular rate GI Palpation (GI): Soft to palpation Auscultation: normal bowel sounds General: Yes no CVA tenderness Back/Spine/Pelvis Back: no CVA tenderness Skin General skin exam: no rashes or lesions noted Neuro General: patient oriented x3 and moves all extremities Extrem General: Yes no pedal edema Results Reviewed Nephrology Results: Hgb, (14.0-18.0) 11.6 g/dl L 05/16/25 WBC, (4.8-10.8) 7.5 X10*3/uL 05/16/25 Plt Count, (160-400) 301 X10*3/uL 05/16/25 Sodium, (135-145) 138 mmol/L 05/16/25 Potassium, (3.3-5.1) 4.4 mmol/L 05/16/25 Chloride, (96-108) 103 mmol/L 05/16/25 Carbon Dioxide, (22-29) 25 mmol/L 05/16/25 BUN, (9-16) 80 mg/dL H 05/16/25 Creatinine, (0.5-1.4) 7.42 mg/dL H* 05/16/25 Calcium, (8.4-10.2) 8.8 mg/dL 05/16/25 Phosphorus, (2.7-4.5) 5.0 mg/dL H 05/16/25 PTH Intact, (8.7-77.1) 680.0 pg/mL H 03/14/25 Urine Protein, (Neg-Trace) 300 (3+) mg/dL H 05/07/25 Assessment & Plan Assessment & Plan (1) Benign essential hypertension: Code(s): I10 - Essential (primary) hypertension Category: Medical (2) Secondary hyperparathyroidism (of renal origin): Code(s): N25.81 - Secondary hyperparathyroidism of renal origin Category: Medical (3) CKD (chronic kidney disease) stage 5, GFR less than 15 ml/min: Code(s): N18.5 - Chronic kidney disease, stage 5 Category: Medical Plan Nasir has stage V CKD for a long time. His lisinopril has been on hold since serum creatinine has been going up. He is on a lipid-lowering agent. He takes low-sodium diet. He maintains good hydration. He avoids nonsteroidal anti- inflammatories. He should continue Amlodipine 10 mg daily. I increased his calcitriol to 0.25 mcg five times a week. He may need a phos lowering medication soon. He is listed in [facility] renal transplant and [facility]. He is on Allopurinol 100 mg daily . He had PD education. I did not make any other medication changes today. Discussed about PD as well as renal transplant. Answ ered all questions. Orders: Orders Complete Blood Count Auto Diff 2 Months I10 - Essential (primary) hypertension, N18.5 - Chronic kidney disease, stage 5, N25.81 - Secondary hyperparathyroidism of renal origin Electrolytes 2 Months I10 - Essential (primary) hypertension, N18.5 - Chronic kidney disease, stage 5, N25.81 - Secondary hyperparathyroidism of renal origin Blood Urea Nitrogen 2 Months I10 - Essential (primary) hypertension, N18.5 - Chronic kidney disease, stage 5, N25.81 - Secondary hyperparathyroidism of renal origin Creatinine 2 Months I10 - Essential (primary) hypertension, N18.5 - Chronic kidney disease, stage 5, N25.81 - Secondary hyperparathyroidism of renal origin Calcium 2 Months I10 - Essential (primary) hypertension, N18.5 - Chronic kidney disease, stage 5, N25.81 - Secondary hyperparathyroidism of renal origin Phosphorus 2 Months I10 - Essential (primary) hypertension, N18.5 - Chronic kidney disease, stage 5, N25.81 - Secondary hyperparathyroidism of renal origin Parathyroid Hormone Intact 2 Months I10 - Essential (primary) hypertension, N18.5 - Chronic kidney disease, stage 5, N25.81 - Secondary hyperparathyroidism of renal origin Coding Level of Care Code Est Pt Level 4 (42825) Diagnoses Benign essential hypertension I10 Secondary hyperparathyroidism (of renal origin) N25.81 CKD (chronic kidney disease) stage 5, GFR less than 15 ml/min N18.5
[2025-05-20 14:45] VITALS: BP 120/80; PULSE 90; O2SAT 97; BMI 26.1
--- OUTSIDE RECORDS SUMMARY | 2025-05-20 15:59 | XMS_ITS ---
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) Hypertensive Nephrosclerosis Care Team Name Role Phone Fax Email Lori Mustafa RN Kidney Coordinator [phone] N/A David Antonio Referring Physician [phone] N/A Events Pre-Transplant Referred: 04/15/2024 Evaluation began: 05/06/2024 Committee: 09/01/2024 Center waitlisted: 09/14/2024 Appointments (04/20/2025 - 06/20/2025) When With Visit Type Description 05/03/2025 Transplant - Belem Hinton Follow U p 05/03/2025 Transplant - Amelia Pollard Follow Up Pre -transplant evaluation for kidney transplant (Primary Dx); Stage 5 chronic kidney disease not on chronic dialysis
--- OUTSIDE RECORDS SUMMARY | 2025-05-20 15:59 | XMS_ITS | Patient Health Record ---
Author [facility] Address [address] [place] [address] Care Team Providers Care Lens Block Gauger Name Role Phone Reynaldo SAMAYOA, Dwayne Primary Care Provider Lori Jasmine Unavailable [phone] Allergies No Known Allergies Reason For Referral No Information Medications Medication SIG (Take, Route, Frequency, Duration) Notes Start Date End Date Status Atorvastatin Calcium 10 MG 1 tablet Oral ly Once a day; Duration: 30 day(s) Active Ciclopirox 0.77 % 1 application Local Superintendent ally Twice a day; Duration: 365 days [...] Notes Problem Gouty arthritis of right foot ([id number] 107) Gouty arthritis of right foot (M10.9) Active confirmed Plan Of Treatment Pending Test Test Name Order Date , [id number]/INJECT, JOINT/BURSA 0 09/20/2022 Insurance Providers Payer Name Payer Address Payer Phone Subscriber Number Group Number Insured Name Patient Relationship to Insured Coverage Start Date Coverage End Date Blue Benefits [address] [address] [place] [address] [id number] Nasir Jo Self - patient is the insured Medical (General) History Medical History History ICD Code Hypertension Hyperlipidemia Chronic Kidney Disease, stage III (moder ate) Vitamin D deficiency Obesity Surgical History Surgery Date(Month/Year) eye surgery
--- OUTSIDE RECORDS SUMMARY | 2025-05-20 15:59 | XMS_ITS | Clinical Summary ---
Author Organization [facility] Address [address] [place] [address] Care Team Providers Care Automation Engineer Name Role Phone Ref, Hasnopcp Primary Care [...] Description 05/03/2025 10:30 AM EST Social Work [facility] Transplant [address] [place] [address] Cecelia Hinton LICSW 05/03/2025 10:00 AM EST Follow-Up [facility] [address] [place] [address] Tobi Pollard MD Pre-transplant evaluation for kidney transplant (Primary Dx); Stage 5 chronic kidney disease not on chronic dialysis 05/03/2025 Orders Only [facility] Transplant Department [address] [place] [address] Lori Mustafa RN Pre-transplant evaluation for end [...] Info) Description 05/02/2026 10:00 AM EST Follow-Up [facility]plant [address] [place] [address] Tobi Pollard MD [address] [place] [address] 05/02/2026 10:30 AM EST Social Work [facility]plant [address] [place] [address] Tobi Pollard MD [address] [place] [address] Cecelia Hinton LICSW [address] [place] [address] Health Maintenance Due Date Last Done Comments [...] this topic Procedures * Due to [place] CWR Mobility law, this organization might not be [...] to Health Maintenance Results * Due to [place] CWR Mobility law, this organization might not be sharing negative HIV tests. * (ABNORMAL) CBC Auto Differential (05/06/2024 11:27 AM EST) WBC 8.1 3.8 - 10.8 10*3/uL 05/06/2024 11:51 AM EST [facility] RBC 4.64 4.20 - 5.80 10*6/uL 05/06/2024 11:51 AM EST [facility] Hemoglobin 13.8 13.2 - [...] 0.04(H) <=0.03 10*3/uL 05/06/2024 11:51 AM EST [facility] Lymphocyte # 1.00 0.85 - 3.90 10*3/uL 05/06/2024 11:51 AM EST [facility] Monocyte # 0.30 0.20 - 0.95 10*3/uL 05/06/2024 11:51 AM EST [facility] Eosinophil # 0.10 0.02 - 0.50 10*3/uL 05/06/2024 11:51 AM EST [facility] Basophil # <0.03 0.00 - 0.20 10*3/uL 05/06/2024 11:51 AM EST [facility] [place] [facility] nRBC % 0.0 /100 WBCs 05/06/2024 11:51 AM EST [facility] [place] [facility] nRBC # <0.01 <0.01 10*3/uL 05/06/2024 11:51 AM EST [facility] Blood Structure of peripheral vein / Unknown Venipuncture / Unknown 05/06/2024 11:27 AM EST 05/06/2024 11:42 AM EST us Tobi Pollard MD LAB BLOOD ORDERABLES Monica abernathy Result [facility] [address] [place] [address], * Hepatitis C Antibody w/Reflex to PCR (05/06/2024 11:27 AM EST) Hepatitis C Antibody NON-REACT KISHA NON-REACT KISHA 05/07/2024 3:30 AM EST [employer] [facility] Comment: HCV antibody was non-reactive. There is no laboratory evidence of HCV infection. In most cases, no further action is required. However, if recent HCV exposure is suspected, a test for HCV RNA (test code 91395) is suggested. For additional information please refer to http://[email or web address]/JFA05k5 (This link is being provided for informational/ educational purposes only.) Blood Structure of peripheral vein / Unknown Venipuncture / Unknown 05/06/2024 11:27 AM EST 05/06/2024 11:42 AM EST Narrative [facility] - 05/07/2024 3:30 AM EST [facility] Received Date: Tobi Pollard MD LAB BLOOD ORDERABLES Monica l Result [facility] [address], [place] [address], [place] [phone] [facility] [address], [place] [address], [place] [phone] * Phosphorus (05/06/2024 11:27 AM EST) Phosphorus 3.8 2.5 - 4.5 mg/dL 05/06/2024 12:13 PM EST [facility] Blood Structure of peripheral vein / Unknown Venipuncture / Unknown 05/06/2024 11:27 AM EST 05/06/2024 11:42 AM EST Tobi Pollard MD LAB BLOOD ORDERABLES Monica l Result [facility] [address] [place] [address] from Last 3 Months or Most Recently Relevant to Health Maintenance Insurance [employer] Advance Directives Documents on File Type Date Recorded Patient Associate Director Career Services Expl [facility] Health Care Proxy 05/11/2024 1:39 PM 12-0 Care Teams Automation Engineer Relationship Specialty Start Date End Date Ref, Channing DO NOT EDIT THIS RECORD VIA PROVIDER ON THE FLY PCP - General Circus Laborer 05/06/24
== END 2025-05-20 15:04 | disposition home or self-care (01) ==
LOC: HO.HKA 14:35
PROVIDERS: PCP Internal Medicine; Visit Provider Internal Medicine Nephrology
DX: I12.0 Hypertensive chronic kidney disease with stage 5 chronic kidney disease or end stage renal disease (principal); N25.81 Secondary hyperparathyroidism of renal origin; N18.5 Chronic kidney disease, stage 5
CPT/HCPCS: 99214

== ENCOUNTER 2025-05-25 09:57 | Outpatient (AMB) | payer OTHER, SELFPAY ==
--- OUTSIDE RECORDS SUMMARY | 2025-05-20 23:59 | XMS_ITS | Continuity of Care Document ---
Author Organization [facility] Address [address] [place] [address]- [facility] Name Relationship Address Phone MEERA STALLINGS unrelated friend Unknown UnavailABE Ortez mother Unknown Unavailable Care Team Providers Care Director Of Sales Marketing Name Role Phone Reynaldo SAMAYOA, Dwayne Hua Primary Care Physician Encounter [facility] ACCT R [id number] Date(s): 04/20/25 - 05/20/25 [facility] [address] [place] [address]- Attending Physician: Lore Barraza Admitting Physician: Lore Barraza Referring Physician: Lore Barraza Encounter Type: Triage Allergies, Adverse Reactions, Alerts No Known Allergies Immunizations Given and Recorded Vaccine Date Status Refusal Reason hepatitis B adult vaccine 12/24/24 Given hepatitis B adult vaccine 11/02/24 Given Medications allopurinol 100 mg oral tablet TAKE 1 TABLET BY MOUTH EVERY DAY Start Date: 10/05/24 Status: Ordered Medication Dispense Status: Completed Total Allowed Fills: 1 Fills Dispensed: 0 amLODIPine 5 mg oral tablet TAKE 1 TABLET BY MOUTH TWICE A DAY Start Date: 10/05/24 Status: Ordered Medication Dispense Status: Completed Total Allowed Fills: 1 Fills Dispensed: 0 atorvastatin 20 mg oral tablet TAKE 1 TABLET BY MOUTH DAILY FOR 90 DAYS Start Date: 10/05/24 Status: Ordered Medication Dispense Status: Completed Total Allowed Fills: 1 Fills Dispensed: 0 fluticasone 50 mcg/inh nasal spray SPRAY 2 SPRAYS INTO EACH NOSTRIL DAILY NEEDED FOR ALLERGY SYMPTOMS FOR 30 DAYS Start Date: 10/05/24 Status: Ordered Medication Dispense Status: Completed Total Allowed Fills: 1 Fills Dispensed: 0 lisinopril 5 mg oral tablet TAKE 1 TABLET BY MOUTH EVERY DAY FOR 90 DAYS Start Date: 10/05/24 Status: Ordered Medication Dispense Status: Completed Total Allowed Fills: 1 Fills Dispensed: 0 [place]-3 1000 mg oral capsule 1 capsule = 1,000 mg, By Mouth, 2 times a day, 0 Refills, Maintenance, 10/05/24 2:48:00 PM EDT, Partial fill upon patient request if the prescription is for a schedule II opioid drug. Start Date: 10/05/24 Status: Ordered Medication Dispense Status: Completed Total Allowed Fills: 1 Fills Dispensed: 0 Vitamin D3 1000 intl units oral tablet 1 tablet = 25 mcg, By Mouth, Daily, # 30 tablet, 0 Refills, Maintenance, 10/05/24 2:49:00 PM EDT, Tablet, Partial fill upon patient request if the prescription is for a schedule II opioid drug. Start Date: 10/05/24 Status: Ordered Medication Dispense Status: Completed Quantity: 30.0 Unit: tablet Total Allowed Fills: 1 Fills Dispensed: 0 Social History Social History Type Response Sex Sex Representation Male (finding) Patient Care team information Care Team Personnel Name: Dwayne Jacobs MD Position: Reference Physician Member Role: PCP Address: [address] [place] [address] Telecom: Name: Evita Oh Position: [facility] AMB Nurse Member Role: Lifetime Consulting Physician Care Team Related Persons Name: ABE PIERCE Name: MEERA STALLINGS Insurance Providers Guarantor name: FRANCISCO CINDY PIERCE Health Plan Information #: 1 Payer: BLUE BENEFIT BBA PPO Payer Identifier: HAO Member Number: [id number] Group Number: [id number] Subscriber Identifier: NA Relationship to Subscriber: self Coverage Type: BLUE CROSS/BLUE SHIELD Coverage Verification Date: NA Telecom: NA Address:
--- NOTE | 2025-05-25 10:05 | A.OFFPC_ITS ---
Vital Signs 05/25/25 10:24 Height 5 ft 8 in Weight 167 lb 2 oz BMI 25.4 BP 110/72 Blood Pressure Location Lt brachial Position Sitting Respiration 18 Pulse 82 Pulse Source Pulse Oximeter Temp 97.3 F Temp Source Temporal Artery Scan Pulse Oximetry (%) 98 Oxygen Delivery Method Room Air Intake Visit Reasons: Side effects flu shot Intake Note: Patient is here to follow up on Side effect of flu shot. Pulling Unit Floorhand Required: No Cloth Bolt Bander: Present Accompanied by: Spouse Allergies No Known Allergies Allergy (Verified 05/25/25 10:47) Medication List - Last Reconciled 05/25/25 by Dwayne Jacobs MD allopurinol 100 mg PO DAILY amlodipine 5 mg PO BID atorvastatin 20 mg PO DAILY 90 days calcitriol 0.25 mcg PO 3XW cholecalciferol (vitamin D3) 25 mcg PO DAILY 90 days fexofenadine 180 mg PO DAILY PRN 30 days fluticasone propionate 50 mcg/actuation 2 sprays intranasal DAILY PRN 30 days loratadine 10 mg PO DAILY PRN 90 days nystatin 1 appl topical TID 10 days omega-3 fatty acids (Fish Oil Concentrate) 1,000 mg PO DAILY Tobacco use date assessed: 05/25/25 Dental Screening Dental Screen Date: 01/18/25 HPI Side effects flu shot HPI Details - The patient is a 45 year old male pres enting with an adverse reaction to a flu shot received on Friday - 4 days ago - He developed symptoms the following da y, which included left upper arm pain, chills described as feeling hot and cold, and difficulty sleeping. - The arm was too tender to touch, and h e has been unable to go to work since the symptoms started. - He denies any fever. - He reports having received flu shots i n the past without any problems. - He is also a candidate for a future ki dney transplant. - No other acute complaints or symptoms are noted [facility] Medical History Hyperuricemia Allergic rhinitis Chronic kidney disease, stage V Chronic kidney disease, stage 4 (severe) Overweight (BMI 25.0-29.9) Acute angle-closure glaucoma of right eye Obesity (BMI 30-39.9) Vitamin D deficiency Pure hypercholesterolemia Benign essential hypertension Surgical History History of eye surgery Family History Father Medical history unknown Mother Cancer Social History Housing: House Alcohol intake: never Patient Tobacco Use Status: Never used Tobacco e-Cigarette/Vaping Use: Never Used Second Hand Smoke Exposure: Yes service: No Current occupational status: employed 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 Depression Screening Interpretation: Negative Depression Screening Done: Yes Source: Developed by Drs. Crow Marley, Dafne Rivero, Micky Leos and colleagues, with an educational zafar from [employer]. Thrive Questionnaire Date Thrive assessed: 10/13/24 I am a: Patient What is your living situation today?: I have a steady place to live Within the past 12 months, did the food you bought not last and you didn't have the money to get more?: Never true Within the past 12 months, did you worry whether your food would run out before you got money to buy more?: Never true Do you have trouble paying for medicines?: No Do you have trouble getting transportation to medical appointments?: No Do you have trouble paying your heating and electricity bill?: No Do you have trouble taking care of your child, family member or friend?: No Do you have trouble with day-to-day activities such as bathing, preparing meals, shopping, managing finances, etc.?: No Are you currently unemployed and looking for a job?: Yes Are you interested in more education?: No Currently or been in a relationship where the following occur: No concerns reported THRIVE Score: 0 GUERA-7 AMB Questionnaire GUERA-7 Date GUERA - 7 assessed: 01/18/25 Source: Developed by Drs. Crow Marley, Dafne Rivero, Micky Leos and colleagues, with an educational zafar from [employer]. Review of Systems Const Denies chills, Denies fatigue, Denies fever(s) and Denies headache(s) ENT Denies dizziness, Denies headache(s), Denies neck pain and Denies sore throat Card Denies chest pain, Denies palpitations and Denies dyspnea Resp Denies cough and Denies dyspnea GI Denies abdominal pain, Denies diarrhea, Denies nausea and Denies vomiting Musc Denies back pain and Denies neck pain Skin/Breast Details: (+) redness, swelling and pain over the left upper arm, mostly around his recent injection site Neuro Denies dizziness and Denies headache(s) Endo Denies fatigue and Denies palpitations Aller/Immun Reports seasonal rhinorrhea Physical exam (Primary Care) Vital Signs: Last Vital Signs Temp 97.3 F 05/25/25 10:24 Pulse 82 05/25/25 10:24 Resp 18 05/25/25 10:24 BP 110/72 05/25/25 10:24 Pulse Ox 98 05/25/25 10:24 Oxygen Delivery Method Room Air 05/25/25 10:24 BMI result Body Mass Index 25.4 Tobacco/Smoking Status: Tobacco use Status Tobacco use date assessed 05/25/25 05/25/25 10:25 Patient Tobacco Use Status Never used Tobacco 05/25/25 10:25 e-Cigarette/Vaping Use Never Used 05/25/25 10:25 Depression Screening Interpretation: Negative Thrive Assessment: Date of Thrive Assessment Date Thrive assessed 10/13/24 05/25/25 10:25 Currently or been in a relationship where the following occur: No concerns reported Const General: no acute distress and alert Neck Neck: Yes supple and No lymphadenopathy Thyroid: Thyroid normal Resp Auscultation: clear to auscultation bilaterally, no rales and no wheezes Cardio Rate: regular rate Rhythm: regular rhythm Heart sounds: no murmurs GI Palpation (GI): Soft to palpation and nontender Auscultation: normal bowel sounds General: Yes no CVA tenderness Back/Spine/Pelvis Back: no CVA tenderness Extrem Other: (+) increased erythema and tenderness and mild edema over the lateral aspect of the left upper arm, which feels slightly warm to touch General: Yes no clubbing, cyanosis or edema Coding Level of Care Code Est Pt Level 3 (38297) Diagnoses Injection site reaction, initial encounter T80.90XA Encounter type: initial encounter Cellulitis of left upper arm L03.114 Assessment & Plan Assessment & Plan (1) Injection site reaction: Code(s): T80.90XA - Unspecified complication following infusion and therapeutic injection, initial encounter Category: Medical Qualifiers: Encounter type: initial encounter Qualified Code(s): T80.90XA - Unspecified complication following infusion and therapeutic injection, initial encounter (2) Cellulitis of left upper arm: Code(s): L03.114 - Cellulitis of left upper limb Category: Medical Plan Patient is instructed to start applying some warm compress over the red and swollen area on his left upper arm PRN for symptomatic relief Advised that he can just take OTC Tylenol PRN for pain Will start him empirically on Doxycycline 100 mg BID x 7 days He is advised to call if he does not experience any significant improvement of his left upper arm symptoms over the coming weekend Follow up as scheduled in July 2025 Medications: New doxycycline hyclate 100 mg PO BID 14 caps 0RF 7 days
--- OUTSIDE RECORDS SUMMARY | 2025-05-25 10:10 | XMS_ITS | Patient Health Record ---
Author Organization [facility] Address [address] [place] [place] [address] Care Team Providers Care Cupboard Builder Name Role Phone Reynaldo SAMAYOA, Dwayne Primary Care Provider Lori Jasmine Unavailable [phone] Allergies No Known Allergies Reason For Referral No Information Medications Medication SIG (Take, Route, Frequency, Duration) Notes Start Date End Date Status Atorvastatin Calcium 10 MG 1 tablet Oral ly Once a day; Duration: 30 day(s) Active Ciclopirox 0.77 % 1 application Dairy Nutrition Specialist ally Twice a day; Duration: 365 days [...] Notes Problem Gouty arthritis of right foot (4714818074326 107) Gouty arthritis of right foot (M10.9) Active confirmed Plan Of Treatment Pending Test Test Name Order Date , [id number]/INJECT, JOINT/BURSA 0 09/20/2022 Insurance Providers Payer Name Payer Address Payer Phone Subscriber Number Group Number Insured Name Patient Relationship to Insured Coverage Start Date Coverage End Date Blue Benefits [address] [address] [place] [address] [id number] Nasir Jo Self - patient is the insured Medical (General) History Medical History History ICD Code Hypertension Hyperlipidemia Chronic Kidney Disease, stage III (moder ate) Vitamin D deficiency Obesity Surgical History Surgery Date(Month/Year) eye surgery
--- OUTSIDE RECORDS SUMMARY | 2025-05-25 10:10 | XMS_ITS ---
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) Hypertensive Nephrosclerosis Care Team Name Role Phone Fax Email Lori Mustafa RN Kidney Coordinator [phone] N/A David Antonio Referring Physician [phone] N/A Events Pre-Transplant Referred: 04/15/2024 Evaluation began: 05/06/2024 Committee: 09/01/2024 Center waitlisted: 09/14/2024 Appointments (04/25/2025 - 06/25/2025) When With Visit Type Description 05/03/2025 Transplant - Belem Hinton Follow U p 05/03/2025 Transplant - Amelia Pollard Follow Up Pre -transplant evaluation for kidney transplant (Primary Dx); Stage 5 chronic kidney disease not on chronic dialysis
--- OUTSIDE RECORDS SUMMARY | 2025-05-25 10:10 | XMS_ITS | Clinical Summary ---
Author Organization [facility] Address [address] [place] [address] Care Team Providers Care Rn Embedded Name Role Phone Ref, Hasnopcp Primary Care [...] Description 05/03/2025 10:30 AM EST Social Work [facility] Renal Transplant [address] [place] [address] Cecelia Hinton LICSW 05/03/2025 10:00 AM EST Follow-Up [facility] Renal Transplant [address] [place] [address] Tobi Pollard MD Pre-transplant evaluation for kidney transplant (Primary Dx); Stage 5 chronic kidney disease not on chronic dialysis 05/03/2025 Orders Only [facility] Transplant Department [address] [place] [address] Lori Mustafa RN Pre-transplant evaluation for end [...] Info) Description 05/02/2026 10:00 AM EST Follow-Up [facility] Renal Transplant [address] [place] [address] Tobi Pollard MD [address] [place] [address] 05/02/2026 10:30 AM EST Social Work [facility] Renal Transplant [address] [place] [address] Tobi Pollard MD [address] [place] [address] Cecelia Hinton LICSW [address] [place] [address] Health Maintenance Due Date Last Done Comments [...] complete this topic Procedures * Due to [place] law, this organization might not be sharing [...] to Health Maintenance Results * Due to [place] law, this organization might not be sharing negative HIV tests. * (ABNORMAL) CBC Auto Differential (05/06/2024 11:27 AM EST) WBC 8.1 3.8 - 10.8 10*3/uL 05/06/2024 11:51 AM EST [facility] RBC 4.64 4.20 - 5.80 10*6/uL 05/06/2024 11:51 AM EST [facility] Hemoglobin 13.8 13.2 - [...] 0.04(H) <=0.03 10*3/uL 05/06/2024 11:51 AM EST [facility]PITALInVisage TechnologiesKY [facility] Lymphocyte # 1.00 0.85 - 3.90 10*3/uL 05/06/2024 11:51 AM EST [facility]ITALTrans Tasman ResourcesRIC[employer] [facility] Monocyte # 0.30 0.20 - 0.95 10*3/uL 05/06/2024 11:51 AM EST [facility] Eosinophil # 0.10 0.02 - 0.50 10*3/uL 05/06/2024 11:51 AM EST [facility] Basophil # <0.03 0.00 - 0.20 10*3/uL 05/06/2024 11:51 AM EST [facility] nRBC % 0.0 /100 WBCs 05/06/2024 11:51 AM EST [facility] nRBC # <0.01 <0.01 10*3/uL 05/06/2024 11:51 AM EST [facility] Blood Structure of peripheral vein / Unknown Venipuncture / Unknown 05/06/2024 11:27 AM EST 05/06/2024 11:42 AM EST us Tobi Pollard MD LAB BLOOD ORDERABLES Monica abernathy Result [facility] [address] [place] [address], * Hepatitis C Antibody w/Reflex to PCR (05/06/2024 11:27 AM EST) Hepatitis C Antibody NON-REACT KISHA NON-REACT KISHA 05/07/2024 3:30 AM EST [facility] Comment: HCV antibody was non-reactive. There is no laboratory evidence of HCV infection. In most cases, no further action is required. However, if recent HCV exposure is suspected, a test for HCV RNA (test code 82608) is suggested. For additional information please refer to http://education.[employer]/faq/HMD96v7 (This link is being provided for informational/ educational purposes only.) Blood Structure of peripheral vein / Unknown Venipuncture / Unknown 05/06/2024 11:27 AM EST 05/06/2024 11:42 AM EST Narrative [facility] - 05/07/2024 3:30 AM EST [facility] Received Date: Tobi Pollard MD LAB BLOOD ORDERABLES Monica l Result [facility] [address] [address], [place] [address], [place] [phone] [employer] [address] [facility] [address], [place] [address], [place] [phone] * Phosphorus (05/06/2024 11:27 AM EST) Phosphorus 3.8 2.5 - 4.5 mg/dL 05/06/2024 12:13 PM EST [facility] Blood Structure of peripheral vein / Unknown Venipuncture / Unknown 05/06/2024 11:27 AM EST 05/06/2024 11:42 AM EST Tobi Pollard MD LAB BLOOD ORDERABLES Monica l Result [facility] [address] [place] [address] from Last 3 Months or Most Recently Relevant to Health Maintenance Insurance [employer] Advance Directives Documents on File Type Date Recorded Patient Conveyor Line Battery [employer]ger Expl [facility] Health Care Proxy 05/11/2024 1:39 PM 12-0 Care Teams Rn Embedded Relationship Specialty Start Date End Date Ref, [place] DO NOT EDIT THIS RECORD VIA PROVIDER ON THE FLY PCP - General Dialer 05/06/24
[2025-05-25 10:24] VITALS: BP 110/72; PULSE 82; RESP 18; TEMP 36.3; O2SAT 98; BMI 25.4
== END 2025-05-25 10:54 | disposition home or self-care (01) ==
LOC: HO.HMCH 09:58
PROVIDERS: PCP Internal Medicine; Visit Provider Internal Medicine
DX: T80.90XA Unspecified complication following infusion and therapeutic injection, initial encounter (principal); L03.114 Cellulitis of left upper limb